=== PATIENT | male | born 1945 | race Caucasian/White ===

== ENCOUNTER 2016-04-12 16:03 | Emergency (ER) | payer MEDICARE ==
[2016-04-12] MEDS ORDERED: Acetaminophen 325 MG TAB ONE ×2 (16:59→19:57)
[2016-04-12] MEDS ORDERED: Acetaminophen 325 MG Suppository ONE (16:59)
[2016-04-12 17:10] LABS: #Basophils 0.1 thou/uL (0.0-0.2); #Eosinphils 0.9 thou/uL (0.0-0.7); #Lymphocytes 2.4 thou/uL (1.20-3.40); #Monocytes 0.9 thou/uL (0.11-0.59); %Eosinophils 7.7 % (0.0-10.0); %Monocytes 8.3 % (0.0-10.0); Mean Platelet Volume 8.9 fL (7.4-10.4); Red Blood Cell (RBC) Count 4.64 mill/uL (4.70-6.10); White Blood Cell (WBC) Count 11.3 thou/uL (4.8-10.8)
[2016-04-12 17:20] LABS: Lactic Acid - Sepsis 1.6 mmol/L (0.5-2.2)
--- NOTE | 2016-04-12 17:25 | CT ---
CT BRAIN WITHOUT CONTRAST: History: Altered mental status. FINDINGS: Comparison is made with exam 01-18-13. There are changes of cortical atrophy. Ventricular size is appropriate and the basilar cisterns are patent. No evidence of acute infarct, hemorrhage, midline shift, or abnormal extraaxial fluid brittany ections are seen. The bony calvarium is intact. 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 IMPRESSION: No CT evidence of acute intracranial process. POS: [facility]
[2016-04-12 17:26] LABS: Anion Gap 20 mmol/L (10-20); Globulin 4.1 g/dL (2.4-3.5)
[2016-04-12 17:28] LABS: Troponin I 0.014 ng/mL (< 0.028)
[2016-04-12 17:38] LABS: ALT (SGPT) 21 U/L (0-55); AST (SGOT) 19 U/L (5-34); Alkaline Phosphatase 90 U/L (40-150); BUN (Urea Nitrogen) 35 mg/dL (8.4-25.7); Bilirubin, Total 0.4 mg/dL (0.2-1.2); Calc. Creatinine Clearance 0 mL/min (70-130); Calcium 9.7 mg/dL (7.8-10.44); Carbon Dioxide 19 mmol/L (23-31); Chloride 100 mmol/L (98-107); Estimated GFR-MDRD 34; Protein, Total 8.1 g/dL (5.8-8.1)
--- NOTE | 2016-04-12 17:39 | RAD ---
PORTABLE CHEST: Date: 04-12-16 Time: 4:55 p.m. History: Constipation, altered mental status. FINDINGS: Comparison is made with exam of 02-26-16. The heart is enlarged. The right sided port-a-cath remains in place. No focal areas of consolidati on, pneumothorax, lowell edema or pleural effusions are seen. IMPRESSION: No acute process. POS: [facility]
[2016-04-12 17:48] LABS: Bilirubin Negative (Negative); Blood, Urine Small (Negative); Glucose, Urine (Dipstick) 100 mg/dL (Negative); Ketone, Urine Trace mg/dL (Negative); Nitrite Positive (Negative); Protein, Urine (Dipstick) 30 mg/dL (Neg-Trace); Urobilinogen 0.2 mg/dL (0.2-1.0)
[2016-04-12] MEDS ORDERED: Aspirin 325 MG TAB ONE (17:51)
[2016-04-12 17:56] LABS: RBC/HPF 0-3 HPF (0-3)
[2016-04-12 17:57] LABS: Bacteria/HPF 4+ HPF (None Seen)
[2016-04-12 18:01] LABS: PTT 23.6 SEC (22.9-36.1); Prothrombin Time 12.8 SEC (12.0-14.7)
[2016-04-12] MEDS ORDERED: Enoxaparin Sodium 120 MG/0.8 ML SYRINGE SC ONE (18:35)
--- NOTE | 2016-04-12 19:35 | ERRECORD ---
[facility] EMERGENCY RECORD HPI MENTAL STATUS CHANGES (18:31 JOHE) CHIEF COMPLAINT: Patient presents for evaluation of confusion. HISTORIAN: History provided by patient, History provided by patient's spouse, Spouse reports patient had episode of confusion and difficulty recalling things that began suddenly about 20 minutes prior to arrival in ED, and lasted until just after arrival to ED. Patient reports he has not been sleeping well for past several nights, and reports he had a n occipital headache until this morning, now gone. Seen here for abdominal pain/constipation last night and reports had a loose BM earlier that improved the pain, but it is still there. Patient denies F&C, vomiting, hematochezia, melena, urinary symptoms, CP, SOB, palpitations. There was no facial droop, numbness/tingling or weakness or slurring of the speech. Patient has a-fib, but no currently taking Coumadin. Did not take his aspirin today. reports patient did take his insulin just before she realized he was confused, and they are not sure if he took the correct amount or not. LOCATION: Symptoms are generalized. QUALITY: Patient is alert and oriented to person, place and time, Camila coma score is 15, Pain is dull in nature, described as a sensation of fullness, abdominal fullness. SEVERITY: Maximum severity of symptoms severe, Currently there are no symptoms. TIME COURSE: Sudden onset of symptoms, just prior to arrival, 20, minutes prior to arrival, Symptoms are constant, Symptoms have resolved. ASSOCIATED WITH: Associated symptoms reviewed, No associated alcohol use, No associated altered sensation, No associated chest pain, No associated decrease in oral intake, No associated dizziness, No associated drug use, No associated fever, No associated focal weakness, No associated headache, No associated hyperglycemia, No associated hypoglycemia, No associated lightheadedness, Associated with nausea, No associated neck pain, No associated overdose, No associated palpitations, No associated seizures, No associated severe hypertension, No associated syncope, No associated trauma, No associated upper respiratory infection, No associated vomiting, No associated weakness, Denies any other complaints. EXACERBATED BY: Patient's condition exacerbated by nothing. RELIEVED BY: Patient's condition relieved spontaneously. RISK FACTORS: CVA/TIA risk factors, Atrial fibrillation, Heart disease, Diabetes mellitus, Hypertension, Subarachnoid hemorrhage risk factors, no first degree relative, no history of subarachnoid hemorrhage, No evidence of Marfan's Syndrome, no Analia Danlos Syndrome, No Sympathomimetic Drug Use, no polycystic kidney. ROS (18:37 JOHE) CONSTITUTIONAL: Historian denies chills, denies fever, denies lethargy, denies malaise, denies weakness. &a-1R&a+25V*p+0X*[id number]*c202B*c15G*c2P*p-0X&a-25V&a+1R Name: Dano Wright : 1945 M70 MedRec: [id number] AcctNum: [id number] Prepared: WedApr 13, 2016 00:03 by Interface Page 1 of 6 pMD [facility] EMERGENCY RECORD EYES: Historian denies eye pain, denies eye redness, denies nystagmus, denies photophobia, denies vision changes. ENT: Historian denies drooling, denies dysphagia, denies dysphasia, denies dysphonia, denies hearing changes, denies otalgia, denies rhinorrhea, denies sore throat, denies stridor, denies tinnitus, denies voice changes. CARDIOVASCULAR: Historian denies chest pain, denies diaphoresis, denies dyspnea on exertion, denies orthopnea, denies syncope, denies palpitations. RESPIRATORY: Historian denies cough, denies shortness of breath, denies wheezing. GI: Historian reports abdominal pain, denies appetite changes, reports constipation, denies diarrhea, denies hematemesis, denies hematochezia, denies melena, reports nausea, denies vomiting. GENITOURINARY MALE: Historian denies dysuria, denies hematuria, denies urinary frequency, denies urinary urgency. self-caths due to complications from cancer treatment. MUSCULOSKELETAL: Historian denies back pain, denies joint redness, denies joint swelling, denies myalgias, denies neck pain. SKIN: Historian denies cellulitis, denies rash, denies skin lesions. NEUROLOGIC: Historian reports confusion, denies dizziness, denies focal weakness, denies gait changes, denies headache, denies lethargy, reports mental status changes, denies paralysis, denies paresthesias, denies seizures, denies sensory changes, denies speech changes, denies tremors. HEMO/LYMPHATIC: Historian denies abnormal blood clotting, denies easy bruising, denies petechiae. PSYCHIATRIC: Historian denies alcohol abuse, denies drug abuse, denies hallucinations, denies mood changes. NOTES: All systems reviewed, negative except as described above. PAST MEDICAL HISTORY (16:15 MCBE) MEDICAL HISTORY: Flu vaccine up to date, Tetanus immunization up to date, Pneumococcal vaccine up to date, Past medical history includes cardiac history, arrhythmia, atrial fibrillation, ablation 2.5 years ago, Notes: stage 4 colon cancer (remissionx7 years), Past medical history includes history of diabetes, Type II, on insulin, Past medical history includes history of hypertension, which has been treated, Past medical history includes neurological disease, neuropathy, restless leg syndrome, Past medical history includes history of obesity, Past medical history includes pulmonary disease, Sleep apnea. MALE SURGICAL HISTORY: Surgical history of cholecystectomy, Surgical history of tonsillectomy, COLON SX 7 YEARS AGO LIVER RESECTION. RIGHT 4TH DIGIT AMPUTATION (MARCH 2016) HERNIA REPAIR. PSYCHIATRIC HISTORY: Psychiatric history includes, anxiety, &a-1R&a+25V*p+0X*[id number]*c202B*c15G*c2P*p-0X&a-25V&a+1R Name: Dano Wright : 1945 M70 MedRec: [id number] AcctNum: [id number] Prepared: WedApr 13, 2016 00:03 by Interface Page 2 of 6 pMD [facility] EMERGENCY RECORD depression. SOCIAL HISTORY: Patient denies alcohol use, Patient denies drug use, Patient has no smoking history. KNOWN ALLERGIES No Known Allergies (Unconfirmed) No Known Drug Allergies CURRENT MEDICATIONS (16:12 [facility]BE) glipiZIDE: TABLET : Strength - 10 mg : ORAL Patient Dose: 1 tab(s) Oral 2 times a day. HumaLOG: VIAL (ML) : Strength - 100 unit/mL : SUBCUTANEOUS Patient Dose: Unknown.SLIDING SCALE IF ABOVE 170. Levemir Flexpen: INSULIN PEN (ML) : Strength - 100 unit/mL (3 mL) : SUBCUTANEOUS Patient Dose: 40 units Subcutaneous 2 times a day. Janumet: TABLET : Strength - 50 mg-1,000 mg : ORAL Patient Dose: 2 times a day. lisinopril: TABLET : Strength - 20 mg : ORAL Patient Dose: 20 mg once a day. Ultram: TABLET : Strength - 50 mg : ORAL Patient Dose: 1 tab(s) Oral every 6 hours PRN. gabapentin: CAPSULE : Strength - 300 mg : ORAL Patient Dose: 300 mg Oral once a day (in the evening). meTOPROLOL succinate: TABLET, EXTENDED RELEASE 24 HR : Strength - 100 mg : ORAL Patient Dose: 100 mg Oral 2 times a day. rOPINIRole: TABLET : Strength - 3 mg : ORAL Patient Dose: 3 mg Oral once a day (in the evening). ciprofloxacin HCl: TABLET : Strength - 250 mg : ORAL Patient Dose: 250 mg Oral 2 times a day. VITAL SIGNS VITAL SIGNS: BP: 158/63, Pulse: 58, Resp: 18, O2 sat: 98 on Room Air, Time: 04/12/2016 16:12. (16:12 [facility]BE) Temp: 98.6 (Oral), Pain: 5, Time: 04/12/2016 16:40. (16:40 [facility]) BP: 119/66, Pulse: 60, Resp: 17, Pain: 2, O2 sat: 100 on Room Air, Time: 04/12/2016 17:00. (17:00 [facility]) BP: 170/70, Pulse: 62, O2 sat: 100 on Room Air, Time: 04/12/2016 18:16. (18:16 KASA) BP: 139/50, Pulse: 62, O2 sat: 100 on Room Air, Time: 04/12/2016 19:10. (19:10 [facility]) &a-1R&a+25V*p+0X*l7509I*c202B*c15G*c2P*p-0X&a-25V&a+1R Name: Dano Wright Betty : 1945 M70 MedRec: [id number] AcctNum: [id number] Prepared: WedApr 13, 2016 00:03 by Interface Page 3 of 6 pMD [facility] EMERGENCY RECORD BP: 132/66, Pulse: 71, O2 sat: 99 on Room Air, Time: 04/12/2016 19:30. (19:30 [facility]) BP: 138/57, Pulse: 67, Resp: 17, Temp: 98.8 (Oral), Pain: 6 (Constant), O2 sat: 99 on Room Air, Time: 04/12/2016 19:55. (19:55 [facility]) PHYSICAL EXAM (18:39 [facility]) CONSTITUTIONAL: Vital Signs Reviewed, Patient appears non toxic, Patient alert and oriented to person, place and time. HEAD: Head exam normal, Head exam included findings of head atraumatic, normocephalic. EYES: Eye exam normal, Eye exam included findings of eyelids normal to inspection, Pupils equally round and reactive to light, Extraocular muscles intact, Conjunctiva normal, Sclera normal, Eye exam included findings of anterior chamber clear. ENT: Pharynx exam normal, not injected, no swelling, symmetrical, Uvula exam normal, midline, no edema, Tonsil exam normal, not enlarged, no exudates, Mouth exam normal, mucous membranes moist, no drooling, no lesions, no lacerations, no tongue elevation. NECK: Neck exam normal, Neck exam included findings of normal range of motion, Trachea midline, no carotid bruits, no meningeal signs, no jugular venous distention, no cervical adenopathy, no tenderness. RESPIRATORY CHEST: Respiratory and chest exam normal, Respiratory exam included findings of no respiratory distress, Breath sounds clear, No wheezing, No rales, No rhonchi, Breath sounds not absent, Breath sounds not diminished, Chest exam included findings of chest movement symmetrical, CTAB. CARDIOVASCULAR: Cardiovascular assessment normal, Cardiovascular exam included findings of heart rate regular rate and rhythm, Heart sounds normal, Carotids normal, Pedal pulses normal, RRR, no R/M/G. + pulses all ext., no bruits, no edema. ABDOMEN MALE: Abdominal exam included findings of abdomen tender, Bowel sounds normal, no distension, no mass, no pulsatile masses, no peritoneal signs, no rigidity, no guarding, no rebound, Soft, ND, mildly TTP diffusely without guarding or rebound. + BS, no CVAT. BACK: Back exam normal, Back exam included findings of normal inspection, range of motion normal, no costovertebral angle tenderness. UPPER EXTREMITY: Upper extremity exam normal, Upper extremity exam included findings of inspection normal, Range of motion normal, Motor strength normal, Sensation intact, Radial pulse normal. LOWER EXTREMITY: Lower extremity exam normal, Lower extremity exam included findings of inspection normal, Range of motion normal, Motor strength normal, Sensation intact, Posterior tibial pulse normal, Pedal pulse normal, no calf tenderness, no palpable cords. NEURO: Neuro exam findings include patient oriented to person, place and time, Speech normal, Camila coma scale 15, Cranial nerves intact, Deep tendon reflexes normal, no focal motor deficits, no focal sensory deficits, no cerebellar deficits, Babinski's negative, &a-1R&a+25V*p+0X*k3111P*c202B*c15G*c2P*p-0X&a-25V&a+1R Name: Dano Wright : 1945 M70 MedRec: [id number] AcctNum: [id number] Prepared: WedApr 13, 2016 00:03 by Interface Page 4 of 6 pMD [facility] EMERGENCY RECORD no nystagmus, no clonus, no asterixis, NIHSS 0. AAO X3, CN II-XII intact bilaterally, str. 5/5 all ext., reflexes 1-2+/4 equal all ext., normal finger-nose, EARNESTINE, heel-lam, sensation intact light touch all ext. SKIN: Skin exam normal, I have completed a skin comprehensive exam and found exam normal, Skin warm, dry, and normal in color. PSYCHIATRIC: Psychiatric exam included findings of patient oriented to person place and time, Normal affect, Judgment normal, Insight normal, Remote memory normal, No suicidal ideations, No homicidal ideations. EKG INTERPRETATION (17:05 JOHE) 12 LEAD EKG INTERPRETATION: 12 lead EKG interpreted by Emergency Department Physician at time of study, 12 lead EKG shows, atrial fibrillation with controlled ventricular response, Rate (beats per minute): 68, with no ectopics, Similar to old EKG, Conduction normal, ST segments normal, T waves normal, Mckinney normal, No other findings, stable compared to EKG from 0352 today (prior visit). RADIOLOGYINTERPRETATION HEAD: Head CT negative, without contrast, no bleed, no mass, no acute ischemic stroke, no acute changes. (19:20 JOHE) CHEST: Chest films negative, FINDINGS: Comparison is made with exam of 02-26-16. The heart is enlarged. The right sided port-a-cath remains in place. No focal areas of consolidation, pneumothorax, lowell edema or pleural effusions are seen. IMPRESSION: No acute process. (19:17 JOHE) ABDOMEN: Abdomen/pelvis CT scan, without contrast negative, no abdominal aortic aneurysm, no appendicitis, no diverticulitis, no kidney stones, no injuries, no mass, no obstruction, no free air, no hydronephrosis. 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 (19:17 JOHE) MEDICATION ADMINISTRATION SUMMARY Drug Name: acetaminophen oral, Dose Ordered: 650 mg, Route: Oral, Status: Given, Time: 19:56 04/12/2016, Drug Name: Lovenox, Dose Ordered: 1 mg/kg, Route: Subcutaneous, Status: Given, Time: 18:40 04/12/2016, Drug Name: Levaquin intravenous, Dose Ordered: 750 mg, Route: IV Piggy Back, Status: Given, Time: 18:15 04/12/2016, Drug Name: aspirin oral, Dose Ordered: 325 mg, Route: Oral, Status: Given, Time: 17:55 04/12/2016, Drug Name: acetaminophen oral, Dose Ordered: 650 mg, Route: Oral, Status: Given, Time: 17:02 04/12/2016, Detailed record available in &a-1R&a+25V*p+0X*s7248T*c202B*c15G*c2P*p-0X&a-25V&a+1R Name: Dano Wright : 1945 M70 MedRec: [id number] AcctNum: [id number] Prepared: WedApr 13, 2016 00:03 by Interface Page 5 of 6 pMD [facility] EMERGENCY RECORD Medication Service section. DOCTOR NOTES RE-EVALUATION: The patient's condition has improved. (18:50 JOHE) TEXT: Discussed with Dr. Oneal, who accepts patient in transfer. (19:07 JOHE) PT. AAO, able to tolerate PO snack in ED. No complaints currently. Discussed results with patient, and need for hospital observation for monitoring and further evaluation of TIA vs. hypoglycemia vs. UTI. Patient and agree to transfer for further care. (18:50 JOHE) DATA REVIEWED: Lab data reviewed, Xray data reviewed, Reviewed EKG. (18:50 LUDA) PROBLEM LIST No recorded problems DIAGNOSIS DIFFERENTIAL: Based on history, exam and ancillary studies if indicated: Impression: acute mental status changes, Impression: possible TIA. (19:07 LUDA) FINAL: PRIMARY: Hypoglycemia (unspecified), ADDITIONAL: Acute cystitis with hematuria. (18:52 LUDA) PRESCRIPTION No recorded prescriptions DISPOSITION PATIENT: Disposition Type: Transfer, Disposition: Transfer to [facility], Condition: Fair. (18:52 LUDA) Patient left the department. (20:26 NORBERTO) Long: LUDA=MD Maria M, Tino THORNTON=Nav, RN, Tiffanie JACOBS=Davida Cole &a-1R&a+25V*p+0X*w6551H*c202B*c15G*c2P*p-0X&a-25V&a+1R Name: Dano Wright : 1945 M70 MedRec: [id number] AcctNum: [id number] Prepared: WedApr 13, 2016 00:03 by Interface Page 6 of 6 pMD [facility]TDD
--- NOTE | 2016-04-12 19:40 | PICIS ---
[facility] EMERGENCY RECORD TRIAGE (WedApr 12, 2016 16:12 MCBE) TRIAGE NOTES: Was seen here last night for constipation. reports can't get any relief. unable to sleep. headed to family gathering and patient became confused. reports pt was unable to finish sentences. (WedApr 12, 2016 16:12 MCBE) PATIENT: NAME: Dano Wright, AGE: 70, GENDER: male, : Wed1945, TIME OF GREET: WedApr 12, 2016 16:04, PREFERRED LANGUAGE: Lithuanian, ETHNICITY: Not or , ECODE BILLING MAP: [facility], SSN: [id number], Zip Code: [address], KG WEIGHT: 117.93, PHONE: , , , PERSON ID: [id number]. (WedApr 12, 2016 16:12 MCBE) COMPLAINT: NAUSEA,HEADACHE,CONFUSION. ([place] Apr 12, 2016 16:12 MCBE) ADMISSION: URGENCY: 2 Emergent, ADMISSION SOURCE: Home, TRANSPORT: CAR, BED: ER -02. (WedApr 12, 2016 16:12 MCBE) ASSESSMENT: Assessment: PATIENT IS NOTED TO HAVE DIFFICULTY IN FINISING SENTENCES. A&Ox4. (16:15 MCBE) SIRS SCORING: Heart Rate 55-109 (0), Temp range 96.8-101.1 (0), respiratory rate 12-24 (0), Mental Status altered: no (0), Infection or Suspected Infection: No. (16:15 MCBE) TRIAGE SCREENING: Patient denies suicidal ideation, Patient denies presence of domestic violence. (16:15 MCBE) PROVIDERS: TRIAGE NURSE: Davida Cole. (WedApr 12, 2016 16:12 MCBE) PREVIOUS VISIT ALLERGIES: No Known Drug Allergies. (WedApr 12, 2016 16:12 MCBE) No Known Drug Allergies. (16:15 MCBE) KNOWN ALLERGIES No Known Allergies (Unconfirmed) No Known Drug Allergies CURRENT MEDICATIONS (16:12 MCBE) glipiZIDE: TABLET : Strength - 10 mg : ORAL Patient Dose: 1 tab(s) Oral 2 times a day. HumaLOG: VIAL (ML) : Strength - 100 unit/mL : SUBCUTANEOUS Patient Dose: Unknown.SLIDING SCALE IF ABOVE 170. Levemir Flexpen: INSULIN PEN (ML) : Strength - 100 unit/mL (3 mL) : SUBCUTANEOUS Patient Dose: 40 units Subcutaneous 2 times a day. Janumet: TABLET : Strength - 50 mg-1,000 mg : ORAL Patient Dose: 2 times a day. lisinopril: TABLET : Strength - 20 mg : ORAL Patient Dose: 20 mg once a day. Ultram: &a-1R&a+25V*p+0X*b7555V*c202B*c15G*c2P*p-0X&a-25V&a+1R Name: Dano Wright : 1945 M70 MedRec: [id number] AcctNum: [id number] Prepared: WedApr 13, 2016 00:09 by Interface Page 1 of 19 pMD [facility] EMERGENCY RECORD TABLET : Strength - 50 mg : ORAL Patient Dose: 1 tab(s) Oral every 6 hours PRN. gabapentin: CAPSULE : Strength - 300 mg : ORAL Patient Dose: 300 mg Oral once a day (in the evening). meTOPROLOL succinate: TABLET, EXTENDED RELEASE 24 HR : Strength - 100 mg : ORAL Patient Dose: 100 mg Oral 2 times a day. rOPINIRole: TABLET : Strength - 3 mg : ORAL Patient Dose: 3 mg Oral once a day (in the evening). ciprofloxacin HCl: TABLET : Strength - 250 mg : ORAL Patient Dose: 250 mg Oral 2 times a day. VITAL SIGNS VITAL SIGNS: BP: 158/63, Pulse: 58, Resp: 18, O2 sat: 98 on Room Air, Time: 04/12/2016 16:12. (16:12 MCBE) Temp: 98.6 (Oral), Pain: 5, Time: 04/12/2016 16:40. (16:40 MCBE) BP: 119/66, Pulse: 60, Resp: 17, Pain: 2, O2 sat: 100 on Room Air, Time: 04/12/2016 17:00. (17:00 MCBE) BP: 170/70, Pulse: 62, O2 sat: 100 on Room Air, Time: 04/12/2016 18:16. (18:16 KASA) BP: 139/50, Pulse: 62, O2 sat: 100 on Room Air, Time: 04/12/2016 19:10. (19:10 KASA) BP: 132/66, Pulse: 71, O2 sat: 99 on Room Air, Time: 04/12/2016 19:30. (19:30 KASA) BP: 138/57, Pulse: 67, Resp: 17, Temp: 98.8 (Oral), Pain: 6 (Constant), O2 sat: 99 on Room Air, Time: 04/12/2016 19:55. (19:55 KASA) NURSING ASSESSMENT: CVA ASSESSMENT TOOL CONSTITUTIONAL: Complex assessment performed, Patient arrives ambulatory, Gait steady, History obtained from patient, Patient appears comfortable, Patient cooperative, Patient alert, Patient is, oriented to person, oriented to time, disoriented, confused, Skin warm, Skin dry, Skin normal in color, Mucous membranes pink, Mucous membranes moist, Patient is well-groomed. (16:20 LCAS) PAIN: Patient rates pain as 0 out of 10. (16:20 LCAS) CVA ASSESSMENT: CVA assessment findings include sudden onset of symptoms, at 1600, Pupils equally round and reactive to light, Speech, expressively aphasic, Hand grasps equal, Foot press equal, Upper extremity motor strength strong, Lower extremity motor strength strong, no facial numbness, no facial droop, no numbness to upper extremities, no numbness to lower extremities, [place] coma scale:, Eye opening: (4) - Spontaneous, Verbal: (4) - Confused/disoriented, Motor: (6) - Obeys commands/Spontaneous, GCS Total: 14. (16:20 LCAS) NIHSS: CVA assessment findings: Level of consciousness: alert, keenly responsive (0), Questions: answers both questions correctly &a-1R&a+25V*p+0X*p4138V*c202B*c15G*c2P*p-0X&a-25V&a+1R Name: Dano Wright : 1945 M70 MedRec: [id number] AcctNum: [id number] Prepared: WedApr 13, 2016 00:09 by Interface Page 2 of 19 pMD [facility] EMERGENCY RECORD (0), Commands: performs both tasks correctly (0), Best gaze: normal (0), Visual: no visual loss (0), Facial palsy: normal symmetrical movement (0), Motor Left Arm: no drift, arm stays 90/45 degrees for full 10 seconds (0), Motor Right Arm: no drift, arm stays 90/45 degrees for full 10 seconds (0), Motor left leg: no drift, leg stays at 30 degrees for full five seconds (0), Motor right leg: no drift, leg stays at 30 degrees for full five seconds (0), Limb ataxia absent (0), Sensory: normal, no sensory loss (0), Best language: mild to moderate aphasia; some obvious loss of fluency or facility of comprehension without significant limitation on ideas expressed or form of expression. Reduction of speech and/or comprehension, however, makes conversation about provided material difficult or impossible (1), Dysarthria: normal (0), Extinction and Inattention: normal (0), Total score 1. (16:20 LCAS) CVA assessment findings: Level of consciousness: alert, keenly responsive (0), Questions: answers both questions correctly (0), Commands: performs both tasks correctly (0), Best gaze: normal (0), Visual: no visual loss (0), Facial palsy: normal symmetrical movement (0), Motor Left Arm: no drift, arm stays 90/45 degrees for full 10 seconds (0), Motor Right Arm: no drift, arm stays 90/45 degrees for full 10 seconds (0), Motor left leg: no drift, leg stays at 30 degrees for full five seconds (0), Motor right leg: no drift, leg stays at 30 degrees for full five seconds (0), Limb ataxia absent (0), Sensory: normal, no sensory loss (0), Best language: no aphasia; normal (0), Dysarthria: normal (0), Extinction and Inattention: normal (0), Total score 0. (18:49 MCBE) NOTES: Notes: Patient had difficulty describing pictures and answering the date but was eventually able to answer all correctly. (16:20 LCAS) SAFETY: Side rails up, Cart/Stretcher in lowest position, Family at bedside, Call light within reach, Hospital ID band on. (16:20 LCAS) NURSING ASSESSMENT: DYSPHAGIA SCREENING (16:19 MCBE) SWALLOWING EVALUATION: Patient clear for swallowing evaluation; no positive responses, Swallowing evaluation approved by Dr. LÓPEZ, Following administration of 3 ounces of water by a cup, patient exhibited no signs or symptoms of aspiration, passed evaluation. NURSING ASSESSMENT: FALL RISK (18:41 MCBE) FALL RISK: Fall risk assessment findings include: no history of falls (0), No sensory deficits (0), No impaired mobility (0), No confusion (0), Total score 0, No risk for fall. NURSING ASSESSMENT: SKIN (18:41 MCBE) SKIN: Skin assessment findings include skin warm, Skin dry, Skin normal in color, Inspection findings include: No pressure ulcer to the shoulder, Inspection findings include no pressure ulcer to the elbow, Inspection findings include no pressure ulcers to the hip, Inspection findings include no pressure ulcer to the sacrum, &a-1R&a+25V*p+0X*b4400F*c202B*c15G*c2P*p-0X&a-25V&a+1R Name: Dano Wright : 1945 M70 MedRec: [id number] AcctNum: [id number] Prepared: WedApr 13, 2016 00:09 by Interface Page 3 of 19 D [facility] EMERGENCY RECORD Inspection findings include no pressure ulcer to the heel, Inspection findings include no pressure ulcer, Inspection findings include no pressure ulcer. SKYLAR SCALE: (4) Sensory perception has no impairment, (4) Skin is rarely moist, (4) Patient walks frequently, (4) No mobility limitations, (3) Adequate nutrition, (3) Patient has no apparent problem moving, Skylar Risk Total: 22. NURSING PROCEDURE: BEDSIDE RADIOLOGY (17:04 MCBE) PATIENT IDENTIFIER: Patient actively involved in identification process, Patient's identity verified by patient stating name, Patient's identity verified by patient stating date, Patient's identity verified by hospital ID bracelet. BEDSIDE RADIOLOGY: Portable chest x-ray performed. NURSING PROCEDURE: BEDSIDE SIRS TESTING (18:41 MCBE) SCORES: Heart Rate 55-109 (0), Temp range 96.8-101.1 (0), respiratory rate 12-24 (0), Mental Status altered: no (0), Infection or Suspected Infection: No. NURSING PROCEDURE: BEDSIDE TESTING GLUCOSE: Glucose testing indicated for diabetic patient, Glucose testing indicated for mental status changes, Capillary blood sample, Result (mg/dl) 97. (16:18 LCAS) Glucose testing indicated for diabetic patient, Capillary blood sample, Result (mg/dl) 109. (18:51 KASA) SAFETY: Side rails up, Cart/Stretcher in lowest position, Family at bedside, Call light within reach, Hospital ID band on. (18:51 KASA) NURSING PROCEDURE: TECHNOLOGY DIRECTOR (16:15 MCBE) PATIENT IDENTIFIER: Patient actively involved in identification process, Patient's identity verified by patient stating name, Patient's identity verified by patient stating date, Patient's identity verified by hospital ID bracelet. TECHNOLOGY DIRECTOR: Cardiac monitoring indicated for mental status changes, Patient placed on monitoring analyst, Heart rate: 60, showing normal sinus rhythm, Patient placed on non-invasive blood pressure monitor, with disposable blood pressure cuff applied, Patient placed on continuous pulse oximetry, Adult/pediatric oxisensor applied. NURSING PROCEDURE: EKG CHART (16:56 MCBE) PATIENT IDENTIFIER: Patient actively involved in identification process, Patient's identity verified by patient stating name, Patient's identity verified by patient stating date, Patient's identity verified by hospital ID bracelet. EKG: EKG indicated for AMS. FOLLOW-UP: After procedure, EKG for interpretation given to Dr. LÓPEZ. &a-1R&a+25V*p+0X*z7917L*c202B*c15G*c2P*p-0X&a-25V&a+1R Name: Dano Wright : 1945 M70 MedRec: [id number] AcctNum: [id number] Prepared: WedApr 13, 2016 00:09 by Interface Page 4 of 19 D [facility] EMERGENCY RECORD NURSING PROCEDURE: IV PATIENT IDENITIFIER: Patient actively involved in identification process, Patient's identity verified by patient stating name, Patient's identity verified by patient stating date, Patient's identity verified by hospital ID bracelet. (16:35 MCBE) Patient actively involved in identification process, Patient's identity verified by patient stating name, Patient's identity verified by patient stating date, Patient's identity verified by hospital ID bracelet. (17:03 BE) IV SITE 1: IV therapy indicated for hydration, IV therapy indicated for medication administration, Labs drawn at time of placement, labeled in the presence of the patient and sent to lab, Notes: 2 ATTEMPTS BY DAVIDA PATTERSON 1 ATTEMPT BY MARY PATTERSON. (16:35 MCBE) IV therapy indicated for hydration, IV therapy indicated for medication administration, IV established, to the right antecubital, using an 18 gauge catheter, IV site prepped with CHLORAPREP, Saline lock established, Flushed with normal saline (mls): 10. (17:03 MCBE) NOTES: Procedure done by HERBIE PATTERSON. (17:03 MCBE) NURSING PROCEDURE: LAB DRAW PATIENT IDENTIFIER: Patient actively involved in identification process, Patient's identity verified by patient stating name, Patient's identity verified by patient stating date. (19:20 KASA) Patient actively involved in identification process, Patient's identity verified by patient stating name, Patient's identity verified by patient stating date. (19:30 KASA) LAB DRAW: Lab draw indicated for obtaining specimens for evaluation, Subsequent lab draw performed, from vascular access device, existing IV site, R AC, After labs drawn, device flushed with saline, amount (mL) 10, Blood cultures labeled in the presence of the patient and sent to lab. (19:20 KASA) Lab draw indicated for obtaining specimens for evaluation, Subsequent lab draw performed, from vascular access device, port-a-cath, Right upper chest, After labs drawn, device flushed with saline, amount (mL) 10 ml, Blood cultures labeled in the presence of the patient and sent to lab. (19:30 KASA) FOLLOW-UP: After procedure, dressing applied to site, After procedure, no swelling at site, After procedure, no active bleeding from site. (19:30 KASA) SAFETY: Side rails up, Cart/Stretcher in lowest position, Family at bedside, Call light within reach, Hospital ID band on. (19:20 KASA) Side rails up, Cart/Stretcher in lowest position, Family at bedside, Call light within reach, Hospital ID band on. (19:30 KASA) NURSING PROCEDURE: NURSE NOTES NURSES NOTES: Notes: Mary PATTERSON informed doctor of glu of &a-1R&a+25V*p+0X*o4173C*c202B*c15G*c2P*p-0X&a-25V&a+1R Name: Dano Wright : 1945 M70 MedRec: [id number] AcctNum: [id number] Prepared: WedApr 13, 2016 00:09 by Interface Page 5 of 19 pMD [facility] EMERGENCY RECORD 46. advised to give more juice and crackers. patient was given juice and crackers. (17:00 MCBE) Notes: PATIENT AMBULATES TO THE BATHROOM WITHOUT DIFFICULTY. (18:33 MCBE) NURSING PROCEDURE: PORT-A-CATH (19:30 KASA) PORT-A-CATH SITE 1: Port-a-cath access indicated for lab draw, Port-a-cath access indicated for medication administration, Port-a-cath accessed, by YESENIA Moreno, to Right upper chest, Site cleansed with Chlorahexidine, 19 gauge 25mm (1 inch) straight needle inserted, with a 19 gauge 20mm (3/4 inch) extension set, in one attempt, Flushed with normal saline, Amount (mL) 10, Blood cultures drawn from port-a-cath, labeled in the presence of the patient and sent to lab, Notes: Accessed using sterile procedure. Patient tolerated well. FOLLOW-UP SITE 2: After procedure, sterile dressing applied. SAFETY: Side rails up, Cart/Stretcher in lowest position, Family at bedside, Call light within reach, Hospital ID band on. NURSING PROCEDURE: TRANSFER (20:14 KASA) TRANSFER: Reason for transfer need for specialized care, Diagnosis: Hypoglycemia, Accepting institution: [facility], Accepting physician: Jm, Referring physician: Maria M, Transported by non-urgent ambulance, accompanied by emergency medical services personnel, Report called to receiving facility, YESENIA Moya, Provided opportunity to answer questions, Bed assigned ER to ER, Summary of Care printed, Copy of patient record prepared for receiving facility, Copy of diagnostic studies, Status of patient's valuables documented on chart, Medication reconciliation form prepared and sent to receiving facility, Patient consent for transfer signed, Patient given appropriate sedation for safe transport, Family member contacted, at bedside. BELONGINGS: Belongings and valuables with patient upon arrival to the Emergency Department include:, Belongings and valuables with patient at time of discharge include:, Belongings sent home with family member, name: , Notes: Clothing sent home with . Patient to take Cell phone and CPAP with him to [place]. SAFETY: Side rails up, Cart/Stretcher in lowest position, Family at bedside, Call light within reach, Hospital ID band on. NURSING PROCEDURE: TRANSPORT TO TESTS TRANSPORT TO TESTS: Patient transported to CT scan, via cart, Accompanied by x-ray lab animal technician, Patient arrived in location at 16:40, Patient departed location at 16:50. (16:37 CCRI) Patient transported to CT scan, via cart, Accompanied by x-ray lab animal technician, Patient arrived in location at 17:42, Patient departed location at 17:57. (17:43 CCRI) NURSING PROCEDURE: URINE COLLECTION (17:30 MCBE) PATIENT IDENTIFIER: Patient actively involved in identification &a-1R&a+25V*p+0X*y6016M*c202B*c15G*c2P*p-0X&a-25V&a+1R Name: Dano Wright : 1945 M70 MedRec: [id number] AcctNum: [id number] Prepared: WedApr 13, 2016 00:09 by Interface Page 6 of 19 [facility] EMERGENCY RECORD process, Patient's identity verified by patient stating name, Patient's identity verified by patient stating date, Patient's identity verified by hospital ID bracelet. URINE COLLECTION MALE: Urine collected by straight cath, output amount (mL) 100, urine yellow in color, and clear, Specimen collected, labeled in the presence of the patient and sent to lab, Specimen obtained for culture labeled in the presence of the patient and sent to lab, PATIENT SELF CATH. NOTES: Notes: PATIENT SELF CATH WITH OWN EQUIPMENT. ORDER DETAILS Order Name: Accucheck, Status: Done, Time: 16:27 04/12/2016, User: SERGE, - Ordered for: MD López John, - Entered by: YESENIA Mcmullen Lindsey - Sun Apr 12, 2016 16:26, - Quantity: 1, Order Name: Ammonia, Status: Active, Time: 16:39 04/12/2016, User: LUDA, - Ordered for: MD López John, - Entered by: MD López John - Sun Apr 12, 2016 16:39, - Quantity: 1, Order Name: TECHNOLOGY DIRECTOR ED, Status: Done, Time: 16:41 04/12/2016, User: SERGE, - Ordered for: MD López John, - Entered by: MD López John - Sun Apr 12, 2016 16:37, - Quantity: 1, Order Name: Cardiac Profile w/CKMB & Troponin - I, Status: Active, Time: 16:37 04/12/2016, User: LUDA, - Ordered for: MD López John, - Entered by: MD López John - Sun Apr 12, 2016 16:37, - Quantity: 1, Order Name: CBC with Differential, Status: Active, Time: 16:37 04/12/2016, User: LUDA, - Ordered for: MD López John, - Entered by: MD López John - Sun Apr 12, 2016 16:37, - Quantity: 1, Order Name: Comprehensive Metabolic Panel, Status: Active, Time: 16:37 04/12/2016, User: LUDA, - Ordered for: MD López John, - Entered by: MD López John - Sun Apr 12, 2016 16:37, - Quantity: 1, Order Name: CT Abdomen Pelvis WO Con, Status: Active, Time: 17:16 04/12/2016, User: LUDA, - Ordered for: MD López John, - Entered by: MD López John - Sun Apr 12, 2016 17:16, - Quantity: 1, Order Name: CT Brain WO Con, Status: Active, Time: 16:26 04/12/2016, User: SERGE, - Ordered for: MD López John, &a-1R&a+25V*p+0X*h2793I*c202B*c15G*c2P*p-0X&a-25V&a+1R Name: Dano Wright : 1945 M70 MedRec: [id number] AcctNum: [id number] Prepared: WedApr 13, 2016 00:09 by Interface Page 7 of 19 D [facility] EMERGENCY RECORD - Entered by: YESENIA Mcmullen, Mary Sims Apr 12, 2016 16:26, - Quantity: 1, Order Name: CTA Angio Head W WO Con W Perf (STROKE), Status: Canceled, Time: 17:15 04/12/2016, User: System, - Ordered for: MD López John, - Entered by: MD López John - Sun Apr 12, 2016 16:53, - Quantity: 1, Order Name: CTA Angio Neck W WO Con, Status: Canceled, Time: 17:16 04/12/2016, User: System, - Ordered for: MD López John, - Entered by: MD López John - Sun Apr 12, 2016 16:53, - Quantity: 1, Order Name: Culture, Blood, Status: Active, Time: 17:57 04/12/2016, User: LUDA, - Ordered for: MD López John, - Entered by: MD López John - Sun Apr 12, 2016 17:57, - Quantity: 1, Order Name: Culture, Urine, Status: Active, Time: 17:57 04/12/2016, User: LUDA, - Ordered for: MD López John, - Entered by: MD López John - Sun Apr 12, 2016 17:57, - Quantity: 1, Order Name: DYSPHAGIA SCREEN, Status: Done, Time: 16:41 04/12/2016, User: PokitDok, - Ordered for: MD López John, - Entered by: MD López John - Sun Apr 12, 2016 16:37, - Quantity: 1, Order Name: EKG 12 Lead in Emergency Room, Status: Active, Time: 16:37 04/12/2016, User: LUDA, - Ordered for: MD López John, - Entered by: MD López John - Sun Apr 12, 2016 16:37, - Quantity: 1, Order Name: ERRT Pulse Oximeter ER, Status: Active, Time: 16:37 04/12/2016, User: LUDA, - Ordered for: MD López John, - Entered by: MD López John - Sun Apr 12, 2016 16:37, - Quantity: 1, Order Name: Lactic Acid with repeat, Status: Active, Time: 16:38 04/12/2016, User: LUDA, - Ordered for: MD López John, - Entered by: MD López John - Sun Apr 12, 2016 16:38, - Quantity: 1, Order Name: NIHSS, Status: Done, Time: 16:27 04/12/2016, User: SERGE, - Ordered for: MD López John, - Entered by: YESENIA Mcmullen, Mary Sims Apr 12, 2016 16:26, - Quantity: 1, Order Name: Protime with INR, Status: Active, Time: 16:37 04/12/2016, User: LUDA, - Ordered for: MD López John, - Entered by: MD López John - Sun Apr 12, 2016 16:37, &a-1R&a+25V*p+0X*h0249Y*c202B*c15G*c2P*p-0X&a-25V&a+1R Name: Dano Wright : 1945 M70 MedRec: [id number] AcctNum: [id number] Prepared: WedApr 13, 2016 00:09 by Interface Page 8 of 19 D [facility] EMERGENCY RECORD - Quantity: 1, Order Name: PTT, Status: Active, Time: 16:37 04/12/2016, User: LUDA, - Ordered for: MD Lópze John, - Entered by: MD López John - Sun Apr 12, 2016 16:37, - Quantity: 1, Order Name: SALINE LOCK, Status: Done, Time: 16:27 04/12/2016, User: SERGE, - Ordered for: MD López John, - Entered by: YESENIA Mcmullen, Mary Sims Apr 12, 2016 16:26, - Quantity: 1, Order Name: Urinalysis w/ Rflx Microscopic, Status: Active, Time: 17:30 04/12/2016, User: ARLENE, - Ordered for: MD López John, - Entered by: Davida Cole Apr 12, 2016 17:30, - Quantity: 1, Order Name: XR Chest 1 View Portable, Status: Active, Time: 16:39 04/12/2016, User: LUDA, - Ordered for: MD Maria M, Tino, - Entered by: MD López John - Bethany Apr 12, 2016 16:39, - Quantity: 1. MEDICATION ADMINISTRATION SUMMARY Drug Name: acetaminophen oral, Dose Ordered: 650 mg, Route: Oral, Status: Given, Time: 19:56 04/12/2016, Drug Name: Lovenox, Dose Ordered: 1 mg/kg, Route: Subcutaneous, Status: Given, Time: 18:40 04/12/2016, Drug Name: Levaquin intravenous, Dose Ordered: 750 mg, Route: IV Piggy Back, Status: Given, Time: 18:15 04/12/2016, Drug Name: aspirin oral, Dose Ordered: 325 mg, Route: Oral, Status: Given, Time: 17:55 04/12/2016, Drug Name: acetaminophen oral, Dose Ordered: 650 mg, Route: Oral, Status: Given, Time: 17:02 04/12/2016, Detailed record available in Medication Service section. MEDICATION SERVICE acetaminophen oral: Order: acetaminophen oral (acetaminophen) - Dose: 650 mg : Oral Schedule: Now Ordered by: Tino López MD Entered by: MD Bethany Reno Apr 12, 2016 16:38 , Acknowledged by: Davida Sims Apr 12, 2016 16:41 Documented as given by: Davida Sims Apr 12, 2016 17:02 Patient, Medication, Dose, Route and Time verified prior to administration. Amount given: 650MG, Site: Medication administered P.O., Patient appears Awake and alert- acceptable, Correct patient, time, route, dose and medication confirmed prior to administration, Patient advised of actions and side-effects prior to administration, Allergies confirmed and medications reviewed prior to administration, &a-1R&a+25V*p+0X*x2369V*c202B*c15G*c2P*p-0X&a-25V&a+1R Name: Dano Wright : 1945 M70 MedRec: [id number] AcctNum: [id number] Prepared: WedApr 13, 2016 00:09 by Interface Page 9 of 19 pMD [facility] EMERGENCY RECORD Patient in position of comfort, Side rails up, Cart in lowest position, Family at bedside, Call light in reach. acetaminophen oral: Order: acetaminophen oral (acetaminophen) - Dose: 650 mg : Oral Schedule: Now Ordered by: Tino López MD Entered by: MD Bethany Reno Apr 12, 2016 19:54 , Acknowledged by: Tiffanie Chopra RN WedApr 12, 2016 19:56 Documented as given by: Tiffanie Chopra RN WedApr 12, 2016 19:56 Patient, Medication, Dose, Route and Time verified prior to administration. Amount given: 650 mg, Site: Medication administered P.O., Correct patient, time, route, dose and medication confirmed prior to administration, Patient advised of actions and side-effects prior to administration, Allergies confirmed and medications reviewed prior to administration, Patient in position of comfort, Side rails up, Cart in lowest position, Family at bedside. aspirin oral: Order: aspirin oral (aspirin) - Dose: 325 mg : Oral Schedule: Now Ordered by: Tino López MD Entered by: MD Bethany Reno Apr 12, 2016 17:35 , Acknowledged by: Davida Sims Apr 12, 2016 17:36 Documented as given by: Davida Sims Apr 12, 2016 17:55 Patient, Medication, Dose, Route and Time verified prior to administration. Amount given: 325mg, Site: Medication administered P.O., Patient appears Awake and alert- acceptable, Correct patient, time, route, dose and medication confirmed prior to administration, Patient advised of actions and side-effects prior to administration, Allergies confirmed and medications reviewed prior to administration, Patient in position of comfort, Side rails up, Cart in lowest position, Family at bedside, Call light in reach. Levaquin intravenous: Order: Levaquin intravenous (levofloxacin) - Dose: 750 mg : IV Piggy Back Schedule: Now Ordered by: Tino López MD Entered by: MD Bethany [place] Apr 12, 2016 17:56 , Acknowledged by: Davida Sims Apr 12, 2016 18:00 Documented as given by: Davida Sims Apr 12, 2016 18:15 Patient, Medication, Dose, Route and Time verified prior to administration. Amount given: 750MG, IV SITE #1 IVPB or drip, initial infusion, Premixed, via primary tubing, via pump tubing, Awake and alert- acceptable, Verified Blood Culture collection prior to Antibiotic administration, Connections checked prior to administration, Line traced prior to administration, Catheter placement confirmed via flush prior to administration, IV site without signs or symptoms of infiltration during medication administration, No swelling during administration, No drainage during administration, IV flushed after &a-1R&a+25V*p+0X*g4461K*c202B*c15G*c2P*p-0X&a-25V&a+1R Name: Dano Wright : 1945 M70 MedRec: [id number] AcctNum: [id number] Prepared: WedApr 13, 2016 00:09 by Interface Page 10 of 19 pMD [facility] EMERGENCY RECORD administration, Correct patient, time, route, dose and medication confirmed prior to administration, Patient advised of actions and side-effects prior to administration, Allergies confirmed and medications reviewed prior to administration, Patient in position of comfort, Side rails up, Cart in lowest position, Family at bedside, Call light in reach. Lovenox: Order: Lovenox (enoxaparin sodium) - Dose: 1 mg/kg : Subcutaneous Schedule: Now Ordered by: Tino López MD Entered by: Tino López MD [place] Apr 12, 2016 18:16 , Acknowledged by: Davida Sims Apr 12, 2016 18:26, Co-signed by: Mary Mcmullen RN [place] Apr 12, 2016 18:36 Documented as given by: Davida Sims Apr 12, 2016 18:40 Patient, Medication, Dose, Route and Time verified prior to administration. Amount given: 118KG, Medication administered to right abdomen, Correct patient, time, route, dose and medication confirmed prior to administration, Patient advised of actions and side-effects prior to administration, Allergies confirmed and medications reviewed prior to administration, Advised not to ambulate without assistance, Patient in position of comfort, Side rails up, Cart in lowest position, Family at bedside, Call light in reach. HPI MENTAL STATUS CHANGES (18:31 JOHE) CHIEF COMPLAINT: Patient presents for evaluation of confusion. HISTORIAN: History provided by patient, History provided by patient's spouse, Spouse reports patient had episode of confusion and difficulty recalling things that began suddenly about 20 minutes prior to arrival in ED, and lasted until just after arrival to ED. Patient reports he has not been sleeping well for past several nights, and reports he had a n occipital headache until this morning, now gone. Seen here for abdominal pain/constipation last night and reports had a loose BM earlier that improved the pain, but it is still there. Patient denies F&C, vomiting, hematochezia, melena, urinary symptoms, CP, SOB, palpitations. There was no facial droop, numbness/tingling or weakness or slurring of the speech. Patient has a-fib, but no currently taking Coumadin. Did not take his aspirin today. reports patient did take his insulin just before she realized he was confused, and they are not sure if he took the correct amount or not. LOCATION: Symptoms are generalized. QUALITY: Patient is alert and oriented to person, place and time, Camila coma score is 15, Pain is dull in nature, described as a sensation of fullness, abdominal fullness. SEVERITY: Maximum severity of symptoms severe, Currently there are no symptoms. TIME COURSE: Sudden onset of symptoms, just prior to arrival, 20, minutes prior to arrival, Symptoms are constant, Symptoms have resolved. &a-1R&a+25V*p+0X*z2290P*c202B*c15G*c2P*p-0X&a-25V&a+1R Name: Dano Wright : 1945 M70 MedRec: [id number] AcctNum: [id number] Prepared: WedApr 13, 2016 00:09 by Interface Page 11 of 19 pMD [facility] RECORD ASSOCIATED WITH: Associated symptoms reviewed, No associated alcohol use, No associated altered sensation, No associated chest pain, No associated decrease in oral intake, No associated dizziness, No associated drug use, No associated fever, No associated focal weakness, No associated headache, No associated hyperglycemia, No associated hypoglycemia, No associated lightheadedness, Associated with nausea, No associated neck pain, No associated overdose, No associated palpitations, No associated seizures, No associated severe hypertension, No associated syncope, No associated trauma, No associated upper respiratory infection, No associated vomiting, No associated weakness, Denies any other complaints. EXACERBATED BY: Patient's condition exacerbated by nothing. RELIEVED BY: Patient's condition relieved spontaneously. RISK FACTORS: CVA/TIA risk factors, Atrial fibrillation, Heart disease, Diabetes mellitus, Hypertension, Subarachnoid hemorrhage risk factors, no first degree relative, no history of subarachnoid hemorrhage, No evidence of Marfan's Syndrome, no Analia Danlos Syndrome, No Sympathomimetic Drug Use, no polycystic kidney. ROS (18:37 JOHE) CONSTITUTIONAL: Historian denies chills, denies fever, denies lethargy, denies malaise, denies weakness. EYES: Historian denies eye pain, denies eye redness, denies nystagmus, denies photophobia, denies vision changes. ENT: Historian denies drooling, denies dysphagia, denies dysphasia, denies dysphonia, denies hearing changes, denies otalgia, denies rhinorrhea, denies sore throat, denies stridor, denies tinnitus, denies voice changes. CARDIOVASCULAR: Historian denies chest pain, denies diaphoresis, denies dyspnea on exertion, denies orthopnea, denies syncope, denies palpitations. RESPIRATORY: Historian denies cough, denies shortness of breath, denies wheezing. GI: Historian reports abdominal pain, denies appetite changes, reports constipation, denies diarrhea, denies hematemesis, denies hematochezia, denies melena, reports nausea, denies vomiting. GENITOURINARY MALE: Historian denies dysuria, denies hematuria, denies urinary frequency, denies urinary urgency. self-caths due to complications from cancer treatment. MUSCULOSKELETAL: Historian denies back pain, denies joint redness, denies joint swelling, denies myalgias, denies neck pain. SKIN: Historian denies cellulitis, denies rash, denies skin lesions. NEUROLOGIC: Historian reports confusion, denies dizziness, denies focal weakness, denies gait changes, denies headache, denies lethargy, reports mental status changes, denies paralysis, denies paresthesias, denies seizures, denies &a-1R&a+25V*p+0X*c4237V*c202B*c15G*c2P*p-0X&a-25V&a+1R Name: Dano Wright : 1945 M70 MedRec: [id number] AcctNum: [id number] Prepared: WedApr 13, 2016 00:09 by Interface Page 12 of 19 pMD [facility]GENC[facility] RECORD sensory changes, denies speech changes, denies tremors. HEMO/LYMPHATIC: Historian denies abnormal blood clotting, denies easy bruising, denies petechiae. PSYCHIATRIC: Historian denies alcohol abuse, denies drug abuse, denies hallucinations, denies mood changes. NOTES: All systems reviewed, negative except as described above. PAST MEDICAL HISTORY (16:15 BE) MEDICAL HISTORY: Flu vaccine up to date, Tetanus immunization up to date, Pneumococcal vaccine up to date, Past medical history includes cardiac history, arrhythmia, atrial fibrillation, ablation 2.5 years ago, Notes: stage 4 colon cancer (remissionx7 years), Past medical history includes history of diabetes, Type II, on insulin, Past medical history includes history of hypertension, which has been treated, Past medical history includes neurological disease, neuropathy, restless leg syndrome, Past medical history includes history of obesity, Past medical history includes pulmonary disease, Sleep apnea. MALE SURGICAL HISTORY: Surgical history of cholecystectomy, Surgical history of tonsillectomy, COLON SX 7 YEARS AGO LIVER RESECTION. RIGHT 4TH DIGIT AMPUTATION (MARCH 2016) HERNIA REPAIR. PSYCHIATRIC HISTORY: Psychiatric history includes, anxiety, depression. SOCIAL HISTORY: Patient denies alcohol use, Patient denies drug use, Patient has no smoking history. PHYSICAL EXAM (18:39 JOHE) CONSTITUTIONAL: Vital Signs Reviewed, Patient appears non toxic, Patient alert and oriented to person, place and time. HEAD: Head exam normal, Head exam included findings of head atraumatic, normocephalic. EYES: Eye exam normal, Eye exam included findings of eyelids normal to inspection, Pupils equally round and reactive to light, Extraocular muscles intact, Conjunctiva normal, Sclera normal, Eye exam included findings of anterior chamber clear. ENT: Pharynx exam normal, not injected, no swelling, symmetrical, Uvula exam normal, midline, no edema, Tonsil exam normal, not enlarged, no exudates, Mouth exam normal, mucous membranes moist, no drooling, no lesions, no lacerations, no tongue elevation. NECK: Neck exam normal, Neck exam included findings of normal range of motion, Trachea midline, no carotid bruits, no meningeal signs, no jugular venous distention, no cervical adenopathy, no tenderness. RESPIRATORY CHEST: Respiratory and chest exam normal, Respiratory exam included findings of no respiratory distress, Breath sounds clear, No wheezing, No rales, No rhonchi, Breath sounds not absent, Breath sounds not diminished, Chest exam included findings of chest movement symmetrical, CTAB. &a-1R&a+25V*p+0X*j2314M*c202B*c15G*c2P*p-0X&a-25V&a+1R Name: Dano Wright : 1945 M70 MedRec: [id number] AcctNum: [id number] Prepared: WedApr 13, 2016 00:09 by Interface Page 13 of pMD [facility] EMERGENCY RECORD CARDIOVASCULAR: Cardiovascular assessment normal, Cardiovascular exam included findings of heart rate regular rate and rhythm, Heart sounds normal, Carotids normal, Pedal pulses normal, RRR, no R/M/G. + pulses all ext., no bruits, no edema. ABDOMEN MALE: Abdominal exam included findings of abdomen tender, Bowel sounds normal, no distension, no mass, no pulsatile masses, no peritoneal signs, no rigidity, no guarding, no rebound, Soft, ND, mildly TTP diffusely without guarding or rebound. + BS, no CVAT. BACK: Back exam normal, Back exam included findings of normal inspection, range of motion normal, no costovertebral angle tenderness. UPPER EXTREMITY: Upper extremity exam normal, Upper extremity exam included findings of inspection normal, Range of motion normal, Motor strength normal, Sensation intact, Radial pulse normal. LOWER EXTREMITY: Lower extremity exam normal, Lower extremity exam included findings of inspection normal, Range of motion normal, Motor strength normal, Sensation intact, Posterior tibial pulse normal, Pedal pulse normal, no calf tenderness, no palpable cords. NEURO: Neuro exam findings include patient oriented to person, place and time, Speech normal, Camila coma scale 15, Cranial nerves intact, Deep tendon reflexes normal, no focal motor deficits, no focal sensory deficits, no cerebellar deficits, Babinski's negative, no nystagmus, no clonus, no asterixis, NIHSS 0. AAO X3, CN II-XII intact bilaterally, str. 5/5 all ext., reflexes 1-2+/4 equal all ext., normal finger-nose, EARNESTINE, heel-lam, sensation intact light touch all ext. SKIN: Skin exam normal, I have completed a skin comprehensive exam and found exam normal, Skin warm, dry, and normal in color. PSYCHIATRIC: Psychiatric exam included findings of patient oriented to person place and time, Normal affect, Judgment normal, Insight normal, Remote memory normal, No suicidal ideations, No homicidal ideations. LAB INTERPRETATION (19:18 JOHE) INTERPRETATION: I reviewed the lab results, CBC abnormal, White blood cell count elevated, Hemoglobin decreased, Hematocrit decreased, Chemistry abnormal, Glucose decreased, BUN elevated, Creatinine elevated, Bicarbonate decreased, Cardiac enzymes normal, PT normal, PTT normal, Urinalysis abnormal, positive for leukocytes, positive for erythrocytes, positive for nitrites, positive for bacteria, positive for ketones, positive for glucose, positive for protein. EVENTS TRANSFER: Triage to Emergency Emergency Room -02. (16:12 [facility]) Removed from Emergency Emergency Room -02. (20:26 KASA) &a-1R&a+25V*p+0X*c2247I*c202B*c15G*c2P*p-0X&a-25V&a+1R Name: Dano Wright Betty : 1945 M70 MedRec: [id number] AcctNum: [id number] Prepared: WedApr 13, 2016 00:09 by Interface Page 14 of 19 pMD [facility] EMERGENCY RECORD RADIOLOGYINTERPRETATION HEAD: Head CT negative, without contrast, no bleed, no mass, no acute ischemic stroke, no acute changes. (19:20 JOHE) CHEST: Chest films negative, FINDINGS: Comparison is made with exam of 02-26-16. The heart is enlarged. The right sided port-a-cath remains in place. No focal areas of consolidation, pneumothorax, lowell edema or pleural effusions are seen. IMPRESSION: No acute process. (19:17 JOHE) ABDOMEN: Abdomen/pelvis CT scan, without contrast negative, no abdominal aortic aneurysm, no appendicitis, no diverticulitis, no kidney stones, no injuries, no mass, no obstruction, no free air, no hydronephrosis. (19:17 JOHE) PUBLICITY WRITER: Preliminary review of x-rays by, ED Physician, Radiologist, Preliminary review of CT scans by, Radiologist. (19:17 JOHE) EKG INTERPRETATION (17:05 JOHE) 12 LEAD EKG INTERPRETATION: 12 lead EKG interpreted by Emergency Department Physician at time of study, 12 lead EKG shows, atrial fibrillation with controlled ventricular response, Rate (beats per minute): 68, with no ectopics, Similar to old EKG, Conduction normal, ST segments normal, T waves normal, [place] normal, No other findings, stable compared to EKG from 0352 today (prior visit). DOCTOR NOTES RE-EVALUATION: The patient's condition has improved. (18:50 JOHE) TEXT: Discussed with Dr. Oneal, who accepts patient in transfer. (19:07 JOHE) PT. AAO, able to tolerate PO snack in ED. No complaints currently. Discussed results with patient, and need for hospital observation for monitoring and further evaluation of TIA vs. hypoglycemia vs. UTI. Patient and agree to transfer for further care. (18:50 JOHE) DATA REVIEWED: Lab data reviewed, Xray data reviewed, Reviewed EKG. (18:50 JOHE) PROBLEM LIST No recorded problems DIAGNOSIS DIFFERENTIAL: Based on history, exam and ancillary studies if indicated: Impression: acute mental status changes, Impression: possible TIA. (19:07 JOHE) FINAL: PRIMARY: Hypoglycemia (unspecified), ADDITIONAL: Acute cystitis with hematuria. (18:52 JOHE) DISPOSITION &a-1R&a+25V*p+0X*t0087P*c202B*c15G*c2P*p-0X&a-25V&a+1R Name: Dano Wright : 1945 M70 MedRec: [id number] AcctNum: [id number] Prepared: WedApr 13, 2016 00:09 by Interface Page 15 of 19 pMD [facility] EMERGENCY RECORD PATIENT: Disposition Type: Transfer, Disposition: Transfer to [facility], Condition: Fair. (18:52 JOHE) Patient left the department. (20:26 KASA) PRESCRIPTION No recorded prescriptions IMAGING CONSENTS: Image captured from scanner. (19:51 KASA) *MEMORANDUM OF TRANSFER: Image captured from scanner. (19:52 KASA) *EKG: Image captured from scanner. (21:31 KASA) *SUPPLY CHARGE SHEET: Image captured from scanner. (21:31 [facility]) ADMIN DIGITAL SIGNATURE: MD López John. (19:22 JOHE) MD López John. (23:56 [facility] RESULTS RADIOLOGY: CT Brain WO Con Observe DT: [place] Apr 12, 2016 16:28, BR CT BRAIN WITHOUT CONTRAST: History: Altered mental status. FINDINGS: Comparison is made with exam 01-18-13. There are changes of cortical atrophy. Ventricular size is appropriate and the basilar cisterns are patent. No evidence of acute infarct, hemorrhage, midline shift, or abnormal extraaxial fluid brittany ections are seen. The bony calvarium is intact. 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 IMPRESSION: No CT evidence of acute intracranial process. POS: [facility] . (17:28 [facility]) XR Chest 1 View Portable Observe DT: [place] Apr 12, 2016 16:41, CXRP PORTABLE CHEST: Date: 04-12-16 Time: 4:55 p.m. History: Constipation, altered mental status. FINDINGS: &a-1R&a+25V*p+0X*r1949Y*c202B*c15G*c2P*p-0X&a-25V&a+1R Name: Dano Wright : 1945 M70 MedRec: [id number] AcctNum: [id number] Prepared: WedApr 13, 2016 00:09 by Interface Page 16 of 19 pMD [facility] EMERGENCY RECORD Comparison is made with exam of 02-26-16. The heart is enlarged. The right sided port-a-cath remains in place. No focal areas of consolidati on, pneumothorax, lowell edema or pleural effusions are seen. IMPRESSION: No acute process. POS: [facility] . (18:02 JOHE) LABORATORY: CBC with Differential Collection DT: [place] Apr 12, 2016 17:03, *White Blood Cell (WBC) Count 11.3 - H thou/uL, Range (4.8-10.8), *Red Blood Cell (RBC) Count 4.64 - L mill/uL, Range (4.70-6.10), *Hemoglobin 13.3 - L g/dL, Range (14.0-18.0), *Hematocrit 41.0 - L %, Range (42.0-52.0), Mean Corpuscular Volume 88.3 fl, Range (80.0-94.0), Mean Corpuscular Hemoglobin 28.7 pg, Range (27.0-31.0), Mean Corpuscular HGB CONC 32.6 g/dL, Range (32.0-36.0), RBC Distribution Width 13.3 %, Range (11.5-14.5), Platelet Count 258 thou/uL, Range (130-400), Mean Platelet Volume 8.9 fL, Range (7.4-10.4), %Neutrophils 62.0 %, Range (42.0-75.0), %Lymphocytes 21.0 %, Range (21.0-51.0), %Monocytes 8.3 %, Range (0.0-10.0), %Eosinophils 7.7 %, Range (0.0-10.0), %Basophils 1.0 %, Range (0.0-1.0), *#Neutrophils 7.0 - H thou/uL, Range (1.40-6.50), #Lymphocytes 2.4 thou/uL, Range (1.20-3.40), *#Monocytes 0.9 - H thou/uL, Range (0.11-0.59), *#Eosinphils 0.9 - H thou/uL, Range (0.0-0.7), #Basophils 0.1 thou/uL, Range (0.0-0.2). (17:14 BE) Ammonia Collection DT: [place] Apr 12, 2016 17:03, *Ammonia 14 - L umol/L, Range (18-72). (17:28 BE) Lactic Acid for Sepsis Collection DT: [place] Apr 12, 2016 17:03, Lactic Acid - Sepsis 1.6 mmol/L, Range (0.5-2.2). (17:28 BE) Comprehensive Metabolic Panel Collection DT: [place] Apr 12, 2016 17:03, Anion Gap 20 mmol/L, Range (10-20), *Globulin 4.1 - H g/dL, Range (2.4-3.5), *Alb/Glob Ratio 1.0 - L g/dL, Range (1.2-2.2). (17:31 [facility]) Comprehensive Metabolic Panel Collection DT: [place] Apr 12, 2016 17:03, *Sodium 135 - L mmol/L, Range (136-145), Potassium 4.3 mmol/L, Range (3.5-5.1), Chloride 100 mmol/L, Range (98-107), *Carbon Dioxide 19 - L mmol/L, Range (23-31), Anion Gap 20 mmol/L, Range (10-20), &a-1R&a+25V*p+0X*n9309Z*c202B*c15G*c2P*p-0X&a-25V&a+1R Name: AdrianaDano Betty : 1945 M70 MedRec: [id number] AcctNum: [id number] Prepared: [place] Apr 13, 2016 00:09 by Interface Page 17 of 19 pMD [facility] EMERGENCY RECORD *BUN (Urea Nitrogen) 35 - H mg/dL, Range (8.4-25.7), *Creatinine 1.99 - H mg/dL, Range (0.7-1.3), Estimated GFR-MDRD 34 , Reference Range for Estimated GFR: Greater than 90, mL/min/1.73 m2 NOTE: The MDRD equation has not been validated for use, with the elderly (over 70 years of age), women, patients with, serious comorbid condition or persons with extremes of body size, muscle, mass, or nutritional status. , *Glucose 46 - *L mg/dL, Range (80-115), Critical value!, Calcium 9.7 mg/dL, Range (7.8-10.44), Bilirubin, Total 0.4 mg/dL, Range (0.2-1.2), Protein, Total 8.1 g/dL, Range (5.8-8.1), NOTE: Plasma values are generally 0.3 to 0.5 g/dL higher than serum values, due to the presence of fibrinogen. , Albumin 4.0 g/dL, Range (3.4-4.8), *Globulin 4.1 - H g/dL, Range (2.4-3.5), *Alb/Glob Ratio 1.0 - L g/dL, Range (1.2-2.2), Alkaline Phosphatase 90 U/L, Range (40-150), AST (SGOT) 19 U/L, Range (5-34), ALT (SGPT) 21 U/L, Range (0-55). (17:42 BE) Cardiac Profile w/CKMB & TropI Collection DT: [place] Apr 12, 2016 17:03, CKMB 2.4 ng/mL, Range (0-6.6), Troponin I 0.014 ng/mL, Range (< 0.028), Reference Range , 0.00 - 0.028 ng/mL Negative 0.029 - 0.29 ng/mL , Indeterminate Greater or Equal to 0.3 ng/mL Strongly suggests [place] , . (17:42 [facility]) Urinalysis w/ Rflx Microscopic Collection DT: [place] Apr 12, 2016 17:40, Color Yellow , Range (Yellow), Clarity Cloudy , Range (Clear), Specific [place], Urine 1.020 , Range (1.005-1.030), pH, Urine 5.5 , Range (5.0-9.0), *Leukocyte Moderate - H , Range (Negative), *Nitrite Positive - H , Range (Negative), *Protein, Urine (Dipstick) 30 - H mg/dL, Range (Neg-Trace), *Glucose, Urine (Dipstick) 100 - H mg/dL, Range (Negative), *Ketone, Urine Trace - H mg/dL, Range (Negative), Urobilinogen 0.2 mg/dL, Range (0.2-1.0), Bilirubin Negative , Range (Negative), *Blood, Urine Small - H , Range (Negative). (17:55 [facility]) Urine Microscopic ONLY Collection DT: [place] Apr 12, 2016 17:40, RBC/HPF 0-3 HPF, Range (0-3), *WBC/HPF Greater Than 50-TNTC HPF, * - H , Range (0-3), &a-1R&a+25V*p+0X*i3936H*c202B*c15G*c2P*p-0X&a-25V&a+1R Name: Dano Wright : 1945 M70 MedRec: [id number] AcctNum: [id number] Prepared: WedApr 13, 2016 00:09 by Interface Page 18 of 19 pMD [facility] EMERGENCY RECORD *Squamous Epithelial 4-6 - H HPF, Range (0-3), *Bacteria/HPF 4+ - H HPF, Range (None Seen). (18:02 [facility]) Urinalysis w/ Rflx Microscopic Collection DT: [place] Apr 12, 2016 17:40, Color Yellow , Range (Yellow), Clarity Cloudy , Range (Clear), Specific [place], Urine 1.020 , Range (1.005-1.030), pH, Urine 5.5 , Range (5.0-9.0), *Leukocyte Moderate - H , Range (Negative), *Nitrite Positive - H , Range (Negative), *Protein, Urine (Dipstick) 30 - H mg/dL, Range (Neg-Trace), *Glucose, Urine (Dipstick) 100 - H mg/dL, Range (Negative), *Ketone, Urine Trace - H mg/dL, Range (Negative), Urobilinogen 0.2 mg/dL, Range (0.2-1.0), Bilirubin Negative , Range (Negative), *Blood, Urine Small - H , Range (Negative). (18:02 [facility]) PTT Collection DT: [place] Apr 12, 2016 17:38, See comment below , RECOLLECTED SPECIMEN CLOTTED Anticoagulant? NONE Medical Necessity, SUSPECT COAGULOPATHY , PTT 23.6 SEC, Range (22.9-36.1). (18:16 [facility]) Protime with INR Collection DT: [place] Apr 12, 2016 17:38, See comment below , RECOLLECTED SPECIMEN CLOTTED Anticoagulant? NONE Medical Necessity, SUSPECT COAGULOPATHY , Prothrombin Time 12.8 SEC, Range (12.0-14.7), INR-International Normal Ratio 0.9 , ATTENTION: READ CAREFULLY , The, recommended therapeutic ranges for oral anticoagulant treatments are: , , Low Intensity: 1.5 - 2.0 Moderate Intensity: 2.0, - 3.0 High Intensity (1): 2.5 - 3.5 High, Intensity (2): 3.0 - 4.0 CRITICAL: >, 4.0 . (18:16 [facility]) Long: DALE=BINTA Duarte, Matthew LARES=MD Maria M, Tino THORNTON=YESENIA Chopra, Tiffanie VALENTINE=YESENIA Mcmullen, Mary JACOBS=Davida Cole &a-1R&a+25V*p+0X*x6616V*c202B*c15G*c2P*p-0X&a-25V&a+1R Name: Dano Wright : 1945 M70 MedRec: [id number] AcctNum: [id number] Prepared: WedApr 13, 2016 00:09 by Interface Page 19 of 19 pMD MTDD
--- NOTE | 2016-04-12 20:47 | CT ---
CT ABDOMEN AND PELVIS WITHOUT CONTRAST: History: Abdominal pain, constipation, altered mental status. FINDINGS: Absence of IV and oral contrast limits the sensitivity of the exam for evaluation of solid organs an d bowel. The lungs bases are unremarkable. There are calcified granulomas in the liver. The patient is post cholecystectomy. Small hiatal hernia is seen. No free air or free fluid is seen in the abdomen or pelvis. No calculi are seen in the kidneys, ureters, or urinary bladder. No hydroureteronephrosis is noted on either side. The prostate is enlarged. There is a 2.6 x 2.8 cm cyst arising from the superior p ole of the left kidney. There are vascular calcifications without evidence aneurysmal dilatation of the abdominal aorta. Th e small bowel are not abnormally dilated. There is mild colonic diverticulosis. There are vascular calcifications without evidence of aneurysm. There are degenerative changes in t he spine. There is prominence of the wall of the rectosigmoid. IMPRESSION: 1. Small hiatal hernia. 2. No CT evidence of urinary tract obstruction. 3. No evidence of small bowel obstruction. 4. Mild colonic diverticulosis. 5. Prostatic enlargement. 6. Thickening of the wall of the rectosigmoid. Endoscopy would be helpful. POS: LUCA
== END 2016-04-12 21:28 | disposition short-term general hospital (02) ==
LOC: NAV ERS 16:03
DX: E11.649 Type 2 diabetes mellitus with hypoglycemia without coma (principal); N30.01 Acute cystitis with hematuria; I48.91 Unspecified atrial fibrillation; I10 Essential (primary) hypertension; F41.9 Anxiety disorder, unspecified; D32.9 Benign neoplasm of meninges, unspecified; Z79.4 Long term (current) use of insulin; Z79.84 Long term (current) use of oral hypoglycemic drugs
CPT/HCPCS: 36415; 36416; 70450; 71010; 74176; 80053; 81003; 81015; 82140; 82550; 82553; 83605; 83690; 84484; 85025; 85610; 85730; 87040; 87086; 93005; 94760; 96365; 96366; 96372; J1200; J1650; J1885; J1956; J2405; J2765; J7050

== ENCOUNTER 2016-09-07 16:02 | Outpatient (CLI) | payer MEDICARE ==
[2016-09-07 21:41] LABS: Bilirubin Negative (Negative); Blood, Urine Small (Negative); Clarity Clear (Clear); Glucose, Urine (Dipstick) 250 mg/dL (Negative); Leukocyte Moderate (Negative); Nitrite Positive (Negative); Protein, Urine (Dipstick) 30 mg/dL (Neg-Trace); Specific Gravity, Urine 1.015 (1.005-1.030); Urobilinogen 0.2 mg/dL (0.2-1.0); pH, Urine 6.5 (5.0-9.0)
[2016-09-07 21:54] LABS: Bacteria/HPF Rare-Few HPF (None Seen); RBC/HPF 0-3 HPF (0-3); Squamous Epithelial 0-3 HPF (0-3)
== END 2016-09-07 16:03 | disposition home or self-care (01) ==
LOC: NAV LAB 16:02
PROVIDERS: ATTEND Urology
DX: R30.0 Dysuria (principal)
CPT/HCPCS: 81001; 87086

== ENCOUNTER 2016-09-20 15:44 | Emergency (ER) | payer MEDICARE ==
[~2016-09-20 15:44] MED LIST: Iopamidol 370 76% 100 ML VIAL ONE
[2016-09-20 16:30] LABS: #Basophils 0.1 thou/uL (0.0-0.2); #Eosinphils 0.2 thou/uL (0.0-0.7); #Lymphocytes 1.7 thou/uL (1.20-3.40); #Monocytes 1.1 thou/uL (0.11-0.59); #Neutrophils 8.1 thou/uL (1.40-6.50); %Basophils 0.8 % (0.0-1.0); %Eosinophils 1.6 % (0.0-10.0); %Lymphocytes 15.2 % (21.0-51.0); %Monocytes 10.1 % (0.0-10.0); %Neutrophils 72.3 % (42.0-75.0); Hemoglobin 11.3 g/dL (14.0-18.0); Mean Corpuscular HGB CONC 33.6 g/dL (32.0-36.0); Mean Corpuscular Hemoglobin 29.4 pg (27.0-31.0); Mean Corpuscular Volume 87.5 fl (80.0-94.0); Mean Platelet Volume 8.2 fL (7.4-10.4); Platelet Count 222 thou/uL (130-400); RBC Distribution Width 12.6 % (11.5-14.5); Red Blood Cell (RBC) Count 3.85 mill/uL (4.70-6.10); White Blood Cell (WBC) Count 11.2 thou/uL (4.8-10.8)
[2016-09-20 16:51] LABS: ALT (SGPT) 34 U/L (8-55); AST (SGOT) 22 U/L (5-34); Albumin 3.7 g/dL (3.4-4.8); Alkaline Phosphatase 58 U/L (40-150); Anion Gap 17 mmol/L (10-20); BUN (Urea Nitrogen) 28 mg/dL (8.4-25.7); Bilirubin, Total 0.5 mg/dL (0.2-1.2); CK (CPK) 115 U/L (30-200); Calc. Creatinine Clearance 0 mL/min (70-130); Calcium 9.2 mg/dL (7.8-10.44); Carbon Dioxide 17 mmol/L (23-31); Chloride 106 mmol/L (98-107); Estimated GFR-MDRD 45; Globulin 3.1 g/dL (2.4-3.5); Glucose 91 mg/dL (80-115); Protein, Total 6.8 g/dL (5.8-8.1); Sodium 136 mmol/L (136-145)
[2016-09-20 16:58] LABS: CKMB 2.8 ng/mL (0-6.6); Troponin I 0.029 ng/mL (< 0.028)
[2016-09-20 18:22] LABS: Bilirubin Negative (Negative); Blood, Urine Trace (Negative); Clarity Clear (Clear); Glucose, Urine (Dipstick) Negative (Negative); Leukocyte Negative (Negative); Nitrite Negative (Negative); Protein, Urine (Dipstick) 30 mg/dL (Neg-Trace); Urobilinogen 0.2 mg/dL (0.2-1.0); pH, Urine 5.5 (5.0-9.0)
[2016-09-20 18:32] LABS: Bacteria/HPF None Seen HPF (None Seen); RBC/HPF 0-3 HPF (0-3); Squamous Epithelial None Seen HPF (0-3); WBC/HPF None Seen HPF (0-3)
[2016-09-20] MEDS ORDERED: Sodium Chloride 0.9% 1,000 ML ONE (20:22)
--- NOTE | 2016-09-20 20:37 | CT ---
CT ABDOMEN AND PELVIS WITH IV AND ORAL CONTRAST: History: Abdominal distention. Past history includes atrial fibrillation, colon cancer, diabetes, re cently hospitalized for UTI. Patient has been in remission from the colon cancer for 7 years. FINDINGS: Comparison is made with noncontrast study of 04-12-16. The lung bases are unremarkable. Calcified granulomata in the liver are again seen. Small hiatal her sheba is redemonstrated. The patient is status post cholecystectomy. No free air, free fluid, or lymph adenopathy is noted in the abdomen or pelvis. The spleen, pancreas, adrenal glands, and right kidney are normal. The exophytic 3 cm cyst arising f rom the left kidney is stable. Vascular calcifications without evidence of aneurysmal dilatation of the abdominal aorta. Small dionne l loops are not abnormally dilated. There is fecal material in the colon. Degenerative changes are p resent in the spine. There is mild prostatic enlargement. IMPRESSION: 1. No acute process. 2. Small hiatal hernia. 3. Left renal cyst. 4. No evidence of small bowel obstruction. POS: LUCA
== END 2016-09-20 21:25 | disposition home or self-care (01) ==
LOC: NAV ERS 15:44
DX: S91.204A Unspecified open wound of right lesser toe(s) with damage to nail, initial encounter (principal); I48.91 Unspecified atrial fibrillation; R14.0 Abdominal distension (gaseous); N28.9 Disorder of kidney and ureter, unspecified; F41.9 Anxiety disorder, unspecified; F32.9 Major depressive disorder, single episode, unspecified; G47.30 Sleep apnea, unspecified; G25.81 Restless legs syndrome; E11.40 Type 2 diabetes mellitus with diabetic neuropathy, unspecified; E66.9 Obesity, unspecified; Z79.4 Long term (current) use of insulin
CPT/HCPCS: 36415; 74177; 80053; 81003; 81015; 82553; 84484; 85025; 87086; 93005; 96360; J7050

== ENCOUNTER 2018-01-29 19:27 | Emergency (ER) | payer MEDICARE ==
[2018-01-29] MEDS ORDERED: Clindamycin 150 MG CAP ONE (20:02)
== END 2018-01-29 20:06 | disposition home or self-care (01) ==
LOC: NAV ERS 19:27
DX: S90.821A Blister (nonthermal), right foot, initial encounter (principal); C18.9 Malignant neoplasm of colon, unspecified; E11.40 Type 2 diabetes mellitus with diabetic neuropathy, unspecified; I48.91 Unspecified atrial fibrillation; I10 Essential (primary) hypertension; E66.9 Obesity, unspecified; G47.30 Sleep apnea, unspecified; F41.9 Anxiety disorder, unspecified; F32.9 Major depressive disorder, single episode, unspecified; X58.XXXA Exposure to other specified factors, initial encounter
CPT/HCPCS: 99283

== ENCOUNTER 2018-06-02 21:55 | Emergency (ER) | payer MEDICARE ==
[2018-06-02 23:25] LABS: Bilirubin Negative (Negative); Blood, Urine Large (Negative); Clarity Cloudy (Clear); Glucose, Urine (Dipstick) >=1000 mg/dL (Negative); Leukocyte Moderate (Negative); Nitrite Negative (Negative); Protein, Urine (Dipstick) > or equal to 300 mg/dL (Neg-Trace); Urobilinogen 0.2 mg/dL (0.2-1.0); pH, Urine 5.5 (5.0-9.0)
[2018-06-02 23:28] LABS: RBC/HPF GREATER THAN 50-TNTC HPF (0-3); Specific Gravity, Urine 1.011 (1.002-1.036); Squamous Epithelial 0-3 HPF (0-3)
[2018-06-02 23:29] LABS: Bacteria/HPF 3+ HPF (None Seen)
[2018-06-03] MEDS ORDERED: Cephalexin 250 MG CAP ONE (00:51)
[2018-06-03] MEDS ORDERED: Boudreaux's Butt Paste 60 GM TUBE TOP SCH (01:00)
== END 2018-06-03 01:30 | disposition home or self-care (01) ==
LOC: NAV ERS 21:55
DX: N39.0 Urinary tract infection, site not specified (principal); I48.91 Unspecified atrial fibrillation; E11.40 Type 2 diabetes mellitus with diabetic neuropathy, unspecified; G47.30 Sleep apnea, unspecified; F41.9 Anxiety disorder, unspecified; F32.9 Major depressive disorder, single episode, unspecified; I10 Essential (primary) hypertension; Z79.899 Other long term (current) drug therapy; Z79.4 Long term (current) use of insulin; Z79.01 Long term (current) use of anticoagulants
CPT/HCPCS: 51703; 81003; 81015; 87086

== ENCOUNTER 2018-09-09 16:36 | Inpatient (IN) | payer MEDICARE ==
[2018-09-09] MEDS ORDERED: Vancomycin HCl 1 GM in Premix Bag 1 BAG IVPB SCH (17:00)
[2018-09-09] MEDS ORDERED: Diphenoxylate HCl/Atropine Tablet PO PRN (17:48)
[2018-09-09] MEDS ORDERED: Non-Formulary Item 1 EACH (Vancomycin Hcl [Vancomycin Hcl] 1 GM) IVPB SCH (18:00)
[2018-09-09] MEDS ORDERED: diphenhydrAMINE 25 MG CAP PO PRN (18:13)
[2018-09-09] MEDS ORDERED: Vancomycin HCl 1.5 GM in Sodium Chloride 0.9% 250 ML 300 ML IVPB SCH (19:00)
[2018-09-09] MEDS ORDERED: Sodium Chloride 0.9% 10 ML ONE (19:14)
[2018-09-09] MEDS: Atorvastatin Calcium 20 MG TAB PO SCH (20:22)
[2018-09-09] MEDS: Gabapentin 300 MG CAP PO SCH (20:23)
[2018-09-09] MEDS: Lantus 1000 UNITS/10 ML VIAL SC SCH (20:24)
[2018-09-09] MEDS: Metoprolol Tartrate 25 MG TAB PO SCH (20:25)
[2018-09-09] MEDS ORDERED: Warfarin Sodium 2.5 MG TAB PO SCH (20:45)
[2018-09-09] MEDS ORDERED: Warfarin Sodium 5 MG TAB PO SCH (20:45)
[2018-09-09] MEDS ORDERED: Non-Formulary Item 1 EACH (Insulin Detemir [Levemir] 30 UNIT) SQ SCH (21:00)
[2018-09-09] MEDS ORDERED: glipiZIDE 5 MG TAB PO SCH (21:00)
[2018-09-09] MEDS ORDERED: Gabapentin 300 MG CAP PO SCH (21:00)
[2018-09-09] MEDS: FLECAINIDE ACETATE 50 MG PO SCH (22:27)
--- NOTE | 2018-09-10 | HP ---
HISTORY OF PRESENT ILLNESS: The patient is a very pleasant 72-year-old white male with a long history of poorly-controlled diabetes with subsequent complications of diabetic peripheral neuropathy, peripheral vascular disease, and chronic kidney disease stage 3, as well as metastatic cancer of the colon, status post partial colectomy and hepatectomy in 2007 with a recurrence, now on chemotherapy. He also has a history of chronic atrial fibrillation on anticoagulation with warfarin, status post several ablation with recurrence of the atrial fibrillation, now with rate controlled on flecainide. This admission is prompted by the persistence of an infected ulcer on his right lateral foot over the 5th metatarsophalangeal joint, which has not responded to oral antibiotics and which has spread causing cellulitis in his right lateral foot and had an MRI showing increased bone marrow edema consistent with early osteomyelitis. He has refused surgical treatment and therefore has been elected to continue on IV vancomycin and cefepime until October 17. He has a port in place for his ongoing chemotherapy, which will be held until after his infection has healed. He is ambulating well, walking in the reagan with his orthotic boot and is having no pain in his foot, but he does have obviously the neuropathy. He has no chest pain, shortness of breath or palpitations. He has no history of congestive heart failure or coronary artery disease, myocardial infarction, cerebral vascular accident. He does have a history also of hypertension, which has been well controlled and obstructive sleep apnea, which is not being treated with CPAP at this time. His past medical history is also remarkable for obesity and chronic urinary retention, doing self caths at home obviously from diabetic uropathy. PAST SURGICAL HISTORY: Positive for the partial colectomy and a MediPort placement, cholecystectomy, tonsillectomy, amputation of his right 4th toe, ablation of atrial fibrillation x2, hernia repair and partial hepatectomy with partial colectomy. PAST PSYCHIATRIC HISTORY: Positive for depression. SOCIAL HISTORY: He lives with his who is his grievance manager. No history of tobacco, drug abuse or alcohol abuse. ALLERGIES: HE HAS NO KNOWN ALLERGIES. HE IS A FULL CODE WITH HIS MEDICAL POWER OF [employer]. MEDICATIONS: At present include; 1. Atorvastatin 20 mg nightly. 2. Cefepime 2 mg IVP daily until October 17. 3. Flecainide 100 mg twice daily. 4. Gabapentin 300 mg 3 times daily and 600 mg at night. 5. Glipizide 10 mg twice daily. 6. Levemir 30 units at night and 40 units in the morning. 7. Metoprolol 12.5 mg twice daily. 8. Zofran 4 mg every 8 hours as needed. 9. Saccharomyces probiotic 250 mg daily. 10. Warfarin 5 mg daily every day except Wednesday and Wednesday when he takes 7.5 mg. REVIEW OF SYSTEMS: HEENT: Denies any headaches, dizziness, change in vision, hearing, hoarseness or dysphagia. PULMONARY: Denies cough, sputum production, pneumonia, asthma, tuberculosis. CARDIOVASCULAR: He denies any chest pain, has occasional palpitations. He has no significant dyspnea on exertion, orthopnea, paroxysmal nocturnal dyspnea or edema. GASTROINTESTINAL: He denies nausea, vomiting, diarrhea, constipation, abdominal pain. GENITOURINARY: Denies dysuria, hematuria or nocturia. Does have the above-mentioned history of urinary retention requiring intermittent caths. MUSCULOSKELETAL: Has a poorly healing ulcer in the right lateral foot, has no significant arthralgias. NEUROLOGIC: Has significant decreased sensation in bilateral lower extremities. PHYSICAL EXAMINATION: GENERAL: The patient is an elderly white male, appears to be in no acute distress. Oriented x3 and cooperative. VITAL SIGNS: Show him to have blood pressure of 179/77, O2 sats 97% on room air, pulse 73, afebrile. HEENT: Pupils are equal, round and reactive to light and accommodation. Sclerae anicteric. Conjunctivae pale. Oral mucous membranes well hydrated. NECK: Supple. There are no nodes or masses. JVP is not elevated. LUNGS: Clear. CARDIAC: Shows an irregularly irregular rhythm. PMI in the 5th intercostal space, midclavicular line. No gallops or murmurs. ABDOMEN: Soft, obese, nontender with no masses or organomegaly. SKIN: Extremities show MediPort in place in the right upper chest. There is a small diabetic ulcer of the right 5th metatarsal with surrounding erythema. NEUROLOGIC: Shows decreased sensation to pinprick below the knees. Cranial nerves intact. Deep tendon reflex 2+ and equal. There are absent Babinski. LABORATORY DATA: [place] [address], hematocrit 26, hemoglobin 9. Sodium is 136, potassium 4.6, chloride 105, bicarb 23, BUN is 24, creatinine is 2.2, which is stable for the last week with a GFR of 29, making it class 4, glucose is ranging from 73-180 on his previous insulin doses. Most recent vancomycin level was 19.5 last week and we will check level tomorrow. PT/INR most recent is 1.5 on his previous dose and we will check daily and may need to increase. ASSESSMENT: 1. Osteomyelitis of right fifth metatarsal on vancomycin and cefepime until October 17 with vancomycin trough level tomorrow. 2. Chronic kidney disease stage 4, appears to be stable over the last week. We will monitor closely with vancomycin levels. 3. Hypertension appears to be uncontrolled at this time with most recent blood pressures ranging from 144-165 on medications of metoprolol 12.5 twice daily and will increase to 25 twice daily as pulse has been stable at 64-82. 4. Insulin-dependent diabetes mellitus with complications of diabetic neuropathy and nephropathy, uncontrolled at this time on his prehospitalization insulin dose, but does have low levels in the morning 81 and 73, so we will continue on sliding scale at this time plus his prehospitalization Levemir 40 units in the morning and 30 units at night, but may discontinue glipizide. 5. Diabetic nephropathy. We will monitor closely and stress blood pressure control, hydration and monitoring of vancomycin level. 6. Diabetic foot ulcer. We will consult Wound Care. 7. Obstructive sleep apnea. We will discuss with patient need for CPAP. 8. Urinary retention. We will discuss with the patient need for intermittent caths. Job ID: [id number]
[2018-09-10] MEDS ORDERED: Vancomycin HCl 500 MG in Sodium Chloride 0.9% 100 ML IVPB SCH ×2 (01:30→20:00)
[2018-09-10 06:15] LABS: #Basophils 0.1 thou/uL (0.0-0.2); #Eosinphils 0.4 thou/uL (0.0-0.7); #Lymphocytes 1.5 thou/uL (1.20-3.40); #Monocytes 1.4 thou/uL (0.11-0.59); #Neutrophils 8.8 thou/uL (1.40-6.50); %Basophils 1.1 % (0.0-1.0); %Eosinophils 3.2 % (0.0-10.0); %Lymphocytes 11.9 % (21.0-51.0); %Monocytes 11.6 % (0.0-10.0); %Neutrophils 72.3 % (42.0-75.0); Hemoglobin 9.3 g/dL (14.0-18.0); Mean Corpuscular HGB CONC 32.9 g/dL (32.0-36.0); Mean Corpuscular Volume 94.4 fL (78.0-98.0); Mean Platelet Volume 6.8 fL (7.4-10.4); Platelet Count 230 thou/uL (130-400); RBC Distribution Width 13.3 % (11.5-14.5); White Blood Cell (WBC) Count 12.2 thou/uL (4.8-10.8)
[2018-09-10 06:26] LABS: INR-International Normal Ratio 1.5; Prothrombin Time 17.9 SEC (12.0-14.7)
[2018-09-10 06:36] LABS: ALT (SGPT) 10 U/L (8-55); AST (SGOT) 14 U/L (5-34); Albumin 3.3 g/dL (3.4-4.8); Alkaline Phosphatase 59 U/L (40-150); Anion Gap 14 mmol/L (10-20); BUN (Urea Nitrogen) 25 mg/dL (8.4-25.7); Bilirubin, Total 0.4 mg/dL (0.2-1.2); Calc. Creatinine Clearance 49 mL/min (70-130); Calcium 8.9 mg/dL (7.8-10.44); Carbon Dioxide 24 mmol/L (23-31); Chloride 103 mmol/L (98-107); Estimated GFR-MDRD 31; Globulin 3.5 g/dL (2.4-3.5); Glucose 74 mg/dL (80-115); Potassium 4.2 mmol/L (3.5-5.1); Protein, Total 6.8 g/dL (5.8-8.1); Sodium 137 mmol/L (136-145)
[2018-09-10] MEDS: glipiZIDE 5 MG TAB PO SCH ×2 (08:38→16:57)
[2018-09-10] MEDS: FLECAINIDE ACETATE 50 MG PO SCH ×2 (08:39→20:30)
[2018-09-10] MEDS: Lantus 1000 UNITS/10 ML VIAL SC SCH ×2 (08:41→20:39)
[2018-09-10] MEDS: Gabapentin 300 MG CAP PO SCH ×3 (08:41→20:29)
[2018-09-10] MEDS: Saccharomyces boulardii 250 MG CAP PO SCH (08:42)
[2018-09-10] MEDS: Metoprolol Tartrate 25 MG TAB PO SCH ×2 (08:42→20:28)
[2018-09-10] MEDS ORDERED: Warfarin Sodium 5 MG TAB PO SCH ×3 (09:00→17:00)
[2018-09-10] MEDS ORDERED: Non-Formulary Item 1 EACH (Levemir Flexpen [Levemir Flexpen] 40 UNIT) SC SCH (09:00)
[2018-09-10] MEDS ORDERED: Cefepime 2 GM VIAL IVPB SCH (13:00)
[2018-09-10] MEDS: Cefepime 2 GM in Sodium Chloride 0.9% 100 ML IVPB SCH (13:19)
--- NOTE | 2018-09-10 14:10 | PRG ---
DATE OF SERVICE: 09/10/2018 SUBJECTIVE: Mr. Wright is resting in bed and denies any complaints. He is tolerating his antibiotics and his wound care. No family at bedside. Discussed with nursing. OBJECTIVE: VITAL SIGNS: He is afebrile. Heart rate 65, respirations 16, oxygen saturation 95% on room air, blood pressure 156/70. CARDIOVASCULAR: S1 and S2 plus. RESPIRATORY: Normal vesicular breath sounds. ABDOMEN: Soft and nontender. Bowel sounds heard in all quadrants. EXTREMITIES: Without cyanosis or clubbing. Right foot with dressing. CENTRAL NERVOUS SYSTEM: Awake and responsive. Cranial nerves 2 through 12 are intact. Generalized weakness. LABORATORY VALUES: Sodium 137, potassium 4.2, BUN and creatinine are 25 and 2.14. Blood sugars are 138, 73, 202, and 102. White count is 12.2, hemoglobin and hematocrit are 9.3 and 28.3. IMPRESSION: 1. Osteomyelitis of right fifth metatarsal, on vancomycin and cefepime until October 17. 2. Chronic kidney disease, stage 4. 3. Hypertension. 4. Diabetes mellitus, requiring insulin. 5. Obstructive sleep apnea. 6. Urinary retention. PLAN: 1. Continue current medications. 2. Nutritional support with 1800-calorie heart healthy renal diet. 3. Accu-Cheks with sliding scale coverage. 4. DVT and stress ulcer prophylaxis. 5. Decubitus precautions. 6. Routine laboratory values, wound care, physical therapy, and in and out catheterizations. Job ID: [id number]
[2018-09-10] MEDS: Warfarin Sodium 5 MG TAB PO SCH (16:56)
[2018-09-10] MEDS ORDERED: Vancomycin HCl 1 GM in Sodium Chloride 0.9% 250 ML 250 ML IVPB SCH (19:00)
[2018-09-10] MEDS: Atorvastatin Calcium 20 MG TAB PO SCH (20:29)
[2018-09-11 05:24] LABS: INR-International Normal Ratio 1.4; Prothrombin Time 17.5 SEC (12.0-14.7)
[2018-09-11] MEDS: Amlodipine 5 MG TAB PO SCH (08:04)
[2018-09-11] MEDS: glipiZIDE 5 MG TAB PO SCH ×2 (08:04→16:41)
[2018-09-11] MEDS: FLECAINIDE ACETATE 50 MG PO SCH ×2 (08:05→20:52)
[2018-09-11] MEDS: Metoprolol Tartrate 25 MG TAB PO SCH ×2 (08:06→20:53)
[2018-09-11] MEDS: Lantus 1000 UNITS/10 ML VIAL SC SCH ×2 (08:06→20:56)
[2018-09-11] MEDS: Gabapentin 300 MG CAP PO SCH ×3 (08:06→20:51)
[2018-09-11] MEDS: Saccharomyces boulardii 250 MG CAP PO SCH (08:07)
[2018-09-11] MEDS: Cefepime 2 GM in Sodium Chloride 0.9% 100 ML IVPB SCH (13:06)
--- NOTE | 2018-09-11 14:46 | PRG ---
DATE OF SERVICE: 09/11/2018 SUBJECTIVE: Mr. Wright is doing well. Denies any complaints. Resting comfortably. Tolerating his antibiotics. His friends are visiting. OBJECTIVE: VITAL SIGNS: He is afebrile, heart rate 70, respirations 20, oxygen saturation 93% on room air, and blood pressure 140/69. CARDIOVASCULAR: S1 and S2 plus. RESPIRATORY: Normal vesicular breath sounds. ABDOMEN: Soft, nontender. Bowel sounds heard in all quadrants. EXTREMITIES: Without cyanosis, clubbing. PICC line site is healthy. CENTRAL NERVOUS SYSTEM: Awake and responsive. Cranial nerves 2 through 12 intact. Generalized weakness. Right foot with dressing. IMPRESSION: 1. Right foot osteomyelitis. 2. Acinetobacter and his blood cultures and sensitivities not done per lab protocol. He is on vancomycin and cefepime. 3. Chronic kidney disease, stage 4. 4. Hypertension. 5. Diabetes mellitus, on insulin. 6. Obstructive sleep apnea. 7. Deconditioning. PLAN: 1. Continue current medications. 2. Vancomycin and cefepime until October 17. 3. Weekly CBC, CRP, CMP, and sedimentation rate. 4. Wound care. 5. Accu-Cheks with sliding scale coverage. 6. DVT and stress ulcer prophylaxis. 7. Decubitus precautions. 8. PICC line care. 9. Physical therapy. Job ID: [id number]
[2018-09-11] MEDS: Warfarin Sodium 5 MG TAB PO SCH (16:41)
[2018-09-11 18:30] LABS: Vancomycin, Trough 29.7 ug/mL
[2018-09-11] MEDS: Atorvastatin Calcium 20 MG TAB PO SCH (20:51)
[2018-09-12 05:23] LABS: INR-International Normal Ratio 1.6; Prothrombin Time 19.2 SEC (12.0-14.7)
--- NOTE | 2018-09-12 08:14 | PRG ---
DATE OF SERVICE: 09/12/2018 SUBJECTIVE: The patient feels well. No complaints. He has been walking in the reagan, having minimal pain. No shortness of breath. No nausea or vomiting. Nurses state, however, this Accu-Cheks have been down to 78 in the morning and he has had his nighttime insulin being held. He is also, however, on glipizide 10 mg twice daily. OBJECTIVE: VITAL SIGNS: Show temperature of 97.7; pulse 65; respirations 20; O2 saturations 96% on room air; and blood pressure 167/79, which is consistently elevated since admission. LUNGS: Clear. CARDIAC: Showed regular rhythm. ABDOMEN: Soft and nontender. EXTREMITIES: Right foot is bandaged. LABORATORY DATA: Shows Accu-Cheks do range from 78 to 142. PT is slowly improving at 19, INR 1.6 with pharmacy titrating dose up to 7.5 mg of warfarin daily. ASSESSMENT AND PLAN: 1. Osteomyelitis of right fifth metatarsal, on vancomycin and cefepime with Acinetobacter growing on recent blood culture and Pseudomonas on wound culture and we will consult Dr. Lawson about need to change cefepime and/or vancomycin. 2. Chronic kidney disease, stage 4, but with toxic vancomycin level this weekend and we will repeat BMP today and decrease vancomycin. Vancomycin has been decreased by pharmacy to 1 g daily with trough to be drawn tomorrow. 3. Hypertension, uncontrolled, on metoprolol 25 twice daily and we will increase to 50 twice daily. 4. Insulin-dependent diabetes mellitus, well controlled with a.m. Accu-Cheks less than 100 with nighttime insulin being held, so we will discontinue nocturnal glipizide 10 mg and continue Levemir 40 units in the morning and 30 units at night. 5. Diabetic nephropathy. We will check labs today. 6. Diabetic foot ulcer, being followed by wound care. 7. Obstructive sleep apnea, stable on CPAP. 8. Chronic urinary retention with the patient doing intermittent catheterization. Job ID: [id number]
[2018-09-12] MEDS: Saccharomyces boulardii 250 MG CAP PO SCH (09:50)
[2018-09-12] MEDS: Gabapentin 300 MG CAP PO SCH ×3 (09:50→20:48)
[2018-09-12] MEDS: Metoprolol Tartrate 25 MG TAB PO SCH ×2 (09:51→20:49)
[2018-09-12] MEDS: FLECAINIDE ACETATE 50 MG PO SCH ×2 (09:51→20:48)
[2018-09-12] MEDS: Amlodipine 5 MG TAB PO SCH (09:52)
[2018-09-12] MEDS: Lantus 1000 UNITS/10 ML VIAL SC SCH ×2 (10:00→20:49)
[2018-09-12] MEDS ORDERED: Metoprolol Tartrate 25 MG TAB PO SCH ×3 (10:09→10:30)
[2018-09-12 10:43] LABS: Anion Gap 15 mmol/L (10-20); BUN (Urea Nitrogen) 32 mg/dL (8.4-25.7); Calc. Creatinine Clearance 47 mL/min (70-130); Calcium 8.9 mg/dL (7.8-10.44); Carbon Dioxide 21 mmol/L (23-31); Chloride 102 mmol/L (98-107); Estimated GFR-MDRD 30; Glucose 206 mg/dL (80-115); Potassium 4.4 mmol/L (3.5-5.1); Sodium 134 mmol/L (136-145)
--- NOTE | 2018-09-12 11:37 | PRG ---
DATE OF SERVICE: 09/10/2018 ADDENDUM: His blood cultures done just prior to him being transferred from [facility] in [place]. He is growing Acinetobacter, 1/2. Cultures and sensitivities are pending. At present, we will continue on his current regimen. Job ID: [id number]
[2018-09-12] MEDS: Cefepime 2 GM in Sodium Chloride 0.9% 100 ML IVPB SCH (13:55)
[2018-09-12] MEDS ORDERED: Warfarin Sodium 2.5 MG TAB PO SCH (17:00)
[2018-09-12] MEDS: Warfarin Sodium 5 MG TAB PO SCH (17:34)
[2018-09-12] MEDS: Vancomycin HCl 1 GM in Sodium Chloride 0.9% 250 ML 250 ML IVPB SCH (18:32)
[2018-09-12] MEDS: Atorvastatin Calcium 20 MG TAB PO SCH (20:48)
[2018-09-13] MEDS: Flecainide 50 MG TAB PO SCH ×3 (00:50→20:02)
[2018-09-13 05:24] LABS: INR-International Normal Ratio 1.5
[2018-09-13] MEDS: Gabapentin 300 MG CAP PO SCH ×3 (08:42→20:02)
[2018-09-13] MEDS: Metoprolol Tartrate 25 MG TAB PO SCH ×2 (08:43→20:02)
[2018-09-13] MEDS: Saccharomyces boulardii 250 MG CAP PO SCH (08:44)
[2018-09-13] MEDS: Amlodipine 5 MG TAB PO SCH (08:53)
[2018-09-13] MEDS: Lantus 1000 UNITS/10 ML VIAL SC SCH ×2 (08:54→20:03)
[2018-09-13] MEDS: Cefepime 2 GM in Sodium Chloride 0.9% 100 ML IVPB SCH (12:46)
[2018-09-13] MEDS: Warfarin Sodium 5 MG TAB PO SCH (16:58)
[2018-09-13] MEDS: Vancomycin HCl 1 GM in Sodium Chloride 0.9% 250 ML 250 ML IVPB SCH (18:42)
[2018-09-13] MEDS: Atorvastatin Calcium 20 MG TAB PO SCH (20:02)
[2018-09-13] MEDS: Meropenem 1 GM in Sodium Chloride 0.9% 100 ML IVPB SCH (21:05)
[2018-09-14] MEDS: Meropenem 1 GM in Sodium Chloride 0.9% 100 ML IVPB SCH ×3 (05:23→21:20)
[2018-09-14 05:31] LABS: INR-International Normal Ratio 1.6; Prothrombin Time 19.2 SEC (12.0-14.7)
[2018-09-14 05:43] LABS: Glucose Accucheck Confirmation 47 mg/dl (80-115)
[2018-09-14] MEDS: Gabapentin 300 MG CAP PO SCH ×3 (07:37→20:44)
[2018-09-14] MEDS: Saccharomyces boulardii 250 MG CAP PO SCH (07:37)
[2018-09-14] MEDS: Amlodipine 5 MG TAB PO SCH (07:37)
[2018-09-14] MEDS: Metoprolol Tartrate 25 MG TAB PO SCH ×2 (07:41→20:46)
[2018-09-14] MEDS ORDERED: Lantus 1000 UNITS/10 ML VIAL SC SCH ×2 (09:00→21:00)
[2018-09-14] MEDS: Flecainide 50 MG TAB PO SCH ×2 (10:03→20:44)
[2018-09-14] MEDS ORDERED: diphenhydrAMINE 25 MG CAP PO PRN (11:20)
[2018-09-14] MEDS ORDERED: Diphenoxylate HCl/Atropine Tablet PO PRN (11:21)
[2018-09-14] MEDS: Warfarin Sodium 2 MG TAB PO SCH (16:06)
[2018-09-14] MEDS: Warfarin Sodium 5 MG TAB PO SCH (16:06)
[2018-09-14] MEDS ORDERED: Warfarin Sodium 5 MG TAB PO SCH (17:00)
[2018-09-14] MEDS ORDERED: Warfarin Sodium 2 MG TAB PO SCH (17:00)
--- NOTE | 2018-09-14 18:18 | PRG ---
DATE OF SERVICE: 09/13/2018 SUBJECTIVE: The patient feels well, sitting up in bed. No complaints other than he feels like his right foot wound needs to be debrided. OBJECTIVE: VITAL SIGNS: Show temperature is 97.4 pulse 74, respirations 18, O2 sats 98% on room air, blood pressure 152/75. LUNGS: Clear. CARDIAC: Showed regular rhythm. ABDOMEN: Soft and nontender. EXTREMITIES: Right foot is bandaged. LABORATORY DATA: Shows PT 18, INR 1.5. Accu-Cheks ranged from 89 to 208. Sodium was 134 yesterday, potassium 4.4, chloride 102, bicarb 21, BUN 32, creatinine 2.2. ASSESSMENT: 1. Osteomyelitis, right 5th metatarsal, on vancomycin and meropenem at this time as recent culture shown Pseudomonas resistant to the cefepime and Acinetobacter. We will therefore change to vancomycin and meropenem 1 g q.8 hours. Vancomycin has been held and dose decreased and will be monitored closely with repeat trough level 2 days after dose being increased to a gram q.24 hours. Accu-Cheks have been fairly stable. 2. Type 2 diabetes with well-controlled diabetes. Accu-Cheks on 45 units insulin more than 30 at night. We will monitor closely. The patient is eating well. 3. Hypertension, controlled goal on metoprolol 50 mg twice daily. 4. Diabetic nephropathy persistent and we will check labs in several days. 5. Chronic urinary retention, intermittent catheterization. 6. Obstructive sleep apnea, stable on CPAP. Job ID: [id number]
[2018-09-14 18:29] LABS: Vancomycin, Trough 25.3 ug/mL
--- NOTE | 2018-09-14 18:48 | PRG ---
DATE OF SERVICE: 09/14/2018 SUBJECTIVE: The patient feels better, although did have hypoglycemia twice this morning and has required insulin to be discontinued. He is eating all of his meals and states he is gaining weight, and does not understand why his sugars have been low on his prehospitalization medications. His wound is improving and this may be the cause of his insulin requirement decreasing. He has had Santyl placed by wound care with chemical debridement of his wound. OBJECTIVE: VITAL SIGNS: Show blood pressure 143/70, temperature 97.8, pulse 67, respirations 18, and O2 sats 98% on room air. LUNGS: Clear. CARDIAC: Examination showed regular rhythm. ABDOMEN: Soft and nontender. SKIN/EXTREMITIES: Right lateral foot with an ulcer over the 5th metatarsophalangeal joint with chemical debridement ongoing with Santyl, appears to be improving. ASSESSMENT: 1. Type 2 diabetes with greatly increased control, in fact with hypoglycemia on 45 units of Lantus in the morning and 30 at night, and will decrease to 40 units in the morning and 20 units at night, and monitor. 2. Hypertension, controlled with a goal on 50 mg metoprolol twice daily. 3. Diabetic nephropathy. We will check labs in the a.m. 4. Obstructive sleep apnea, stable on CPAP. Job ID: [id number]
[2018-09-14] MEDS ORDERED: Vancomycin HCl 1 GM in Sodium Chloride 0.9% 250 ML 250 ML IVPB SCH (19:00)
[2018-09-14] MEDS: Vancomycin HCl 750 MG in Sodium Chloride 0.9% 250 ML 250 ML IVPB SCH (19:43)
[2018-09-14] MEDS: Atorvastatin Calcium 20 MG TAB PO SCH (20:43)
[2018-09-14] MEDS: Lantus 1000 UNITS/10 ML VIAL SC SCH (20:46)
[2018-09-15] MEDS: Meropenem 1 GM in Sodium Chloride 0.9% 100 ML IVPB SCH ×3 (05:34→22:05)
[2018-09-15 06:14] LABS: Anion Gap 16 mmol/L (10-20); BUN (Urea Nitrogen) 42 mg/dL (8.4-25.7); Calc. Creatinine Clearance 43 mL/min (70-130); Calcium 8.9 mg/dL (7.8-10.44); Carbon Dioxide 21 mmol/L (23-31); Chloride 105 mmol/L (98-107); Estimated GFR-MDRD 27; Glucose 135 mg/dL (80-115); Potassium 4.7 mmol/L (3.5-5.1); Sodium 137 mmol/L (136-145)
[2018-09-15 06:32] LABS: INR-International Normal Ratio 1.7; Prothrombin Time 19.8 SEC (12.0-14.7)
[2018-09-15] MEDS: Flecainide 50 MG TAB PO SCH ×2 (08:38→20:54)
[2018-09-15] MEDS: Amlodipine 5 MG TAB PO SCH (08:39)
[2018-09-15] MEDS: Metoprolol Tartrate 25 MG TAB PO SCH ×2 (08:39→20:55)
[2018-09-15] MEDS: Gabapentin 300 MG CAP PO SCH ×3 (08:39→20:54)
[2018-09-15] MEDS: Lantus 1000 UNITS/10 ML VIAL SC SCH ×2 (08:39→20:56)
[2018-09-15] MEDS: Saccharomyces boulardii 250 MG CAP PO SCH (08:39)
[2018-09-15] MEDS: Warfarin Sodium 5 MG TAB PO SCH (17:05)
[2018-09-15] MEDS: Warfarin Sodium 2 MG TAB PO SCH (17:05)
[2018-09-15] MEDS: Vancomycin HCl 750 MG in Sodium Chloride 0.9% 250 ML 250 ML IVPB SCH (20:52)
[2018-09-15] MEDS: Atorvastatin Calcium 20 MG TAB PO SCH (20:54)
[2018-09-16] MEDS: Meropenem 1 GM in Sodium Chloride 0.9% 100 ML IVPB SCH ×3 (05:02→21:52)
[2018-09-16] MEDS: Lantus 1000 UNITS/10 ML VIAL SC SCH ×2 (08:11→20:42)
[2018-09-16] MEDS: Flecainide 50 MG TAB PO SCH ×2 (08:12→20:43)
[2018-09-16] MEDS: Gabapentin 300 MG CAP PO SCH ×3 (08:12→20:43)
[2018-09-16] MEDS: Amlodipine 5 MG TAB PO SCH (08:12)
[2018-09-16] MEDS: Saccharomyces boulardii 250 MG CAP PO SCH (08:12)
[2018-09-16] MEDS: Metoprolol Tartrate 25 MG TAB PO SCH ×2 (08:12→20:44)
--- NOTE | 2018-09-16 12:10 | PRG ---
DATE OF SERVICE: 09/16/2018 SUBJECTIVE: The patient feels well. No complaints other than occasional headache, having stable blood sugars. He is walking to the bathroom without assistance. He is having increasing strength in his legs. He has no shortness of breath or chest pain. OBJECTIVE: VITAL SIGNS: Show him to have blood pressure 140/77, temperature is 98, pulse 66, respirations 18, O2 sats 98% on room air. LUNGS: Clear. CARDIAC: Regular rhythm. ABDOMEN: Soft and nontender. SKIN AND EXTREMITIES: Display no edema, clubbing, or cyanosis with right foot is bandaged. ASSESSMENT: 1. Osteomyelitis of right fifth metatarsal on vancomycin, meropenem until October 17 with trough levels now in therapeutic range. 2. Type 2 diabetes controlled to goal on 40 units of Levemir in the morning, 20 units at night with no hypo or hyperglycemia. 3. Hypertension, controlled to goal metoprolol 50 twice daily. 4. Diabetic nephropathy slightly worsen with chronic kidney disease stage 4. His GFR down to 27 and we will repeat levels in the next several days. 5. Chronic urinary retention, on intermittent catheterization. 6. Obstructive sleep apnea, stable on CPAP and we will continue to monitor. Job ID: [id number]
--- NOTE | 2018-09-16 12:24 | PRG ---
DATE OF SERVICE: 09/15/2018 SUBJECTIVE: The patient feels well, lying in the bed. He did have an episode of hypoglycemia earlier and insulin doses have been decreased with no further recurrence. He is cooperating well with therapy, walking in the reagan with his boot, feels that his wound is improving with Santyl ointment. He is having no fever or chills. OBJECTIVE: VITAL SIGNS: Show his blood pressure is 152/75, temperature is 97.6, pulse 73, respirations 20, and O2 sats 99% on room air. LUNGS: Clear. CARDIAC: Showed regular rhythm. ABDOMEN: Soft and nontender. CARDIAC: Showed regular rhythm. ABDOMEN: Soft and nontender. SKIN/EXTREMITIES: Show right foot is bandaged, but wound care images showed healing wound, decreasing slough. LABORATORY DATA: Shows trough level therapeutic almost at 25.3 on dose of vancomycin 750 mg daily. Creatinine is increased somewhat however to 2.42 from previous level of 2.21 with a GFR decreasing from 30 to 27. Sodium 137, potassium 4.7, chloride 105, and bicarb 21. Accu-Cheks ranged from 93 to 154. ASSESSMENT: 1. Resolving osteomyelitis of right foot on meropenem and vancomycin with therapeutic vancomycin level. 2. Chronic kidney disease, stage 4 secondary to diabetes, being monitored closely with vancomycin nephrotoxicity worrisome with dose being titrated by pharmacy. 3. Hypertension controlled to goal on metoprolol 50 mg twice daily. 4. Obstructive sleep apnea, stable. PLAN: 1. Continue Lantus 40 units in the morning and 20 units at night. It appears to have stabilized sugars with no hypo or hyperglycemia. 2. Continue IV meropenem 1 g q.8 and vancomycin 750 mg daily until in date of October 17. 3. Continue PT/OT. 4. Continue wound care. Job ID: [id number]
[2018-09-16 15:02] LABS: INR-International Normal Ratio 1.7; Prothrombin Time 20.1 SEC (12.0-14.7)
[2018-09-16] MEDS: Warfarin Sodium 5 MG TAB PO SCH (16:20)
[2018-09-16] MEDS ORDERED: Warfarin Sodium 2.5 MG TAB PO SCH (17:00)
[2018-09-16 19:31] LABS: Vancomycin, Trough 21.1 ug/mL
[2018-09-16] MEDS: Vancomycin HCl 750 MG in Sodium Chloride 0.9% 250 ML 250 ML IVPB SCH (20:41)
[2018-09-16] MEDS: Atorvastatin Calcium 20 MG TAB PO SCH (20:44)
[2018-09-17] MEDS: Meropenem 1 GM in Sodium Chloride 0.9% 100 ML IVPB SCH ×3 (05:28→21:30)
[2018-09-17 05:45] LABS: INR-International Normal Ratio 1.6; Prothrombin Time 19.3 SEC (12.0-14.7)
[2018-09-17] MEDS ORDERED: Loratadine 10 MG TAB PO SCH ×2 (08:30→11:15)
[2018-09-17 08:35] LABS: #Basophils 0.1 thou/uL (0.0-0.2); #Eosinphils 0.5 thou/uL (0.0-0.7); #Lymphocytes 1.4 thou/uL (1.20-3.40); #Monocytes 1.2 thou/uL (0.11-0.59); #Neutrophils 8.8 thou/uL (1.40-6.50); %Basophils 1.1 % (0.0-1.0); %Eosinophils 4.3 % (0.0-10.0); %Lymphocytes 11.6 % (21.0-51.0); %Neutrophils 73.1 % (42.0-75.0); Hemoglobin 10.4 g/dL (14.0-18.0); Mean Corpuscular HGB CONC 32.4 g/dL (32.0-36.0); Mean Corpuscular Hemoglobin 30.8 pg (27.0-31.0); Mean Platelet Volume 6.4 fL (7.4-10.4); Platelet Count 282 thou/uL (130-400); RBC Distribution Width 13.6 % (11.5-14.5); Red Blood Cell (RBC) Count 3.39 mill/uL (4.70-6.10); White Blood Cell (WBC) Count 12.1 thou/uL (4.8-10.8)
[2018-09-17 08:47] LABS: ALT (SGPT) 16 U/L (8-55); AST (SGOT) 22 U/L (5-34); Albumin 3.7 g/dL (3.4-4.8); Alkaline Phosphatase 80 U/L (40-150); Anion Gap 17 mmol/L (10-20); BUN (Urea Nitrogen) 43 mg/dL (8.4-25.7); Bilirubin, Total 0.3 mg/dL (0.2-1.2); Calc. Creatinine Clearance 44 mL/min (70-130); Calcium 9.9 mg/dL (7.8-10.44); Carbon Dioxide 20 mmol/L (23-31); Chloride 105 mmol/L (98-107); Estimated GFR-MDRD 27; Globulin 4.1 g/dL (2.4-3.5); Glucose 115 mg/dL (80-115); Potassium 4.9 mmol/L (3.5-5.1); Protein, Total 7.8 g/dL (5.8-8.1); Sodium 137 mmol/L (136-145)
[2018-09-17] MEDS ORDERED: Metoprolol Tartrate 25 MG TAB ONE ×2 (09:09→19:56)
[2018-09-17] MEDS: Metoprolol Tartrate 25 MG TAB PO SCH ×2 (09:13→20:22)
[2018-09-17] MEDS: Saccharomyces boulardii 250 MG CAP PO SCH (09:13)
[2018-09-17] MEDS: Gabapentin 300 MG CAP PO SCH ×3 (09:13→20:22)
[2018-09-17] MEDS: Amlodipine 5 MG TAB PO SCH (09:14)
[2018-09-17] MEDS: Flecainide 50 MG TAB PO SCH ×2 (09:14→20:22)
[2018-09-17] MEDS: Lantus 1000 UNITS/10 ML VIAL SC SCH ×2 (09:16→20:22)
--- NOTE | 2018-09-17 09:51 | PRG ---
DATE OF SERVICE: 09/17/2018 SUBJECTIVE: The patient feels well with only complaints of postnasal drainage. He has been up moving around despite being told that he is not certified to be safe yet. He is having no pain in his foot and is wearing his orthotic boot. He is having no shortness of breath, chest pain, or palpitations. His laboratory showed PT/INR still subtherapeutic in 1.6, but vancomycin trough level is therapeutic at 21 for osteomyelitis. His Accu-Cheks have been stable from 108 to 159. OBJECTIVE: LUNGS: Clear. CARDIAC: Shows regular rhythm. ABDOMEN: Soft and nontender. SKIN AND EXTREMITIES: Showed right foot is bandaged in a boot. ASSESSMENT: 1. Type 2 diabetes, controlled to goal, on Levemir 40 units in the morning, 20 units in the evening. 2. Osteomyelitis of the right 5th metatarsal on vancomycin and meropenem until October 17 with therapeutic trough levels. 3. Hypertension, controlled to goal, on metoprolol 50 twice daily. 4. Chronic kidney disease stage 4, slightly deteriorated despite good control of diabetes and hypertension. We will repeat labs in the morning. 5. Obstructive sleep apnea, stable on CPAP. 6. Chronic urinary retention, on intermittent catheterization. 7. Chronic atrial fibrillation with rate control and anticoagulation. PLAN: 1. Loratadine 10 mg daily. 2. Continue IV meropenem and vancomycin. 3. Increase warfarin to 10 mg daily and monitor PT/INR daily. Job ID: [id number]
[2018-09-17] MEDS: Collagenase 250 UNITS/GM Ointment 30 GM TUBE TOP PRN (15:54)
[2018-09-17] MEDS: Warfarin Sodium 5 MG TAB PO SCH (16:07)
[2018-09-17] MEDS: Vancomycin HCl 750 MG in Sodium Chloride 0.9% 250 ML 250 ML IVPB SCH (20:16)
[2018-09-17] MEDS: Atorvastatin Calcium 20 MG TAB PO SCH (20:22)
[2018-09-18] MEDS: Meropenem 1 GM in Sodium Chloride 0.9% 100 ML IVPB SCH ×3 (05:27→22:23)
[2018-09-18 05:47] LABS: INR-International Normal Ratio 1.8; Prothrombin Time 20.7 SEC (12.0-14.7)
[2018-09-18] MEDS ORDERED: Warfarin Sodium 5 MG TAB PO SCH (07:15)
[2018-09-18] MEDS ORDERED: Metoprolol Tartrate 25 MG TAB ONE ×3 (08:38→20:49)
[2018-09-18] MEDS: Lantus 1000 UNITS/10 ML VIAL SC SCH ×2 (09:25→21:14)
[2018-09-18] MEDS: Flecainide 50 MG TAB PO SCH ×2 (09:25→21:12)
[2018-09-18] MEDS: Metoprolol Tartrate 25 MG TAB PO SCH ×2 (09:26→21:12)
[2018-09-18] MEDS: Amlodipine 5 MG TAB PO SCH (09:26)
[2018-09-18] MEDS: Saccharomyces boulardii 250 MG CAP PO SCH (09:26)
[2018-09-18] MEDS: Gabapentin 300 MG CAP PO SCH ×3 (09:27→21:13)
[2018-09-18] MEDS: Collagenase 250 UNITS/GM Ointment 30 GM TUBE TOP PRN (13:19)
[2018-09-18] MEDS: Warfarin Sodium 5 MG TAB PO SCH (16:43)
--- NOTE | 2018-09-18 20:20 | PRG ---
DATE OF SERVICE: 09/18/2018 SUBJECTIVE: The patient feels well with only complaints of occasional diarrhea, some persistent nasal congestion, although improved on loratadine. He is having no pain in his foot, is tolerating wound VAC well. No cough or shortness of breath. OBJECTIVE: VITAL SIGNS: Show blood pressure is 162/74, temperature is 96, pulse 66, respirations 20, and O2 saturation is 99% on room air. LABORATORY DATA: Showed PT/INR up to 1.8 this morning, was given an extra dose of warfarin today. Vancomycin trough level therapeutic at 21.1. Accu-Cheks stable at 127 to 175. C-reactive protein down to 1.27. Creatinine yesterday was 2.4, which is stable. ASSESSMENT: 1. Resolving osteomyelitis of right lateral foot, on vancomycin and meropenem until October 17. 2. Chronic kidney disease stage 4, stable. 3. Diabetes type 2, controlled to goal. 4. New recurrent diarrhea with recent negative Clostridium difficile. We will repeat again. Job ID: [id number]
[2018-09-18] MEDS: Vancomycin HCl 750 MG in Sodium Chloride 0.9% 250 ML 250 ML IVPB SCH (20:50)
[2018-09-18] MEDS: Atorvastatin Calcium 20 MG TAB PO SCH (21:12)
[2018-09-19 05:47] LABS: INR-International Normal Ratio 2.3; Prothrombin Time 25.4 SEC (12.0-14.7)
[2018-09-19] MEDS: Meropenem 1 GM in Sodium Chloride 0.9% 100 ML IVPB SCH ×3 (06:08→21:41)
[2018-09-19] MEDS: Amlodipine 5 MG TAB PO SCH (09:09)
[2018-09-19] MEDS: Saccharomyces boulardii 250 MG CAP PO SCH (09:10)
[2018-09-19] MEDS: Metoprolol Tartrate 25 MG TAB PO SCH (09:10)
[2018-09-19] MEDS: Gabapentin 300 MG CAP PO SCH ×3 (09:10→20:42)
[2018-09-19] MEDS: Flecainide 50 MG TAB PO SCH ×2 (09:10→20:42)
[2018-09-19] MEDS: Lantus 1000 UNITS/10 ML VIAL SC SCH ×2 (09:13→20:39)
[2018-09-19] MEDS ORDERED: Meropenem 1 GM VIAL ONE (13:04)
[2018-09-19] MEDS: Warfarin Sodium 5 MG TAB PO SCH (17:05)
[2018-09-19 19:36] LABS: Vancomycin, Trough 18.3 ug/mL
--- NOTE | 2018-09-19 19:53 | PRG ---
DATE OF SERVICE: 09/19/2018 SUBJECTIVE: The patient feels well, cooperating well with therapy. No complaints except for mild nasal congestion, which is improving. Tolerating antibiotics well. Has had some diarrhea, but has had a partial colectomy and feels this is due to checked for C diff, which has returned negative in the past. Blood pressure 150/74, pulse 60, respirations 22, O2 saturations 98% on room air. PT/INR is up to therapeutic range at 25 and 2.3, on warfarin 10 mg daily. We will continue to monitor, may need to decrease his dose. ASSESSMENT: 1. Osteomyelitis of right lateral foot, metatarsal, on vancomycin, meropenem until October 17 with therapeutic levels. 2. Chronic kidney disease stage 4 with creatinine stable to 2.4 and GFR of 27. 3. Diabetes type 2, controlled to goal. 4. Recurrent diarrhea. Negative test for C diff in the past. Awaiting repeat test. 5. Chronic atrial fibrillation, on anticoagulation, warfarin, and rate controlled with flecainide with recent PT/INR therapeutic. PLAN: 1. Continue daily PT/INR. 2. We will await results of C diff. 3. Await results of vancomycin trough . 4. Continue vancomycin and meropenem until October 17. 5. Continue Lantus dose of 40 units in the morning, 20 units at night. Job ID: [id number]
[2018-09-19] MEDS: Vancomycin HCl 750 MG in Sodium Chloride 0.9% 250 ML 250 ML IVPB SCH (20:35)
[2018-09-19] MEDS: Metoprolol Tartrate 50 MG TAB PO SCH (20:41)
[2018-09-19] MEDS: Atorvastatin Calcium 20 MG TAB PO SCH (20:41)
[2018-09-20] MEDS: Meropenem 1 GM in Sodium Chloride 0.9% 100 ML IVPB SCH ×3 (05:24→21:42)
[2018-09-20 05:52] LABS: INR-International Normal Ratio 2.4; Prothrombin Time 26.3 SEC (12.0-14.7)
[2018-09-20] MEDS: Amlodipine 5 MG TAB PO SCH (08:35)
[2018-09-20] MEDS: Flecainide 50 MG TAB PO SCH ×2 (08:36→20:28)
[2018-09-20] MEDS: Gabapentin 300 MG CAP PO SCH ×3 (08:36→20:29)
[2018-09-20] MEDS: Lantus 1000 UNITS/10 ML VIAL SC SCH ×2 (08:36→20:27)
[2018-09-20] MEDS: Metoprolol Tartrate 50 MG TAB PO SCH ×2 (08:37→20:28)
[2018-09-20] MEDS: Saccharomyces boulardii 250 MG CAP PO SCH (08:37)
[2018-09-20] MEDS: Warfarin Sodium 5 MG TAB PO SCH (16:56)
[2018-09-20] MEDS: Vancomycin HCl 750 MG in Sodium Chloride 0.9% 250 ML 250 ML IVPB SCH (20:26)
[2018-09-20] MEDS: Atorvastatin Calcium 20 MG TAB PO SCH (20:30)
--- NOTE | 2018-09-20 21:48 | PRG ---
DATE OF SERVICE: 09/20/2018 SUBJECTIVE: The patient is a 72-year-old white male with history of poorly controlled diabetes, subsequent complications of osteomyelitis of the right fifth metatarsal, who is on IV vancomycin and meropenem until October 18. He has had his wound VAC removed and has had Santyl ointment cleaning the wound. His diabetes has been well controlled. He has been ambulating with orthotic boot. OBJECTIVE: VITAL SIGNS: Show temperature is 97.8, pulse 67, respirations 18, O2 saturations 98% on room air, blood pressure 169/77. LUNGS: Clear. CARDIAC: Showed irregular rhythm. ABDOMEN: Soft and nontender. EXTREMITIES: Right foot is bandaged. The wound VAC has been removed. LABORATORY DATA: Shows Accu-Cheks ranged from 134 to 184. PT/INR 26.3 and 2.4. ASSESSMENT: 1. Resolving osteomyelitis, right fifth metatarsal, on meropenem and vancomycin with therapeutic vancomycin level. 2. Insulin-dependent diabetes mellitus, controlled to goal with Accu-Chek less than 200. 3. Cancer of the colon, status post partial colectomy with recurrence. Off chemotherapy until infection healed. 4. Deconditioning, improved greatly. PLAN: 1. Continue PT/OT. 2. Continue IV meropenem and vancomycin until October 18. 3. Continue Accu-Cheks to monitor and titrate and control diabetes, superimposed, on Lantus 40 units in the morning, 20 units at night. Job ID: [id number]
[2018-09-21] MEDS: Meropenem 1 GM in Sodium Chloride 0.9% 100 ML IVPB SCH ×3 (05:04→21:20)
[2018-09-21 06:11] LABS: INR-International Normal Ratio 2.5; Prothrombin Time 27.2 SEC (12.0-14.7)
[2018-09-21] MEDS: Flecainide 50 MG TAB PO SCH ×2 (08:56→19:38)
[2018-09-21] MEDS: Metoprolol Tartrate 50 MG TAB PO SCH ×2 (08:56→19:39)
[2018-09-21] MEDS: Saccharomyces boulardii 250 MG CAP PO SCH (08:57)
[2018-09-21] MEDS: Gabapentin 300 MG CAP PO SCH ×3 (08:57→19:38)
[2018-09-21] MEDS: Amlodipine 5 MG TAB PO SCH (08:57)
[2018-09-21] MEDS: Lantus 1000 UNITS/10 ML VIAL SC SCH ×2 (08:58→19:39)
[2018-09-21] MEDS: Warfarin Sodium 5 MG TAB PO SCH (17:51)
[2018-09-21] MEDS: Vancomycin HCl 750 MG in Sodium Chloride 0.9% 250 ML 250 ML IVPB SCH (19:37)
[2018-09-21] MEDS: Atorvastatin Calcium 20 MG TAB PO SCH (19:39)
[2018-09-22] MEDS: Meropenem 1 GM in Sodium Chloride 0.9% 100 ML IVPB SCH ×3 (05:12→20:29)
[2018-09-22 05:46] LABS: INR-International Normal Ratio 2.5; Prothrombin Time 27.1 SEC (12.0-14.7)
[2018-09-22] MEDS: Saccharomyces boulardii 250 MG CAP PO SCH (09:01)
[2018-09-22] MEDS: Amlodipine 5 MG TAB PO SCH (09:01)
[2018-09-22] MEDS: Metoprolol Tartrate 50 MG TAB PO SCH ×2 (09:01→20:29)
[2018-09-22] MEDS: Flecainide 50 MG TAB PO SCH ×2 (09:01→20:28)
[2018-09-22] MEDS: Lantus 1000 UNITS/10 ML VIAL SC SCH ×2 (09:02→20:29)
[2018-09-22] MEDS: Gabapentin 300 MG CAP PO SCH ×3 (09:02→20:28)
[2018-09-22] MEDS: Warfarin Sodium 3 MG TAB PO SCH (17:32)
--- NOTE | 2018-09-22 18:23 | PRG ---
DATE OF SERVICE: 09/22/2018 SUBJECTIVE: The patient feels well, lying in the bed, visiting with , is working with therapy, walking in the [place]agan. Wound leg is healing better and has been chemically debrided by Physical Therapy. OBJECTIVE: VITAL SIGNS: Show his temperature is 97.5, pulse 78, respirations 20, O2 sats 98%, and blood pressure 141/71. Accu-Cheks ranged from 136 to 199. PT/INR stable at 27 and 2.5. LUNGS: Clear. CARDIAC: Examination showed regular rhythm. ABDOMEN: Soft and nontender. SKIN/EXTREMITIES: Display no edema, clubbing, or cyanosis. There is a bandage over the right foot. NEUROLOGICAL: Shows decrease in sensation to pinprick in the feet. ASSESSMENT: 1. A 72-year-old white male with a history of type 2 insulin-dependent diabetes mellitus, controlled to goal. 2. Osteomyelitis, right 5th metatarsal, on meropenem and vancomycin, therapeutic levels until October 18. 3. Cancer of the colon status post partial colectomy with recurrence off chemotherapy until infection. 4. Deconditioning, improved greatly. PLAN: 1. Continue meropenem and vancomycin till October 18. Continue to monitor and titrate and control diabetes with Accu-Cheks. 2. Continue PT, OT, and wound care. 3. Continue stress ulcer and prophylaxis. 4. Continue rate control on anticoagulation of atrial fibrillation. Job ID: [id number]
[2018-09-22] MEDS: Vancomycin HCl 750 MG in Sodium Chloride 0.9% 250 ML 250 ML IVPB SCH (20:20)
[2018-09-22] MEDS: Atorvastatin Calcium 20 MG TAB PO SCH (20:28)
[2018-09-23] MEDS: Meropenem 1 GM in Sodium Chloride 0.9% 100 ML IVPB SCH ×3 (05:20→21:17)
[2018-09-23 05:34] LABS: INR-International Normal Ratio 2.3; Prothrombin Time 25.2 SEC (12.0-14.7)
--- NOTE | 2018-09-23 07:02 | PRG ---
DATE OF SERVICE: 09/23/2018 SUBJECTIVE: The patient feels well. He states he feels his wound is getting better, having no complaints of shortness of breath, chest pain, nausea, vomiting, fever or chills. OBJECTIVE: VITAL SIGNS: His temperature is 98.1, pulse 59, respirations 20, O2 sats 98% on room air, blood pressure 131/66. LUNGS: Clear. CARDIAC: Regular rhythm. ABDOMEN: Soft and nontender. EXTREMITIES: Right foot is bandaged. LABORATORY DATA: PT 27, INR 2.5, which appears to be stable. Accu-Cheks range from 87 to 154. ASSESSMENT: 1. Stable atrial fibrillation with rate control and anticoagulation. We will change PT/INRs to weekly. 2. Type 2 insulin-dependent diabetes, controlled to goal. 3. Osteomyelitis of right foot, on IV meropenem and vancomycin until October 18 with persistent ulcer, improving superficially. 4. History of cancer of the colon with recurrence, off chemotherapy until infection heals. 5. Deconditioning, improved greatly. PLAN: 1. Continue IV antibiotics until October 18. 2. Continue to monitor and titrate and control diabetes, Accu-Cheks on long-acting prehospitalization dose of insulin. 3. Continue PT, OT and wound care. 4. Continue stress ulcer prophylaxis. 5. Continue rate control and anticoagulation of atrial fibrillation. Job ID: [id number]
[2018-09-23] MEDS: Metoprolol Tartrate 50 MG TAB PO SCH ×2 (08:00→20:11)
[2018-09-23] MEDS: Lantus 1000 UNITS/10 ML VIAL SC SCH ×2 (08:00→20:11)
[2018-09-23] MEDS: Gabapentin 300 MG CAP PO SCH ×3 (08:01→20:10)
[2018-09-23] MEDS: Saccharomyces boulardii 250 MG CAP PO SCH (08:01)
[2018-09-23] MEDS: Amlodipine 5 MG TAB PO SCH (08:01)
[2018-09-23] MEDS: Flecainide 50 MG TAB PO SCH ×2 (08:01→20:10)
--- NOTE | 2018-09-23 09:19 | PRG ---
DATE OF SERVICE: 09/23/2018 SUBJECTIVE: The patient feels well, lying in bed with no complaints. Feels that his wound is getting better. He is having no abdominal pain. No nausea or vomiting. No shortness of breath or chest pain. OBJECTIVE: VITAL SIGNS: Show blood pressure is 155/72, temperature is 98, pulse 66, respirations 18, O2 sats 98% on room air. LUNGS: Clear. CARDIAC: Showed regular rhythm. ABDOMEN: Soft and nontender. SKIN/EXTREMITIES: Display right lateral foot is bandaged, but picture showed that there is a deep ulcer, but appears to be clean. ASSESSMENT: 1. Right lateral foot ulcer stage IV with osteomyelitis, on meropenem and vancomycin until October 18. 2. Cancer of the colon with recurrence, off chemotherapy until infection heals. 3. Insulin-dependent diabetes, controlled to goal. 4. Atrial fibrillation with rate control on anticoagulation. 5. Deconditioning, improved greatly. PLAN: 1. Continue IV antibiotics until October 18. Continue to monitor and titrate and control diabetes, on long-acting insulin. 2. Continue PT, OT and wound care. 3. Continue stress ulcer prophylaxis. 4. Continue rate control and anticoagulation of atrial fibrillation. Job ID: [id number]
[2018-09-23] MEDS: Warfarin Sodium 3 MG TAB PO SCH (17:10)
[2018-09-23] MEDS: Vancomycin HCl 750 MG in Sodium Chloride 0.9% 250 ML 250 ML IVPB SCH (20:09)
[2018-09-23] MEDS: Atorvastatin Calcium 20 MG TAB PO SCH (20:10)
[2018-09-24] MEDS: Meropenem 1 GM in Sodium Chloride 0.9% 100 ML IVPB SCH ×3 (05:05→21:43)
[2018-09-24 05:40] LABS: INR-International Normal Ratio 2.9; Prothrombin Time 30.4 SEC (12.0-14.7)
[2018-09-24] MEDS: Amlodipine 5 MG TAB PO SCH (08:21)
[2018-09-24] MEDS: Metoprolol Tartrate 50 MG TAB PO SCH ×2 (08:22→20:22)
[2018-09-24] MEDS: Flecainide 50 MG TAB PO SCH ×2 (08:22→20:23)
[2018-09-24] MEDS: Lantus 1000 UNITS/10 ML VIAL SC SCH ×2 (08:22→20:23)
[2018-09-24] MEDS: Gabapentin 300 MG CAP PO SCH ×3 (08:22→20:22)
[2018-09-24] MEDS: Saccharomyces boulardii 250 MG CAP PO SCH (08:23)
[2018-09-24] MEDS: Warfarin Sodium 3 MG TAB PO SCH (16:46)
[2018-09-24 19:20] LABS: Vancomycin, Trough 17.2 ug/mL
[2018-09-24] MEDS: Vancomycin HCl 750 MG in Sodium Chloride 0.9% 250 ML 250 ML IVPB SCH (20:14)
[2018-09-24] MEDS: Atorvastatin Calcium 20 MG TAB PO SCH (20:22)
[2018-09-25] MEDS: Meropenem 1 GM in Sodium Chloride 0.9% 100 ML IVPB SCH ×3 (05:24→21:18)
[2018-09-25 05:26] VITALS: BMI 32.2
[2018-09-25 05:38] LABS: INR-International Normal Ratio 3.2; Prothrombin Time 32.6 SEC (12.0-14.7)
[2018-09-25] MEDS: Lantus 1000 UNITS/10 ML VIAL SC SCH ×2 (08:55→21:17)
[2018-09-25] MEDS: Amlodipine 5 MG TAB PO SCH (08:55)
[2018-09-25] MEDS: Flecainide 50 MG TAB PO SCH ×2 (08:55→21:13)
[2018-09-25] MEDS: Gabapentin 300 MG CAP PO SCH ×3 (08:55→21:12)
[2018-09-25] MEDS: Metoprolol Tartrate 50 MG TAB PO SCH ×2 (08:56→21:12)
[2018-09-25] MEDS: Saccharomyces boulardii 250 MG CAP PO SCH (08:56)
[2018-09-25] MEDS: Vancomycin HCl 750 MG in Sodium Chloride 0.9% 250 ML 250 ML IVPB SCH (20:23)
--- NOTE | 2018-09-25 20:35 | PRG ---
DATE OF SERVICE: 09/24/2018 SUBJECTIVE: The patient is resting well with no complaints, nausea, vomiting, pain, fever, or chills. He has not had therapy today on the week and not had wound care. OBJECTIVE: VITAL SIGNS: Show his temperature is 97.9, pulse 62, respirations 16, O2 sats 98% on room air, and blood pressure 151/71. LUNGS: Clear. CARDIAC: Showed regular rhythm. ABDOMEN: Soft and nontender. EXTREMITIES: Right leg is bandaged. Right foot is bandaged, but picture shows that the wound is clean and healing slowly. LABORATORY DATA: Shows Accu-Cheks 110 to 155. PT/INR 30 and 2.9. ASSESSMENT: 1. Resolving osteomyelitis of right foot on IV meropenem and vancomycin until October 18. 2. Insulin-dependent diabetes mellitus, controlled to goal. 3. Atrial fibrillation with rate control and anticoagulation. 4. Cancer of the colon, status post recurrence, off chemotherapy until resolution of infection. 5. Greatly improved deconditioning. Job ID: [id number]
--- NOTE | 2018-09-25 20:47 | PRG ---
DATE OF SERVICE: 09/25/2018 SUBJECTIVE: The patient feels well, lying in bed with no complaints, asking when he can go out on a pass to get some affairs in order. He does state that he was taking prior to his illness warfarin 7.5 mg on Wednesday and Wednesday and 5 mg other days. At present, he is taking 9 mg daily. OBJECTIVE: VITAL SIGNS: Show his blood pressure is 128/66, pulse 56, temperature 95.3, O2 saturation 99% on room air, respirations 18. EXTREMITIES: Right foot is bandaged. LUNGS: Clear. CARDIAC: Shows an irregular rhythm. ABDOMEN: Soft and nontender. ASSESSMENT: 1. Resolving osteomyelitis of right foot, on IV vancomycin, meropenem. 2. Atrial fibrillation with rate control anticoagulation, but now supratherapeutic and it appears that the patient may be returning back to his previous dose of 7.5 mg twice a week and 5 mg other days, but we will decrease to 7.5 daily now as he is on 9 mg daily. 3. Deconditioning, improved greatly. 4. Type 2 diabetes, insulin dependent, controlled to goal. PLAN: 1. Decrease warfarin 7.5 mg daily. 2. Continue vancomycin and meropenem. 3. Continue wound care. 4. Continue PT. 5. Continue Accu-Cheks to monitor and titrate and control diabetes. Job ID: [id number]
[2018-09-25] MEDS: Atorvastatin Calcium 20 MG TAB PO SCH (21:12)
[2018-09-26] MEDS: Meropenem 1 GM in Sodium Chloride 0.9% 100 ML IVPB SCH ×3 (05:05→21:28)
[2018-09-26 05:19] LABS: INR-International Normal Ratio 3.2; Prothrombin Time 32.7 SEC (12.0-14.7)
[2018-09-26] MEDS: Flecainide 50 MG TAB PO SCH ×2 (08:38→21:26)
[2018-09-26] MEDS: Gabapentin 300 MG CAP PO SCH ×3 (08:38→21:27)
[2018-09-26] MEDS: Saccharomyces boulardii 250 MG CAP PO SCH (08:38)
[2018-09-26] MEDS: Metoprolol Tartrate 50 MG TAB PO SCH ×2 (08:38→21:27)
[2018-09-26] MEDS: Amlodipine 5 MG TAB PO SCH (08:39)
[2018-09-26] MEDS: Lantus 1000 UNITS/10 ML VIAL SC SCH ×2 (08:39→21:27)
[2018-09-26] MEDS ORDERED: Warfarin Sodium 3 MG TAB PO SCH (17:00)
[2018-09-26] MEDS: Warfarin Sodium 2.5 MG TAB PO SCH (18:12)
[2018-09-26 19:29] LABS: Vancomycin, Trough 17.3 ug/mL
[2018-09-26] MEDS: Vancomycin HCl 750 MG in Sodium Chloride 0.9% 250 ML 250 ML IVPB SCH (20:19)
[2018-09-26] MEDS: Atorvastatin Calcium 20 MG TAB PO SCH (21:26)
[2018-09-27] MEDS: Meropenem 1 GM in Sodium Chloride 0.9% 100 ML IVPB SCH ×3 (05:15→21:30)
[2018-09-27 05:28] LABS: INR-International Normal Ratio 2.7; Prothrombin Time 28.1 SEC (12.0-14.7)
--- NOTE | 2018-09-27 07:16 | PRG ---
DATE OF SERVICE: 09/26/2018 SUBJECTIVE: The patient feels well with no complaints, lying in bed, has been cooperating with therapy. He has been eating well, has noticed some mild epistaxis, but no significant bleeding otherwise, has been tolerating wound care well with no pain and is pleased with his improvement. OBJECTIVE: Shows; VITAL SIGNS: His temperature is 97.9, pulse 62, respirations 18, O2 sats 100% on room air, blood pressure 145/70. LUNGS: Clear. CARDIAC: Examination shows irregular rhythm. ABDOMEN: Soft and nontender. SKIN/EXTREMITIES: Right foot bandaged, in orthotic boot. LABORATORY DATA: Show PT/INR supratherapeutic at 3.2, but have decreased dose to 7.5 mg. We will monitor this for one more day to see if this decreases the INR is not increased on this dose. Vancomycin trough level is stable and therapeutic at 17.3. ASSESSMENT: 1. Improving osteomyelitis of the right foot with still some concerns of healing, but we will continue on antibiotics until October 18. I have requested Infectious Disease despite concerns with surgery, that may not heal. 2. Atrial fibrillation with good rate control and variable anticoagulation, appears to be improved now on 7.5 mg of warfarin daily, which is still more than he was taking at home, but has remained therapeutic and we will continue to monitor. 3. Type 2 diabetes, controlled to goal with Accu-Cheks ranging from 127-190. 4. Atrial fibrillation with rate control, on anticoagulation. 5. Deconditioning, resolved. PLAN: 1. Continue warfarin 7.5 daily. 2. Continue vancomycin and meropenem until October 18. 3. Continue wound care. 4. Continue PT. 5. Continue Accu-Cheks to monitor and titrate and control diabetes. Job ID: [id number]
[2018-09-27] MEDS: Lantus 1000 UNITS/10 ML VIAL SC SCH ×2 (09:05→21:30)
[2018-09-27] MEDS: Metoprolol Tartrate 50 MG TAB PO SCH ×2 (09:06→21:30)
[2018-09-27] MEDS: Amlodipine 5 MG TAB PO SCH (09:06)
[2018-09-27] MEDS: Gabapentin 300 MG CAP PO SCH ×3 (09:06→21:30)
[2018-09-27] MEDS: Saccharomyces boulardii 250 MG CAP PO SCH (09:06)
[2018-09-27] MEDS: Flecainide 50 MG TAB PO SCH ×2 (09:06→21:29)
[2018-09-27] MEDS: Warfarin Sodium 2.5 MG TAB PO SCH (17:22)
[2018-09-27] MEDS: Vancomycin HCl 750 MG in Sodium Chloride 0.9% 250 ML 250 ML IVPB SCH (20:21)
[2018-09-27] MEDS: Atorvastatin Calcium 20 MG TAB PO SCH (21:29)
--- NOTE | 2018-09-27 21:32 | PRG ---
DATE OF SERVICE: 09/27/2018 SUBJECTIVE: The patient feels well, lying in the bed, but has been working with therapy today. States that this wound is feeling much better and looking much better. He had no further nose bleeds. He has been eating well. OBJECTIVE: VITAL SIGNS: Shows his blood pressure is 141/67, temperature is 97.8, pulse 60, respirations 18, O2 sats 99% on room air. LUNGS: Clear. CARDIAC: Regular rhythm. ABDOMEN: Soft and nontender. Accu-Cheks controlled to goal. PT is 28, INT 2.7. ASSESSMENT: 1. Stable type 2 diabetes. 2. Resolving osteomyelitis on IV vancomycin and Zosyn until October 18. 3. Stable cancer of the colon metastasis, awaiting chemotherapy until infection is cleared. 4. Atrial fibrillation with rate controlled on anticoagulation. 5. Continue wound care. 6. Continue PT/OT. 7. Continue IV vancomycin and Zosyn until October 18. 8. Continue Accu-Cheks to monitor and titrate, and control diabetes. Job ID: [id number]
[2018-09-28 05:23] LABS: INR-International Normal Ratio 2.3; Prothrombin Time 25.2 SEC (12.0-14.7)
[2018-09-28] MEDS: Meropenem 1 GM in Sodium Chloride 0.9% 100 ML IVPB SCH ×3 (05:36→21:14)
[2018-09-28] MEDS: Amlodipine 5 MG TAB PO SCH (08:14)
[2018-09-28] MEDS: Gabapentin 300 MG CAP PO SCH ×3 (08:15→21:12)
[2018-09-28] MEDS: Lantus 1000 UNITS/10 ML VIAL SC SCH ×2 (08:15→21:14)
[2018-09-28] MEDS: Flecainide 50 MG TAB PO SCH ×3 (08:15→21:12)
[2018-09-28] MEDS: Metoprolol Tartrate 50 MG TAB PO SCH ×2 (08:16→21:13)
[2018-09-28] MEDS: Saccharomyces boulardii 250 MG CAP PO SCH (08:16)
[2018-09-28] MEDS: Warfarin Sodium 2.5 MG TAB PO SCH (17:06)
[2018-09-28] MEDS: Vancomycin HCl 750 MG in Sodium Chloride 0.9% 250 ML 250 ML IVPB SCH (19:40)
[2018-09-28] MEDS: Atorvastatin Calcium 20 MG TAB PO SCH (21:12)
[2018-09-29] MEDS: Meropenem 1 GM in Sodium Chloride 0.9% 100 ML IVPB SCH ×3 (05:46→22:16)
[2018-09-29 06:09] LABS: INR-International Normal Ratio 2.2; Prothrombin Time 24.6 SEC (12.0-14.7)
[2018-09-29 06:15] LABS: Anion Gap 13 mmol/L (10-20); BUN (Urea Nitrogen) 48 mg/dL (8.4-25.7); Calc. Creatinine Clearance 53 mL/min (70-130); Calcium 9.1 mg/dL (7.8-10.44); Carbon Dioxide 20 mmol/L (23-31); Chloride 110 mmol/L (98-107); Estimated GFR-MDRD 35; Glucose 81 mg/dL (83-110); Potassium 4.6 mmol/L (3.5-5.1); Sodium 138 mmol/L (136-145)
[2018-09-29] MEDS: Amlodipine 5 MG TAB PO SCH (08:16)
[2018-09-29] MEDS: Gabapentin 300 MG CAP PO SCH ×3 (08:16→20:56)
[2018-09-29] MEDS: Flecainide 50 MG TAB PO SCH ×2 (08:16→20:56)
[2018-09-29] MEDS: Metoprolol Tartrate 50 MG TAB PO SCH ×2 (08:17→20:57)
[2018-09-29] MEDS: Lantus 1000 UNITS/10 ML VIAL SC SCH ×2 (08:17→20:55)
[2018-09-29] MEDS: Saccharomyces boulardii 250 MG CAP PO SCH (08:18)
[2018-09-29] MEDS: Warfarin Sodium 2.5 MG TAB PO SCH (17:46)
[2018-09-29] MEDS: Warfarin Sodium 5 MG TAB PO SCH (17:47)
[2018-09-29 19:26] LABS: Vancomycin, Trough 17.3 ug/mL
[2018-09-29] MEDS: Vancomycin HCl 750 MG in Sodium Chloride 0.9% 250 ML 250 ML IVPB SCH (20:54)
[2018-09-29] MEDS: Atorvastatin Calcium 20 MG TAB PO SCH (20:56)
[2018-09-30] MEDS: Meropenem 1 GM in Sodium Chloride 0.9% 100 ML IVPB SCH ×3 (05:26→21:23)
[2018-09-30 05:36] LABS: INR-International Normal Ratio 2.5; Prothrombin Time 26.5 SEC (12.0-14.7)
[2018-09-30] MEDS: Lantus 1000 UNITS/10 ML VIAL SC SCH ×2 (09:50→20:22)
[2018-09-30] MEDS: Saccharomyces boulardii 250 MG CAP PO SCH (09:50)
[2018-09-30] MEDS: Amlodipine 5 MG TAB PO SCH (09:51)
[2018-09-30] MEDS: Metoprolol Tartrate 50 MG TAB PO SCH ×2 (09:51→20:20)
[2018-09-30] MEDS: Gabapentin 300 MG CAP PO SCH ×3 (09:51→20:20)
[2018-09-30] MEDS: Flecainide 50 MG TAB PO SCH ×2 (09:51→20:22)
[2018-09-30] MEDS ORDERED: Sodium Chloride 0.9% 40 ML ONE (14:51)
[2018-09-30] MEDS: Warfarin Sodium 2.5 MG TAB PO SCH (17:33)
[2018-09-30] MEDS: Warfarin Sodium 5 MG TAB PO SCH (17:33)
[2018-09-30] MEDS: Vancomycin HCl 750 MG in Sodium Chloride 0.9% 250 ML 250 ML IVPB SCH (20:19)
[2018-09-30] MEDS: Atorvastatin Calcium 20 MG TAB PO SCH (20:20)
[2018-10-01] MEDS: Meropenem 1 GM in Sodium Chloride 0.9% 100 ML IVPB SCH ×3 (05:37→21:26)
[2018-10-01] MEDS: Saccharomyces boulardii 250 MG CAP PO SCH (09:39)
[2018-10-01] MEDS: Flecainide 50 MG TAB PO SCH ×2 (09:40→20:20)
[2018-10-01] MEDS: Amlodipine 5 MG TAB PO SCH (09:40)
[2018-10-01] MEDS: Gabapentin 300 MG CAP PO SCH ×3 (09:40→20:19)
[2018-10-01] MEDS: Metoprolol Tartrate 50 MG TAB PO SCH ×2 (09:41→20:19)
[2018-10-01] MEDS: Lantus 1000 UNITS/10 ML VIAL SC SCH ×2 (09:45→20:21)
[2018-10-01] MEDS: Warfarin Sodium 5 MG TAB PO SCH (17:48)
[2018-10-01] MEDS: Warfarin Sodium 2.5 MG TAB PO SCH (17:48)
[2018-10-01] MEDS: Vancomycin HCl 750 MG in Sodium Chloride 0.9% 250 ML 250 ML IVPB SCH (20:18)
[2018-10-01] MEDS: Atorvastatin Calcium 20 MG TAB PO SCH (20:20)
[2018-10-02] MEDS: Meropenem 1 GM in Sodium Chloride 0.9% 100 ML IVPB SCH ×3 (05:09→21:00)
[2018-10-02] MEDS: Gabapentin 300 MG CAP PO SCH ×3 (09:13→19:57)
[2018-10-02] MEDS: Amlodipine 5 MG TAB PO SCH (09:13)
[2018-10-02] MEDS: Metoprolol Tartrate 50 MG TAB PO SCH ×2 (09:13→19:56)
[2018-10-02] MEDS: Saccharomyces boulardii 250 MG CAP PO SCH (09:13)
[2018-10-02] MEDS: Flecainide 50 MG TAB PO SCH ×2 (09:14→19:58)
[2018-10-02] MEDS: Lantus 1000 UNITS/10 ML VIAL SC SCH ×2 (09:15→19:58)
[2018-10-02] MEDS: Warfarin Sodium 2.5 MG TAB PO SCH (17:10)
[2018-10-02] MEDS: Warfarin Sodium 5 MG TAB PO SCH (17:10)
[2018-10-02 19:40] LABS: Vancomycin, Trough 16.2 ug/mL
[2018-10-02] MEDS: Vancomycin HCl 750 MG in Sodium Chloride 0.9% 250 ML 250 ML IVPB SCH (19:51)
[2018-10-02] MEDS: Atorvastatin Calcium 20 MG TAB PO SCH (19:58)
[2018-10-03] MEDS: Meropenem 1 GM in Sodium Chloride 0.9% 100 ML IVPB SCH ×3 (04:39→22:35)
[2018-10-03 05:42] LABS: INR-International Normal Ratio 2.5; Prothrombin Time 26.9 SEC (12.0-14.7)
--- NOTE | 2018-10-03 07:45 | PRG ---
DATE OF SERVICE: 10/03/2018 Job ID: [id number]
--- NOTE | 2018-10-03 08:00 | PRG ---
DATE OF SERVICE: 10/02/2018 SUBJECTIVE: The patient is a 73-year-old white male with history of osteomyelitis of the right fifth metatarsal on IV antibiotics until October 18, who was doing very well with well-controlled type 2 diabetes, stable atrial fibrillation, and stable hypertension. He has metastatic colon cancer, but is on no chemotherapy until his infection has healed with no symptoms at this time. OBJECTIVE: VITAL SIGNS: Shows temperature is 97.8, pulse 63, respirations 18, O2 saturations 100% on room air, and blood pressure 125/60. LUNGS: Clear. CARDIAC: Irregular rhythm. ABDOMEN: Soft and nontender. EXTREMITIES: Right foot shows healing diabetic ulcer. ASSESSMENT: 1. Resolving osteomyelitis of right fifth metatarsal. 2. Hypertension, controlled to goal. 3. Atrial fibrillation with rate controlled on anticoagulation. 4. Cancer of the colon with metastasis. No symptoms at this time. 5. Diabetes, controlled to goal. PLAN: Continue IV vancomycin and Zosyn until October 18. Continue to monitor Accu-Cheks. Accu-Cheks to control diabetes. Continue rate control and anticoagulation for atrial fibrillation. Continue wound care. Job ID: [id number]
[2018-10-03] MEDS: Flecainide 50 MG TAB PO SCH ×2 (09:19→20:39)
[2018-10-03] MEDS: Gabapentin 300 MG CAP PO SCH ×3 (09:19→20:40)
[2018-10-03] MEDS: Amlodipine 5 MG TAB PO SCH (09:19)
[2018-10-03] MEDS: Metoprolol Tartrate 50 MG TAB PO SCH ×2 (09:20→20:39)
[2018-10-03] MEDS: Lantus 1000 UNITS/10 ML VIAL SC SCH ×2 (09:20→20:38)
[2018-10-03] MEDS: Saccharomyces boulardii 250 MG CAP PO SCH (09:21)
--- NOTE | 2018-10-03 13:55 | PRG ---
DATE OF SERVICE: 09/28/2018 SUBJECTIVE The patient lying in the bed, resting, no complaints, asking to get a pass tomorrow to get some berries he has at home. No shortness of breath, chest pain, is walking with physical therapy, is eating well. Wound dressings and care have been turned over to nursing. OBJECTIVE: VITAL SIGNS: Blood pressure 141/66, temperature is 98, pulse 60, respirations 18, O2 sats 99% on room air. LUNGS: Clear. CARDIAC: Examination shows irregular rhythm. ABDOMEN: Soft, nontender with no masses or organomegaly. EXTREMITIES: Right foot is in a bandage, dressing shows a clean, dry wound. LABORATORY DATA: Laboratory show PT stable at 25. INR 2.3. Accu-Chek stable at 42. ASSESSMENT: 1. Resolving osteomyelitis, right foot lateral metatarsal, on IV vancomycin and meropenem until October 18. 2. Insulin dependent diabetes mellitus, controlled to goal. 3. Cancer of the colon with metastasis, off chemotherapy until patient's infection is cleared. 4. Atrial fibrillation with rate control, anticoagulation . 5. Continue wound care. 6. Continue PT/OT. 7. The patient is able to go out on pass tomorrow. Job ID: [id number]
--- NOTE | 2018-10-03 14:21 | PRG ---
DATE OF SERVICE: 09/30/2018 SUBJECTIVE: 1.The patient is a 73-year-old white male with history of osteomyelitis of right fifth metatarsal, on IV Zosyn and vancomycin until October 18 with a stage IV ulcer on the right lateral foot is healing well and dry with no debridements necessary, only wound dressings done by nurses. 1. Atrial fibrillation with rate control, on anticoagulation with stable PT/INR. 2. Cancer of the colon, metastatic, but on no chemotherapy until infection revealed. 4.Type 2 diabetes, insulin dependent, controlled. PLAN: 1. Discontinue PT/INR, change to weekly. 2. Continue IV vancomycin and meropenem. 3. Continue insulin therapy and Accu-Cheks. Monitor, titrate, and control diabetes. Job ID: [id number]
--- NOTE | 2018-10-03 14:21 | PRG ---
DATE OF SERVICE: 09/29/2018 SUBJECTIVE: The patient feels well walking without any assistance, maintaining ADL. Wound care is being done by nurses. OBJECTIVE: VITAL SIGNS: Shows his temperature is 97.9, pulse 65, respirations 20, O2 sats is 99% on room air, blood pressure 138/65 LUNGS: Clear. CARDIAC: Irregular rhythm. ABDOMEN: Soft and nontender. SKIN/EXTREMITIES: Right foot is bandaged, but picture showed the ulcer is healing well. LABORATORY DATA: Shows vancomycin trough is 17.3. Sodium 138, potassium 4.6, chloride 110, bicarb 20, BUN 48, creatinine 1.89. GFR 45, this is greatly improved from previous GFR of 47. Accu-Chek ASSESSMENT: 1. Resolving osteomyelitis, right fifth metatarsal, on zosyn and vancomycin until October 18. 2. Atrial fibrillation with rate controlled on anticoagulation. 3. Cancer of the colon, metastatic, off chemotherapy until infection is resolved. 4. Insulin-dependent diabetes mellitus, controlled to goal. PLANS: 1. Continue PT/OT. 2. Continue wound care. 3. Continue vancomycin and zosyn until October 18. 4. Continue Accu-Cheks to monitor and titrate and control the diabetes. Job ID: [id number]
[2018-10-03] MEDS: Warfarin Sodium 2.5 MG TAB PO SCH (17:45)
[2018-10-03] MEDS: Warfarin Sodium 5 MG TAB PO SCH (17:45)
[2018-10-03] MEDS: Vancomycin HCl 750 MG in Sodium Chloride 0.9% 250 ML 250 ML IVPB SCH (20:34)
[2018-10-03] MEDS: Atorvastatin Calcium 20 MG TAB PO SCH (20:40)
--- NOTE | 2018-10-03 21:17 | PRG ---
DATE OF SERVICE: 10/03/2018 SUBJECTIVE: The patient lying in bed, visiting with a friend. He states he feels well up and walking, eating well. In fact, asking if he can be discharged few days early on October 14 as he wants to plan his band. OBJECTIVE: ABDOMEN: Soft and nontender. LUNGS: Clear. CARDIAC: Shows an irregular rhythm. SKIN/EXTREMITIES: Show a persistent ulcer on the right lateral foot, but is getting smaller and shallower. LABORATORY DATA: Accu-Cheks range of 97 to 157. PT/INR 26.9 and 2.5. Vancomycin trough level 16.2. ASSESSMENT: 1. Resolving osteomyelitis of right fifth metatarsal, on vancomycin and Zosyn until October 18. 2. Insulin-dependent diabetes mellitus, controlled to goal. 3. Atrial fibrillation with rate controlled, on anticoagulation. 4. Deconditioning, resolved. 5. Cancer of the colon, metastatic with no chemotherapy secondary to ongoing infection. PLAN: Discuss early discharge with Dr. Lawson. Obtain CBC and comp met profile. Continue IV Zosyn and vancomycin until October 18. Continue Accu-Cheks to monitor and titrate and control diabetes. Continue rate control and anticoagulation of atrial fib. Job ID: [id number]
[2018-10-04] MEDS: Meropenem 1 GM in Sodium Chloride 0.9% 100 ML IVPB SCH ×4 (05:04→21:51)
[2018-10-04 05:36] LABS: #Basophils 0.1 thou/uL (0.0-0.2); #Eosinphils 0.6 thou/uL (0.0-0.7); #Lymphocytes 1.1 thou/uL (1.20-3.40); #Monocytes 1.1 thou/uL (0.11-0.59); #Neutrophils 4.7 thou/uL (1.40-6.50); %Basophils 1.3 % (0.0-1.0); %Eosinophils 7.6 % (0.0-10.0); %Lymphocytes 14.5 % (21.0-51.0); %Monocytes 14.6 % (0.0-10.0); Hemoglobin 8.9 g/dL (14.0-18.0); Mean Corpuscular HGB CONC 32.8 g/dL (32.0-36.0); Mean Corpuscular Hemoglobin 29.8 pg (27.0-31.0); Mean Platelet Volume 7.3 fL (7.4-10.4); Platelet Count 172 thou/uL (130-400); RBC Distribution Width 13.2 % (11.5-14.5); Red Blood Cell (RBC) Count 2.99 mill/uL (4.70-6.10); White Blood Cell (WBC) Count 7.7 thou/uL (4.8-10.8)
[2018-10-04 05:38] LABS: INR-International Normal Ratio 2.5
[2018-10-04 05:50] LABS: ALT (SGPT) 16 U/L (8-55); AST (SGOT) 18 U/L (5-34); Albumin 3.2 g/dL (3.4-4.8); Alkaline Phosphatase 87 U/L (40-150); Anion Gap 14 mmol/L (10-20); BUN (Urea Nitrogen) 43 mg/dL (8.4-25.7); Bilirubin, Total 0.3 mg/dL (0.2-1.2); Calc. Creatinine Clearance 55 mL/min (70-130); Calcium 8.9 mg/dL (7.8-10.44); Carbon Dioxide 20 mmol/L (23-31); Chloride 112 mmol/L (98-107); Estimated GFR-MDRD 37; Globulin 3.1 g/dL (2.4-3.5); Glucose 102 mg/dL (83-110); Potassium 4.6 mmol/L (3.5-5.1); Protein, Total 6.3 g/dL (5.8-8.1); Sodium 141 mmol/L (136-145)
[2018-10-04] MEDS: Amlodipine 5 MG TAB PO SCH (09:07)
[2018-10-04] MEDS: Flecainide 50 MG TAB PO SCH ×2 (09:08→20:38)
[2018-10-04] MEDS: Lantus 1000 UNITS/10 ML VIAL SC SCH ×2 (09:08→20:36)
[2018-10-04] MEDS: Gabapentin 300 MG CAP PO SCH ×3 (09:08→20:38)
[2018-10-04] MEDS: Saccharomyces boulardii 250 MG CAP PO SCH (09:09)
[2018-10-04] MEDS: Metoprolol Tartrate 50 MG TAB PO SCH ×2 (09:09→20:37)
[2018-10-04] MEDS: Warfarin Sodium 2.5 MG TAB PO SCH (16:43)
[2018-10-04] MEDS: Warfarin Sodium 5 MG TAB PO SCH (16:43)
[2018-10-04] MEDS: Vancomycin HCl 750 MG in Sodium Chloride 0.9% 250 ML 250 ML IVPB SCH (20:35)
[2018-10-04] MEDS: Atorvastatin Calcium 20 MG TAB PO SCH (20:38)
[2018-10-05] MEDS: Meropenem 1 GM in Sodium Chloride 0.9% 100 ML IVPB SCH ×3 (05:01→21:46)
[2018-10-05 05:26] LABS: INR-International Normal Ratio 2.4; Prothrombin Time 25.6 SEC (12.0-14.7)
--- NOTE | 2018-10-05 06:57 | PRG ---
DATE OF SERVICE: 10/04/2018 SUBJECTIVE: The patient feels well. No pain in his foot, healing ulcer with only some callus around his right lateral foot. No abdominal pain. No shortness of breath. No chest pain. Ambulating in the reagan independently. OBJECTIVE: VITAL SIGNS: Temperature is 96.7, pulse 63, respirations 20, O2 sats 100% on room air, blood pressure 159/71. LUNGS: Clear. CARDIAC: Shows regular rhythm. ABDOMEN: Soft, nontender with no masses or organomegaly. SKIN: Extremities display clean healing ulcer of the right lateral foot. ASSESSMENT: 1. Resolving osteomyelitis right 5th metatarsal, on vancomycin and Zosyn until October 18. 2. Insulin-dependent diabetes mellitus, controlled to goal. 3. Atrial fibrillation, rate controlled with anticoagulation. 4. Deconditioning, resolved. 5. Cancer to the colon, metastatic. No chemotherapy secondary to ongoing infection. PLAN: 1. Continue rate control and anticoagulation for atrial fibrillation. 2. Continue IV Zosyn and vancomycin until October 18. 3. Discussed discharge with Dr. Lorenzo and possible need for MRI. 4. Continue Accu-Cheks. Job ID: [id number]
[2018-10-05] MEDS: Amlodipine 5 MG TAB PO SCH (08:41)
[2018-10-05] MEDS: Lantus 1000 UNITS/10 ML VIAL SC SCH ×2 (08:41→20:27)
[2018-10-05] MEDS: Gabapentin 300 MG CAP PO SCH ×3 (08:41→20:26)
[2018-10-05] MEDS: Flecainide 50 MG TAB PO SCH ×2 (08:41→20:26)
[2018-10-05] MEDS: Saccharomyces boulardii 250 MG CAP PO SCH (08:41)
[2018-10-05] MEDS: Metoprolol Tartrate 50 MG TAB PO SCH ×2 (08:41→20:27)
[2018-10-05] MEDS ORDERED: Sodium Chloride 0.9% 40 ML ONE (14:23)
[2018-10-05] MEDS: Warfarin Sodium 5 MG TAB PO SCH (17:18)
[2018-10-05] MEDS: Warfarin Sodium 2.5 MG TAB PO SCH (17:18)
[2018-10-05] MEDS: Atorvastatin Calcium 20 MG TAB PO SCH (20:25)
[2018-10-05] MEDS: Vancomycin HCl 750 MG in Sodium Chloride 0.9% 250 ML 250 ML IVPB SCH (20:25)
[2018-10-06] MEDS: Meropenem 1 GM in Sodium Chloride 0.9% 100 ML IVPB SCH ×3 (05:03→21:31)
[2018-10-06] MEDS: Metoprolol Tartrate 50 MG TAB PO SCH ×2 (09:03→20:01)
[2018-10-06] MEDS: Amlodipine 5 MG TAB PO SCH (09:03)
[2018-10-06] MEDS: Saccharomyces boulardii 250 MG CAP PO SCH (09:04)
[2018-10-06] MEDS: Lantus 1000 UNITS/10 ML VIAL SC SCH ×2 (09:04→21:15)
[2018-10-06] MEDS: Flecainide 50 MG TAB PO SCH ×2 (09:04→20:01)
[2018-10-06] MEDS: Gabapentin 300 MG CAP PO SCH ×3 (09:04→20:02)
[2018-10-06] MEDS: Warfarin Sodium 2.5 MG TAB PO SCH (16:49)
[2018-10-06] MEDS: Warfarin Sodium 5 MG TAB PO SCH (16:49)
[2018-10-06] MEDS: Vancomycin HCl 750 MG in Sodium Chloride 0.9% 250 ML 250 ML IVPB SCH (19:58)
[2018-10-06] MEDS: Atorvastatin Calcium 20 MG TAB PO SCH (20:02)
[2018-10-07] MEDS: Meropenem 1 GM in Sodium Chloride 0.9% 100 ML IVPB SCH ×3 (05:43→21:07)
[2018-10-07] MEDS: Metoprolol Tartrate 50 MG TAB PO SCH ×2 (08:47→21:08)
[2018-10-07] MEDS: Saccharomyces boulardii 250 MG CAP PO SCH (08:47)
[2018-10-07] MEDS: Flecainide 50 MG TAB PO SCH ×2 (08:48→21:08)
[2018-10-07] MEDS: Amlodipine 5 MG TAB PO SCH (08:48)
[2018-10-07] MEDS: Gabapentin 300 MG CAP PO SCH ×3 (08:49→21:09)
[2018-10-07] MEDS: Lantus 1000 UNITS/10 ML VIAL SC SCH ×2 (08:50→21:15)
[2018-10-07] MEDS: Warfarin Sodium 5 MG TAB PO SCH (16:39)
[2018-10-07] MEDS: Warfarin Sodium 2.5 MG TAB PO SCH (16:41)
--- NOTE | 2018-10-07 18:19 | PRG ---
DATE OF SERVICE: 10/05/2018 SUBJECTIVE: The patient feels well. No complaints. Resting in the bed, asking if he can be discharged early and have attempted to consult Dr. Lawson about possible need for MRI prior to discharge. OBJECTIVE: VITAL SIGNS: Show temperature 97.7, pulse 66, respirations 20, O2 sats 98% on room air, and blood pressure 152/68. LABORATORY DATA: White count 7700, hematocrit 27, hemoglobin 8.9. Sodium 141, potassium 4.6, chloride 112, bicarb 20, BUN 43, creatinine 1.83, calcium 8.9. AST 18 and ALT 16. Right foot shows only a bandage over the right fifth metatarsal with a healing ulcer. ASSESSMENT: 1. Resolving stage IV decubitus of the right fifth metatarsal with osteomyelitis on IV antibiotics until October 18. 2. Chronic kidney disease, stage 3, stable. 3. Atrial fibrillation with rate control and anticoagulation. 4. Hypertension, controlled to goal. 5. Type 2 diabetes, controlled to goal. 6. Deconditioning, resolved. PLAN: 1. Continue PT/OT. 2. Continue wound care. 3. Continue IV vancomycin and Zosyn until October 18, but discussed with Dr. Lawson about early discharge. Job ID: [id number]
--- NOTE | 2018-10-07 18:35 | PRG ---
DATE OF SERVICE: 10/07/2018 SUBJECTIVE: The patient feels well. He is asking about whether MRI has been scheduled as he has no complaints and is ready to be discharged home if possible. OBJECTIVE: VITAL SIGNS: Show blood pressure is 153/65, pulse 63, O2 sats 100% on room air, and afebrile. LUNGS: Clear. CARDIAC: Shows regular rhythm. EXTREMITIES: Right lateral foot shows diabetic ulcer over fifth metatarsal healing but with persistent callus. ASSESSMENT: 1. Right fifth metatarsal osteomyelitis and stage IV decubitus ulcer healing well on vancomycin and Zosyn until October 18, but we will discuss with Infectious Disease about early MRI and possible early discharge. 2. Type 2 diabetes, controlled to goal. 3. Atrial fibrillation with rate controlled on anticoagulation. 4. Hypertension, controlled to goal. 5. Cancer of the colon, metastatic off chemotherapy until infection cleared. PLAN: 1. Continue IV antibiotics. 2. Continue wound care. 3. Continue Accu-Cheks. 4. Continue rate control and anticoagulation for atrial fibrillation. 5. Possible MRI after discussion with Infectious Disease. Job ID: [id number]
[2018-10-07] MEDS: Vancomycin HCl 750 MG in Sodium Chloride 0.9% 250 ML 250 ML IVPB SCH (19:41)
[2018-10-07] MEDS: Atorvastatin Calcium 20 MG TAB PO SCH (21:09)
[2018-10-08] MEDS: Meropenem 1 GM in Sodium Chloride 0.9% 100 ML IVPB SCH ×3 (05:34→21:15)
[2018-10-08] MEDS: Flecainide 50 MG TAB PO SCH ×2 (09:47→21:26)
[2018-10-08] MEDS: Amlodipine 5 MG TAB PO SCH (09:47)
[2018-10-08] MEDS: Lantus 1000 UNITS/10 ML VIAL SC SCH ×2 (09:48→21:26)
[2018-10-08] MEDS: Gabapentin 300 MG CAP PO SCH ×3 (09:48→21:25)
[2018-10-08] MEDS: Metoprolol Tartrate 50 MG TAB PO SCH ×2 (09:48→21:25)
[2018-10-08] MEDS: Saccharomyces boulardii 250 MG CAP PO SCH (09:49)
[2018-10-08] MEDS: Warfarin Sodium 2.5 MG TAB PO SCH (16:20)
[2018-10-08] MEDS: Warfarin Sodium 5 MG TAB PO SCH (16:20)
[2018-10-08] MEDS: Vancomycin HCl 750 MG in Sodium Chloride 0.9% 250 ML 250 ML IVPB SCH (19:41)
[2018-10-08] MEDS: Atorvastatin Calcium 20 MG TAB PO SCH (21:26)
[2018-10-09] MEDS: Meropenem 1 GM in Sodium Chloride 0.9% 100 ML IVPB SCH (05:49)
[2018-10-09] MEDS: Cipro 250 MG TAB PO SCH ×2 (06:26→21:11)
--- NOTE | 2018-10-09 06:33 | PRG ---
DATE OF SERVICE: 10/08/2018 SUBJECTIVE: The patient feels well, lying in the bed. No complaints. Discussed conversation with Infectious Disease about his wound and possible underlying osteo and request for the patient to end his antibiotics slightly early and a decision to go ahead and switch to oral antibiotics tomorrow and monitor for 1 to 2 days prior to discharge. The patient is very agreeable with this and very happy with this. OBJECTIVE: VITAL SIGNS: Temperature is 98.3, pulse 67, respirations 20, O2 sats 98% on room air, blood pressure is 140/65. LUNGS: Clear. CARDIAC: Shows irregular rhythm. ABDOMEN: Soft and nontender with no masses or organomegaly. SKIN/EXTREMITIES: Right lateral foot shows diabetic ulcer over the 5th metatarsal that is healing with decreased size and no drainage. LABORATORY DATA: Most recent vancomycin level 3 days ago was therapeutic at 16.2. Accu-Cheks have been stable from 117 to 156. ASSESSMENT: 1. Diabetic ulcer with possible underlying osteomyelitis, finishing 6 weeks of antibiotic treatment with request to switch to oral treatment, and after discussion with Infectious Disease have done this, it is still felt that he will require long-term treatment and monitoring to ensure that the osteomyelitis has healed as there was no debridement. 2. Type 2 diabetes, controlled to goal. 3. Atrial fibrillation with rate controlled, on anticoagulation. 4. Cancer of the colon with metastasis, on no treatment at this time until infection is eradicated. 5. Hypertension, controlled to goal. PLAN: 1. Discontinue vancomycin and Zosyn in the a.m. 2. Start Cipro 500 twice daily and doxycycline 100 twice daily. 3. Continue Accu-Cheks to monitor diabetic control. 4. Continue rate control and anticoagulation of atrial fibrillation. 5. Have come in to learn wound care and schedule for discharge hopefully in the next 2 to 4 days. Job ID: [id number]
[2018-10-09 08:32] LABS: INR-International Normal Ratio 2.6; Prothrombin Time 27.6 SEC (12.0-14.7)
[2018-10-09] MEDS: Amlodipine 5 MG TAB PO SCH (09:47)
[2018-10-09] MEDS: Doxycycline 100 MG CAP PO SCH ×2 (09:47→21:11)
[2018-10-09] MEDS: Flecainide 50 MG TAB PO SCH ×2 (09:47→21:10)
[2018-10-09] MEDS: Gabapentin 300 MG CAP PO SCH ×3 (09:47→21:11)
[2018-10-09] MEDS: Metoprolol Tartrate 50 MG TAB PO SCH ×2 (09:48→21:11)
[2018-10-09] MEDS: Lantus 1000 UNITS/10 ML VIAL SC SCH ×2 (09:48→21:12)
[2018-10-09] MEDS: Saccharomyces boulardii 250 MG CAP PO SCH (09:48)
[2018-10-09] MEDS: Warfarin Sodium 2.5 MG TAB PO SCH (17:12)
[2018-10-09] MEDS: Warfarin Sodium 5 MG TAB PO SCH (17:12)
[2018-10-09 19:47] LABS: Vancomycin, Trough 16.8 ug/mL
[2018-10-09] MEDS: Atorvastatin Calcium 20 MG TAB PO SCH (21:11)
--- NOTE | 2018-10-09 21:40 | PRG ---
DATE OF SERVICE: SUBJECTIVE: The patient feels well, lying in bed, has been taken off IV antibiotics and now is on oral Cipro and doxycycline. No change in condition of his foot ulcer. Feeling strong, he is waiting for to learn therapy and wound care. We will plan on discharge home in the next several days. OBJECTIVE: VITAL SIGNS: Blood pressure 139/63, pulse 65, temperature 96, O2 sats 99% on room air. LABORATORY DATA: INR is 2.6, PT of 27. ASSESSMENT: 1. Resolving diabetic ulcer, on oral Cipro and doxycycline. Questionable underlying osteomyelitis, being monitored. 2. History of cancer of the colon with metastasis, will follow with Dr. Duncan to consider further therapy when discharged. 3. Atrial fibrillation with rate control, on anticoagulation. 4. Type 2 diabetes, controlled to goal with Accu-Cheks ranged from 126 to 169. 5. Deconditioning, resolved. PLAN: 1. Continue to monitor PT, on Cipro and warfarin, ensure stable PT/INR. 2. Continue PT/OT. 3. Continue wound care and have learn how to do this. 4. Continue Accu-Cheks. Job ID: [id number]
[2018-10-10 05:18] LABS: INR-International Normal Ratio 2.6; Prothrombin Time 27.6 SEC (12.0-14.7)
[2018-10-10] MEDS: Cipro 250 MG TAB PO SCH ×2 (05:35→19:47)
--- NOTE | 2018-10-10 07:43 | PRG ---
DATE OF SERVICE: 10/06/2018 SUBJECTIVE: The patient feels well. No complaints. Resting in the bed, asking if heard from Dr. Lawson. OBJECTIVE: VITAL SIGNS: Show blood pressure of 121/59, temperature 97, pulse 53, respirations 16, O2 saturations 98% on room air. LUNGS: Clear. CARDIAC: Irregular rhythm. ABDOMEN: Soft and nontender. MUSCULOSKELETAL: Right foot shows diabetic ulcer healing well. SKIN/EXTREMITIES: Display no edema, clubbing, or cyanosis with right foot is showing an ulcer. ASSESSMENT: 1. Resolving right fifth metatarsal osteomyelitis and stage IV ulcer on IV antibiotics until October 18 and we will discuss with Infectious Disease about possible need for MRI prior to this. 2. Type 2 diabetes, controlled to goal. 3. Atrial fibrillation with rate control anticoagulation. 4. Hypertension, controlled to goal. 5. Deconditioning, resolved. PLAN: 1. Continue IV antibiotics until October 18. 2. Continue wound care. 3. Continue rate control anticoagulation. 4. Continue Accu-Cheks to monitor and titrate and control diabetes. Job ID: [id number]
[2018-10-10] MEDS: Metoprolol Tartrate 50 MG TAB PO SCH ×2 (08:29→19:49)
[2018-10-10] MEDS: Saccharomyces boulardii 250 MG CAP PO SCH (08:29)
[2018-10-10] MEDS: Gabapentin 300 MG CAP PO SCH ×3 (08:30→19:48)
[2018-10-10] MEDS: Doxycycline 100 MG CAP PO SCH ×2 (08:30→19:48)
[2018-10-10] MEDS: Amlodipine 5 MG TAB PO SCH (08:30)
[2018-10-10] MEDS: Lantus 1000 UNITS/10 ML VIAL SC SCH ×2 (08:31→19:49)
[2018-10-10] MEDS: Flecainide 50 MG TAB PO SCH ×2 (08:31→19:48)
[2018-10-10] MEDS: Warfarin Sodium 2.5 MG TAB PO SCH (18:00)
[2018-10-10] MEDS: Warfarin Sodium 5 MG TAB PO SCH (18:00)
[2018-10-10] MEDS: Atorvastatin Calcium 20 MG TAB PO SCH (19:48)
[2018-10-11] MEDS: Cipro 250 MG TAB PO SCH ×2 (05:24→20:46)
[2018-10-11 06:06] LABS: #Basophils 0.1 thou/uL (0.0-0.2); #Eosinphils 0.5 thou/uL (0.0-0.7); #Lymphocytes 1.3 thou/uL (1.20-3.40); #Monocytes 1.1 thou/uL (0.11-0.59); #Neutrophils 5.2 thou/uL (1.40-6.50); %Basophils 1.3 % (0.0-1.0); %Eosinophils 6.3 % (0.0-10.0); %Lymphocytes 15.8 % (21.0-51.0); %Neutrophils 63.7 % (42.0-75.0); Hemoglobin 7.8 g/dL (14.0-18.0); Mean Corpuscular HGB CONC 32.6 g/dL (32.0-36.0); Mean Corpuscular Hemoglobin 29.4 pg (27.0-31.0); Mean Platelet Volume 7.9 fL (7.4-10.4); Platelet Count 163 thou/uL (130-400); RBC Distribution Width 12.7 % (11.5-14.5); Red Blood Cell (RBC) Count 2.66 mill/uL (4.70-6.10); White Blood Cell (WBC) Count 8.1 thou/uL (4.8-10.8)
[2018-10-11 06:20] LABS: ALT (SGPT) 15 U/L (8-55); AST (SGOT) 16 U/L (5-34); Albumin 3.2 g/dL (3.4-4.8); Alkaline Phosphatase 81 U/L (40-150); Anion Gap 13 mmol/L (10-20); BUN (Urea Nitrogen) 64 mg/dL (8.4-25.7); Bilirubin, Total 0.3 mg/dL (0.2-1.2); Calc. Creatinine Clearance 46 mL/min (70-130); Calcium 8.9 mg/dL (7.8-10.44); Carbon Dioxide 20 mmol/L (23-31); Chloride 109 mmol/L (98-107); Estimated GFR-MDRD 30; Globulin 3.1 g/dL (2.4-3.5); Glucose 119 mg/dL (83-110); Potassium 4.5 mmol/L (3.5-5.1); Protein, Total 6.3 g/dL (5.8-8.1); Sodium 137 mmol/L (136-145)
[2018-10-11] MEDS: Doxycycline 100 MG CAP PO SCH ×2 (07:57→20:46)
[2018-10-11] MEDS: Saccharomyces boulardii 250 MG CAP PO SCH (07:57)
[2018-10-11] MEDS: Amlodipine 5 MG TAB PO SCH (07:57)
[2018-10-11] MEDS: Flecainide 50 MG TAB PO SCH ×2 (07:58→20:47)
[2018-10-11] MEDS: Gabapentin 300 MG CAP PO SCH ×3 (07:58→20:47)
[2018-10-11] MEDS: Metoprolol Tartrate 50 MG TAB PO SCH ×2 (07:58→20:46)
[2018-10-11] MEDS: Lantus 1000 UNITS/10 ML VIAL SC SCH ×2 (09:30→20:48)
[2018-10-11] MEDS: Warfarin Sodium 2.5 MG TAB PO SCH (17:28)
[2018-10-11] MEDS: Warfarin Sodium 5 MG TAB PO SCH (17:28)
[2018-10-11] MEDS: Atorvastatin Calcium 20 MG TAB PO SCH (20:47)
--- NOTE | 2018-10-11 22:30 | PRG ---
DATE OF SERVICE: 10/11/2018 SUBJECTIVE: The patient feels well, anticipating discharge tomorrow and wishes to have prescriptions sent in. He was scheduled a followup with his primary care doctor and his oncologist and home health will follow with his for wound care. OBJECTIVE: VITAL SIGNS: Shows blood pressure is 127/61, temperature 97, pulse 65, respirations 18, O2 sats 98% on room air. LUNGS: Clear. CARDIAC: Regular rhythm. ABDOMEN: Soft and nontender. EXTREMITIES: Right foot shows clean stage III decubitus diabetic ulcer of the right fifth metatarsal phalangeal joint. ASSESSMENT: 1. Resolving diabetic ulcer infection, now on oral antibiotics with Cipro and doxycycline. 2. Stable type 2 diabetes. 3. Cancer of the colon metastasis with no therapy at this time secondary to an ongoing infection. 4. Atrial fibrillation, rate controlled on anticoagulation. PLAN: 1. Continue wound care with instructions to wipe tomorrow. 2. Continue Cipro and doxycycline at discharge. 3. Give prescriptions all home medications tomorrow. 4. Plan on discharge tomorrow. Job ID: [id number]
[2018-10-12] MEDS: Cipro 250 MG TAB PO SCH (05:40)
[2018-10-12 07:51] VITALS: BP 122/59; TEMP 96.6
[2018-10-12] MEDS: Amlodipine 5 MG TAB PO SCH (08:07)
[2018-10-12] MEDS: Doxycycline 100 MG CAP PO SCH (08:07)
[2018-10-12] MEDS: Lantus 1000 UNITS/10 ML VIAL SC SCH (08:08)
[2018-10-12] MEDS: Metoprolol Tartrate 50 MG TAB PO SCH (08:08)
[2018-10-12] MEDS: Flecainide 50 MG TAB PO SCH (08:08)
[2018-10-12] MEDS: Gabapentin 300 MG CAP PO SCH (08:08)
[2018-10-12] MEDS: Saccharomyces boulardii 250 MG CAP PO SCH (08:09)
== END 2018-10-12 12:45 | disposition home or self-care (01) | DRG 638 ==
LOC: NAV ACUTE 16:36
PROVIDERS: ADMIT Internal Medicine; ATTEND Internal Medicine
DX: E11.69 Type 2 diabetes mellitus with other specified complication (principal); M86.8X7 Other osteomyelitis, ankle and foot; C18.9 Malignant neoplasm of colon, unspecified; C79.9 Secondary malignant neoplasm of unspecified site; N18.4 Chronic kidney disease, stage 4 (severe); I12.9 Hypertensive chronic kidney disease with stage 1 through stage 4 chronic kidney disease, or unspecified chronic kidney disease; E11.22 Type 2 diabetes mellitus with diabetic chronic kidney disease; E11.40 Type 2 diabetes mellitus with diabetic neuropathy, unspecified; G47.33 Obstructive sleep apnea (adult) (pediatric); R33.9 Retention of urine, unspecified; E11.621 Type 2 diabetes mellitus with foot ulcer; L97.509 Non-pressure chronic ulcer of other part of unspecified foot with unspecified severity; I73.9 Peripheral vascular disease, unspecified; F32.9 Major depressive disorder, single episode, unspecified; R53.81 Other malaise; B96.89 Other specified bacterial agents as the cause of diseases classified elsewhere; I48.2 Chronic atrial fibrillation; L97.519 Non-pressure chronic ulcer of other part of right foot with unspecified severity; E11.649 Type 2 diabetes mellitus with hypoglycemia without coma; R19.7 Diarrhea, unspecified; R04.0 Epistaxis; Z79.899 Other long term (current) drug therapy; Z90.49 Acquired absence of other specified parts of digestive tract; Z92.21 Personal history of antineoplastic chemotherapy; Z90.89 Acquired absence of other organs; Z89.421 Acquired absence of other right toe(s)
CPT/HCPCS: 36415; 36416; 80048; 80053; 80202; 85025; 85610; 86140; 87070; 87077; 87186; 87205; 87324; 87449; 97602; J0692; J1815; J2185; J3370; J3490; J7050

== ENCOUNTER 2018-11-30 17:15 | Inpatient (IN) | payer MEDICARE ==
[2018-11-30] MEDS ORDERED: Collagenase 250 UNITS/GM Ointment 30 GM TUBE TOP PRN (18:25)
[2018-11-30] MEDS: Cefepime 2 GM in Sodium Chloride 0.9% 100 ML IVPB SCH (20:42)
[2018-11-30] MEDS: Atorvastatin Calcium 20 MG TAB PO SCH (20:42)
[2018-11-30] MEDS: Flecainide 50 MG TAB PO SCH (20:43)
[2018-11-30] MEDS: Gabapentin 100 MG CAP PO SCH (20:44)
[2018-11-30] MEDS: Lantus 1000 UNITS/10 ML VIAL SC SCH (20:44)
[2018-11-30] MEDS: Metoprolol Tartrate 25 MG TAB PO SCH (20:44)
[2018-11-30] MEDS ORDERED: Cefepime 2 GM VIAL IVPB SCH (21:00)
--- NOTE | 2018-11-30 22:22 | HP ---
Admission to the [facility] unit. HISTORY OF PRESENT ILLNESS: The patient is a 73-year-old white male, well known to myself from a previous long stay at the [facility] for poorly-controlled diabetes with subsequent complications of an infected ulcer of his right lateral foot with osteomyelitis. The patient at that time refused surgical treatment and elected long-term antibiotics and wound care. This was done in the [facility]. He had healing of the cellulitis and wound, but still had a deep wound extending to his bone. He had good control of his diabetes and his hypertension and his sleep apnea and chronic kidney disease, as well as his chronic atrial fibrillation and urinary retention, which has required chronic self catheterizations. He, however, after finishing a full six-week course of antibiotics, had recurrent infection in his toe with presentation on November 16 with fever, chills, and myalgia, who had an MRI, which showed recurrent osteomyelitis of the right fifth toe and therefore, he underwent a right partial amputation of fifth metatarsal. He did grow one out of two cultures positive for methicillin sensitive Staph and therefore he has been placed on cefepime 2 g IV q.12 hours until December 16. His blood pressure has been well controlled in the hospital as has his Accu-Cheks and his atrial fibrillation. He is admitted to [facility] to finish his antibiotics and to continue wound care and PT/OT. On admission, he is on his above-mentioned antibiotics plus routine home meds of amlodipine 5 mg daily, atorvastatin 20 mg nightly, flecainide 100 mg twice daily, gabapentin 600 mg nightly and 100 mg at 9 and at 3:00 p.m., Lantus 20 units subcu at bedtime and 40 units subcu q.a.m., and warfarin 4 mg daily. ALLERGIES: HE HAS NO KNOWN ALLERGIES. CODE STATUS: He is a full code. PAST MEDICAL HISTORY: Positive for the above-mentioned diabetes. Cancer of the colon. Atrial fibrillation. Peripheral neuropathy. Peripheral vascular disease. Chronic kidney disease, stage 3. PAST SURGICAL HISTORY: Positive for the partial colectomy. Cholecystectomy. Tonsillectomy. Amputation of the right fourth toe. Ablation of atrial fibrillation x2. Hernia repair. Partial hepatectomy and partial colectomy for cancer of the colon. 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 He is a nonsmoker and nondrinker. MEDICATIONS: As above. REVIEW OF SYSTEMS: HEENT: He denies headaches, dizziness, change in vision or hearing, hoarseness, or dysphagia. PULMONARY: He denies cough, sputum production, pneumonia, asthma, or tuberculosis. CARDIOVASCULAR: He denies any chest pain. He does have occasional palpitations. He had no dyspnea on exertion, orthopnea, paroxysmal nocturnal dyspnea, or edema. GASTROINTESTINAL: He denies nausea, vomiting, diarrhea, constipation, or abdominal pain. GENITOURINARY: He denies dysuria, hematuria, or nocturia. He does have a history of urinary retention, requiring intermittent cath. MUSCULOSKELETAL: He has above-mentioned history of osteomyelitis of right fifth toe, is now status post partial amputation of that toe. NEUROLOGIC: He has decreased sensation in both legs. PHYSICAL EXAMINATION: GENERAL: The patient is an elderly white male, awake and alert, in no distress. Oriented x3 and cooperative. VITAL SIGNS: Show him to have blood pressure 128/60, pulse 60, he is afebrile at 97.7, and respirations 16. HEENT: Pupils are equal, round, and reactive to light and accommodation. Sclerae anicteric. Conjunctivae pale. Mucous membranes are well hydrated. NECK: Supple. There are no nodes or masses. JVP is not elevated. LUNGS: Clear. CARDIAC: Showed an irregularly irregular rhythm. ABDOMEN: Soft and nontender. SKIN AND EXTREMITIES: Displayed no clubbing, cyanosis, or edema. There is a healing right fifth toe amputation. NEUROLOGIC: Shows decreased sensation of pinprick in the feet. LABORATORY DATA: Shows white count 7500, hematocrit 21, hemoglobin 7.4, and platelet count 219,000. PT is 22 and INR 2.0. Sodium 135, potassium 4.6, chloride 106, bicarb 23, BUN 40, and creatinine 1.86. Accu-Cheks ranged from 149 to 217. ASSESSMENT: 1. A 73-year-old white male with history of poorly-controlled diabetes, now appears to be pretty controlled with Accu-Cheks less than 200. 2. Osteomyelitis of right fifth toe, status post partial amputation of right fifth toe, now on IV cefepime until December 16 because of methicillin sensitive Staph bacteremia. 3. Cancer of the colon, status post partial colectomy and partial hepatectomy. Awaiting reinstitution of chemotherapy once infection is eradicated. 4. Atrial fibrillation with rate control and anticoagulation on flecainide and warfarin. 5. Peripheral vascular disease, stable. 6. Peripheral neuropathy with decreased sensation in his feet. 7. Chronic kidney disease, stage 3, stable. PLAN: 1. Continue PT/OT and wound care. 2. Continue Accu-Cheks to monitor and titrate and control diabetes. 3. Continue IV cefepime 2 g q.12 until December 16. 4. Continue home medications. 5. Continue rate control and anticoagulation of atrial fib with PT/INR. We will monitor control of warfarin therapy. Job ID: [id number]
[2018-12-01 01:32] LABS: Bilirubin Negative (Negative); Blood, Urine Small (Negative); Clarity Clear (Clear); Glucose, Urine (Dipstick) 500 mg/dL (Negative); Leukocyte Small (Negative); Nitrite Negative (Negative); Protein, Urine (Dipstick) 100 mg/dL (Neg-Trace); Urobilinogen 0.2 mg/dL (Less than 2)
[2018-12-01 01:36] LABS: RBC/HPF 0-3 HPF (0-3)
[2018-12-01 01:38] LABS: Bacteria/HPF Rare-Few HPF (None Seen); Squamous Epithelial 0-3 HPF (0-3)
[2018-12-01 05:34] LABS: #Basophils 0.1 thou/uL (0.0-0.2); #Eosinphils 0.4 thou/uL (0.0-0.7); #Lymphocytes 1.6 thou/uL (1.20-3.40); #Monocytes 1.1 thou/uL (0.11-0.59); #Neutrophils 5.5 thou/uL (1.40-6.50); %Basophils 1.5 % (0.0-1.0); %Eosinophils 4.7 % (0.0-10.0); %Lymphocytes 18.7 % (21.0-51.0); %Monocytes 12.1 % (0.0-10.0); Hemoglobin 7.7 g/dL (14.0-18.0); Mean Corpuscular HGB CONC 33.1 g/dL (32.0-36.0); Mean Corpuscular Hemoglobin 29.3 pg (27.0-31.0); Mean Corpuscular Volume 88.5 fL (78.0-98.0); Mean Platelet Volume 6.1 fL (7.4-10.4); Platelet Count 217 thou/uL (130-400); Red Blood Cell (RBC) Count 2.62 mill/uL (4.70-6.10); White Blood Cell (WBC) Count 8.7 thou/uL (4.8-10.8)
[2018-12-01 05:38] LABS: INR-International Normal Ratio 2.2
[2018-12-01 05:49] LABS: AST (SGOT) 27 U/L (5-34); Bilirubin, Total 0.3 mg/dL (0.2-1.2); Calcium 9.2 mg/dL (7.8-10.44); Chloride 107 mmol/L (98-107); Potassium 4.9 mmol/L (3.5-5.1); Sodium 140 mmol/L (136-145)
[2018-12-01 05:59] LABS: ALT (SGPT) 32 U/L (8-55); Albumin 3.5 g/dL (3.4-4.8); Alkaline Phosphatase 85 U/L (40-110); Anion Gap 16 mmol/L (10-20); BUN (Urea Nitrogen) 41 mg/dL (8.4-25.7); Calc. Creatinine Clearance 54 mL/min (70-130); Carbon Dioxide 23 mmol/L (23-31); Estimated GFR-MDRD 38; Globulin 2.7 g/dL (2.4-3.5); Glucose 120 mg/dL (83-110); Protein, Total 6.2 g/dL (5.8-8.1)
[2018-12-01] MEDS: Metoprolol Tartrate 25 MG TAB PO SCH ×2 (08:58→20:44)
[2018-12-01] MEDS: Gabapentin 100 MG CAP PO SCH ×2 (08:59→20:44)
[2018-12-01] MEDS: Amlodipine 5 MG TAB PO SCH (08:59)
[2018-12-01] MEDS: Flecainide 50 MG TAB PO SCH ×2 (08:59→20:45)
[2018-12-01] MEDS: Cefepime 2 GM in Sodium Chloride 0.9% 100 ML IVPB SCH ×2 (09:00→20:45)
[2018-12-01] MEDS: Lantus 1000 UNITS/10 ML VIAL SC SCH ×2 (09:03→20:48)
[2018-12-01] MEDS: Warfarin Sodium 5 MG TAB PO SCH (17:33)
[2018-12-01] MEDS: Warfarin Sodium 2.5 MG TAB PO SCH (17:34)
[2018-12-01] MEDS: Atorvastatin Calcium 20 MG TAB PO SCH (20:44)
[2018-12-01] MEDS: HYDROcodone/Acetaminophen 5/325 mg Tablet PO PRN (20:46)
[2018-12-02 05:56] LABS: Prothrombin Time 22.7 SEC (12.0-14.7)
[2018-12-02 06:03] LABS: Anion Gap 16 mmol/L (10-20); BUN (Urea Nitrogen) 37 mg/dL (8.4-25.7); Calc. Creatinine Clearance 53 mL/min (70-130); Calcium 9.3 mg/dL (7.8-10.44); Carbon Dioxide 21 mmol/L (23-31); Chloride 104 mmol/L (98-107); Estimated GFR-MDRD 37; Glucose 105 mg/dL (83-110); Potassium 4.5 mmol/L (3.5-5.1); Sodium 136 mmol/L (136-145)
--- NOTE | 2018-12-02 07:39 | PRG ---
DATE OF SERVICE: 12/01/2018 SUBJECTIVE: The patient feels well, lying in bed. States he has been working well with therapy. He is having persistent pain, however, specifically with wound dressing and not with exercise, but is only taking Tylenol and is not getting any hydrocodone. He also has had difficulty with recurrent hypoglycemia and is requesting replacement back on his Ensure Clear and Royer supplements. Resolving right fifth toe amputation and osteomyelitis of the right fifth toe, on cefepime IV until December 16. OBJECTIVE: VITAL SIGNS: His temperature is 96.8, pulse 68, respirations 20, O2 sats 97% on room air, blood pressure 132/64. ABDOMEN: Soft and nontender. LUNGS: Clear. CARDIAC: Showed irregularly irregular rhythm. EXTREMITIES: Right foot is bandaged at site of the partial right fifth toe amputation. Wound appears clean, deep, with no evidence of infection. LABORATORY DATA: Did show Accu-Cheks ranging from 114 to 214. Sodium was 140, potassium 4.9, chloride 107, bicarb 23, BUN is 41, creatinine 1.77. Liver functions normal. White count 8700, hematocrit is 23, hemoglobin 7.7. ASSESSMENT: 1. Resolving osteomyelitis of right fifth toe status post amputation of fifth toe and on cefepime until December 16. 2. Insulin-dependent diabetes with fair control, still some swings. We will start back on his protein supplements. Continue to monitor. May need to adjust medications. 3. Atrial fibrillation with adequate rate and anticoagulation. 4. 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 Awaiting chemotherapy until after his infection has resolved with no evidence of symptoms this time and normal liver function. 5. Hypertension, controlled to goal. PLAN: 1. Continue PT, OT and wound care. 2. Continue Accu-Cheks. 3. Continue previous home doses of Lantus and adjust as needed. 4. Continue IV cefepime until December 16. 5. Start hydrocodone 5/325 every 6 hours as needed for pain. 6. Restart Royer twice daily and Ensure Clear one can with meals. Job ID: [id number]
[2018-12-02] MEDS: Amlodipine 5 MG TAB PO SCH (09:13)
[2018-12-02] MEDS: Flecainide 50 MG TAB PO SCH ×2 (09:14→21:04)
[2018-12-02] MEDS: Metoprolol Tartrate 25 MG TAB PO SCH ×2 (09:14→21:04)
[2018-12-02] MEDS: Gabapentin 100 MG CAP PO SCH ×2 (09:14→21:04)
[2018-12-02] MEDS: Lantus 1000 UNITS/10 ML VIAL SC SCH ×2 (09:15→21:08)
[2018-12-02] MEDS: Cefepime 2 GM in Sodium Chloride 0.9% 100 ML IVPB SCH ×2 (09:22→21:04)
[2018-12-02] MEDS: Ondansetron ODT 4 MG TAB PO PRN (15:44)
[2018-12-02] MEDS: Warfarin Sodium 2.5 MG TAB PO SCH (17:14)
[2018-12-02] MEDS: Warfarin Sodium 5 MG TAB PO SCH (17:14)
[2018-12-02] MEDS ORDERED: Sodium Chloride 0.9% 20 ML ONE (20:36)
[2018-12-02] MEDS: Atorvastatin Calcium 20 MG TAB PO SCH (21:04)
[2018-12-02] MEDS: HYDROcodone/Acetaminophen 5/325 mg Tablet PO PRN (21:05)
[2018-12-03 05:49] LABS: INR-International Normal Ratio 2.7; Prothrombin Time 28.2 SEC (12.0-14.7)
--- NOTE | 2018-12-03 07:12 | PRG ---
DATE OF SERVICE: 12/02/2018 SUBJECTIVE: The patient feels well, up, moving with therapy having controlled pain in his foot and is eating better. OBJECTIVE: VITAL SIGNS: Temperature is 98.4, pulse 67, respirations 16, O2 sats 100% on room air, blood pressure 124/58. LUNGS: Clear. CARDIAC: Shows irregularly irregular rhythm. ABDOMEN: Soft and nontender. SKIN: Extremities shows a bandaged right lateral foot with wound photos showing healing right fifth toe amputation. No evidence of infection, but persistent wound. LABORATORY DATA: Show PT/INR of 22 and 2.0, sodium is 136, potassium 4.5, chloride 104, bicarb 21, BUN 37, creatinine 1.83, glucose 105 with a range from 114 to 182, calcium 9.3. ASSESSMENT: 1. Resolving right fifth toe amputation secondary to recurrent osteomyelitis, on IV cefepime until December 16. 2. Atrial fibrillation, rate controlled on anticoagulation with slightly increased PT/INR. We will continue to check daily. 3. Type 2 diabetes, controlled to goal with Accu-Chek less than 200. 4. Recurrent colon cancer, off chemotherapy until infection clear, but with no symptoms at this time. 5. Obstructive sleep apnea, stable on CPAP. 6. Deconditioning, improving greatly. PLAN: 1. Continue PT. 2. Continue wound care. 3. Continue IV cefepime until December 16. 4. Continue Accu-Cheks to monitor and titrate and control diabetes. 5. Continue CPAP as needed at night for obstructive sleep apnea. Job ID: [id number]
[2018-12-03] MEDS: Cefepime 2 GM in Sodium Chloride 0.9% 100 ML IVPB SCH ×2 (08:55→20:52)
[2018-12-03] MEDS: Gabapentin 100 MG CAP PO SCH ×2 (08:55→20:55)
[2018-12-03] MEDS: Flecainide 50 MG TAB PO SCH ×2 (08:55→20:55)
[2018-12-03] MEDS: Metoprolol Tartrate 25 MG TAB PO SCH ×2 (08:56→20:55)
[2018-12-03] MEDS: Amlodipine 5 MG TAB PO SCH (08:56)
[2018-12-03] MEDS: Lantus 1000 UNITS/10 ML VIAL SC SCH ×2 (08:59→20:56)
[2018-12-03] MEDS: Ondansetron ODT 4 MG TAB PO PRN (15:09)
[2018-12-03] MEDS: Warfarin Sodium 2.5 MG TAB PO SCH (17:39)
[2018-12-03] MEDS: Warfarin Sodium 5 MG TAB PO SCH (17:39)
[2018-12-03] MEDS: Sodium Chloride 0.9% 20 ML ONE (20:53)
[2018-12-03] MEDS: Atorvastatin Calcium 20 MG TAB PO SCH (20:55)
[2018-12-04 05:40] LABS: INR-International Normal Ratio 2.8; Prothrombin Time 29.4 SEC (12.0-14.7)
[2018-12-04] MEDS: Ondansetron ODT 4 MG TAB PO PRN (06:03)
--- NOTE | 2018-12-04 06:06 | PRG ---
DATE OF SERVICE: 12/03/2018 SUBJECTIVE: The patient feels well, lying in bed. No complaints of pain, shortness of breath, or nausea. He is somewhat concerned about his Accu-Cheks, which have been uncontrolled despite being on his chronic medication and Lantus dose. However, nurses state that he has been drinking a great deal of Ensure and needs to be on Glucerna. OBJECTIVE: VITAL SIGNS: Show temperature 98.5, pulse 69, respirations 18, O2 saturations 98% on room air, blood pressure is 121/58. LUNGS: Clear. CARDIAC: Irregular rhythm. ABDOMEN: Soft and nontender. SKIN/EXTREMITIES: Display no edema, clubbing, or cyanosis. The right foot is bandaged and the wound does appear to be clean on previous dressing. Accu-Cheks as mentioned above showed him to have a fasting blood sugar of 109, but then go to 311 this afternoon. ASSESSMENT: 1. Resolving right fifth toe amputation secondary to recurrent osteomyelitis, on IV cefepime until December 16. 2. Atrial fibrillation, rate controlled and anticoagulated with increased PT/INR to 28 and 2.7. We will continue to monitor closely. 3. Type 2 diabetes with poor control since started on supplements and we will change to Glucerna and continue the same dose of Lantus and monitor closely. 4. Recurrent colon cancer, off chemotherapy with only symptoms of some mild nausea with no vomiting, or abdominal pain. 5. Obstructive sleep apnea, stable on CPAP. 6. Deconditioning, improved greatly. PLAN: 1. Change Ensure to Glucerna. Continue Accu-Cheks to monitor and titrate and control diabetes. Continue same dose of Lantus. 2. Continue CPAP. 3. Continue IV cefepime until December 16. 4. Continue wound care. 5. Continue rate control and anticoagulation of atrial fibrillation. Job ID: [id number]
[2018-12-04] MEDS: Flecainide 50 MG TAB PO SCH ×2 (08:09→20:48)
[2018-12-04] MEDS: Metoprolol Tartrate 25 MG TAB PO SCH ×2 (08:10→20:48)
[2018-12-04] MEDS: Gabapentin 100 MG CAP PO SCH ×2 (08:10→20:48)
[2018-12-04] MEDS: Amlodipine 5 MG TAB PO SCH (08:10)
[2018-12-04] MEDS: Sodium Chloride 0.9% 20 ML ONE (08:11)
[2018-12-04] MEDS: Cefepime 2 GM in Sodium Chloride 0.9% 100 ML IVPB SCH ×2 (08:11→20:47)
[2018-12-04] MEDS: Lantus 1000 UNITS/10 ML VIAL SC SCH ×2 (08:12→20:51)
--- NOTE | 2018-12-04 16:16 | PRG ---
DATE OF SERVICE: 12/04/2018 SUBJECTIVE: The patient is resting in bed with no complaints. He has been eating hospital food with no noncompliance. He has had no abdominal pain. He has had some mild nausea, which has improved today. He has had no shortness of breath, chest pain, or palpitations. OBJECTIVE: VITAL SIGNS: Temperature 97.2, pulse 62, respirations 18, O2 saturations 98% on room air, and blood pressure is 114/57. LUNGS: Clear. CARDIAC: Showed irregular rhythm. ABDOMEN: Soft and nontender. SKIN/EXTREMITIES: Display no edema, clubbing, or cyanosis. Right foot is bandaged. LABORATORY DATA: Laboratory from 128 this morning to 180 at lunch and we will await for results this afternoon. ASSESSMENT: 1. Resolving right fifth metatarsal ray amputation, on IV cefepime until December 16. 2. Atrial fibrillation with adequate rate control, PT/INR, anticoagulation, therapeutic. 3. Type 2 diabetes with initially good control, but then worsened with Ensure and now appears to be improving back with Glucerna. 4. Current colon cancer, off chemotherapy. Awaiting resolution of infection to restart chemotherapy. 5. Obstructive sleep apnea, stable on CPAP. 6. Deconditioning, improved greatly. PLAN: Continue PT/OT. Continue Accu-Cheks to monitor and titrate and control diabetes. Continue diet. Continue rate control and anticoagulation of atrial fib. Continue CPAP at night. Continue wound care. Job ID: [id number]
[2018-12-04] MEDS: Warfarin Sodium 2.5 MG TAB PO SCH (16:49)
[2018-12-04] MEDS: Warfarin Sodium 5 MG TAB PO SCH (16:49)
[2018-12-04] MEDS: Atorvastatin Calcium 20 MG TAB PO SCH (20:48)
[2018-12-04] MEDS ORDERED: Sodium Chloride 0.9% 20 ML ONE (20:51)
[2018-12-05 05:37] LABS: INR-International Normal Ratio 3.4
[2018-12-05] MEDS ORDERED: Sodium Chloride 0.9% 10 ML ONE ×2 (09:07→20:20)
[2018-12-05] MEDS: Metoprolol Tartrate 25 MG TAB PO SCH ×2 (09:18→20:34)
[2018-12-05] MEDS: Flecainide 50 MG TAB PO SCH ×2 (09:18→20:33)
[2018-12-05] MEDS: Gabapentin 100 MG CAP PO SCH ×2 (09:18→20:33)
[2018-12-05] MEDS: Cefepime 2 GM in Sodium Chloride 0.9% 100 ML IVPB SCH ×2 (09:19→20:32)
[2018-12-05] MEDS: Amlodipine 5 MG TAB PO SCH (09:19)
[2018-12-05] MEDS: Lantus 1000 UNITS/10 ML VIAL SC SCH ×2 (09:20→20:33)
[2018-12-05] MEDS: HYDROcodone/Acetaminophen 5/325 mg Tablet PO PRN (15:45)
[2018-12-05] MEDS: Atorvastatin Calcium 20 MG TAB PO SCH (20:32)
[2018-12-06] MEDS: HYDROcodone/Acetaminophen 5/325 mg Tablet PO PRN ×2 (04:36→20:25)
[2018-12-06 05:27] LABS: INR-International Normal Ratio 3.3; Prothrombin Time 33.1 SEC (12.0-14.7)
[2018-12-06] MEDS: Ondansetron ODT 4 MG TAB PO PRN ×2 (05:44→21:10)
--- NOTE | 2018-12-06 07:10 | PRG ---
DATE OF SERVICE: 12/05/2018 SUBJECTIVE: The patient feels well except for some fatigue after his therapy, but states his nausea has improved. He is having no shortness of breath or palpitations. OBJECTIVE: VITAL SIGNS: Blood pressure of 111/57, temperature is 98, pulse 61, respirations 16, O2 saturations 98% on room air. LABORATORY DATA: Show his PT/INR did increase to 3.4 supratherapeutic range on his dose of warfarin 7.5 mg daily. His dose has been held today and we will repeat again in the morning. He is having no complaints of chest pain or shortness of breath. ASSESSMENT: 1. Resolving right 5th toe amputation, on IV cefepime until December 16. 2. Atrial fibrillation with supratherapeutic PT/INR on warfarin 7.5 mg daily, and we will hold today and repeat PT/INR tomorrow and discuss those with the patient. 3. Type 2 diabetes with improving control on change of Ensure to Glucerna. Still having Accu-Cheks above 200, so increase his Lantus to 42 units in the morning and 21 at night. 4. Colon cancer with recurrence, off chemotherapy until infection resolved. 5. Deconditioning, improved greatly. 6. Obstructive sleep apnea, stable on CPAP. PLAN: 1. Hold warfarin. Check PT/INR daily. 2. Increase insulin to 42 units of Lantus in the morning, 21 at night starting tomorrow. 3. Continue CPAP at night. 4. Continue wound care. 5. Continue Accu-Cheks to monitor and titrate and control diabetes. Job ID: [id number]
[2018-12-06] MEDS: Cefepime 2 GM in Sodium Chloride 0.9% 100 ML IVPB SCH ×2 (08:46→20:23)
[2018-12-06] MEDS: Amlodipine 5 MG TAB PO SCH (08:46)
[2018-12-06] MEDS: Flecainide 50 MG TAB PO SCH ×2 (08:46→20:23)
[2018-12-06] MEDS: Gabapentin 100 MG CAP PO SCH ×2 (08:46→20:23)
[2018-12-06] MEDS: Metoprolol Tartrate 25 MG TAB PO SCH ×2 (08:46→20:24)
[2018-12-06] MEDS: Lantus 1000 UNITS/10 ML VIAL SC SCH ×2 (09:24→20:24)
[2018-12-06] MEDS ORDERED: Warfarin Sodium 5 MG TAB PO SCH (17:00)
[2018-12-06] MEDS ORDERED: Warfarin Sodium 2.5 MG TAB PO SCH (17:00)
[2018-12-06] MEDS: Atorvastatin Calcium 20 MG TAB PO SCH (20:23)
[2018-12-07] MEDS: Flecainide 50 MG TAB PO SCH ×2 (08:36→20:06)
[2018-12-07] MEDS: Metoprolol Tartrate 25 MG TAB PO SCH ×2 (08:37→20:08)
[2018-12-07] MEDS: Gabapentin 100 MG CAP PO SCH ×2 (08:37→20:07)
[2018-12-07] MEDS: Cefepime 2 GM in Sodium Chloride 0.9% 100 ML IVPB SCH ×2 (08:40→20:05)
[2018-12-07] MEDS: Amlodipine 5 MG TAB PO SCH (08:43)
[2018-12-07] MEDS: Lantus 1000 UNITS/10 ML VIAL SC SCH ×2 (08:55→20:07)
[2018-12-07] MEDS: Atorvastatin Calcium 20 MG TAB PO SCH (20:05)
[2018-12-07] MEDS: HYDROcodone/Acetaminophen 5/325 mg Tablet PO PRN (21:59)
[2018-12-07] MEDS: Ondansetron ODT 4 MG TAB PO PRN (21:59)
[2018-12-08] MEDS: Polyethylene Glycol 3350 17 GM Packet PO SCH (09:00)
[2018-12-08] MEDS: Flecainide 50 MG TAB PO SCH ×2 (09:01→21:20)
[2018-12-08] MEDS: Amlodipine 5 MG TAB PO SCH (09:01)
[2018-12-08] MEDS: Metoprolol Tartrate 25 MG TAB PO SCH ×2 (09:02→21:19)
[2018-12-08] MEDS: Gabapentin 100 MG CAP PO SCH ×2 (09:02→21:20)
[2018-12-08] MEDS ORDERED: Cefepime 2 GM VIAL ONE (09:14)
[2018-12-08] MEDS: Cefepime 2 GM in Sodium Chloride 0.9% 100 ML IVPB SCH ×2 (09:19→21:17)
[2018-12-08] MEDS: Lantus 1000 UNITS/10 ML VIAL SC SCH (09:27)
[2018-12-08] MEDS ORDERED: Lantus 1000 UNITS/10 ML VIAL SC SCH (21:00)
[2018-12-08] MEDS: Atorvastatin Calcium 20 MG TAB PO SCH (21:20)
[2018-12-08] MEDS: HYDROcodone/Acetaminophen 5/325 mg Tablet PO PRN (23:43)
[2018-12-09] MEDS: Gabapentin 100 MG CAP PO SCH ×2 (09:39→20:08)
[2018-12-09] MEDS: Flecainide 50 MG TAB PO SCH ×2 (09:39→20:09)
[2018-12-09] MEDS: Polyethylene Glycol 3350 17 GM Packet PO SCH (09:39)
[2018-12-09] MEDS: Amlodipine 5 MG TAB PO SCH (09:40)
[2018-12-09] MEDS: Metoprolol Tartrate 25 MG TAB PO SCH ×2 (09:40→20:08)
[2018-12-09] MEDS: Cefepime 2 GM in Sodium Chloride 0.9% 100 ML IVPB SCH ×2 (09:41→20:06)
[2018-12-09] MEDS: Lantus 1000 UNITS/10 ML VIAL SC SCH ×2 (09:42→20:08)
[2018-12-09 10:10] LABS: INR-International Normal Ratio 2.2
[2018-12-09 10:15] LABS: Prothrombin Time 24.1 SEC (12.0-14.7)
[2018-12-09] MEDS ORDERED: Warfarin Sodium 3 MG TAB PO SCH (17:00)
--- NOTE | 2018-12-09 18:01 | PRG ---
DATE OF SERVICE: 12/06/2018 SUBJECTIVE: The patient feels well except for some nausea, which is improved. He is resting in bed, but states he did get up and move around. He has been eating somewhat better. OBJECTIVE: VITAL SIGNS: Show his temperature is 98.3, pulse 62, respirations 16, O2 sats 96% on room air, and blood pressure is 110/59. LUNGS: Clear. CARDIAC: Showed irregular rhythm. ABDOMEN: Soft and nontender. SKIN/EXTREMITIES: Show healing right 5th toe amputation. LABORATORY DATA: PT/INR is supratherapeutic at 3.3, despite warfarin had been held for 2 days. ASSESSMENT: 1. Resolving right 5th toe amputation, clean healing wound. 2. Uncontrolled diabetes with Accu-Cheks still ranging from 166 to 242. 3. Cancer of the colon, metastasis, off chemotherapy until infection heals. 4. Osteomyelitis, on cefepime and cefepime until December 16. 5. Deconditioning, resolving greatly. PLAN: Hold warfarin. Increase Lantus to 42 units in the morning, 20 units at night, and 21 units at night. Continue PT/OT. Continue to monitor nausea. Continue Glucerna for supplemental nutrition. Job ID: [id number]
--- NOTE | 2018-12-09 18:11 | PRG ---
DATE OF SERVICE: 12/07/2018 SUBJECTIVE: The patient resting in bed. He has been up and moving around today with less nausea. He had no pain in his foot. No shortness of breath or chest pain. OBJECTIVE: VITAL SIGNS: Temperature is 98.9, pulse 62, respirations 16, O2 sats 99% on room air, blood pressure 118/56. LUNGS: Clear. CARDIAC: Shows irregularly irregular rhythm. SKIN/EXTREMITIES: Right foot appears to be clean and healing. ASSESSMENT: 1. Resolving right fifth toe amputation for osteomyelitis, on IV cefepime until December 16. Clean wound. 2. Atrial fibrillation with rate controlled with supratherapeutic anticoagulation, off warfarin. Continue to monitor PT/INR. 3. Type 2 diabetes with increased insulin to 42 units and 21 units with improving Accu-Cheks of 131 to 190. 4. Deconditioning, resolved. 5. Cancer of the colon with metastasis to liver with resolved nausea. Awaiting chemotherapy when antibiotics finished on December 16. PLAN: 1. Continue PT/OT. 2. Continue wound care. 3. Continue IV cefepime. 4. Continue to hold warfarin. Check PT/INR in the a.m. 5. Continue Accu-Cheks on increased insulin and monitor closely. Job ID: [id number]
--- NOTE | 2018-12-09 18:28 | PRG ---
DATE OF SERVICE: 12/08/2018 SUBJECTIVE: The patient feels well, no complaints other than constipation. He is asking for a laxative. Denying any bruising or bleeding. Denies any shortness of breath or chest pain, fever, or chills. OBJECTIVE: VITAL SIGNS: Temperature 97.2, pulse 63, respirations 18, O2 sats 99% on room air, blood pressure 120/58. Accu-Chek shows a.m. sugar did decrease to 67 and only fidelina to 142. PT/INR was not done, will be done in the a.m. LUNGS: Clear. CARDIAC: Regular rhythm. ABDOMEN: Soft and nontender. SKIN/EXTREMITIES: Right fifth toe wound healing well. ASSESSMENT: 1. Resolving right fifth toe amputation for osteomyelitis, on IV cefepime until December 16. 2. Atrial fibrillation with rate control and with supratherapeutic anticoagulation off warfarin and we will check PT/INR in the a.m. 3. Insulin-dependent diabetes mellitus with a.m. hypoglycemia and we will decrease Lantus at night from 21 units to 18 units. 4. Deconditioning, resolved. 5. Nausea, resolved. 6. Cancer of the colon with metastasis to the liver, awaiting resolution of infection to start chemotherapy. PLAN: 1. PT/INR in the a.m. and daily. 2. Continue Accu-Cheks on 42 units of Lantus in the morning and 18 at night and may need to decrease further. 3. MiraLAX 17 g daily for constipation. 4. Continue PT/OT. Job ID: [id number]
--- NOTE | 2018-12-09 18:48 | PRG ---
DATE OF SERVICE: 12/09/2018 SUBJECTIVE: The patient feels well. No further nausea. Having some concerns about what type of dietary supplement he is getting as he is getting Ensure and not Glucerna. Therefore, his Accu-Cheks have increased and requiring increased insulin, but now is having a.m. hypoglycemia. Also, he states that he is taking the same amount of warfarin that he was taking at home with 5 mg daily with 7.5 mg on Wednesday and Wednesday, and we will restart this. ASSESSMENT: 1. Labile diabetes secondary to Ensure, but with increasing insulin causing hypoglycemia, so we will decrease p.m. Lantus to 15 units. Continue to monitor and change only to Glucerna. 2. Atrial fibrillation with variable control secondary to confusion about warfarin and we will start on 5 mg daily this and check daily and may need an extra 7.5 mg on Wednesday, that he was taken at home. 3. Cancer of the colon with metastasis causing some nausea, but appears to be improving with good bowel movement and no further nausea and is awaiting chemotherapy when finished his antibiotics on December 16. 4. Osteomyelitis, requiring right fifth toe amputated at the metatarsal. Clean wound. No evidence of infection. PLAN: Daily PT/INR. Change warfarin to 5 mg daily, possible 7.5 mg on Wednesday. Decrease insulin to 15 units at night and continue 42 units in the morning. Ensure the patient is taking Glucerna and not Ensure for supplement. Continue PT. Job ID: [id number]
[2018-12-09] MEDS: Atorvastatin Calcium 20 MG TAB PO SCH (20:09)
[2018-12-09] MEDS: HYDROcodone/Acetaminophen 5/325 mg Tablet PO PRN (23:08)
[2018-12-10 06:05] LABS: INR-International Normal Ratio 1.8; Prothrombin Time 20.4 SEC (12.0-14.7)
[2018-12-10] MEDS: Polyethylene Glycol 3350 17 GM Packet PO SCH (08:54)
[2018-12-10] MEDS: Flecainide 50 MG TAB PO SCH ×2 (08:54→20:21)
[2018-12-10] MEDS: Cefepime 2 GM in Sodium Chloride 0.9% 100 ML IVPB SCH ×2 (08:54→20:22)
[2018-12-10] MEDS: Metoprolol Tartrate 25 MG TAB PO SCH ×2 (08:54→20:21)
[2018-12-10] MEDS: Gabapentin 100 MG CAP PO SCH ×2 (08:55→20:21)
[2018-12-10] MEDS: Amlodipine 5 MG TAB PO SCH (08:55)
[2018-12-10] MEDS: Lantus 1000 UNITS/10 ML VIAL SC SCH ×2 (08:55→20:20)
[2018-12-10] MEDS ORDERED: Sodium Chloride 0.9% 10 ML ONE (08:59)
--- NOTE | 2018-12-10 11:42 | PRG ---
DATE OF SERVICE: 12/10/2018 SUBJECTIVE: Mr. Wright is up on the side of his bed and denies any complaints. His spouse is with him. No concerns or questions. Tolerating his antibiotics. Blood sugars are better with a decrease in long-acting insulin dosing. OBJECTIVE: VITAL SIGNS: He is afebrile, heart rate 62, respirations 18, blood pressure 128/62. CARDIOVASCULAR SYSTEM: S1 and S2 plus. RESPIRATORY SYSTEM: Normal vesicular breath sounds. ABDOMEN: Soft and nontender. Bowel sounds heard in all quadrants. EXTREMITIES: Without cyanosis or clubbing. Right foot with dressing. CENTRAL NERVOUS SYSTEM: Awake and responsive. Generalized weakness, otherwise nonfocal. LABORATORY DATA: Blood sugars are 139, 191, 223, 138, and 200. IMPRESSION: 1. Diabetes mellitus, type 2. 2. Atrial fibrillation. 3. Colon cancer with metastasis. 4. Right foot osteomyelitis. 5. Dyslipidemia. 6. Hypertension. PLAN: 1. Continue current medications. 2. Nutritional support. 3. IV antibiotics. 4. Monitor PT/INR. 5. Accu-Cheks with sliding scale coverage. 6. Wound care. 7. 1800-calorie heart healthy ADA diet. 8. Physical therapy. Job ID: [id number]
[2018-12-10] MEDS: Warfarin Sodium 5 MG TAB PO SCH (16:39)
[2018-12-10] MEDS: Atorvastatin Calcium 20 MG TAB PO SCH (20:21)
[2018-12-11] MEDS: HYDROcodone/Acetaminophen 5/325 mg Tablet PO PRN ×2 (00:14→20:39)
[2018-12-11 05:40] LABS: INR-International Normal Ratio 1.7; Prothrombin Time 20.1 SEC (12.0-14.7)
[2018-12-11] MEDS: Metoprolol Tartrate 25 MG TAB PO SCH ×2 (08:26→20:36)
[2018-12-11] MEDS: Gabapentin 100 MG CAP PO SCH ×2 (08:27→20:35)
[2018-12-11] MEDS: Flecainide 50 MG TAB PO SCH ×2 (08:27→20:35)
[2018-12-11] MEDS: Amlodipine 5 MG TAB PO SCH (08:28)
[2018-12-11] MEDS: Lantus 1000 UNITS/10 ML VIAL SC SCH ×2 (08:29→20:32)
[2018-12-11] MEDS: Polyethylene Glycol 3350 17 GM Packet PO SCH (08:29)
[2018-12-11] MEDS ORDERED: Cefepime 2 GM in Sodium Chloride 0.9% 100 ML IVPB SCH (10:00)
[2018-12-11 13:25] VITALS: BMI 32.9
[2018-12-11] MEDS ORDERED: Warfarin Sodium 5 MG TAB PO SCH (14:15)
--- NOTE | 2018-12-11 15:16 | PRG ---
DATE OF SERVICE: 12/11/2018 SUBJECTIVE: Mr. Wright is resting in bed and denies any complaints. His spouse is in the room. OBJECTIVE: VITAL SIGNS: He is afebrile. Heart rate 58, respirations 16, oxygen saturation 100% on room air, blood pressure 139/63. CARDIOVASCULAR: S1, S2 plus. RESPIRATORY: Normal vesicular breath sounds. ABDOMEN: Soft, nontender, bowel sounds in all quadrants. EXTREMITIES: Without cyanosis or clubbing. Right foot with dressing. CENTRAL NERVOUS SYSTEM: Awake and responsive. Generalized weakness. LABORATORY VALUES: His INR is low at 1.7. His blood sugars are running a little high at 200, 188, 196, 193 and 242. IMPRESSION: 1. Right foot osteomyelitis. 2. Diabetes mellitus type 2. 3. Atrial fibrillation. 4. Dyslipidemia. 5. Hypertension. PLAN: 1. Continue current medications except adjust his Lantus dosing. 2. 1800 calorie heart healthy ADA diet. 3. Continue IV antibiotics until the . 4. Wound care. 5. DVT prophylaxis. He is on warfarin and we will give him an extra dose of 5 mg today. 6. Decubitus precaution. 7. Stress ulcer prophylaxis. 8. Dr. Esme oliva [facility]. Job ID: [id number]
[2018-12-11] MEDS: Warfarin Sodium 5 MG TAB PO SCH (17:40)
[2018-12-11] MEDS: Cefepime 2 GM in Sodium Chloride 0.9% 100 ML IVPB SCH (20:32)
[2018-12-11] MEDS: Atorvastatin Calcium 20 MG TAB PO SCH (20:36)
[2018-12-12] MEDS: Ondansetron ODT 4 MG TAB PO PRN (00:50)
[2018-12-12 05:52] LABS: INR-International Normal Ratio 1.7; Prothrombin Time 20.2 SEC (12.0-14.7)
[2018-12-12] MEDS: Amlodipine 5 MG TAB PO SCH (09:10)
[2018-12-12] MEDS: Cefepime 2 GM in Sodium Chloride 0.9% 100 ML IVPB SCH ×2 (09:11→20:31)
[2018-12-12] MEDS: Polyethylene Glycol 3350 17 GM Packet PO SCH ×2 (09:12→13:26)
[2018-12-12] MEDS: Gabapentin 100 MG CAP PO SCH ×2 (09:12→20:32)
[2018-12-12] MEDS: Metoprolol Tartrate 25 MG TAB PO SCH ×2 (09:12→20:33)
[2018-12-12] MEDS: Flecainide 50 MG TAB PO SCH ×2 (09:12→20:32)
[2018-12-12] MEDS: Lantus 1000 UNITS/10 ML VIAL SC SCH ×2 (09:15→20:31)
[2018-12-12] MEDS: Warfarin Sodium 5 MG TAB PO SCH (17:24)
[2018-12-12] MEDS ORDERED: Magnesium Citrate 300 ML BOT PO SCH (17:45)
--- NOTE | 2018-12-12 18:30 | PRG ---
DATE OF SERVICE: 12/12/2018 SUBJECTIVE: The patient feels well except for severe constipation and has had to have fecal impaction removed today and is still feeling constipated. He has been treated with magnesium citrate and will get another dose today. He has been eating well, and is having no shortness of breath or pain. OBJECTIVE: VITAL SIGNS: Shows temperature of 98, pulse 59, respirations 18, O2 sats 99% on room air, blood pressure 136/64. Laboratory shows Accu-Cheks improving, but still with Accu-Chek above 202 this morning with fasting blood sugar still 158. LUNGS: Clear. CARDIAC: Shows irregular rhythm. ABDOMEN: Soft and nontender. SKIN/EXTREMITIES: No edema, clubbing, or cyanosis. There is a healing right fifth great toe ray amputation with deep clean wound. ASSESSMENT: 1. Resolving osteomyelitis of right fifth toe status post amputation, on cefepime until December 16. 2. Persistent constipation despite removal of fecal impaction and we will try magnesium citrate 300 mL again now. 3. Type 2 diabetes with improved control, but still not to goal and we will increase a.m. insulin to 43 units every morning from 42 units every morning, and continue 20 units at night. 4. Anticoagulation still not to goal, on 5 mg daily and we will increase 6 mg daily. 5. Deconditioning, resolved. PLAN: 1. Increase warfarin 6 mg daily and continue daily PT/INR. 2. Increase Lantus to 43 units in the morning, continue 20 units at night and continue Accu-Cheks. 3. Magnesium citrate 300 mL now. 4. Continue PT and OT. 5. Allow to go out on pass in the afternoon on December 14, as the patient is preparing for discharge on December 17 after his IV antibiotics are finished. Job ID: [id number]
[2018-12-12] MEDS: Atorvastatin Calcium 20 MG TAB PO SCH (20:33)
[2018-12-12] MEDS: HYDROcodone/Acetaminophen 5/325 mg Tablet PO PRN (20:34)
[2018-12-13 05:52] LABS: INR-International Normal Ratio 2.1
[2018-12-13] MEDS: Amlodipine 5 MG TAB PO SCH (08:36)
[2018-12-13] MEDS: Metoprolol Tartrate 25 MG TAB PO SCH ×2 (08:37→20:29)
[2018-12-13] MEDS: Cefepime 2 GM in Sodium Chloride 0.9% 100 ML IVPB SCH ×2 (08:37→20:29)
[2018-12-13] MEDS: Gabapentin 100 MG CAP PO SCH ×2 (08:37→20:29)
[2018-12-13] MEDS: Flecainide 50 MG TAB PO SCH ×2 (08:37→20:29)
[2018-12-13] MEDS: Lantus 1000 UNITS/10 ML VIAL SC SCH ×2 (08:39→20:28)
[2018-12-13] MEDS: Polyethylene Glycol 3350 17 GM Packet PO SCH (08:59)
[2018-12-13] MEDS: Warfarin Sodium 1 MG TAB PO SCH (17:30)
[2018-12-13] MEDS: Warfarin Sodium 5 MG TAB PO SCH (17:30)
[2018-12-13] MEDS: Atorvastatin Calcium 20 MG TAB PO SCH (20:29)
[2018-12-13] MEDS: HYDROcodone/Acetaminophen 5/325 mg Tablet PO PRN (20:41)
[2018-12-13] MEDS: Ondansetron ODT 4 MG TAB PO PRN (23:07)
[2018-12-14 05:39] LABS: INR-International Normal Ratio 2.2; Prothrombin Time 24.1 SEC (12.0-14.7)
[2018-12-14] MEDS: Gabapentin 100 MG CAP PO SCH ×2 (08:51→21:00)
[2018-12-14] MEDS: Flecainide 50 MG TAB PO SCH ×2 (08:51→21:00)
[2018-12-14] MEDS: Metoprolol Tartrate 25 MG TAB PO SCH ×2 (08:51→21:01)
[2018-12-14] MEDS: Cefepime 2 GM in Sodium Chloride 0.9% 100 ML IVPB SCH ×2 (08:52→21:00)
[2018-12-14] MEDS: Amlodipine 5 MG TAB PO SCH (08:53)
[2018-12-14] MEDS: Lantus 1000 UNITS/10 ML VIAL SC SCH ×2 (08:53→21:00)
[2018-12-14] MEDS: Polyethylene Glycol 3350 17 GM Packet PO SCH (09:02)
--- NOTE | 2018-12-14 18:32 | PRG ---
DATE OF SERVICE: 12/13/2018 SUBJECTIVE: The patient feels well, lying in the bed, but is having concerns about going out on his pass and apparently he does not have a freedom back and does not have a wheelchair and will be walking on his wound with wet-to-dry dressing and felt that this is unsafe and would not approve this medically. OBJECTIVE: VITAL SIGNS: Temperature 98.2, pulse 60, respirations 18, O2 sats 99% on room air, and blood pressure 131/61. LABORATORY DATA: PT/INR 24 and 2.2. Accu-Cheks stable for 77 to 174. ASSESSMENT: 1. Resolving osteomyelitis, right foot, status post amputation of right 5th toe. 2. Stable anticoagulation of atrial fibrillation, on warfarin 6 mg daily. 3. Cancer of the colon with metastasis to liver, off chemotherapy until infection cleared. 4. Type 2 diabetes, insulin dependent, controlled on 43 units and 20 units at night. We will continue to follow. Job ID: [id number]
[2018-12-14] MEDS: Warfarin Sodium 5 MG TAB PO SCH ×2 (18:37→21:41)
[2018-12-14] MEDS: Warfarin Sodium 1 MG TAB PO SCH ×2 (18:37→21:41)
--- NOTE | 2018-12-14 18:53 | PRG ---
DATE OF SERVICE: 12/14/2018 SUBJECTIVE: The patient feels well, has obtained wheelchair OBJECTIVE: Shows temperature is 98, pulse 62, respirations 18, O2 sats 99% on room air, blood pressure 129/62. Accu-Cheks ranged 77 to 164. PT 24, INR 2.2. ASSESSMENT: 1. Resolving osteomyelitis of right 5th toe, status post removal of 5th toe, on cefepime until December 16. 2. Stable atrial fibrillation with rate control and anticoagulation. 3. Stable type 2 diabetes with Accu-Cheks controlled to goal. 4. Cancer of the colon, metastasis to the liver, on no therapy until infection cleared. PLAN: 1. Continue antibiotics . Repeat labs tonight or in the morning. 2. Continue Accu-Cheks to monitor and titrate and control diabetes. 3. Continue to monitor rate control and anticoagulation of atrial fibrillation. Job ID: [id number]
[2018-12-14] MEDS: Atorvastatin Calcium 20 MG TAB PO SCH (21:00)
[2018-12-14] MEDS: HYDROcodone/Acetaminophen 5/325 mg Tablet PO PRN (21:02)
[2018-12-14] MEDS: Ondansetron ODT 4 MG TAB PO PRN (21:02)
[2018-12-15 05:35] LABS: INR-International Normal Ratio 2.3; Prothrombin Time 25.2 SEC (12.0-14.7)
[2018-12-15 05:37] LABS: #Basophils 0.1 thou/uL (0.0-0.2); #Eosinphils 0.4 thou/uL (0.0-0.7); #Lymphocytes 1.1 thou/uL (1.20-3.40); #Monocytes 1.5 thou/uL (0.11-0.59); %Basophils 1.2 % (0.0-1.0); %Eosinophils 3.5 % (0.0-10.0); %Monocytes 14.8 % (0.0-10.0); %Neutrophils 69.4 % (42.0-75.0); Hemoglobin 8.1 g/dL (14.0-18.0); Mean Corpuscular HGB CONC 32.8 g/dL (32.0-36.0); Mean Corpuscular Hemoglobin 29.8 pg (27.0-31.0); Mean Corpuscular Volume 90.9 fL (78.0-98.0); Mean Platelet Volume 7.2 fL (7.4-10.4); Platelet Count 175 thou/uL (130-400); RBC Distribution Width 16.6 % (11.5-14.5); Red Blood Cell (RBC) Count 2.71 mill/uL (4.70-6.10); White Blood Cell (WBC) Count 10.1 thou/uL (4.8-10.8)
[2018-12-15 05:45] LABS: ALT (SGPT) 23 U/L (8-55); AST (SGOT) 18 U/L (5-34); Albumin 3.4 g/dL (3.4-4.8); Alkaline Phosphatase 82 U/L (40-110); Anion Gap 14 mmol/L (10-20); BUN (Urea Nitrogen) 51 mg/dL (8.4-25.7); Bilirubin, Total 0.4 mg/dL (0.2-1.2); Calc. Creatinine Clearance 48 mL/min (70-130); Calcium 9.3 mg/dL (7.8-10.44); Carbon Dioxide 20 mmol/L (23-31); Chloride 106 mmol/L (98-107); Estimated GFR-MDRD 32; Globulin 3.3 g/dL (2.4-3.5); Glucose 151 mg/dL (83-110); Protein, Total 6.7 g/dL (5.8-8.1); Sodium 135 mmol/L (136-145)
[2018-12-15] MEDS: Cefepime 2 GM in Sodium Chloride 0.9% 100 ML IVPB SCH ×2 (08:52→20:20)
[2018-12-15] MEDS: Polyethylene Glycol 3350 17 GM Packet PO SCH (08:57)
[2018-12-15] MEDS: Metoprolol Tartrate 25 MG TAB PO SCH ×2 (08:58→20:22)
[2018-12-15] MEDS: Gabapentin 100 MG CAP PO SCH ×2 (08:58→20:21)
[2018-12-15] MEDS: Amlodipine 5 MG TAB PO SCH (08:58)
[2018-12-15] MEDS: Flecainide 50 MG TAB PO SCH ×2 (08:58→20:20)
[2018-12-15] MEDS: Lantus 1000 UNITS/10 ML VIAL SC SCH ×2 (09:01→20:21)
[2018-12-15] MEDS: Warfarin Sodium 5 MG TAB PO SCH (16:55)
[2018-12-15] MEDS: Warfarin Sodium 1 MG TAB PO SCH (16:56)
[2018-12-15] MEDS: Atorvastatin Calcium 20 MG TAB PO SCH (20:19)
[2018-12-15] MEDS: Ondansetron ODT 4 MG TAB PO PRN (20:23)
[2018-12-15] MEDS: HYDROcodone/Acetaminophen 5/325 mg Tablet PO PRN (20:23)
[2018-12-16 05:33] LABS: INR-International Normal Ratio 2.2; Prothrombin Time 24.7 SEC (12.0-14.7)
[2018-12-16] MEDS: Cefepime 2 GM in Sodium Chloride 0.9% 100 ML IVPB SCH ×2 (08:57→20:57)
[2018-12-16] MEDS: Amlodipine 5 MG TAB PO SCH (08:58)
[2018-12-16] MEDS: Polyethylene Glycol 3350 17 GM Packet PO SCH (08:58)
[2018-12-16] MEDS: Gabapentin 100 MG CAP PO SCH ×2 (08:58→20:57)
[2018-12-16] MEDS: Flecainide 50 MG TAB PO SCH ×2 (08:59→20:57)
[2018-12-16] MEDS: Lantus 1000 UNITS/10 ML VIAL SC SCH ×2 (08:59→20:58)
[2018-12-16] MEDS: Metoprolol Tartrate 25 MG TAB PO SCH ×2 (08:59→20:58)
--- NOTE | 2018-12-16 09:42 | PRG ---
DATE OF SERVICE: 12/16/2018 SUBJECTIVE: Mr. Wright is doing well. Denies any complaints. Tolerating his antibiotics, they are supposed to end today. Apparently, plan is for him to go home tomorrow with home health and wound VAC. I advised nursing to print out a copy of his current med list and give it to him, so him and his can go through it and let me know if he needs any refills. OBJECTIVE: VITAL SIGNS: He is afebrile, heart rate 62, respirations 18, oxygen saturation 99% on room air, blood pressure 125/67. CARDIOVASCULAR: S1 and S2 plus. RESPIRATORY: Normal vesicular breath sounds. ABDOMEN: Soft, nontender. Bowel sounds heard in all quadrants. EXTREMITIES: Without cyanosis or clubbing. Foot with wound VAC. IMPRESSION: 1. Right foot osteomyelitis, on wound VAC and IV antibiotics, last day today. 2. Diabetes mellitus, type 2. 3. Atrial fibrillation. 4. Dyslipidemia. 5. Hypertension. PLAN: 1. Continue current medications. 2. Finish antibiotics after today. 3. Monitor blood sugars. His Lantus has been adjusted and his blood sugars are much better, they are 139, 163, 168, and 139. 4. 1800-calorie heart healthy ADA diet. 5. Accu-Cheks with sliding scale coverage. 6. Wound VAC care. 7. Discharge planning. Job ID: [id number]
[2018-12-16] MEDS: Warfarin Sodium 5 MG TAB PO SCH (16:26)
[2018-12-16] MEDS: Warfarin Sodium 1 MG TAB PO SCH (17:16)
[2018-12-16] MEDS: Atorvastatin Calcium 20 MG TAB PO SCH (20:57)
[2018-12-17 05:36] LABS: INR-International Normal Ratio 2.2; Prothrombin Time 24.7 SEC (12.0-14.7)
[2018-12-17 07:56] VITALS: BP 125/64; TEMP 97.8
[2018-12-17] MEDS: Polyethylene Glycol 3350 17 GM Packet PO SCH (08:15)
[2018-12-17] MEDS: Amlodipine 5 MG TAB PO SCH (08:16)
[2018-12-17] MEDS: Metoprolol Tartrate 25 MG TAB PO SCH (08:17)
[2018-12-17] MEDS: Flecainide 50 MG TAB PO SCH (08:17)
[2018-12-17] MEDS: Gabapentin 100 MG CAP PO SCH (08:17)
[2018-12-17] MEDS: Lantus 1000 UNITS/10 ML VIAL SC SCH (08:19)
--- NOTE | 2018-12-17 12:29 | DIS ---
DATE OF ADMISSION: 11/30/2018 DATE OF DISCHARGE: 12/17/2018 PRINCIPAL DIAGNOSIS: Right foot osteomyelitis for IV antibiotics and wound VAC as well as deconditioning. SECONDARY DIAGNOSES: 1. Diabetes mellitus, type 2. 2. Atrial fibrillation. 3. Peripheral vascular disease. 4. Peripheral neuropathy. 5. Chronic kidney disease, stage 3. 6. History of colon cancer. COMPLICATIONS: None. ADVERSE REACTIONS: None. PROCEDURES: Wound VAC care. CONSULTATIONS: None. HOSPITAL COURSE: The patient was admitted by Dr. Edmundo Victoria on 11/30 for infected ulcer of his right lateral foot with osteomyelitis. He was treated with IV antibiotics and wound care. He has slowly improved and finished his antibiotics yesterday. His laboratory values remained stable. No issues with his atrial fibrillation. He was deemed to be stable for discharge to home with wound VAC and home health with therapy. He is to follow up with his PCP, which is [facility]. The patient states that he does not need any prescriptions for any of his medications as he has all of them at home. No family at bedside. DISCHARGE PHYSICAL EXAMINATION: VITAL SIGNS: On the day of discharge, he is afebrile. Heart rate is 60, respirations 18, oxygen saturation 99% on room air, and blood pressure 125/64. CARDIOVASCULAR SYSTEM: S1 and S2 plus. RESPIRATORY SYSTEM: Normal vesicular breath sounds heard in all lung garza. ABDOMEN: Soft, nontender. Bowel sounds heard in all quadrants. EXTREMITIES: Without cyanosis or clubbing. Right foot with wound VAC. CENTRAL NERVOUS SYSTEM: Awake and responsive, nonfocal except for peripheral neuropathy. LABORATORY VALUES: Last blood work was done on December 15 where white count was 10.1, H and H are 8.1 and 24.6. Sedimentation rate was 45. Sodium 135, potassium 5.0, BUN and creatinine are 51 and 2.08. Blood sugars are 139, 163, 168, 139, and 214. DISCHARGE MEDICATIONS: 1. [place] 5/325 one tab q.4 hours p.r.n. pain. 2. Norvasc 5 mg daily. 3. Lipitor 20 mg daily. 4. Santyl ointment to wound p.r.n. that will be done by home health. 5. Flecainide 100 mg b.i.d. 6. Gabapentin 100 mg b.i.d. 7. Lantus 20 units at bedtime and 43 units in the morning. 8. Lopressor 12.5 mg b.i.d. 9. MiraLAX 17 g in 8 ounces of water daily. 10. Warfarin 6 mg daily that is basically back to his usual dose. For full details, please see chart. Total time spent on this discharge, 35 minutes. Job ID: [id number]
== END 2018-12-17 13:09 | disposition home health service (06) | DRG 638 ==
LOC: NAV ACUTE 17:15
PROVIDERS: ADMIT Internal Medicine; ATTEND Internal Medicine
DX: E11.69 Type 2 diabetes mellitus with other specified complication (principal); I48.20 Chronic atrial fibrillation, unspecified; M86.8X7 Other osteomyelitis, ankle and foot; C78.7 Secondary malignant neoplasm of liver and intrahepatic bile duct; C18.9 Malignant neoplasm of colon, unspecified; E11.621 Type 2 diabetes mellitus with foot ulcer; N18.3 Chronic kidney disease, stage 3 (moderate); E11.42 Type 2 diabetes mellitus with diabetic polyneuropathy; E11.649 Type 2 diabetes mellitus with hypoglycemia without coma; I12.9 Hypertensive chronic kidney disease with stage 1 through stage 4 chronic kidney disease, or unspecified chronic kidney disease; I73.9 Peripheral vascular disease, unspecified; G47.33 Obstructive sleep apnea (adult) (pediatric); R53.81 Other malaise; K59.00 Constipation, unspecified; E78.5 Hyperlipidemia, unspecified; L97.519 Non-pressure chronic ulcer of other part of right foot with unspecified severity; Z85.038 Personal history of other malignant neoplasm of large intestine; Z90.49 Acquired absence of other specified parts of digestive tract; Z79.4 Long term (current) use of insulin; Z79.01 Long term (current) use of anticoagulants
CPT/HCPCS: 36415; 36416; 80048; 80053; 81001; 85025; 85610; 85652; 86140; 97602; J0692; J1642; J1815; J3490; Q0162

== ENCOUNTER 2019-02-01 18:22 | Inpatient (IN) | payer MEDICARE ==
[2019-02-01] MEDS ORDERED: Promethazine 25 MG TAB PO PRN (19:28)
[2019-02-01] MEDS ORDERED: Acetaminophen 650 MG Suppository PR PRN (19:28)
[2019-02-01 19:54] LABS: #Basophils 0.1 thou/uL (0.0-0.2); #Eosinphils 0.2 thou/uL (0.0-0.7); #Lymphocytes 0.9 thou/uL (1.20-3.40); #Monocytes 0.8 thou/uL (0.11-0.59); #Neutrophils 4.9 thou/uL (1.40-6.50); %Basophils 1.5 % (0.0-1.0); %Eosinophils 2.6 % (0.0-10.0); %Lymphocytes 12.5 % (21.0-51.0); %Monocytes 11.4 % (0.0-10.0); Hemoglobin 10.5 g/dL (14.0-18.0); Mean Corpuscular HGB CONC 32.7 g/dL (32.0-36.0); Mean Corpuscular Hemoglobin 29.8 pg (27.0-31.0); Mean Platelet Volume 5.7 fL (7.4-10.4); Platelet Count 250 thou/uL (130-400); RBC Distribution Width 14.4 % (11.5-14.5); Red Blood Cell (RBC) Count 3.53 mill/uL (4.70-6.10); White Blood Cell (WBC) Count 6.8 thou/uL (4.8-10.8)
[2019-02-01 20:10] LABS: ALT (SGPT) 19 U/L (8-55); AST (SGOT) 18 U/L (5-34); Alkaline Phosphatase 72 U/L (40-110); Anion Gap 15 mmol/L (10-20); BUN (Urea Nitrogen) 23 mg/dL (8.4-25.7); Bilirubin, Total 0.2 mg/dL (0.2-1.2); Calc. Creatinine Clearance 74 mL/min (70-130); Calcium 8.5 mg/dL (7.8-10.44); Carbon Dioxide 21 mmol/L (23-31); Chloride 101 mmol/L (98-107); Estimated GFR-MDRD 53; Globulin 3.6 g/dL (2.4-3.5); Glucose 236 mg/dL (83-110); Potassium 4.1 mmol/L (3.5-5.1); Protein, Total 6.6 g/dL (5.8-8.1); Sodium 133 mmol/L (136-145)
[2019-02-01] MEDS ORDERED: Sodium Chloride 0.9% 10 ML ONE (20:57)
[2019-02-01] MEDS ORDERED: Gabapentin 300 MG CAP PO SCH (21:00)
[2019-02-01] MEDS: cefTRIAXone\\ROCEPHIN 2 GM in Sodium Chloride 0.9% 100 ML IVPB SCH (21:09)
[2019-02-01] MEDS: Atorvastatin Calcium 20 MG TAB PO SCH (21:10)
[2019-02-01] MEDS: Flecainide 50 MG TAB PO SCH (21:13)
[2019-02-01] MEDS: Famotidine 20 MG TAB PO SCH (21:13)
[2019-02-01] MEDS: Gabapentin 300 MG CAP PO SCH (21:14)
[2019-02-01] MEDS: Metoprolol Tartrate 25 MG TAB PO SCH (21:14)
[2019-02-01] MEDS: Lantus 1000 UNITS/10 ML VIAL SC SCH (21:14)
[2019-02-01] MEDS: HYDROcodone/Acetaminophen 5/325 mg Tablet PO PRN (21:15)
[2019-02-02] MEDS: Famotidine 20 MG TAB PO SCH ×2 (08:12→20:09)
[2019-02-02] MEDS: Gabapentin 300 MG CAP PO SCH ×3 (08:13→20:08)
[2019-02-02] MEDS: Flecainide 50 MG TAB PO SCH ×2 (08:13→20:08)
[2019-02-02] MEDS: Metoprolol Tartrate 25 MG TAB PO SCH ×2 (08:14→20:08)
[2019-02-02] MEDS: Saccharomyces boulardii 250 MG CAP PO SCH (08:14)
[2019-02-02] MEDS: Lantus 1000 UNITS/10 ML VIAL SC SCH ×2 (08:14→20:10)
[2019-02-02] MEDS: Polyethylene Glycol 3350 17 GM Packet PO PRN (08:25)
[2019-02-02] MEDS ORDERED: cefTRIAXone\\ROCEPHIN 2 GM VIAL IVPB SCH (16:00)
[2019-02-02] MEDS: cefTRIAXone\\ROCEPHIN 2 GM in Sodium Chloride 0.9% 100 ML IVPB SCH (20:05)
[2019-02-02] MEDS: HYDROcodone/Acetaminophen 5/325 mg Tablet PO PRN (20:07)
[2019-02-02] MEDS: Atorvastatin Calcium 20 MG TAB PO SCH (20:09)
[2019-02-03] MEDS: Famotidine 20 MG TAB PO SCH ×2 (08:40→20:37)
[2019-02-03] MEDS: Flecainide 50 MG TAB PO SCH ×2 (08:40→20:38)
[2019-02-03] MEDS: Saccharomyces boulardii 250 MG CAP PO SCH (08:41)
[2019-02-03] MEDS: Gabapentin 300 MG CAP PO SCH ×3 (08:43→20:37)
[2019-02-03] MEDS: Metoprolol Tartrate 25 MG TAB PO SCH ×2 (08:43→20:37)
[2019-02-03] MEDS: Lantus 1000 UNITS/10 ML VIAL SC SCH ×2 (08:44→20:42)
--- NOTE | 2019-02-03 11:14 | PRG ---
DATE OF SERVICE: 02/02/2019 SUBJECTIVE: The patient feels well. In fact, he has been up in the room, having no pain in his foot. No drainage or bleeding. Has been cleared by PT for ambulation, but he is only doing wound care. OBJECTIVE: VITAL SIGNS: Show temperature is 97, pulse 65, respirations 18, O2 saturations 97% on room air, blood pressure 132/62. Accu-Cheks ranged from 123 to 259. LUNGS: Clear. CARDIAC: Shows regular rhythm. ABDOMEN: Soft and nontender. EXTREMITIES: Right foot is bandaged. ASSESSMENT: 1. Resolving osteomyelitis of the right foot secondary to a methicillin-sensitive Staphylococcus aureus and Enterococcus, on IV Rocephin until March 09. 2. Hypertension, controlled to goal. 3. Diabetes type 2, insulin dependent, not controlled secondary to infection and we will adjust sliding scale. 4. Atrial fibrillation with rate controlled with no anticoagulation secondary to recent labile anemia and we will check PT, check EKG, check CBC, and possibly start back on warfarin tomorrow. 5. Cancer of the colon with no symptoms at this time, off chemotherapy until infection is cleared. Job ID: [id number]
--- NOTE | 2019-02-03 12:57 | HP ---
Admission to the Skilled Unit on [facility]. HISTORY OF PRESENT ILLNESS: The patient is a 73-year-old white male, well known to myself with a recent long admission to the [facility] for treatment with IV antibiotics for infection of his right foot and fifth toe. He is status post amputation of right fifth toe and partial amputation of metatarsal and was admitted to the hospital for long-term antibiotics lasting until December 17. Apparently, he had amputation of the fourth and fifth toes. He has an underlying history of cancer of the colon with metastasis to the liver, for which he requires chemotherapy. His last antibiotic was on December 17, and then he was seen by Dr. Duncan, where he had initiation of chemotherapy for his metastatic colon cancer to the liver with the last treatment being on January 16. This was 5-FU IV as well as oxaliplatin, and the oxaliplatin, however, had been discontinued because of peripheral neuropathy and diarrhea. He was doing well until he presented to the emergency room with tachycardia, hyponatremia to 127, mild increase in his creatinine to 1.92, and an x-ray of the right foot showing soft tissue swelling and pockets of gas at the postoperative site to the base of the fourth toe. He was started on empiric antibiotics with Zosyn and vancomycin. He had been on full-dose anticoagulation with warfarin because of his long-standing atrial fibrillation. This was discontinued. His licensed nuclear control room operator, Dr. Serrano saw him again. He had an MRI done, which showed osteomyelitis of the distal fourth metatarsal with the surrounding periosseous abscess. He was taken to the OR on January 26, had incision and drainage, the abscess resection of the distal fourth metatarsal and the remaining base of the proximal phalanx as well as resection of the remaining fifth metatarsal. Infectious Disease, Dr. Lawson saw him and was unsure whether this was a new or recurrent infection. Blood cultures were negative, but bacterial cultures grew Staphylococcus aureus which was very sensitive and also Enterococcus faecalis which was also very sensitive. Oncology obviously postponed treatment for his cancer any further because of the acute infection. He was felt to not require neovascularization by the cardiovascular surgeon, Dr. Farley. He was started on Rocephin 2 g IV for 6 weeks, did require transfusion of 1 unit of packed cells, but did not have any obvious GI bleeding, was felt to be stable to be transferred to [facility] for continuation of his IV Rocephin. PAST MEDICAL HISTORY: Also, remarkable for longstanding history of type 2 diabetes, insulin-dependent, well controlled; hypertension, well controlled; peripheral neuropathy, most likely related to diabetes as well as chemotherapy; obstructive sleep apnea with restless legs syndrome, controlled with CPAP; and long-standing anxiety and depression, which have been very stable. Also, he has history of chronic kidney disease, stage 4, stable, being followed by Dr. Kamara. PAST SURGICAL HISTORY: Positive for partial colectomy for the cancer of the colon, cholecystectomy, tonsillectomy, partial hepatectomy for metastatic colon lesion, amputation of the fourth and fifth toes as mentioned above, and cardiac ablation for atrial fibrillation with recurrence. SOCIAL HISTORY: He is a nonsmoker and nondrinker. Lives with his . REVIEW OF SYSTEMS: HEENT: Denies any headaches, dizziness, change in vision or hearing, hoarseness, or dysphagia. PULMONARY: Denies cough, sputum production, pneumonia, asthma, or tuberculosis. CARDIOVASCULAR: Denies chest pain, orthopnea, paroxysmal nocturnal dyspnea, or edema. GASTROINTESTINAL: Denies nausea or vomiting at present, but has had occasional nausea and diarrhea, now resolved. GENITOURINARY: Denies dysuria, hematuria, or nocturia. MUSCULOSKELETAL: He has no pain in his foot, and he is walking on it. NEUROLOGIC: He has decreased sensation in both feet. PHYSICAL EXAMINATION: GENERAL: The patient is an elderly white male, lying in bed, in no distress. Oriented x3 and cooperative. VITAL SIGNS: Show him to have blood pressure of 166/74, temperature of 97.9, pulse 67, respirations 18, O2 saturations 98% on room air. HEENT: Pupils are equal, round, and reactive to light and accommodation. Sclerae are anicteric. Conjunctivae are pale. Oral mucous membranes are well hydrated. NECK: Supple. There are no nodes or masses. JVP is not elevated. LUNGS: Clear. CARDIAC: Showed an irregularly irregular rhythm. ABDOMEN: Soft and nontender with no masses or organomegaly. SKIN/EXTREMITIES: Display right foot is bandaged, minimally tender. NEUROLOGIC: Showed decreased sensation to pinprick below the mid lam. LABORATORY DATA: Showed white count 6800, hematocrit 32, hemoglobin 10. Sodium is 133, potassium 4.1, chloride 101, bicarb 21, BUN 23, creatinine 1.32, glucose 236, calcium 8.5, total bilirubin 0.2, AST 18, ALT 19, alkaline phosphatase 72, albumin 3.0, globulin 3.6. ASSESSMENT: 1. A 73-year-old white male with multiple medical problems including cancer of the colon, metastasis to the liver with inability to obtain needed chemotherapy because of recurrent infection in his right foot. 2. Osteomyelitis of the right foot, status post amputation of distal fourth metatarsal, fourth and fifth toes, and distal fifth metatarsal, on IV Rocephin for 6 weeks for sensitive Staphylococcus aureus and enterococcal infection. 3. Type 2 diabetes with fair control with Accu-Cheks ranged from 196 to 248, but has improved in the past with controlled infection. 4. Chronic kidney disease, stage 3 at present, but has been stage 4 in the past, appears to be stable. 5. Hyponatremia, improving. 6. Anemia, most likely due to blood loss, but with no gastrointestinal bleeding, appears to be stabilized. 7. Atrial fibrillation, off warfarin because of recent labile CBC and only on rate control with no evidence of bleeding at this time. 8. 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 PLAN: 1. Continue Rocephin 2 g IV daily until March 09. 2. Continue Lantus 40 units in the morning and 25 units at night with Accu-Cheks to monitor, control, and titrate. 3. Atrial fibrillation with rate control with metoprolol and Tambocor, but with no anticoagulation secondary to recent labile anemia, but we will get EKG and restart warfarin. 4. Chronic kidney disease, stage 3, stable. 5. Hyponatremia, improving. normal. 6. Hypertension, controlled to goal. Job ID: [id number]
[2019-02-03] MEDS: cefTRIAXone\\ROCEPHIN 2 GM in Sodium Chloride 0.9% 100 ML IVPB SCH (20:36)
[2019-02-03] MEDS: Atorvastatin Calcium 20 MG TAB PO SCH (20:38)
[2019-02-04 05:28] LABS: #Basophils 0.2 thou/uL (0.0-0.2); #Eosinphils 0.3 thou/uL (0.0-0.7); #Lymphocytes 1.7 thou/uL (1.20-3.40); #Monocytes 1.3 thou/uL (0.11-0.59); #Neutrophils 7.1 thou/uL (1.40-6.50); %Basophils 1.7 % (0.0-1.0); %Eosinophils 3.1 % (0.0-10.0); %Monocytes 12.4 % (0.0-10.0); %Neutrophils 66.8 % (42.0-75.0); Hemoglobin 8.9 g/dL (14.0-18.0); Mean Corpuscular HGB CONC 33.2 g/dL (32.0-36.0); Mean Corpuscular Hemoglobin 30.3 pg (27.0-31.0); Mean Corpuscular Volume 91.6 fL (78.0-98.0); Mean Platelet Volume 5.9 fL (7.4-10.4); Platelet Count 318 thou/uL (130-400); RBC Distribution Width 14.3 % (11.5-14.5); Red Blood Cell (RBC) Count 2.92 mill/uL (4.70-6.10); White Blood Cell (WBC) Count 10.7 thou/uL (4.8-10.8)
[2019-02-04 05:34] LABS: INR-International Normal Ratio 1.2; Prothrombin Time 15.1 SEC (12.0-14.7)
[2019-02-04 05:49] LABS: ALT (SGPT) 17 U/L (8-55); AST (SGOT) 18 U/L (5-34); Albumin 3.2 g/dL (3.4-4.8); Alkaline Phosphatase 69 U/L (40-110); Anion Gap 15 mmol/L (10-20); BUN (Urea Nitrogen) 31 mg/dL (8.4-25.7); Bilirubin, Total 0.2 mg/dL (0.2-1.2); Calc. Creatinine Clearance 54 mL/min (70-130); Calcium 8.8 mg/dL (7.8-10.44); Carbon Dioxide 21 mmol/L (23-31); Chloride 105 mmol/L (98-107); Estimated GFR-MDRD 37; Globulin 3.2 g/dL (2.4-3.5); Glucose 169 mg/dL (83-110); Potassium 4.6 mmol/L (3.5-5.1); Protein, Total 6.4 g/dL (5.8-8.1); Sodium 136 mmol/L (136-145)
[2019-02-04] MEDS: Metoprolol Tartrate 25 MG TAB PO SCH ×2 (08:03→20:46)
[2019-02-04] MEDS: Saccharomyces boulardii 250 MG CAP PO SCH (08:03)
[2019-02-04] MEDS: Famotidine 20 MG TAB PO SCH ×2 (08:04→20:47)
[2019-02-04] MEDS: Flecainide 50 MG TAB PO SCH ×2 (08:04→20:47)
[2019-02-04] MEDS: Gabapentin 300 MG CAP PO SCH ×3 (08:05→20:47)
[2019-02-04] MEDS: Lantus 1000 UNITS/10 ML VIAL SC SCH ×2 (08:06→20:48)
[2019-02-04] MEDS: cefTRIAXone\\ROCEPHIN 2 GM in Sodium Chloride 0.9% 100 ML IVPB SCH (20:43)
[2019-02-04] MEDS: Atorvastatin Calcium 20 MG TAB PO SCH (20:47)
[2019-02-04] MEDS: HYDROcodone/Acetaminophen 5/325 mg Tablet PO PRN (20:50)
[2019-02-05 05:17] LABS: INR-International Normal Ratio 1.1; Prothrombin Time 13.7 SEC (12.0-14.7)
[2019-02-05] MEDS: Saccharomyces boulardii 250 MG CAP PO SCH (08:18)
[2019-02-05] MEDS: Metoprolol Tartrate 25 MG TAB PO SCH ×2 (08:19→20:39)
[2019-02-05] MEDS: Famotidine 20 MG TAB PO SCH ×2 (08:19→20:40)
[2019-02-05] MEDS: Gabapentin 300 MG CAP PO SCH ×3 (08:19→20:40)
[2019-02-05] MEDS: Flecainide 50 MG TAB PO SCH ×2 (08:20→20:39)
[2019-02-05] MEDS: Lantus 1000 UNITS/10 ML VIAL SC SCH ×2 (08:21→20:38)
--- NOTE | 2019-02-05 16:20 | PRG ---
DATE OF SERVICE: 02/04/2019 SUBJECTIVE: The patient is lying in bed, resting. No complaints. He has been up moving around today. Tolerating his antibiotics well with wound care being provided by wound team. OBJECTIVE: VITAL SIGNS: Temperature is 98.1, pulse 65, respirations 18, O2 sats 100% on room air, and blood pressure 162/72. LUNGS: Clear. CARDIAC: Shows rhythm. ABDOMEN: Soft and nontender. EXTREMITIES: Right foot is bandaged with wound VAC in place. ASSESSMENT: 1. Resolving osteomyelitis of right 4th and 5th metatarsal, on Rocephin until March 09, 2019. 2. Stage IV cancer of the colon, metastasis to the liver with inability to continue chemotherapy secondary to ongoing infection. 3. Atrial fibrillation with rate control, on anticoagulation. 4. Hypertension, controlled to goal. 5. Chronic kidney disease, stage 3, stable. PLAN: 1. Continue IV Rocephin. 2. Continue wound care. 3. Continue Accu-Cheks to monitor and titrate and control diabetes. 4. Continue rate control and anticoagulation of atrial fibrillation. Job ID: [id number]
--- NOTE | 2019-02-05 17:13 | PRG ---
DATE OF SERVICE: 02/05/2019 SUBJECTIVE: The patient feels well, except still concerned about elevated sugars in the afternoon. He is up, moving around. He is eating well. He is having no chest pain, shortness of breath, nausea, or vomiting. OBJECTIVE: VITAL SIGNS: Temperature 97.9, pulse 62, respirations 18, O2 saturations 97% on room air, blood pressure 143/70. Accu-Cheks ranged from 131 to 238 in the afternoon. ABDOMEN: Soft and nontender. LUNGS: Clear. CARDIAC: Shows irregular rhythm. EXTREMITIES: Right foot is bandaged with wound VAC in place. LABORATORY DATA: White count 10,700, hematocrit 26, hemoglobin 8.9. Sodium 136, potassium 4.6, chloride 105, bicarb 21, BUN 31, creatinine 1.81, glucose 169, albumin 3.2. ASSESSMENT: 1. Resolving osteomyelitis of right foot with amputation of 4th and 5th toes, partial distal metatarsal, on IV Rocephin until March 09. 2. Uncontrolled diabetes, most likely due to ongoing infection, and we will increase a.m. Lantus again to 50 units in the morning and 25 units at night and monitor closely. 3. Atrial fibrillation, was rate controlled, on anticoagulation, stable. 4. Chronic kidney disease, stage 3, stable. 5. Cancer of the colon with metastasis to the liver, unable to tolerate chemotherapy secondary to ongoing infection. We will continue to monitor. PLAN: 1. Increase Lantus to 50 units every morning, continue 25 units at night. 2. Continue Accu-Cheks to monitor and titrate and control diabetes. 3. Continue rate control and anticoagulation of atrial fibrillation. 4. Continue PT and OT. 5. Continue wound care per PT. 6. Continue stress ulcer prophylaxis. Job ID: [id number]
[2019-02-05] MEDS: cefTRIAXone\\ROCEPHIN 2 GM in Sodium Chloride 0.9% 100 ML IVPB SCH (20:38)
[2019-02-05] MEDS: Atorvastatin Calcium 20 MG TAB PO SCH (20:39)
[2019-02-05] MEDS: HYDROcodone/Acetaminophen 5/325 mg Tablet PO PRN (20:40)
[2019-02-06 05:21] LABS: INR-International Normal Ratio 1.1; Prothrombin Time 14.6 SEC (12.0-14.7)
[2019-02-06] MEDS: Famotidine 20 MG TAB PO SCH ×2 (08:18→20:27)
[2019-02-06] MEDS: Gabapentin 300 MG CAP PO SCH ×3 (08:18→20:27)
[2019-02-06] MEDS: Flecainide 50 MG TAB PO SCH ×2 (08:18→20:28)
[2019-02-06] MEDS: Lantus 1000 UNITS/10 ML VIAL SC SCH ×2 (08:19→20:22)
[2019-02-06] MEDS: Saccharomyces boulardii 250 MG CAP PO SCH (08:19)
[2019-02-06] MEDS: Metoprolol Tartrate 25 MG TAB PO SCH ×2 (08:19→20:27)
--- NOTE | 2019-02-06 14:05 | PRG ---
DATE OF SERVICE: 02/06/2019 SUBJECTIVE: Mr. Wright is doing well. He is undergoing wound care. He denies any complaints. He is tolerating his antibiotics. No family at bedside. Discussed with nursing. OBJECTIVE: VITAL SIGNS: He is afebrile, heart rate 69, respirations 18, oxygen saturation 98% on room air, and blood pressure 132/62. CARDIOVASCULAR SYSTEM: S1 and S2 plus. RESPIRATORY SYSTEM: Normal vesicular breath sounds. ABDOMEN: Soft and nontender. Bowel sounds heard in all quadrants. EXTREMITIES: Without cyanosis or clubbing. Right foot wound is healthy. CENTRAL NERVOUS SYSTEM: Awake and responsive. Generalized weakness. IMPRESSION: 1. Diabetes mellitus, type 2. 2. Hypertension. 3. Peripheral neuropathy, likely due to diabetes. 4. Obstructive sleep apnea. 5. Anxiety and depression. 6. Chronic kidney disease, stage 4. 7. Osteomyelitis. 8. Dyslipidemia. 9. Cardiac arrhythmia. PLAN: 1. Continue current medications. 2. 1800-calorie heart healthy ADA diet. 3. Accu-Cheks with sliding scale coverage. 4. DVT prophylaxis with PlexiPulses. 5. Decubitus precautions. 6. Stress ulcer prophylaxis. 7. Weekly CBC, CRP, CMP, and sedimentation rate. 8. Antibiotics until March 10. 9. Wound care. 10. Discussed with the patient in detail. All questions answered. Job ID: [id number]
[2019-02-06] MEDS: cefTRIAXone\\ROCEPHIN 2 GM in Sodium Chloride 0.9% 100 ML IVPB SCH (20:23)
[2019-02-06] MEDS: HYDROcodone/Acetaminophen 5/325 mg Tablet PO PRN (20:26)
[2019-02-06] MEDS: Atorvastatin Calcium 20 MG TAB PO SCH (20:28)
[2019-02-07 05:36] LABS: Prothrombin Time 13.5 SEC (12.0-14.7)
[2019-02-07] MEDS: Lantus 1000 UNITS/10 ML VIAL SC SCH ×2 (08:19→20:33)
[2019-02-07] MEDS: Famotidine 20 MG TAB PO SCH ×2 (08:21→20:38)
[2019-02-07] MEDS: Flecainide 50 MG TAB PO SCH ×2 (08:21→20:37)
[2019-02-07] MEDS: Gabapentin 300 MG CAP PO SCH ×3 (08:21→20:38)
[2019-02-07] MEDS: Saccharomyces boulardii 250 MG CAP PO SCH (08:21)
[2019-02-07] MEDS: Metoprolol Tartrate 25 MG TAB PO SCH ×2 (08:22→20:37)
[2019-02-07] MEDS: HYDROcodone/Acetaminophen 5/325 mg Tablet PO PRN ×2 (14:04→20:38)
--- NOTE | 2019-02-07 14:04 | PRG ---
DATE OF SERVICE: 02/07/2019 SUBJECTIVE: Mr. Wright is resting in bed after his lunch. He has his CPAP on. No family at bedside. Denies any questions or concerns. He apparently had an appointment Podiatry that he missed and he did not inform nurses. Nursing has called and schedule an appointment for . OBJECTIVE: VITAL SIGNS: The patient afebrile. Heart rate 59, respirations 18, oxygen saturation 98% on room air, blood pressure is 162/72. CARDIOVASCULAR SYSTEM: S1, S2 plus. RESPIRATORY SYSTEM: Normal vesicular breath sounds. ABDOMEN: Soft, nontender. Bowel sounds heard in all quadrants. EXTREMITIES: Without cyanosis or clubbing. Right foot with dressing. LABORATORY DATA: Blood sugars are 137, 228, 224, and 203. IMPRESSION: 1. Right foot osteomyelitis. 2. Diabetes mellitus type 2. 3. Cardiac arrhythmia. 4. Peripheral neuropathy. 5. Hypertension. 6. Dyslipidemia. PLAN: 1. Continue current medications including antibiotics. 2. An 1800-calorie heart-healthy ADA diet. 3. Wound care. 4. Accu-Cheks with sliding scale coverage. 5. DVT prophylaxis. The patient is fairly active enough that he does not need any medication prophylaxis and with him having the right foot osteomyelitis, need to be careful with PlexiPulses. 6. Continue PT/OT eval and treat. 7. Check CBC, CMP, CRP, and sedimentation rate tomorrow. 8. Follow up with Podiatry day after tomorrow. 9. Discussed with the patient in detail. All questions answered. Job ID: [id number]
[2019-02-07] MEDS: cefTRIAXone\\ROCEPHIN 2 GM in Sodium Chloride 0.9% 100 ML IVPB SCH (20:34)
[2019-02-07] MEDS: Atorvastatin Calcium 20 MG TAB PO SCH (20:37)
[2019-02-08 12:45] LABS: %Lymphocytes 16.5 % (21.0-51.0); %Neutrophils 63.5 % (42.0-75.0); Hemoglobin 9.1 g/dL (14.0-18.0); Mean Corpuscular HGB CONC 32.7 g/dL (32.0-36.0); Mean Corpuscular Hemoglobin 30.4 pg (27.0-31.0); Mean Corpuscular Volume 92.9 fL (78.0-98.0); Mean Platelet Volume 6.2 fL (7.4-10.4); Platelet Count 306 thou/uL (130-400); RBC Distribution Width 14.5 % (11.5-14.5); White Blood Cell (WBC) Count 10.7 thou/uL (4.8-10.8)
[2019-02-08 12:46] LABS: #Basophils 0.2 thou/uL (0.0-0.2); #Eosinphils 0.7 thou/uL (0.0-0.7); #Lymphocytes 1.8 thou/uL (1.20-3.40); #Monocytes 1.2 thou/uL (0.11-0.59); #Neutrophils 6.8 thou/uL (1.40-6.50); %Basophils 1.9 % (0.0-1.0); %Eosinophils 6.5 % (0.0-10.0); %Monocytes 11.5 % (0.0-10.0); Carbon Dioxide 24 mmol/L (23-31); Chloride 101 mmol/L (98-107); Potassium 4.9 mmol/L (3.5-5.1); Sodium 136 mmol/L (136-145)
[2019-02-08 12:47] LABS: Albumin 3.2 g/dL (3.4-4.8); Anion Gap 16 mmol/L (10-20); BUN (Urea Nitrogen) 47 mg/dL (8.4-25.7); Bilirubin, Total 0.2 mg/dL (0.2-1.2); Calc. Creatinine Clearance 55 mL/min (70-130); Calcium 9.2 mg/dL (7.8-10.44); Estimated GFR-MDRD 38; Glucose 199 mg/dL (83-110); Protein, Total 6.7 g/dL (5.8-8.1)
[2019-02-08 12:48] LABS: ALT (SGPT) 13 U/L (8-55); AST (SGOT) 14 U/L (5-34); Alkaline Phosphatase 74 U/L (40-110); CRP (Inflammatory) 1.45 mg/dL (= or < 0.5); Globulin 3.5 g/dL (2.4-3.5)
[2019-02-08 12:55] LABS: Prothrombin Time 13.6 SEC (12.0-14.7)
[2019-02-08] MEDS: Famotidine 20 MG TAB PO SCH ×2 (14:24→20:37)
[2019-02-08] MEDS: Gabapentin 300 MG CAP PO SCH ×3 (14:55→20:37)
[2019-02-08] MEDS: Lantus 1000 UNITS/10 ML VIAL SC SCH ×2 (14:55→20:38)
[2019-02-08] MEDS: Flecainide 50 MG TAB PO SCH ×2 (14:55→20:37)
[2019-02-08] MEDS: Metoprolol Tartrate 25 MG TAB PO SCH ×2 (14:56→20:38)
[2019-02-08] MEDS: Saccharomyces boulardii 250 MG CAP PO SCH (14:56)
[2019-02-08] MEDS: Acetaminophen 325 MG TAB PO PRN (19:41)
[2019-02-08] MEDS: cefTRIAXone\\ROCEPHIN 2 GM in Sodium Chloride 0.9% 100 ML IVPB SCH (20:36)
[2019-02-08] MEDS: Atorvastatin Calcium 20 MG TAB PO SCH (20:37)
[2019-02-09 05:39] LABS: Prothrombin Time 13.4 SEC (12.0-14.7)
[2019-02-09] MEDS: Flecainide 50 MG TAB PO SCH ×2 (08:59→20:34)
[2019-02-09] MEDS: Lantus 1000 UNITS/10 ML VIAL SC SCH ×2 (08:59→20:36)
[2019-02-09] MEDS: Gabapentin 300 MG CAP PO SCH ×3 (09:00→20:34)
[2019-02-09] MEDS: Metoprolol Tartrate 25 MG TAB PO SCH ×2 (09:00→20:34)
[2019-02-09] MEDS: Famotidine 20 MG TAB PO SCH ×2 (09:00→20:34)
[2019-02-09] MEDS: Acetaminophen 325 MG TAB PO PRN ×2 (09:00→13:20)
[2019-02-09] MEDS: Saccharomyces boulardii 250 MG CAP PO SCH (09:00)
--- NOTE | 2019-02-09 13:39 | PRG ---
DATE OF SERVICE: 02/09/2019 SUBJECTIVE: Mr. Wright saw Podiatry and no changes to his treatment. He is tolerating his antibiotics. He states that he is having significant knee pain from severe DJD and wants to know if he qualifies for a brace and I advised him to discuss with therapy. OBJECTIVE: VITAL SIGNS: He is afebrile, heart rate is 64, respirations 16, oxygen saturation 98% on room air, and blood pressure 143/65. CARDIOVASCULAR SYSTEM: S1 and S2 plus. RESPIRATORY SYSTEM: Normal vesicular breath sounds. ABDOMEN: Soft and nontender. Bowel sounds heard in all quadrants. EXTREMITIES: Without cyanosis or clubbing. Right foot with dressing. CENTRAL NERVOUS SYSTEM: Grossly nonfocal except for peripheral neuropathy. IMPRESSION: 1. Right foot osteomyelitis. 2. Diabetes mellitus, type 2. 3. Hypertension. 4. Dyslipidemia. 5. Peripheral neuropathy. 6. Chronic kidney disease, stage 2 to 3. 7. Deconditioning. PLAN: 1. Continue current medications. 2. 1800 calorie heart healthy ADA diet. 3. Accu-Cheks with sliding scale coverage. 4. Wound care. 5. Physical therapy. 6. Encourage p.o. fluid intake. 7. Routine laboratory values. Weekly CBC, CMP, CRP, and sedimentation rate. 8. Continue IV antibiotics until March 10. Job ID: [id number]
--- NOTE | 2019-02-09 16:54 | PRG ---
DATE OF SERVICE: 02/08/2019 SUBJECTIVE: Mr. Wright is doing well. Denies any complaints. Resting comfortably. Blood sugars have been running high, and I advised him that I am going to change his Ensure to Glucerna, and if it is persistently high, then we will increase his Levemir. OBJECTIVE: VITAL SIGNS: He is afebrile. Heart rate is 69, respirations 16, oxygen saturation 97% on room air, and blood pressure 133/91. CARDIOVASCULAR SYSTEM: S1 and S2 plus. RESPIRATORY SYSTEM: Normal vesicular breath sounds. ABDOMEN: Soft and nontender. Bowel sounds heard in all quadrants. EXTREMITIES: Without cyanosis or clubbing. Right foot with Mateusz wrap and wound VAC placement. CENTRAL NERVOUS SYSTEM: Peripheral neuropathy, otherwise nonfocal. LABORATORY DATA: White count is 10.7, H and H are 9.1 and 27.8 with a sedimentation rate of 77. Sodium 136, potassium 4.9, BUN and creatinine are 47 and 1.76 with CRP of 1.45. IMPRESSION: 1. Right foot osteomyelitis. 2. Diabetes mellitus, type 2. 3. Hypertension. 4. Dyslipidemia. 5. Peripheral neuropathy. 6. Chronic kidney disease, stage 3. 7. History of cardiac arrhythmia. PLAN: 1. Continue current medications including IV antibiotics until March 10. 2. 1800 calorie heart healthy ADA diet. 3. Accu-Cheks with sliding scale coverage. 4. Wound VAC care. 5. Decubitus precautions. 6. Stress ulcer prophylaxis. 7. Continue physical therapy. 8. Encourage p.o. fluid intake. 9. Discussed with the patient in detail and all questions answered. Job ID: [id number]
[2019-02-09] MEDS: cefTRIAXone\\ROCEPHIN 2 GM in Sodium Chloride 0.9% 100 ML IVPB SCH (20:24)
[2019-02-09] MEDS: Atorvastatin Calcium 20 MG TAB PO SCH (20:34)
[2019-02-09] MEDS: HYDROcodone/Acetaminophen 5/325 mg Tablet PO PRN (20:35)
[2019-02-10] MEDS: HYDROcodone/Acetaminophen 5/325 mg Tablet PO PRN ×3 (03:21→14:24)
[2019-02-10] MEDS: Flecainide 50 MG TAB PO SCH ×2 (08:49→20:30)
[2019-02-10] MEDS: Famotidine 20 MG TAB PO SCH ×2 (08:49→20:30)
[2019-02-10] MEDS: Metoprolol Tartrate 25 MG TAB PO SCH ×2 (08:50→20:30)
[2019-02-10] MEDS: Saccharomyces boulardii 250 MG CAP PO SCH (08:50)
[2019-02-10] MEDS: Gabapentin 300 MG CAP PO SCH ×3 (08:50→20:30)
[2019-02-10] MEDS: Lantus 1000 UNITS/10 ML VIAL SC SCH ×3 (08:55→20:31)
--- NOTE | 2019-02-10 09:08 | PRG ---
DATE OF SERVICE: 02/10/2019 SUBJECTIVE: Mr. Wright is doing the same. He is complaining of significant left knee pain. He has known end-stage DJD and apparently was recommended surgery 6 years ago. Plan is to try Mateusz wrapping until his can bring his brace from home. Discussed with therapy as well. OBJECTIVE: VITAL SIGNS: He is afebrile, heart rate 58, respirations 16, oxygen saturation 100% on room air, and blood pressure 176/78. CARDIOVASCULAR SYSTEM: S1 and S2 plus. RESPIRATORY SYSTEM: Normal vesicular breath sounds. ABDOMEN: Soft and nontender. Bowel sounds heard in all quadrants. EXTREMITIES: Without cyanosis or clubbing. Right foot with wound VAC. IMPRESSION: 1. Right foot osteomyelitis. 2. Diabetes mellitus, type 2. Blood sugars are still high. We will increase his Levemir. 3. Peripheral neuropathy. 4. Osteoarthritis. 5. Hypertension. 6. Dyslipidemia. 7. Chronic kidney disease, stage 2 to 3, but superimposed with prerenal. PLAN: 1. Continue current medications. 2. 1800 calorie heart healthy ADA diet and reinforced p.o. water intake. 3. Accu-Cheks with sliding scale coverage. 4. Bracing to his left knee. 5. Wound care. 6. Continue IV antibiotics. 7. Physical therapy. 8. Weekly CBC, CMP, CRP, and sedimentation rate. Increase Levemir. Job ID: [id number]
[2019-02-10] MEDS: Acetaminophen 325 MG TAB PO PRN (16:58)
[2019-02-10] MEDS: Warfarin Sodium 5 MG TAB PO SCH (16:58)
[2019-02-10] MEDS: cefTRIAXone\\ROCEPHIN 2 GM in Sodium Chloride 0.9% 100 ML IVPB SCH (20:28)
[2019-02-10] MEDS: Atorvastatin Calcium 20 MG TAB PO SCH (20:30)
[2019-02-11] MEDS: Acetaminophen 325 MG TAB PO PRN ×2 (00:09→08:15)
[2019-02-11 05:21] LABS: INR-International Normal Ratio 1.1
[2019-02-11] MEDS: Flecainide 50 MG TAB PO SCH ×2 (08:13→19:49)
[2019-02-11] MEDS: Famotidine 20 MG TAB PO SCH ×2 (08:13→19:49)
[2019-02-11] MEDS: Gabapentin 300 MG CAP PO SCH ×3 (08:14→19:49)
[2019-02-11] MEDS: Saccharomyces boulardii 250 MG CAP PO SCH (08:14)
[2019-02-11] MEDS: Metoprolol Tartrate 25 MG TAB PO SCH ×2 (08:14→19:49)
[2019-02-11] MEDS: Lantus 1000 UNITS/10 ML VIAL SC SCH ×2 (08:14→19:52)
[2019-02-11] MEDS: Warfarin Sodium 5 MG TAB PO SCH (17:11)
[2019-02-11] MEDS: Atorvastatin Calcium 20 MG TAB PO SCH (19:48)
[2019-02-11] MEDS: cefTRIAXone\\ROCEPHIN 2 GM in Sodium Chloride 0.9% 100 ML IVPB SCH (19:48)
[2019-02-11] MEDS: HYDROcodone/Acetaminophen 5/325 mg Tablet PO PRN (21:22)
[2019-02-12] MEDS: Acetaminophen 325 MG TAB PO PRN ×3 (03:22→16:27)
[2019-02-12 05:25] LABS: INR-International Normal Ratio 1.1; Prothrombin Time 14.3 SEC (12.0-14.7)
[2019-02-12] MEDS ORDERED: Warfarin Sodium 5 MG TAB PO SCH (07:30)
--- NOTE | 2019-02-12 08:02 | PRG ---
DATE OF SERVICE: 02/11/2019 SUBJECTIVE: The patient feels well, except for new onset of increasingly severe left knee pain associated with therapy. States he has had significant arthritis in his knees for years, but apparently injured it with therapy this week. He is now wearing a brace and wishes to continue with therapy. OBJECTIVE: VITAL SIGNS: His blood pressure is 140/65, temperature is 96, pulse is 58, respirations are 16, O2 saturation is 99% on room air. LUNGS: Clear. CARDIAC: Irregular rhythm. ABDOMEN: Soft and nontender. EXTREMITIES: Left knee is in a knee brace. Right foot has a wound VAC in place. ASSESSMENT: 1. Resolving osteomyelitis of the right foot, status post removal of fourth and fifth toes on wound VAC and on IV Rocephin until March 09. 2. Type 2 diabetes, not controlled to goal with Accu-Chek's ranging from . 3. Atrial fibrillation with rate control with an adequate anticoagulation on 5 mg of warfarin. 4. Cancer of the colon metastasis to liver with inability to tolerate chemotherapy secondary to recurrent infection. PLAN: 1. Increase warfarin to 6 mg daily and give an extra 5 mg today. 2. Increase a.m. Lantus to 60 units morning. Continue 30 units at night. 3. Continue flecainide and metoprolol for rate control of atrial fibrillation. 4. Continue Rocephin 2 g daily until March 09. Job ID: [id number]
[2019-02-12] MEDS: Gabapentin 300 MG CAP PO SCH ×3 (08:36→20:09)
[2019-02-12] MEDS: Famotidine 20 MG TAB PO SCH ×2 (08:36→20:09)
[2019-02-12] MEDS: Flecainide 50 MG TAB PO SCH ×2 (08:36→20:09)
[2019-02-12] MEDS: Lantus 1000 UNITS/10 ML VIAL SC SCH ×2 (08:37→20:09)
[2019-02-12] MEDS: Metoprolol Tartrate 25 MG TAB PO SCH ×2 (08:38→20:10)
[2019-02-12] MEDS: Saccharomyces boulardii 250 MG CAP PO SCH (08:38)
[2019-02-12] MEDS: Warfarin Sodium 3 MG TAB PO SCH (16:27)
[2019-02-12] MEDS: cefTRIAXone\\ROCEPHIN 2 GM in Sodium Chloride 0.9% 100 ML IVPB SCH (20:08)
[2019-02-12] MEDS: Atorvastatin Calcium 20 MG TAB PO SCH (20:08)
[2019-02-12] MEDS: Polyethylene Glycol 3350 17 GM Packet PO PRN (20:10)
[2019-02-13] MEDS: HYDROcodone/Acetaminophen 5/325 mg Tablet PO PRN (00:10)
[2019-02-13 04:36] LABS: INR-International Normal Ratio 1.1; Prothrombin Time 14.1 SEC (12.0-14.7)
[2019-02-13] MEDS: Saccharomyces boulardii 250 MG CAP PO SCH (09:16)
[2019-02-13] MEDS: Famotidine 20 MG TAB PO SCH ×2 (09:16→21:48)
[2019-02-13] MEDS: Flecainide 50 MG TAB PO SCH ×2 (09:16→21:47)
[2019-02-13] MEDS: Lantus 1000 UNITS/10 ML VIAL SC SCH ×2 (09:17→21:44)
[2019-02-13] MEDS: Gabapentin 300 MG CAP PO SCH ×3 (09:17→21:46)
[2019-02-13] MEDS: Metoprolol Tartrate 25 MG TAB PO SCH ×2 (09:17→21:49)
--- NOTE | 2019-02-13 14:02 | PRG ---
DATE OF SERVICE: 02/13/2019 SUBJECTIVE: Mr. Wright is doing well. Denies any complaints. He feels like that knee brace is at least helping him get to the bathroom. Tolerating his antibiotics. No other questions or concerns. OBJECTIVE: VITAL SIGNS: He is afebrile. Heart rate 58, respirations 16, oxygen saturation 98% on room air, blood pressure 138/67. CARDIOVASCULAR: S1 and S2 plus. RESPIRATORY: Normal vesicular breath sounds. ABDOMEN: Soft, nontender. EXTREMITIES: Bowel sounds heard in all quadrants extremities without cyanosis or clubbing. CENTRAL NERVOUS SYSTEM: Awake and responsive. Generalized weakness, otherwise nonfocal. LABORATORY DATA: Blood sugars are 177, 221, 270, 280, and 228. IMPRESSION: 1. Diabetes mellitus, type 2. 2. Right foot osteomyelitis. 3. Hypertension. 4. Dyslipidemia. 5. Chronic kidney disease. 6. Possible cardiac arrhythmia. 7. Osteoarthritis. PLAN: 1. Continue current medications. 2. 1800 calorie heart healthy ADA diet. 3. Accu-Cheks with sliding scale coverage. 4. Wound care. 5. Routine antibiotics until March 10 six weekly CBC, CRP, CMP, and sedimentation rate. 6. Encourage p.o. fluid intake. 7. Physical therapy. 8. Bracing for the knee as tolerated. 9. Discussed with the patient in detail. All questions answered. Job ID: [id number]
[2019-02-13] MEDS ORDERED: Warfarin Sodium 5 MG TAB PO SCH (17:00)
[2019-02-13] MEDS: Warfarin Sodium 3 MG TAB PO SCH (17:53)
[2019-02-13] MEDS: cefTRIAXone\\ROCEPHIN 2 GM in Sodium Chloride 0.9% 100 ML IVPB SCH (20:33)
[2019-02-13] MEDS: Acetaminophen 325 MG TAB PO PRN (21:46)
[2019-02-13] MEDS: Atorvastatin Calcium 20 MG TAB PO SCH (21:48)
[2019-02-14 05:25] LABS: #Basophils 0.1 thou/uL (0.0-0.2); #Eosinphils 0.6 thou/uL (0.0-0.7); #Monocytes 1.1 thou/uL (0.11-0.59); #Neutrophils 7.6 thou/uL (1.40-6.50); %Basophils 1.3 % (0.0-1.0); %Eosinophils 5.5 % (0.0-10.0); %Lymphocytes 17.7 % (21.0-51.0); %Monocytes 9.1 % (0.0-10.0); %Neutrophils 66.3 % (42.0-75.0); Hemoglobin 10.4 g/dL (14.0-18.0); Mean Corpuscular HGB CONC 33.7 g/dL (32.0-36.0); Mean Corpuscular Hemoglobin 30.8 pg (27.0-31.0); Mean Corpuscular Volume 91.4 fL (78.0-98.0); Mean Platelet Volume 6.9 fL (7.4-10.4); Platelet Count 275 thou/uL (130-400); RBC Distribution Width 14.1 % (11.5-14.5); Red Blood Cell (RBC) Count 3.39 mill/uL (4.70-6.10); White Blood Cell (WBC) Count 11.5 thou/uL (4.8-10.8)
[2019-02-14 05:34] LABS: INR-International Normal Ratio 1.1; Prothrombin Time 14.5 SEC (12.0-14.7)
[2019-02-14 05:46] LABS: ALT (SGPT) 12 U/L (8-55); AST (SGOT) 17 U/L (5-34); Albumin 3.7 g/dL (3.4-4.8); Alkaline Phosphatase 80 U/L (40-110); Anion Gap 18 mmol/L (10-20); BUN (Urea Nitrogen) 53 mg/dL (8.4-25.7); Bilirubin, Total 0.2 mg/dL (0.2-1.2); CRP (Inflammatory) 0.75 mg/dL (= or < 0.5); Calc. Creatinine Clearance 54 mL/min (70-130); Calcium 9.7 mg/dL (7.8-10.44); Carbon Dioxide 20 mmol/L (23-31); Chloride 105 mmol/L (98-107); Estimated GFR-MDRD 38; Globulin 3.7 g/dL (2.4-3.5); Glucose 114 mg/dL (83-110); Potassium 4.7 mmol/L (3.5-5.1); Protein, Total 7.4 g/dL (5.8-8.1); Sodium 138 mmol/L (136-145)
[2019-02-14] MEDS: Flecainide 50 MG TAB PO SCH ×2 (09:33→21:14)
[2019-02-14] MEDS: Metoprolol Tartrate 25 MG TAB PO SCH ×2 (09:33→21:14)
[2019-02-14] MEDS: Gabapentin 300 MG CAP PO SCH ×3 (09:33→21:14)
[2019-02-14] MEDS: Acetaminophen 325 MG TAB PO PRN ×2 (09:33→21:42)
[2019-02-14] MEDS: Famotidine 20 MG TAB PO SCH ×2 (09:33→21:16)
[2019-02-14] MEDS: Saccharomyces boulardii 250 MG CAP PO SCH (09:33)
[2019-02-14] MEDS: Lantus 1000 UNITS/10 ML VIAL SC SCH ×2 (09:34→21:16)
--- NOTE | 2019-02-14 14:24 | PRG ---
DATE OF SERVICE: 02/14/2019 SUBJECTIVE: Mr. Wright is doing the same. Denies any complaints. Resting comfortably. He feels like the left leg is getting a little bit stronger with the help of the brace and him tolerating more therapy. OBJECTIVE: VITAL SIGNS: He is afebrile. Heart rate 60, respirations , oxygen saturations 99% on room air, blood pressure 140/68. CARDIOVASCULAR: S1 and S2 plus. RESPIRATORY: Normal vesicular breath sounds. ABDOMEN: Soft, nontender. Bowel sounds heard in all quadrants. EXTREMITIES: Without cyanosis or clubbing. Right foot with wound VAC. Left knee with brace. CENTRAL NERVOUS SYSTEM: Awake and responsive. Generalized weakness. LABORATORY DATA: Shows a white count 11.5, hemoglobin and hematocrit are 10.4 and 31. Sedimentation rate is down to 42. Sodium 138, potassium 4.7, BUN and creatinine is 53 and 1.78, which is pretty much the same. CRP is 0.75, which is much improved. IMPRESSION: 1. Right foot osteomyelitis. 2. Diabetes mellitus type 2. 3. Cardiac arrhythmia. 4. Osteoarthritis with severe degenerative joint disease of his knees. 5. Improving deconditioning. 6. Hypertension. 7. Dyslipidemia. 8. Chronic kidney disease stage 3 to 4. PLAN: 1. Continue current medications. 2. 1800 calorie heart healthy ADA diet. 3. Accu-Cheks with sliding scale coverage. 4. DVT prophylaxis. The patient is active enough that he does not need any. 5. Decubitus precautions. 6. Stress ulcer prophylaxis. 7. Wound VAC care. 8. Routine laboratory values. 9. Physical therapy. Job ID: [id number]
--- NOTE | 2019-02-14 17:17 | PRG ---
DATE OF SERVICE: 02/12/2019 SUBJECTIVE: The patient feels well, lying in bed, states his knee is feeling better since he has not had any therapy and he is wearing his brace. He is eating well, having no abdominal pain and no foot pain. OBJECTIVE: VITAL SIGNS: His temperature is 98.2, pulse 62, respirations 16, O2 sats 97% on room air, and blood pressure 140/67. LUNGS: Clear. CARDIAC: Regular rhythm. ABDOMEN: Soft and nontender. SKIN AND EXTREMITIES: Right foot in bandage with wound VAC in place. ASSESSMENT: 1. Resolving osteomyelitis of the right foot, on Rocephin 2 g daily until 03/09. 2. Atrial fibrillation with inadequate anticoagulation on warfarin 6 mg daily. Continue to monitor closely and continue rate control. 3. Type 2 diabetes with persistent poor control, but improved on increased insulin, most likely due to ongoing infection. 4. History of cancer of the colon with metastasis to the liver, with no chemotherapy allowed until infection resolved. Job ID: [id number]
[2019-02-14] MEDS: Warfarin Sodium 3 MG TAB PO SCH (17:38)
[2019-02-14] MEDS: cefTRIAXone\\ROCEPHIN 2 GM in Sodium Chloride 0.9% 100 ML IVPB SCH (20:45)
[2019-02-14] MEDS: Atorvastatin Calcium 20 MG TAB PO SCH (21:16)
[2019-02-15 05:54] LABS: INR-International Normal Ratio 1.4; Prothrombin Time 17.3 SEC (12.0-14.7)
[2019-02-15] MEDS: Famotidine 20 MG TAB PO SCH ×2 (09:09→21:36)
[2019-02-15] MEDS: Gabapentin 300 MG CAP PO SCH ×3 (09:09→21:36)
[2019-02-15] MEDS: Flecainide 50 MG TAB PO SCH ×2 (09:09→21:36)
[2019-02-15] MEDS: Lantus 1000 UNITS/10 ML VIAL SC SCH ×2 (09:09→21:38)
[2019-02-15] MEDS: Metoprolol Tartrate 25 MG TAB PO SCH ×2 (09:10→21:36)
[2019-02-15] MEDS: Saccharomyces boulardii 250 MG CAP PO SCH (09:10)
--- NOTE | 2019-02-15 12:27 | PRG ---
DATE OF SERVICE: 02/15/2019 SUBJECTIVE: Mr. Wright is doing the same. Denies any complaints. He states that he was able to ambulate all the way around the nurse's station. The knee brace is helping. OBJECTIVE: VITAL SIGNS: He is afebrile. Heart rate is 67, respirations 20, oxygen saturation 98% on room air, and blood pressure 137/64. CARDIOVASCULAR SYSTEM: S1 and S2 plus. RESPIRATORY SYSTEM: Normal vesicular breath sounds. ABDOMEN: Soft, nontender. Bowel sounds heard in all quadrants. EXTREMITIES: Without cyanosis or clubbing. Right foot with wound VAC placement. CENTRAL NERVOUS SYSTEM: Awake and responsive. Peripheral neuropathy, otherwise generalized weakness. LABORATORY DATA: Blood sugars are 150, 145, 158, and 190. IMPRESSION: 1. Diabetes mellitus, type 2. 2. Right foot osteomyelitis. 3. Hypertension. 4. Dyslipidemia. 5. History of colon cancer and improving deconditioning and osteoarthritis. PLAN: 1. Continue IV antibiotics. 2. Nutritional support with 1800-calorie heart-healthy ADA diet. 3. Accu-Cheks with sliding scale coverage. 4. Weekly CBC, CRP, CMP, and sedimentation rate. 5. Physical therapy. 6. Wound VAC care. 7. DVT and stress ulcer prophylaxis. 8. Discussed with the patient in detail. All questions answered. Job ID: [id number]
[2019-02-15] MEDS: Acetaminophen 325 MG TAB PO PRN ×2 (14:39→21:49)
[2019-02-15] MEDS: Warfarin Sodium 3 MG TAB PO SCH (16:58)
[2019-02-15] MEDS: cefTRIAXone\\ROCEPHIN 2 GM in Sodium Chloride 0.9% 100 ML IVPB SCH (21:32)
[2019-02-15] MEDS: Atorvastatin Calcium 20 MG TAB PO SCH (21:35)
[2019-02-16 05:54] LABS: INR-International Normal Ratio 1.4; Prothrombin Time 17.3 SEC (12.0-14.7)
[2019-02-16] MEDS: Famotidine 20 MG TAB PO SCH ×2 (08:32→20:38)
[2019-02-16] MEDS: Flecainide 50 MG TAB PO SCH ×2 (08:32→20:37)
[2019-02-16] MEDS: Gabapentin 300 MG CAP PO SCH ×3 (08:33→20:37)
[2019-02-16] MEDS: Saccharomyces boulardii 250 MG CAP PO SCH (08:33)
[2019-02-16] MEDS: Metoprolol Tartrate 25 MG TAB PO SCH ×2 (08:33→20:38)
[2019-02-16] MEDS: Lantus 1000 UNITS/10 ML VIAL SC SCH ×2 (08:33→20:36)
--- NOTE | 2019-02-16 13:33 | PRG ---
DATE OF SERVICE: 02/16/2019 SUBJECTIVE: Mr. Wright is doing well. Denies any complaints. He apparently is getting stronger with therapy, and the knee brace is really helping. No family at bedside. Discussed with nursing. OBJECTIVE: VITAL SIGNS: He is afebrile, heart rate 69, respirations 20, oxygen saturation 100% on room air, blood pressure 150/70. CARDIOVASCULAR: S1 and S2 plus. RESPIRATORY: Normal vesicular breath sounds. ABDOMEN: Soft and nontender. Bowel sounds heard in all quadrants. EXTREMITIES: Without cyanosis or clubbing. Right foot with wound VAC. CENTRAL NERVOUS SYSTEM: Awake and responsive. Cranial nerves 2 through 12 are intact. Improving deconditioning. IMPRESSION: 1. Right foot osteomyelitis. 2. Diabetes mellitus, type 2, much improved and controlled. 3. Hypertension. 4. Dyslipidemia. 5. Improving deconditioning. 6. Osteoarthritis. 7. History of colon cancer. PLAN: 1. Continue current medications. 2. 1800-calorie heart-healthy ADA diet. His blood sugars are below 200 consistently. 3. Wound VAC care. 4. Continue IV antibiotics. 5. Physical therapy. 6. DVT prophylaxis. 7. Decubitus precautions. 8. Stress ulcer prophylaxis. 9. Physical therapy. 10. Routine laboratory values. Job ID: [id number]
[2019-02-16] MEDS: Acetaminophen 325 MG TAB PO PRN (14:19)
[2019-02-16] MEDS: Warfarin Sodium 3 MG TAB PO SCH (16:48)
[2019-02-16] MEDS: cefTRIAXone\\ROCEPHIN 2 GM in Sodium Chloride 0.9% 100 ML IVPB SCH (20:35)
[2019-02-16] MEDS: Atorvastatin Calcium 20 MG TAB PO SCH (20:38)
[2019-02-17] MEDS: HYDROcodone/Acetaminophen 5/325 mg Tablet PO PRN ×2 (01:19→20:09)
[2019-02-17 05:36] LABS: Prothrombin Time 22.6 SEC (12.0-14.7)
--- NOTE | 2019-02-17 09:17 | PRG ---
DATE OF SERVICE: 02/17/2019 SUBJECTIVE: Mr. Wright is doing well. Denies any complaints. Resting comfortably. Tolerating his antibiotics. OBJECTIVE: VITAL SIGNS: He is afebrile. Heart rate 66, respirations 18, oxygen saturation 98% on room air, blood pressure 132/63. CARDIOVASCULAR: S1 and S2 plus. RESPIRATORY: Normal vesicular breath sounds. ABDOMEN: Soft and nontender. Bowel sounds heard in all quadrants. EXTREMITIES: Without cyanosis or clubbing. Right foot with wound VAC. CENTRAL NERVOUS SYSTEM: Awake and responsive. Cranial nerves 2 through 12 intact. Peripheral neuropathy. Otherwise, nonfocal. LABORATORY VALUES: Blood sugars are 102, 172, 99, 139, and 141. IMPRESSION: 1. Right foot osteomyelitis, improving with IV Rocephin. 2. Diabetes mellitus, type 2, much improved control. 3. Hypertension. 4. Dyslipidemia. 5. Osteoarthritis. 6. History of colon cancer. PLAN: 1. Continue current medications. 2. 1800-calorie heart-healthy ADA diet. 3. Wound VAC care and continue IV antibiotics. 4. Continue PT and OT. 5. The patient is active enough that he does not need any DVT prophylaxis. 6. Decubitus precautions. 7. Stress ulcer prophylaxis. 8. Routine laboratory values. Job ID: [id number]
[2019-02-17] MEDS: Metoprolol Tartrate 25 MG TAB PO SCH ×2 (09:23→20:10)
[2019-02-17] MEDS: Saccharomyces boulardii 250 MG CAP PO SCH (09:23)
[2019-02-17] MEDS: Flecainide 50 MG TAB PO SCH ×2 (09:23→20:11)
[2019-02-17] MEDS: Famotidine 20 MG TAB PO SCH ×2 (09:23→20:10)
[2019-02-17] MEDS: Acetaminophen 325 MG TAB PO PRN (09:23)
[2019-02-17] MEDS: Lantus 1000 UNITS/10 ML VIAL SC SCH ×2 (09:24→20:12)
[2019-02-17] MEDS: Gabapentin 300 MG CAP PO SCH ×3 (09:24→20:10)
[2019-02-17] MEDS: Warfarin Sodium 3 MG TAB PO SCH (17:41)
[2019-02-17] MEDS: cefTRIAXone\\ROCEPHIN 2 GM in Sodium Chloride 0.9% 100 ML IVPB SCH (20:08)
[2019-02-17] MEDS: Atorvastatin Calcium 20 MG TAB PO SCH (20:09)
[2019-02-18] MEDS: Metoprolol Tartrate 25 MG TAB PO SCH ×2 (08:47→20:10)
[2019-02-18] MEDS: Flecainide 50 MG TAB PO SCH ×2 (08:47→20:09)
[2019-02-18] MEDS: Saccharomyces boulardii 250 MG CAP PO SCH (08:47)
[2019-02-18] MEDS: Gabapentin 300 MG CAP PO SCH ×3 (08:48→20:09)
[2019-02-18] MEDS: Famotidine 20 MG TAB PO SCH ×2 (08:48→20:10)
[2019-02-18] MEDS: Lantus 1000 UNITS/10 ML VIAL SC SCH ×2 (08:49→20:11)
--- NOTE | 2019-02-18 16:48 | PRG ---
DATE OF SERVICE: 02/18/2019 SUBJECTIVE: Mr. Wright is doing well. Denies any complaints. Getting ready to go have a shower. OBJECTIVE: VITAL SIGNS: He is afebrile, heart rate 63, respirations 18, oxygen saturation 98% on room air, blood pressure 152/66. CARDIOVASCULAR: S1, S2 plus. RESPIRATORY: Normal vesicular breath sounds. ABDOMEN: Soft, nontender. Bowel sounds heard in all quadrants. EXTREMITIES: Without cyanosis or clubbing. Right foot with wound VAC. CENTRAL NERVOUS SYSTEM: Other than peripheral neuropathy, nonfocal. IMPRESSION: 1. Right foot osteomyelitis. 2. Diabetes mellitus type 2. 3. Hypertension. 4. Dyslipidemia. 5. Atrial fibrillations. 6. Improving deconditioning. PLAN: 1. Continue current medications. 2. 1800-calorie heart healthy ADA diet. 3. Accu-Cheks with sliding scale coverage. 4. Monitor blood pressure and adjust medications as needed. 5. Wound VAC care. 6. Weekly CBC, CRP, CMP, and sedimentation rate. 7. Pharmacy to manage for warfarin dosing to keep INR between 2 and 2.5. It is 2. Continue PT/OT. No family at bedside. All questions answered. Job ID: [id number]
[2019-02-18] MEDS: Warfarin Sodium 3 MG TAB PO SCH (17:40)
[2019-02-18] MEDS: cefTRIAXone\\ROCEPHIN 2 GM in Sodium Chloride 0.9% 100 ML IVPB SCH (20:04)
[2019-02-18] MEDS: HYDROcodone/Acetaminophen 5/325 mg Tablet PO PRN (20:08)
[2019-02-18] MEDS: Atorvastatin Calcium 20 MG TAB PO SCH (20:09)
[2019-02-19] MEDS: Gabapentin 300 MG CAP PO SCH ×3 (08:55→20:13)
[2019-02-19] MEDS: Saccharomyces boulardii 250 MG CAP PO SCH (08:55)
[2019-02-19] MEDS: Flecainide 50 MG TAB PO SCH ×2 (08:55→20:13)
[2019-02-19] MEDS: Metoprolol Tartrate 25 MG TAB PO SCH ×2 (08:56→20:13)
[2019-02-19] MEDS: Famotidine 20 MG TAB PO SCH ×2 (08:56→20:14)
[2019-02-19] MEDS: Lantus 1000 UNITS/10 ML VIAL SC SCH ×2 (08:59→20:12)
--- NOTE | 2019-02-19 14:39 | PRG ---
DATE OF SERVICE: 02/19/2019 SUBJECTIVE: Mr. Wright is doing well. Denies any complaints. Tolerating his therapy. States that he is getting stronger. No issues with his antibiotics. OBJECTIVE: VITAL SIGNS: He is afebrile. Heart rate 67, respirations 19, oxygen saturation 98% on room air, and blood pressure 132/60. CARDIOVASCULAR SYSTEM: S1 and S2 plus. RESPIRATORY SYSTEM: Normal vesicular breath sounds. ABDOMEN: Soft, nontender. Bowel sounds heard in all quadrants. EXTREMITIES: Without cyanosis or clubbing. Right foot with wound VAC. CENTRAL NERVOUS SYSTEM: Other than peripheral neuropathy, grossly nonfocal. LABORATORY VALUES: Blood sugars are 167, 135, 157, 147 and 108. IMPRESSION: 1. Right foot osteomyelitis. 2. Diabetes mellitus, type 2. 3. Hypertension. 4. Dyslipidemia. 5. Peripheral neuropathy. 6. Atrial fibrillation. PLAN: 1. Continue current medications. 2. Weekly CBC, CRP, CMP, and sedimentation rate. 3. DVT prophylaxis - the patient is back on warfarin, he is therapeutic. 4. Decubitus precautions. 5. Stress ulcer prophylaxis. 6. Wound VAC care. 7. Physical therapy. 8. Discussed with the patient in detail. All questions answered. Job ID: [id number]
[2019-02-19] MEDS: Warfarin Sodium 3 MG TAB PO SCH (17:37)
[2019-02-19] MEDS: cefTRIAXone\\ROCEPHIN 2 GM in Sodium Chloride 0.9% 100 ML IVPB SCH (20:08)
[2019-02-19] MEDS: Atorvastatin Calcium 20 MG TAB PO SCH (20:13)
[2019-02-20] MEDS: Famotidine 20 MG TAB PO SCH ×2 (08:26→20:35)
[2019-02-20] MEDS: Flecainide 50 MG TAB PO SCH ×3 (08:27→20:34)
[2019-02-20] MEDS: Lantus 1000 UNITS/10 ML VIAL SC SCH ×2 (08:27→20:33)
[2019-02-20] MEDS: Gabapentin 300 MG CAP PO SCH ×3 (08:27→20:34)
[2019-02-20] MEDS: Metoprolol Tartrate 25 MG TAB PO SCH ×2 (08:28→20:35)
[2019-02-20] MEDS: Saccharomyces boulardii 250 MG CAP PO SCH (08:28)
[2019-02-20 09:39] LABS: INR-International Normal Ratio 1.8; Prothrombin Time 20.4 SEC (12.0-14.7)
[2019-02-20] MEDS: Warfarin Sodium 3 MG TAB PO SCH (16:22)
[2019-02-20] MEDS: cefTRIAXone\\ROCEPHIN 2 GM in Sodium Chloride 0.9% 100 ML IVPB SCH (20:30)
[2019-02-20] MEDS: Atorvastatin Calcium 20 MG TAB PO SCH (20:35)
[2019-02-21] MEDS: Gabapentin 300 MG CAP PO SCH ×3 (08:39→20:54)
[2019-02-21] MEDS: Famotidine 20 MG TAB PO SCH ×2 (08:39→20:55)
[2019-02-21] MEDS: Lantus 1000 UNITS/10 ML VIAL SC SCH ×2 (08:39→20:51)
[2019-02-21] MEDS: Flecainide 50 MG TAB PO SCH ×2 (08:39→20:51)
[2019-02-21] MEDS: Metoprolol Tartrate 25 MG TAB PO SCH ×2 (08:40→20:54)
[2019-02-21] MEDS: Saccharomyces boulardii 250 MG CAP PO SCH (08:40)
--- NOTE | 2019-02-21 14:18 | PRG ---
DATE OF SERVICE: 02/21/2019 SUBJECTIVE: Mr. Wright is doing well. Denies any complaints. Tolerating his antibiotics. OBJECTIVE: VITAL SIGNS: He is afebrile. Heart rate 65, respirations 18, oxygen saturation 98% on room air, blood pressure 128/62. CARDIOVASCULAR: S1 and S2 plus. RESPIRATORY: Normal vesicular breath sounds. ABDOMEN: Soft, nontender. Bowel sounds heard in all quadrants. EXTREMITIES: Without cyanosis or clubbing. Right foot with wound VAC. CENTRAL NERVOUS SYSTEM: Grossly nonfocal other than peripheral neuropathy. LABORATORY DATA: Blood sugars are 126, 116, 75, and 126. INR is 1.8. IMPRESSION: 1. Atrial fibrillation. 2. Diabetes mellitus type 2. 3. Hypertension. 4. Dyslipidemia. 5. Right foot osteomyelitis. 6. Osteoarthritis. PLAN: 1. Increase warfarin to 7.5 mg daily. 2. Continue other medications. 3. Check CBC, CMP, CRP, and sedimentation rate tomorrow. 4. Wound VAC care. 5. Physical therapy. 6. Decubitus and stress ulcer precautions. Job ID: [id number]
--- NOTE | 2019-02-21 14:28 | PRG ---
DATE OF SERVICE: 02/20/2019 SUBJECTIVE: Mr. Wright is doing well. Denies any complaints. Resting comfortably. Tolerating his therapy. No family at bedside. Discussed with nursing. OBJECTIVE: VITAL SIGNS: He is afebrile, heart rate 74, respirations 18, oxygen saturation 98% on room air, and blood pressure 165/74. CARDIOVASCULAR: S1 and S2 plus. RESPIRATORY: Normal vesicular breath sounds. ABDOMEN: Soft and nontender. Bowel sounds heard in all quadrants. EXTREMITIES: Without cyanosis or clubbing. Right foot with wound VAC. CENTRAL NERVOUS SYSTEM: Other than peripheral neuropathy, nonfocal. IMPRESSION: 1. Right foot osteomyelitis. 2. Diabetes mellitus, type 2. 3. Hypertension. 4. Dyslipidemia. 5. Atrial fibrillation. 6. Deconditioning and osteoarthritis. PLAN: 1. Continue current medications. 2. 1800 calorie heart healthy ADA diet. 3. Accu-Cheks with sliding scale coverage. 4. DVT and stress ulcer prophylaxis. 5. Decubitus precautions. 6. Monitor PT/INR. 7. Weekly CBC, CRP, CMP, and sedimentation rate. Job ID: [id number]
[2019-02-21] MEDS: Warfarin Sodium 3 MG TAB PO SCH (17:24)
[2019-02-21] MEDS: cefTRIAXone\\ROCEPHIN 2 GM in Sodium Chloride 0.9% 100 ML IVPB SCH (20:50)
[2019-02-21] MEDS: Atorvastatin Calcium 20 MG TAB PO SCH (20:55)
[2019-02-22 05:47] LABS: ALT (SGPT) 21 U/L (8-55); AST (SGOT) 26 U/L (5-34); Albumin 3.7 g/dL (3.4-4.8); Alkaline Phosphatase 80 U/L (40-110); Anion Gap 15 mmol/L (10-20); BUN (Urea Nitrogen) 59 mg/dL (8.4-25.7); Bilirubin, Total 0.2 mg/dL (0.2-1.2); CRP (Inflammatory) 0.67 mg/dL (= or < 0.5); Calc. Creatinine Clearance 50 mL/min (70-130); Chloride 107 mmol/L (98-107); Estimated GFR-MDRD 37; Glucose 86 mg/dL (83-110); Potassium 4.5 mmol/L (3.5-5.1); Protein, Total 6.7 g/dL (5.8-8.1); Sodium 139 mmol/L (136-145)
[2019-02-22 05:50] LABS: Carbon Dioxide 22 mmol/L (23-31)
[2019-02-22 06:29] LABS: #Basophils 0.1 thou/uL (0.0-0.2); #Eosinphils 0.6 thou/uL (0.0-0.7); #Lymphocytes 1.2 thou/uL (1.20-3.40); #Monocytes 1.1 thou/uL (0.11-0.59); #Neutrophils 6.2 thou/uL (1.40-6.50); %Basophils 1.3 % (0.0-1.0); %Eosinophils 6.6 % (0.0-10.0); %Lymphocytes 13.4 % (21.0-51.0); %Monocytes 11.4 % (0.0-10.0); %Neutrophils 67.4 % (42.0-75.0); Mean Corpuscular HGB CONC 32.2 g/dL (32.0-36.0); Mean Corpuscular Hemoglobin 29.5 pg (27.0-31.0); Mean Corpuscular Volume 91.8 fL (78.0-98.0); Mean Platelet Volume 7.8 fL (7.4-10.4); Platelet Count 235 thou/uL (130-400); RBC Distribution Width 13.9 % (11.5-14.5); Red Blood Cell (RBC) Count 3.04 mill/uL (4.70-6.10); White Blood Cell (WBC) Count 9.2 thou/uL (4.8-10.8)
[2019-02-22] MEDS: Metoprolol Tartrate 25 MG TAB PO SCH ×2 (08:01→19:55)
[2019-02-22] MEDS: Famotidine 20 MG TAB PO SCH ×2 (08:01→19:54)
[2019-02-22] MEDS: Gabapentin 300 MG CAP PO SCH ×3 (08:01→19:55)
[2019-02-22] MEDS: Flecainide 50 MG TAB PO SCH ×2 (08:02→19:54)
[2019-02-22] MEDS: Lantus 1000 UNITS/10 ML VIAL SC SCH ×2 (08:03→19:55)
[2019-02-22] MEDS: Saccharomyces boulardii 250 MG CAP PO SCH (08:04)
--- NOTE | 2019-02-22 13:34 | PRG ---
DATE OF SERVICE: 02/22/2019 SUBJECTIVE: Mr. Wright is doing the same. Denies any complaints. Resting comfortably. Tolerating his medications and his therapy. OBJECTIVE: VITAL SIGNS: He is afebrile. Heart rate 62, respirations 16, oxygen saturation 98%, and blood pressure 127/59. CARDIOVASCULAR SYSTEM: S1 and S2 plus. RESPIRATORY SYSTEM: Normal vesicular breath sounds. ABDOMEN: Soft and nontender. Bowel sounds heard in all quadrants. EXTREMITIES: Without cyanosis or clubbing. Right foot with wound VAC. LABORATORY VALUES: White count is 9.2; H and H are 9 and 27.9; sedimentation rate is 39, down from 42. Sodium 139, potassium 4.5, BUN and creatinine are 59 and 1.81 with CRP down to 0.67. Blood sugars at 75, 126, 97, 95, and 121. We will recheck his INR tomorrow. His warfarin low dose was increased. IMPRESSION: 1. Right foot osteomyelitis. 2. Diabetes mellitus, type 2. 3. Hypertension. 4. Dyslipidemia. 5. Peripheral neuropathy. 6. Atrial fibrillation. 7. Chronic kidney disease, stage 3 to 4. PLAN: 1. Continue current medications. 2. 1800 calorie heart healthy ADA renal diet. 3. Accu-Cheks with sliding scale coverage. 4. DVT prophylaxis with warfarin. 5. Decubitus precautions. 6. Stress ulcer prophylaxis. 7. Wound VAC care. 8. Physical therapy. 9. Routine laboratory values. Job ID: [id number]
[2019-02-22] MEDS ORDERED: Sodium Chloride 0.9% 10 ML ONE (13:58)
[2019-02-22] MEDS: Warfarin Sodium 3 MG TAB PO SCH (16:38)
[2019-02-22] MEDS: cefTRIAXone\\ROCEPHIN 2 GM in Sodium Chloride 0.9% 100 ML IVPB SCH (19:53)
[2019-02-22] MEDS: Atorvastatin Calcium 20 MG TAB PO SCH (19:54)
[2019-02-23 05:44] LABS: Prothrombin Time 22.8 SEC (12.0-14.7)
[2019-02-23] MEDS: Saccharomyces boulardii 250 MG CAP PO SCH (10:01)
[2019-02-23] MEDS: Flecainide 50 MG TAB PO SCH ×2 (10:01→20:14)
[2019-02-23] MEDS: Acetaminophen 325 MG TAB PO PRN (10:01)
[2019-02-23] MEDS: Metoprolol Tartrate 25 MG TAB PO SCH ×2 (10:01→20:15)
[2019-02-23] MEDS: Famotidine 20 MG TAB PO SCH ×2 (10:01→20:13)
[2019-02-23] MEDS: Gabapentin 300 MG CAP PO SCH ×3 (10:02→20:14)
[2019-02-23] MEDS: Lantus 1000 UNITS/10 ML VIAL SC SCH ×2 (10:02→20:14)
--- NOTE | 2019-02-23 14:06 | PRG ---
DATE OF SERVICE: 02/23/2019 SUBJECTIVE: Mr. Wright is doing well. Denies any complaints. Resting comfortably. No concerns or questions. No family at bedside. OBJECTIVE: VITAL SIGNS: He is afebrile. Heart rate 62, respirations 16, oxygen saturation 100% on room air, blood pressure 162/74. CARDIOVASCULAR: S1 and S2 plus. RESPIRATORY: Normal vesicular breath sounds. ABDOMEN: Soft, nontender. Bowel sounds heard in all quadrants. EXTREMITIES: Without cyanosis or clubbing. Right foot with wound VAC. CENTRAL NERVOUS SYSTEM: Peripheral neuropathy, otherwise nonfocal. LABORATORY DATA: His INR is up to 2 and his blood sugars are still under control at 121, 75, 91, 106, and 149. IMPRESSION: 1. Right foot osteomyelitis. 2. Diabetes mellitus type 2. 3. Hypertension. 4. Dyslipidemia. 5. Atrial fibrillation. 6. Chronic kidney disease stage 3 to 4. 7. Improving deconditioning. PLAN: 1. Continue current medications. 2. 1800 calorie heart healthy ADA diet. 3. Accu-Cheks with sliding scale coverage. 4. DVT prophylaxis. He is on warfarin. 5. Decubitus precautions. 6. Stress ulcer prophylaxis. 7. Routine laboratory values. Job ID: [id number]
[2019-02-23] MEDS: Warfarin Sodium 3 MG TAB PO SCH (17:44)
[2019-02-23] MEDS: cefTRIAXone\\ROCEPHIN 2 GM in Sodium Chloride 0.9% 100 ML IVPB SCH (20:12)
[2019-02-23] MEDS: Atorvastatin Calcium 20 MG TAB PO SCH (20:13)
[2019-02-24] MEDS: Flecainide 50 MG TAB PO SCH ×2 (08:51→19:46)
[2019-02-24] MEDS: Saccharomyces boulardii 250 MG CAP PO SCH (08:51)
[2019-02-24] MEDS: Gabapentin 300 MG CAP PO SCH ×3 (08:51→19:46)
[2019-02-24] MEDS: Famotidine 20 MG TAB PO SCH ×2 (08:52→19:45)
[2019-02-24] MEDS: Metoprolol Tartrate 25 MG TAB PO SCH ×2 (08:52→19:47)
[2019-02-24] MEDS: Lantus 1000 UNITS/10 ML VIAL SC SCH ×2 (08:53→19:46)
--- NOTE | 2019-02-24 09:20 | PRG ---
DATE OF SERVICE: 02/24/2019 SUBJECTIVE: Mr. Wright is doing the same. Denies any complaints. Resting comfortably. No family at bedside. Discussed with nursing. OBJECTIVE: VITAL SIGNS: He is afebrile, heart rate 65, respirations 16, oxygen saturation 99% on room air, blood pressure 131/64. CARDIOVASCULAR: S1 and S2 plus. RESPIRATORY: Normal vesicular breath sounds. ABDOMEN: Soft and nontender. Bowel sounds heard in all quadrants. EXTREMITIES: Without cyanosis or clubbing. IMPRESSION: 1. Right foot osteomyelitis. 2. Diabetes mellitus, type 2. 3. Hypertension. 4. Dyslipidemia. 5. Atrial fibrillation. 6. Improving deconditioning. PLAN: 1. Continue current medications. 2. Nutritional support with 1800-calorie heart-healthy ADA renal diet. 3. Accu-Cheks with sliding scale coverage. 4. Wound VAC care. 5. Continue IV antibiotics. 6. Weekly CBC, CMP, CRP, and sedimentation rate. 7. Physical therapy. 8. Discussed with the patient in detail. All questions were answered. Job ID: [id number]
[2019-02-24] MEDS: Warfarin Sodium 3 MG TAB PO SCH (16:49)
[2019-02-24] MEDS: cefTRIAXone\\ROCEPHIN 2 GM in Sodium Chloride 0.9% 100 ML IVPB SCH (19:44)
[2019-02-24] MEDS: Atorvastatin Calcium 20 MG TAB PO SCH (19:45)
[2019-02-25] MEDS: Famotidine 20 MG TAB PO SCH ×2 (08:37→20:09)
[2019-02-25] MEDS: Flecainide 50 MG TAB PO SCH ×2 (08:38→20:08)
[2019-02-25] MEDS: Gabapentin 300 MG CAP PO SCH ×3 (08:38→20:09)
[2019-02-25] MEDS: Lantus 1000 UNITS/10 ML VIAL SC SCH ×2 (08:38→20:12)
[2019-02-25] MEDS: Metoprolol Tartrate 25 MG TAB PO SCH ×2 (08:38→20:08)
[2019-02-25] MEDS: Polyethylene Glycol 3350 17 GM Packet PO PRN (08:39)
[2019-02-25] MEDS: Saccharomyces boulardii 250 MG CAP PO SCH (08:39)
[2019-02-25] MEDS: Warfarin Sodium 3 MG TAB PO SCH (16:38)
[2019-02-25] MEDS: cefTRIAXone\\ROCEPHIN 2 GM in Sodium Chloride 0.9% 100 ML IVPB SCH (20:03)
[2019-02-25] MEDS: Atorvastatin Calcium 20 MG TAB PO SCH (20:08)
[2019-02-26 05:32] LABS: INR-International Normal Ratio 2.4; Prothrombin Time 26.1 SEC (12.0-14.7)
--- NOTE | 2019-02-26 08:09 | PRG ---
DATE OF SERVICE: 02/25/2019 SUBJECTIVE: The patient resting in bed, sleeping. We discussed with Nursing. They have no complaints. OBJECTIVE: VITAL SIGNS: Temperature is 98.4, pulse 63, respirations 16, O2 saturations 99% on room air, blood pressure 136/65. LUNGS: Clear. CARDIAC: Shows irregular rhythm. ABDOMEN: Soft and nontender. SKIN: Extremities shows right foot is bandaged with wound VAC in place. ASSESSMENT: 1. Resolving right foot osteomyelitis. 2. Stable type 2 diabetes. 3. Hypertension, controlled to goal. 4. Atrial fibrillation with adequate weight control with PT/INR 2.0. PLAN: 1. Continue PT/OT. 2. Continue wound VAC. 3. Continue IV Rocephin. 4. Continue warfarin and monitor PT/INR. 5. Continue Accu-Cheks to monitor and titrate and control diabetes. Continue home insulin with Lantus in the evening and a.m. Job ID: [id number]
[2019-02-26] MEDS: Lantus 1000 UNITS/10 ML VIAL SC SCH ×2 (08:49→20:34)
[2019-02-26] MEDS: Gabapentin 300 MG CAP PO SCH ×3 (08:49→20:34)
[2019-02-26] MEDS: Flecainide 50 MG TAB PO SCH ×2 (08:49→20:34)
[2019-02-26] MEDS: Famotidine 20 MG TAB PO SCH ×2 (08:49→20:34)
[2019-02-26] MEDS: Saccharomyces boulardii 250 MG CAP PO SCH (08:50)
[2019-02-26] MEDS: Metoprolol Tartrate 25 MG TAB PO SCH ×2 (08:50→20:34)
[2019-02-26] MEDS: Warfarin Sodium 3 MG TAB PO SCH (16:36)
[2019-02-26 17:23] VITALS: BMI 31.2
[2019-02-26] MEDS: cefTRIAXone\\ROCEPHIN 2 GM in Sodium Chloride 0.9% 100 ML IVPB SCH (20:27)
[2019-02-26] MEDS: Atorvastatin Calcium 20 MG TAB PO SCH (20:34)
[2019-02-27] MEDS: Lantus 1000 UNITS/10 ML VIAL SC SCH ×2 (09:07→19:45)
[2019-02-27] MEDS: Saccharomyces boulardii 250 MG CAP PO SCH (09:07)
[2019-02-27] MEDS: Flecainide 50 MG TAB PO SCH ×2 (09:07→19:44)
[2019-02-27] MEDS: Gabapentin 300 MG CAP PO SCH ×3 (09:08→19:44)
[2019-02-27] MEDS: Famotidine 20 MG TAB PO SCH ×2 (09:08→19:44)
[2019-02-27] MEDS: Metoprolol Tartrate 25 MG TAB PO SCH ×2 (09:08→19:45)
--- NOTE | 2019-02-27 14:18 | PRG ---
DATE OF SERVICE: 02/27/2019 SUBJECTIVE: Mr. Wright is doing well. Denies any complaints. Resting comfortably. Tolerating his therapy. Knee pain is much improved. OBJECTIVE: VITAL SIGNS: He is afebrile, heart rate 61, respirations 20, oxygen saturation 99% on room air, blood pressure 133/64. CARDIOVASCULAR: S1 and S2 plus. RESPIRATORY: Normal vesicular breath sounds. ABDOMEN: Soft and nontender. Bowel sounds heard in all quadrants. EXTREMITIES: Without cyanosis or clubbing. Right foot with wound VAC. CENTRAL NERVOUS SYSTEM: Peripheral neuropathy. Otherwise, nonfocal. LABORATORY DATA: Blood sugars are 116, 132, 92, 88, and 105. IMPRESSION: 1. Right foot osteomyelitis. 2. Diabetes mellitus, type 2. 3. Hypertension. 4. Dyslipidemia. 5. Atrial fibrillation. 6. Peripheral neuropathy. 7. Chronic kidney disease, stage 3 to 4. PLAN: 1. Continue current medications. 2. 1800 calorie heart healthy ADA diet. 3. Accu-Cheks with sliding scale coverage. 4. DVT prophylaxis. He is on warfarin and his INR is 2.45. 5. Decubitus precautions. 6. Stress ulcer prophylaxis. 7. Continue antibiotics until March 09. Job ID: [id number]
[2019-02-27] MEDS: Warfarin Sodium 3 MG TAB PO SCH (17:09)
[2019-02-27] MEDS: cefTRIAXone\\ROCEPHIN 2 GM in Sodium Chloride 0.9% 100 ML IVPB SCH (19:42)
[2019-02-27] MEDS: Atorvastatin Calcium 20 MG TAB PO SCH (19:44)
[2019-02-28] MEDS: Flecainide 50 MG TAB PO SCH ×2 (09:55→20:06)
[2019-02-28] MEDS: Metoprolol Tartrate 25 MG TAB PO SCH ×2 (09:55→20:07)
[2019-02-28] MEDS: Famotidine 20 MG TAB PO SCH ×2 (09:56→20:06)
[2019-02-28] MEDS: Lantus 1000 UNITS/10 ML VIAL SC SCH ×2 (09:56→20:07)
[2019-02-28] MEDS: Saccharomyces boulardii 250 MG CAP PO SCH (09:56)
[2019-02-28] MEDS: Gabapentin 300 MG CAP PO SCH ×3 (09:56→20:07)
--- NOTE | 2019-02-28 13:53 | PRG ---
DATE OF SERVICE: 02/28/2019 SUBJECTIVE: Mr. Wright is doing the same. Denies any complaints. 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 Tolerating his antibiotics. No family at bedside. OBJECTIVE: VITAL SIGNS: He is afebrile, heart rate 61, respirations 16, oxygen saturation 99% on room air, and blood pressure 143/66. CARDIOVASCULAR SYSTEM: S1 and S2 plus. RESPIRATORY SYSTEM: Normal vesicular breath sounds. ABDOMEN: Soft and nontender. Bowel sounds heard in all quadrants. EXTREMITIES: Without cyanosis or clubbing. Right foot with wound VAC. CENTRAL NERVOUS SYSTEM: Other than peripheral neuropathy, nonfocal. LABORATORY DATA: Blood sugars are 105, 120, 141, 166, and 151. IMPRESSION: 1. Right foot osteomyelitis. 2. Diabetes mellitus type 2. 3. Dyslipidemia. 4. Atrial fibrillation. 5. Improving deconditioning. 6. Peripheral neuropathy. PLAN: 1. Continue current medications. 2. Nutritional support. 3. Recheck CBC, CMP, CRP, and sedimentation rate tomorrow. 4. Continue IV antibiotics. 5. Physical Therapy. 6. Accu-Cheks with sliding scale coverage. Job ID: [id number]
[2019-02-28] MEDS: Warfarin Sodium 3 MG TAB PO SCH (17:23)
[2019-02-28] MEDS: cefTRIAXone\\ROCEPHIN 2 GM in Sodium Chloride 0.9% 100 ML IVPB SCH (20:05)
[2019-02-28] MEDS: Atorvastatin Calcium 20 MG TAB PO SCH (20:06)
[2019-03-01 05:21] LABS: #Basophils 0.1 thou/uL (0.0-0.2); #Eosinphils 0.7 thou/uL (0.0-0.7); #Lymphocytes 1.4 thou/uL (1.20-3.40); %Basophils 1.3 % (0.0-1.0); %Eosinophils 7.7 % (0.0-10.0); %Lymphocytes 14.6 % (21.0-51.0); %Monocytes 11.3 % (0.0-10.0); %Neutrophils 65.2 % (42.0-75.0); Hemoglobin 9.2 g/dL (14.0-18.0); Mean Corpuscular HGB CONC 33.6 g/dL (32.0-36.0); Mean Corpuscular Hemoglobin 30.2 pg (27.0-31.0); Mean Corpuscular Volume 89.7 fL (78.0-98.0); Mean Platelet Volume 7.7 fL (7.4-10.4); Platelet Count 214 thou/uL (130-400); RBC Distribution Width 13.6 % (11.5-14.5); Red Blood Cell (RBC) Count 3.03 mill/uL (4.70-6.10); White Blood Cell (WBC) Count 9.2 thou/uL (4.8-10.8)
[2019-03-01 05:37] LABS: INR-International Normal Ratio 2.8; Prothrombin Time 29.2 SEC (12.0-14.7)
[2019-03-01 05:49] LABS: ALT (SGPT) 23 U/L (8-55); AST (SGOT) 23 U/L (5-34); Albumin 3.4 g/dL (3.4-4.8); Alkaline Phosphatase 70 U/L (40-110); Anion Gap 14 mmol/L (10-20); BUN (Urea Nitrogen) 60 mg/dL (8.4-25.7); CRP (Inflammatory) Less than 0.50 mg/dL (= or < 0.5); Calc. Creatinine Clearance 63 mL/min (70-130); Calcium 8.8 mg/dL (7.8-10.44); Carbon Dioxide 19 mmol/L (23-31); Chloride 110 mmol/L (98-107); Estimated GFR-MDRD 44; Globulin 3.1 g/dL (2.4-3.5); Glucose 117 mg/dL (83-110); Potassium 4.4 mmol/L (3.5-5.1); Protein, Total 6.5 g/dL (5.8-8.1); Sodium 139 mmol/L (136-145)
[2019-03-01 06:05] LABS: Bilirubin, Total 0.2 mg/dL (0.2-1.2)
[2019-03-01] MEDS: Lantus 1000 UNITS/10 ML VIAL SC SCH ×2 (08:24→20:21)
[2019-03-01] MEDS: Famotidine 20 MG TAB PO SCH ×2 (08:24→20:21)
[2019-03-01] MEDS: Flecainide 50 MG TAB PO SCH ×2 (08:24→20:21)
[2019-03-01] MEDS: Gabapentin 300 MG CAP PO SCH ×3 (08:24→20:21)
[2019-03-01] MEDS: Metoprolol Tartrate 25 MG TAB PO SCH ×2 (08:25→20:22)
[2019-03-01] MEDS: Saccharomyces boulardii 250 MG CAP PO SCH (08:25)
[2019-03-01] MEDS ORDERED: Loperamide HCl 2 MG CAP PO PRN (16:02)
[2019-03-01] MEDS: Warfarin Sodium 3 MG TAB PO SCH (16:20)
--- NOTE | 2019-03-01 16:51 | PRG ---
DATE OF SERVICE: 03/01/2019 SUBJECTIVE: Mr. Wright is resting in bed and denies any concerns other than loose stools. Imodium will be ordered. He denies any fever or chills. Denies any abdominal cramping. Discussed with nursing. OBJECTIVE: VITAL SIGNS: He is afebrile. Heart rate 60, respirations 18, oxygen saturation 98% on room air, and blood pressure 133/60. CARDIOVASCULAR SYSTEM: S1 and S2 plus. RESPIRATORY SYSTEM: Normal vesicular breath sounds. ABDOMEN: Soft, nontender. Bowel sounds heard in all quadrants. EXTREMITIES: Without cyanosis or clubbing. Right foot with wound VAC. CENTRAL NERVOUS SYSTEM: Other than peripheral neuropathy, nonfocal. LABORATORY VALUES: White count is 9.2, H and H are 9.2 and 27.2. Sedimentation rate is 42. It was 39 last week. INR is 2.8. Sodium 139, potassium 4.4, BUN and creatinine 60 and 1.55, and his CRP is less than 0.5, which is in the normal range. Blood sugars are 151, 152, 154, and 137. IMPRESSION: 1. Right foot osteomyelitis. 2. Diabetes mellitus type 2. 3. Hypertension. 4. Dyslipidemia. 5. Atrial fibrillation. 6. Chronic kidney disease, stage 3. 7. Improving deconditioning. PLAN: 1. Continue current medications. 2. 1800 calorie heart healthy ADA diet. 3. Antibiotics until March 09. 4. DVT prophylaxis-he is on warfarin. 5. Decubitus precautions. 6. Stress ulcer prophylaxis. 7. Wound VAC care. 8. Weekly laboratory values. 9. Discussed with the patient in detail. All questions answered. Job ID: [id number]
[2019-03-01] MEDS: cefTRIAXone\\ROCEPHIN 2 GM in Sodium Chloride 0.9% 100 ML IVPB SCH (20:20)
[2019-03-01] MEDS: Atorvastatin Calcium 20 MG TAB PO SCH (20:21)
[2019-03-02] MEDS: Gabapentin 300 MG CAP PO SCH ×3 (08:25→20:08)
[2019-03-02] MEDS: Flecainide 50 MG TAB PO SCH ×2 (08:25→20:09)
[2019-03-02] MEDS: Famotidine 20 MG TAB PO SCH ×2 (08:25→20:08)
[2019-03-02] MEDS: Saccharomyces boulardii 250 MG CAP PO SCH (08:26)
[2019-03-02] MEDS: Lantus 1000 UNITS/10 ML VIAL SC SCH ×2 (08:26→20:04)
[2019-03-02] MEDS: Metoprolol Tartrate 25 MG TAB PO SCH ×2 (08:26→20:08)
--- NOTE | 2019-03-02 13:18 | PRG ---
DATE OF SERVICE: 03/02/2019 SUBJECTIVE: Mr. Wright is doing well. Denies any complaints. His diarrhea has resolved. He is happy with his progress. Tolerating his antibiotics. No family at bedside. Discussed with nursing. OBJECTIVE: VITAL SIGNS: He is afebrile. Heart rate 61, respirations 18, oxygen saturation 98% on room air, and blood pressure 118/59. CARDIOVASCULAR SYSTEM: S1 and S2 plus. RESPIRATORY SYSTEM: Normal vesicular breath sounds. ABDOMEN: Soft and nontender. Bowel sounds heard in all quadrants. EXTREMITIES: Without cyanosis or clubbing. Right foot with wound VAC. CENTRAL NERVOUS SYSTEM: Grossly nonfocal other than peripheral neuropathy. IMPRESSION: 1. Right foot osteomyelitis. 2. Diabetes mellitus type 2. 3. Hypertension. 4. Dyslipidemia. 5. Atrial fibrillation. 6. Peripheral neuropathy. 7. Chronic kidney disease, stage 3. PLAN: 1. Continue current medications. 2. 1800 calorie heart healthy ADA diet. 3. Accu-Cheks with sliding scale coverage. 4. Monitor blood pressure and adjust medications as needed. 5. Wound VAC care. 6. Continue antibiotics. 7. Weekly CBC, CRP, CMP, and sedimentation rate. 8. Warfarin to keep INR between 2 and 3. Job ID: [id number]
[2019-03-02] MEDS: Warfarin Sodium 3 MG TAB PO SCH (16:55)
[2019-03-02] MEDS: cefTRIAXone\\ROCEPHIN 2 GM in Sodium Chloride 0.9% 100 ML IVPB SCH (20:04)
[2019-03-02] MEDS: Atorvastatin Calcium 20 MG TAB PO SCH (20:08)
[2019-03-03] MEDS: Metoprolol Tartrate 25 MG TAB PO SCH ×2 (08:49→20:08)
[2019-03-03] MEDS: Gabapentin 300 MG CAP PO SCH ×3 (08:49→20:09)
[2019-03-03] MEDS: Flecainide 50 MG TAB PO SCH ×2 (08:49→20:08)
[2019-03-03] MEDS: Famotidine 20 MG TAB PO SCH ×2 (08:49→20:09)
[2019-03-03] MEDS: Saccharomyces boulardii 250 MG CAP PO SCH (08:49)
--- NOTE | 2019-03-03 08:49 | PRG ---
DATE OF SERVICE: 03/03/2019 SUBJECTIVE: Mr. Wright is doing well. Diarrhea has pretty much resolved. Denies any questions or concerns. Tolerating his medications. OBJECTIVE: VITAL SIGNS: He is afebrile. Heart rate is 62, respirations 18, oxygen saturation 98% on room air, and blood pressure 132/61. CARDIOVASCULAR SYSTEM: S1 and S2 plus. RESPIRATORY SYSTEM: Normal vesicular breath sounds. ABDOMEN: Soft and nontender. Bowel sounds heard in all quadrants. EXTREMITIES: Without cyanosis or clubbing. Right foot with wound VAC. CENTRAL NERVOUS SYSTEM: Peripheral neuropathy, otherwise nonfocal. LABORATORY DATA: Blood sugars are under good control at 200, 184, 145, 149, and 79. IMPRESSION: 1. Diabetes mellitus, type 2. 2. Right foot osteomyelitis. 3. Hypertension. 4. Dyslipidemia. 5. Atrial fibrillation. 6. Improving deconditioning. PLAN: 1. Continue current medications including antibiotics. 2. 1800-calorie heart healthy ADA renal diet. 3. Accu-Cheks with sliding scale coverage. 4. Monitor blood pressure and adjust medications as needed. 5. Wound VAC care. 6. DVT prophylaxis - he is on warfarin. 7. Decubitus precautions. 8. Stress ulcer prophylaxis. 9. Physical therapy. Job ID: [id number]
[2019-03-03] MEDS: Lantus 1000 UNITS/10 ML VIAL SC SCH ×2 (08:50→20:07)
[2019-03-03] MEDS: Warfarin Sodium 3 MG TAB PO SCH (17:15)
[2019-03-03 17:45] LABS: Prothrombin Time 30.6 SEC (12.0-14.7)
[2019-03-03] MEDS: cefTRIAXone\\ROCEPHIN 2 GM in Sodium Chloride 0.9% 100 ML IVPB SCH (20:04)
[2019-03-03] MEDS: Atorvastatin Calcium 20 MG TAB PO SCH (20:09)
[2019-03-04] MEDS: Famotidine 20 MG TAB PO SCH ×2 (08:22→20:09)
[2019-03-04] MEDS: Flecainide 50 MG TAB PO SCH ×2 (08:23→20:09)
[2019-03-04] MEDS: Gabapentin 300 MG CAP PO SCH ×3 (08:23→20:10)
[2019-03-04] MEDS: Metoprolol Tartrate 25 MG TAB PO SCH ×2 (08:23→20:11)
[2019-03-04] MEDS: Saccharomyces boulardii 250 MG CAP PO SCH (08:24)
[2019-03-04] MEDS: Lantus 1000 UNITS/10 ML VIAL SC SCH ×2 (08:26→20:09)
[2019-03-04 10:11] LABS: INR-International Normal Ratio 2.7; Prothrombin Time 28.1 SEC (12.0-14.7)
--- NOTE | 2019-03-04 14:50 | PRG ---
DATE OF SERVICE: 03/04/2019 SUBJECTIVE: Mr. Wright is doing well. He denies any concerns. No family at bedside. His INR was 3 yesterday. For some reason, he was getting warfarin 9 mg when I had ordered only 7.5. Plan is to resume it at 7.5 Today. He apparently takes 5 mg for five days and 7.5 for two days. OBJECTIVE: VITAL SIGNS: He is afebrile. Heart rate 65, respirations 19, oxygen saturation 99% on room air, blood pressure 132/61. CARDIOVASCULAR: S1 and S2 plus. RESPIRATORY: Normal vesicular breath sounds. ABDOMEN: Soft and nontender. Bowel sounds heard in all quadrants. EXTREMITIES: Without cyanosis or clubbing. Right foot with wound VAC. IMPRESSION: 1. Right foot osteomyelitis. 2. Diabetes mellitus type 2. 3. Hypertension. 4. Dyslipidemia. 5. Atrial fibrillation. 6. Chronic kidney disease stage 3. PLAN: 1. Continue current medications. 2. 1800 calorie heart healthy ADA diet. 3. Resume warfarin. 4. DVT prophylaxis. He is on warfarin and therapeutic. 5. Decubitus precautions. 6. Stress ulcer prophylaxis. 7. Wound VAC care. 8. Weekly CBC, CRP, CMP, and sedimentation rate and continue therapy. Job ID: [id number]
[2019-03-04] MEDS: Warfarin Sodium 3 MG TAB PO SCH (17:24)
[2019-03-04] MEDS: cefTRIAXone\\ROCEPHIN 2 GM in Sodium Chloride 0.9% 100 ML IVPB SCH (20:06)
[2019-03-04] MEDS: Atorvastatin Calcium 20 MG TAB PO SCH (20:10)
[2019-03-05] MEDS: Gabapentin 300 MG CAP PO SCH ×3 (08:34→20:48)
[2019-03-05] MEDS: Saccharomyces boulardii 250 MG CAP PO SCH (08:34)
[2019-03-05] MEDS: Famotidine 20 MG TAB PO SCH ×2 (08:34→20:48)
[2019-03-05] MEDS: Metoprolol Tartrate 25 MG TAB PO SCH ×2 (08:35→20:48)
[2019-03-05] MEDS: Flecainide 50 MG TAB PO SCH ×2 (08:35→20:48)
[2019-03-05] MEDS: Lantus 1000 UNITS/10 ML VIAL SC SCH ×2 (08:36→20:43)
--- NOTE | 2019-03-05 15:47 | PRG ---
DATE OF SERVICE: 03/05/2019 SUBJECTIVE: Mr. Wright is resting in bed and just finished lunch. He is waiting for the [employer] game. He denies any questions or concerns. OBJECTIVE: VITAL SIGNS: He is afebrile, heart rate 63, respirations 18, oxygen saturation 98% on room air, blood pressure 115/56. CARDIOVASCULAR: S1 and S2 plus. RESPIRATORY: Normal vesicular breath sounds. ABDOMEN: Soft and nontender. Bowel sounds heard in all quadrants. EXTREMITIES: Without cyanosis or clubbing. CENTRAL NERVOUS SYSTEM: Other than peripheral neuropathy, grossly nonfocal. Right foot with wound VAC. IMPRESSION: 1. Right foot osteomyelitis. 2. Diabetes mellitus, type 2. 3. Hypertension. 4. Dyslipidemia. 5. Chronic kidney disease, stage 3. 6. Atrial fibrillation. PLAN: 1. Continue current medications. 2. 1800-calorie heart-healthy ADA diet. 3. Accu-Cheks with sliding scale coverage. 4. DVT prophylaxis. He is on warfarin. 5. Decubitus precautions. 6. Stress ulcer prophylaxis. 7. Continue IV antibiotics. Job ID: [id number]
[2019-03-05] MEDS: Warfarin Sodium 3 MG TAB PO SCH (17:02)
[2019-03-05] MEDS: cefTRIAXone\\ROCEPHIN 2 GM in Sodium Chloride 0.9% 100 ML IVPB SCH (20:44)
[2019-03-05] MEDS: Atorvastatin Calcium 20 MG TAB PO SCH (20:48)
[2019-03-06] MEDS: Gabapentin 300 MG CAP PO SCH ×3 (08:21→20:39)
[2019-03-06] MEDS: Famotidine 20 MG TAB PO SCH ×2 (08:21→20:39)
[2019-03-06] MEDS: Flecainide 50 MG TAB PO SCH ×2 (08:21→20:39)
[2019-03-06] MEDS: Metoprolol Tartrate 25 MG TAB PO SCH ×2 (08:22→20:39)
[2019-03-06] MEDS: Saccharomyces boulardii 250 MG CAP PO SCH (08:22)
[2019-03-06] MEDS: Lantus 1000 UNITS/10 ML VIAL SC SCH ×2 (08:22→20:38)
--- NOTE | 2019-03-06 13:14 | PRG ---
DATE OF SERVICE: 03/06/2019 SUBJECTIVE: Mr. Wright just finished his lunch and is resting in bed. He is tolerating his antibiotics. Denies any questions or concerns. OBJECTIVE: VITAL SIGNS: He is afebrile, heart rate is 63, respirations 18, blood pressure 123/59. CARDIOVASCULAR SYSTEM: S1 and S2 plus. RESPIRATORY SYSTEM: Normal vesicular breath sounds. ABDOMEN: Soft, nontender. Bowel sounds heard in all quadrants. EXTREMITIES: Without cyanosis or clubbing. Right foot with wound VAC. IMPRESSION: 1. Right foot osteomyelitis. 2. Diabetes mellitus type 2. 3. Hypertension. 4. Dyslipidemia. 5. Atrial fibrillation. 6. Improving deconditioning. PLAN: 1. Continue current medications. 2. 1800 calorie heart healthy ADA diet. 3. Accu-Cheks with sliding scale coverage. 4. DVT prophylaxis. He is on warfarin. 5. Decubitus precautions. 6. Wound VAC care. 7. Continue antibiotics. End date is March 09. Job ID: [id number]
[2019-03-06] MEDS: Warfarin Sodium 3 MG TAB PO SCH (17:54)
[2019-03-06] MEDS: cefTRIAXone\\ROCEPHIN 2 GM in Sodium Chloride 0.9% 100 ML IVPB SCH (20:38)
[2019-03-06] MEDS: Atorvastatin Calcium 20 MG TAB PO SCH (20:39)
[2019-03-06] MEDS: Acetaminophen 325 MG TAB PO PRN (22:45)
[2019-03-07 05:35] LABS: INR-International Normal Ratio 2.4; Prothrombin Time 26.1 SEC (12.0-14.7)
[2019-03-07] MEDS: Famotidine 20 MG TAB PO SCH ×2 (09:02→20:41)
[2019-03-07] MEDS: Flecainide 50 MG TAB PO SCH ×2 (09:02→20:40)
[2019-03-07] MEDS: Gabapentin 300 MG CAP PO SCH ×3 (09:02→20:40)
[2019-03-07] MEDS: Lantus 1000 UNITS/10 ML VIAL SC SCH ×2 (09:02→20:42)
[2019-03-07] MEDS: Saccharomyces boulardii 250 MG CAP PO SCH (09:03)
[2019-03-07] MEDS: Metoprolol Tartrate 25 MG TAB PO SCH ×2 (09:03→20:39)
--- NOTE | 2019-03-07 11:46 | PRG ---
DATE OF SERVICE: 03/07/2019 SUBJECTIVE: Mr. Wright is doing well. Denies any complaints. Resting comfortably. Reviewed his current medications with him and he does need refills on all of them. He uses [facility] here in [place]. He follows up with [facility]. I also talked to Case Management, and they are going to inform his home health agency that he is being discharged on the . OBJECTIVE: VITAL SIGNS: He is afebrile, heart rate 59, respirations 18, oxygen saturation 98% on room air, and blood pressure 119/59. CARDIOVASCULAR: S1 and S2 plus. RESPIRATORY: Normal vesicular breath sounds. ABDOMEN: Soft and nontender. Bowel sounds heard in all quadrants. EXTREMITIES: Without cyanosis or clubbing. Right foot with wound VAC. CENTRAL NERVOUS SYSTEM: Peripheral neuropathy, otherwise nonfocal. LABORATORY DATA: Blood sugars are still doing well at 126, 125, 119, and 119. INR is 2.4. IMPRESSION: 1. Right foot osteomyelitis. 2. Atrial fibrillation, on therapeutic warfarin. 3. Diabetes mellitus type 2, well controlled. 4. Hypertension. 5. Dyslipidemia. 6. Peripheral neuropathy. 7. Possible chronic kidney disease, stage 3. PLAN: 1. Continue current medications including antibiotics. 2. Check CBC, CMP, CRP, and sed rate tomorrow. 3. 1800-calorie heart healthy ADA renal diet. 4. Accu-Cheks with sliding scale coverage. 5. Wound VAC care. 6. Physical therapy. 7. DVT prophylaxis - he is on warfarin. 8. Decubitus precautions. 9. Stress ulcer prophylaxis. 10. Send medications into pharmacy tomorrow and Case Management will be contacting his Home Health. Job ID: [id number]
[2019-03-07] MEDS: Warfarin Sodium 3 MG TAB PO SCH (16:59)
[2019-03-07] MEDS: cefTRIAXone\\ROCEPHIN 2 GM in Sodium Chloride 0.9% 100 ML IVPB SCH (20:41)
[2019-03-07] MEDS: Atorvastatin Calcium 20 MG TAB PO SCH (20:41)
[2019-03-08 05:31] LABS: Hemoglobin 9.2 g/dL (14.0-18.0); Mean Corpuscular Hemoglobin 29.3 pg (27.0-31.0); Mean Corpuscular Volume 89.6 fL (78.0-98.0); Red Blood Cell (RBC) Count 3.13 mill/uL (4.70-6.10); White Blood Cell (WBC) Count 9.4 thou/uL (4.8-10.8)
[2019-03-08 05:32] LABS: #Basophils 0.1 thou/uL (0.0-0.2); #Eosinphils 0.5 thou/uL (0.0-0.7); #Lymphocytes 1.5 thou/uL (1.20-3.40); #Monocytes 1.1 thou/uL (0.11-0.59); #Neutrophils 6.2 thou/uL (1.40-6.50); %Eosinophils 5.6 % (0.0-10.0); %Lymphocytes 15.7 % (21.0-51.0); %Monocytes 11.6 % (0.0-10.0); Mean Corpuscular HGB CONC 32.7 g/dL (32.0-36.0); Mean Platelet Volume 7.8 fL (7.4-10.4); Platelet Count 178 thou/uL (130-400); RBC Distribution Width 13.5 % (11.5-14.5)
[2019-03-08 05:41] LABS: ALT (SGPT) 25 U/L (8-55); AST (SGOT) 22 U/L (5-34); Albumin 3.5 g/dL (3.4-4.8); Alkaline Phosphatase 72 U/L (40-110); Anion Gap 14 mmol/L (10-20); BUN (Urea Nitrogen) 55 mg/dL (8.4-25.7); Bilirubin, Total 0.2 mg/dL (0.2-1.2); Calc. Creatinine Clearance 64 mL/min (70-130); Calcium 8.8 mg/dL (7.8-10.44); Carbon Dioxide 19 mmol/L (23-31); Chloride 109 mmol/L (98-107); Estimated GFR-MDRD 45; Globulin 3.2 g/dL (2.4-3.5); Glucose 76 mg/dL (83-110); Potassium 4.2 mmol/L (3.5-5.1); Protein, Total 6.7 g/dL (5.8-8.1); Sodium 138 mmol/L (136-145)
[2019-03-08] MEDS: Famotidine 20 MG TAB PO SCH ×2 (08:39→20:04)
[2019-03-08] MEDS: Gabapentin 300 MG CAP PO SCH ×3 (08:39→20:05)
[2019-03-08] MEDS: Metoprolol Tartrate 25 MG TAB PO SCH ×2 (08:40→20:06)
[2019-03-08] MEDS: Saccharomyces boulardii 250 MG CAP PO SCH (08:40)
[2019-03-08] MEDS: Flecainide 50 MG TAB PO SCH ×2 (08:40→20:04)
[2019-03-08] MEDS: Lantus 1000 UNITS/10 ML VIAL SC SCH ×2 (11:51→20:05)
--- NOTE | 2019-03-08 13:01 | PRG ---
DATE OF SERVICE: 03/08/2019 SUBJECTIVE: Mr. Wright is doing well. He is up on the side of his bed eating lunch. He denies any questions or concerns. He is happy with his progress. Reviewed notes from his previous admission to [facility] in [place] and Dr. Lawson has specified that he needs to be on oral suppressive antimicrobial therapy after his IV antibiotics are done, reviewed his cultures and we will start him on Keflex 500 mg t.i.d., and I will send in a prescription for at least 2 weeks worth, so he can follow up with Dr. Lawson before that and they can discuss duration of suppressive therapy. OBJECTIVE: VITAL SIGNS: The patient is afebrile. Heart rate 64, respirations 16, oxygen saturation 98% on room air, blood pressure 129/60. CARDIOVASCULAR: S1 and S2 plus. RESPIRATORY: Normal vesicular breath sounds. ABDOMEN: Soft and nontender. Bowel sounds heard in all quadrants. EXTREMITIES: Without cyanosis or clubbing. Right foot with wound VAC. CENTRAL NERVOUS SYSTEM: Peripheral neuropathy, otherwise nonfocal. LABORATORY VALUES: White count is 9.4, H and H are 9.2 and 28. Sedimentation rate is pending. INR is 2.4. Sodium 138, potassium 4.2, BUN and creatinine are 55 and 1.52. Blood sugars are 96, 72, 83, 76, and 126. IMPRESSION: 1. Right foot osteomyelitis, responding well to IV antibiotics. 2. Diabetes mellitus type 2. 3. Hypertension. 4. Dyslipidemia. 5. Atrial fibrillation. 6. Chronic kidney disease. 7. Stage IV colon cancer. PLAN: 1. Continue current medications, but reduce his insulin dose by 10 units in the morning and evening. 2. Start Keflex 500 mg t.i.d. for at least 2 weeks after his IV antibiotics are done. 3. 1800 calorie heart healthy ADA diet. 4. Wound VAC care. 5. Home health. 6. DVT prophylaxis. He is on warfarin. 7. Decubitus precautions. 8. Outpatient followup with PCP and Dr. Lawson. Prescription sent into [facility]. Job ID: [id number]
[2019-03-08] MEDS: Warfarin Sodium 3 MG TAB PO SCH (16:49)
[2019-03-08] MEDS: cefTRIAXone\\ROCEPHIN 2 GM in Sodium Chloride 0.9% 100 ML IVPB SCH (20:03)
[2019-03-08] MEDS: Atorvastatin Calcium 20 MG TAB PO SCH (20:04)
[2019-03-09] MEDS: Lantus 1000 UNITS/10 ML VIAL SC SCH ×2 (08:51→20:02)
[2019-03-09] MEDS: Gabapentin 300 MG CAP PO SCH ×3 (08:51→20:01)
[2019-03-09] MEDS: Saccharomyces boulardii 250 MG CAP PO SCH (08:51)
[2019-03-09] MEDS: Flecainide 50 MG TAB PO SCH ×2 (08:51→20:01)
[2019-03-09] MEDS: Metoprolol Tartrate 25 MG TAB PO SCH ×2 (08:51→20:01)
[2019-03-09] MEDS: Famotidine 20 MG TAB PO SCH ×2 (08:51→20:01)
--- NOTE | 2019-03-09 13:42 | PRG ---
DATE OF SERVICE: 03/09/2019 SUBJECTIVE: Mr. Wright is doing well. Denies any complaints. Resting comfortably. No concerns or questions. He has a followup appointment with his esthetician/skin therapist tomorrow. I advised him to follow up with Dr. Lawson within a couple of weeks. Home health has been arranged. OBJECTIVE: VITAL SIGNS: He is afebrile. Heart rate 67, respirations 16, oxygen saturation 98% on room air, and blood pressure 129/65. CARDIOVASCULAR SYSTEM: S1 and S2 plus. RESPIRATORY SYSTEM: Normal vesicular breath sounds. ABDOMEN: Soft, nontender. Bowel sounds heard in all quadrants. EXTREMITIES: Without cyanosis or clubbing. Right foot with a wound VAC. IMPRESSION: 1. Right foot osteomyelitis, completed 6 weeks of antibiotic therapy. 2. Diabetes mellitus, type 2. 3. Hypertension. 4. Dyslipidemia. 5. Atrial fibrillation. 6. Peripheral neuropathy. 7. Chronic kidney disease, stage 3. PLAN: 1. Continue current medications. 2. 1800-calorie, heart healthy, ADA renal diet. 3. Accu-Cheks with sliding scale coverage. 4. DVT prophylaxis - he is on warfarin. 5. Decubitus precautions. 6. Stress ulcer prophylaxis. 7. Outpatient followup with esthetician/skin therapist and Infectious Disease as well as his PCP. He is to call us with any questions or concerns. All paperwork done today, so he can leave early in the morning as he wishes. Job ID: [id number]
[2019-03-09] MEDS: Warfarin Sodium 3 MG TAB PO SCH (17:42)
[2019-03-09] MEDS: cefTRIAXone\\ROCEPHIN 2 GM in Sodium Chloride 0.9% 100 ML IVPB SCH (20:00)
[2019-03-09] MEDS: Atorvastatin Calcium 20 MG TAB PO SCH (20:01)
[2019-03-10 05:25] LABS: INR-International Normal Ratio 2.5; Prothrombin Time 26.5 SEC (12.0-14.7)
[2019-03-10 07:40] VITALS: BP 124/59; TEMP 98
[2019-03-10] MEDS: Gabapentin 300 MG CAP PO SCH (08:50)
[2019-03-10] MEDS: Flecainide 50 MG TAB PO SCH (08:50)
[2019-03-10] MEDS: Saccharomyces boulardii 250 MG CAP PO SCH (08:50)
[2019-03-10] MEDS: Metoprolol Tartrate 25 MG TAB PO SCH (08:52)
[2019-03-10] MEDS: Famotidine 20 MG TAB PO SCH (08:52)
[2019-03-10] MEDS: Lantus 1000 UNITS/10 ML VIAL SC SCH (08:57)
[2019-03-10] MEDS ORDERED: Cephalexin 500 MG CAP PO SCH (15:00)
[2019-03-10] MEDS ORDERED: Warfarin Sodium 5 MG TAB PO SCH (17:00)
== END 2019-03-10 12:30 | disposition home health service (06) | DRG 638 ==
LOC: NAV ACUTE 18:22
PROVIDERS: ADMIT Internal Medicine; ATTEND Internal Medicine
DX: E11.69 Type 2 diabetes mellitus with other specified complication (principal); C18.9 Malignant neoplasm of colon, unspecified; C78.7 Secondary malignant neoplasm of liver and intrahepatic bile duct; E87.1 Hypo-osmolality and hyponatremia; M86.8X7 Other osteomyelitis, ankle and foot; I48.91 Unspecified atrial fibrillation; Z79.01 Long term (current) use of anticoagulants; Z79.4 Long term (current) use of insulin; G47.33 Obstructive sleep apnea (adult) (pediatric); G25.81 Restless legs syndrome; F41.9 Anxiety disorder, unspecified; F32.9 Major depressive disorder, single episode, unspecified; E11.22 Type 2 diabetes mellitus with diabetic chronic kidney disease; I12.9 Hypertensive chronic kidney disease with stage 1 through stage 4 chronic kidney disease, or unspecified chronic kidney disease; N18.3 Chronic kidney disease, stage 3 (moderate); D64.9 Anemia, unspecified; T45.1X5A Adverse effect of antineoplastic and immunosuppressive drugs, initial encounter; B95.2 Enterococcus as the cause of diseases classified elsewhere; B95.61 Methicillin susceptible Staphylococcus aureus infection as the cause of diseases classified elsewhere; I49.9 Cardiac arrhythmia, unspecified; E78.5 Hyperlipidemia, unspecified; R53.81 Other malaise; Z89.421 Acquired absence of other right toe(s)
CPT/HCPCS: 36415; 36416; 80053; 85025; 85610; 85652; 86140; 97602; J0696; J1815; J3490; Q0169

== ENCOUNTER 2019-03-17 22:39 | Emergency (ER) | payer MEDICARE, SELFPAY ==
[2019-03-17] MEDS ORDERED: Sodium Chloride 0.9% 1,000 ML ONE (23:02)
[2019-03-17 23:04] LABS: #Basophils 0.1 thou/uL (0.0-0.2); #Eosinphils 0.1 thou/uL (0.0-0.7); #Lymphocytes 1.2 thou/uL (1.20-3.40); #Monocytes 1.5 thou/uL (0.11-0.59); %Basophils 0.5 % (0.0-1.0); %Eosinophils 0.7 % (0.0-10.0); %Lymphocytes 6.9 % (21.0-51.0); %Monocytes 8.9 % (0.0-10.0); %Neutrophils 83.1 % (42.0-75.0); Hemoglobin 9.4 g/dL (14.0-18.0); Mean Corpuscular Hemoglobin 29.3 pg (27.0-31.0); Mean Corpuscular Volume 88.9 fL (78.0-98.0); Platelet Count 206 thou/uL (130-400); RBC Distribution Width 13.8 % (11.5-14.5); Red Blood Cell (RBC) Count 3.22 mill/uL (4.70-6.10); White Blood Cell (WBC) Count 16.8 thou/uL (4.8-10.8)
[2019-03-17 23:19] LABS: ALT (SGPT) 20 U/L (8-55); AST (SGOT) 21 U/L (5-34); Albumin 3.8 g/dL (3.4-4.8); Alkaline Phosphatase 81 U/L (40-110); Anion Gap 16 mmol/L (10-20); BUN (Urea Nitrogen) 47 mg/dL (8.4-25.7); Bilirubin, Total 0.4 mg/dL (0.2-1.2); Calc. Creatinine Clearance 0 mL/min (70-130); Carbon Dioxide 20 mmol/L (23-31); Chloride 101 mmol/L (98-107); Estimated GFR-MDRD 36; Globulin 3.5 g/dL (2.4-3.5); Glucose 207 mg/dL (83-110); Potassium 5.1 mmol/L (3.5-5.1); Protein, Total 7.3 g/dL (5.8-8.1); Sodium 132 mmol/L (136-145)
[2019-03-17] MEDS ORDERED: Acetaminophen 500 MG TAB ONE ×2 (23:19)
[2019-03-17 23:58] LABS: Bilirubin Negative (Negative); Blood, Urine Small (Negative); Clarity Slightly Cloudy (Clear); Glucose, Urine (Dipstick) Negative (Negative); Leukocyte Large (Negative); Nitrite Positive (Negative); Protein, Urine (Dipstick) 30 mg/dL (Neg-Trace); Urobilinogen 0.2 mg/dL (Less than 2)
[2019-03-17] MEDS ORDERED: Sodium Chloride 0.9% 250 ML 250 ML ONE (23:59)
[2019-03-18] LABS: Bacteria/HPF 2+ HPF (None Seen); RBC/HPF 0-3 HPF (0-3); Squamous Epithelial 0-3 HPF (0-3); WBC/HPF Greater Than 50 HPF (0-3)
--- NOTE | 2019-03-18 07:25 | RAD ---
XR Chest Pa Lat STANDARD History: Fever Comparison: Radiograph November 2018 Findings: Port catheter is similar. No confluent airspace consolidation, pneumothorax, or effusion. P ulmonary arteries are mildly dilated. Impression: No acute intrathoracic abnormality.
== END 2019-03-18 01:14 | disposition short-term general hospital (02) ==
LOC: NAV ERS 22:39
DX: N39.0 Urinary tract infection, site not specified (principal); L08.9 Local infection of the skin and subcutaneous tissue, unspecified; E11.40 Type 2 diabetes mellitus with diabetic neuropathy, unspecified; F32.9 Major depressive disorder, single episode, unspecified; F41.9 Anxiety disorder, unspecified; E66.9 Obesity, unspecified; I48.91 Unspecified atrial fibrillation; Z79.4 Long term (current) use of insulin; I10 Essential (primary) hypertension; G25.81 Restless legs syndrome; M19.90 Unspecified osteoarthritis, unspecified site; G47.30 Sleep apnea, unspecified; Z85.038 Personal history of other malignant neoplasm of large intestine; Z79.01 Long term (current) use of anticoagulants; Z79.899 Other long term (current) drug therapy
CPT/HCPCS: 36415; 51701; 71046; 80053; 81003; 81015; 83605; 85025; 86140; 87040; 87077; 87086; 87186; 87804; 96361; 96365; J3370; J7050

== ENCOUNTER 2019-03-28 19:19 | Inpatient (IN) | payer MEDICARE ==
[2019-03-28 19:29] VITALS: BMI 32.9
[2019-03-28] MEDS ORDERED: Sodium Chloride 0.9% 20 ML ONE (20:10)
[2019-03-28] MEDS ORDERED: Dextrose 5% in Water 1,000 ML IV PRN (21:46)
[2019-03-28] MEDS ORDERED: HumaLOG 300 UNITS/3 ML VIAL SC PRN (21:46)
[2019-03-28] MEDS ORDERED: Dextrose 50% Abboject 50 ML SYRINGE IVP PRN (21:46)
[2019-03-28] MEDS ORDERED: Metoprolol Tartrate 25 MG TAB PO SCH (22:00)
[2019-03-28] MEDS ORDERED: Senokot S 8.6-50 MG TAB PO SCH (22:00)
[2019-03-28] MEDS ORDERED: Gabapentin 300 MG CAP PO SCH (22:00)
[2019-03-28] MEDS ORDERED: Flecainide 50 MG TAB PO SCH (22:00)
[2019-03-28] MEDS ORDERED: Atorvastatin Calcium 20 MG TAB PO SCH (22:00)
[2019-03-28] MEDS ORDERED: Lantus 1000 UNITS/10 ML VIAL SC SCH (22:00)
[2019-03-28] MEDS ORDERED: Acetaminophen 325 MG TAB PO PRN (22:06)
[2019-03-28] MEDS ORDERED: Milk Of Magnesia 30 ML UDCUP PO PRN (22:08)
[2019-03-28] MEDS ORDERED: Ondansetron PF 4 MG/2 ML Vial SLOW IVP PRN (22:09)
[2019-03-28] MEDS ORDERED: Polyethylene Glycol 3350 17 GM Packet PO PRN (22:10)
[2019-03-28] MEDS: Meropenem 1 GM in Sodium Chloride 0.9% 100 ML IVPB SCH (22:14)
[2019-03-29] MEDS: HYDROcodone/Acetaminophen 5/325 mg Tablet PO PRN ×2 (01:01→23:15)
[2019-03-29] MEDS: Meropenem 1 GM in Sodium Chloride 0.9% 100 ML IVPB SCH ×3 (05:27→21:07)
[2019-03-29 05:38] LABS: #Basophils 0.1 thou/uL (0.0-0.2); #Eosinphils 0.4 thou/uL (0.0-0.7); #Lymphocytes 1.5 thou/uL (1.20-3.40); #Monocytes 0.9 thou/uL (0.11-0.59); #Neutrophils 7.6 thou/uL (1.40-6.50); %Basophils 0.9 % (0.0-1.0); %Eosinophils 4.2 % (0.0-10.0); %Lymphocytes 14.1 % (21.0-51.0); %Monocytes 8.5 % (0.0-10.0); %Neutrophils 72.4 % (42.0-75.0); Hemoglobin 7.5 g/dL (14.0-18.0); Mean Corpuscular HGB CONC 33.9 g/dL (32.0-36.0); Mean Corpuscular Volume 85.6 fL (78.0-98.0); Mean Platelet Volume 5.3 fL (7.4-10.4); Platelet Count 314 thou/uL (130-400); RBC Distribution Width 13.6 % (11.5-14.5); White Blood Cell (WBC) Count 10.5 thou/uL (4.8-10.8)
[2019-03-29 05:58] LABS: ALT (SGPT) 22 U/L (8-55); AST (SGOT) 24 U/L (5-34); Albumin 2.9 g/dL (3.4-4.8); Alkaline Phosphatase 88 U/L (40-110); Anion Gap 13 mmol/L (10-20); BUN (Urea Nitrogen) 34 mg/dL (8.4-25.7); Bilirubin, Total 0.2 mg/dL (0.2-1.2); Calc. Creatinine Clearance 70 mL/min (70-130); Calcium 8.6 mg/dL (7.8-10.44); Carbon Dioxide 24 mmol/L (23-31); Chloride 104 mmol/L (98-107); Estimated GFR-MDRD 48; Globulin 3.1 g/dL (2.4-3.5); Glucose 93 mg/dL (83-110); Sodium 137 mmol/L (136-145)
[2019-03-29 06:05] LABS: INR-International Normal Ratio 2.1
[2019-03-29] MEDS: Flecainide 50 MG TAB PO SCH ×2 (09:14→21:06)
[2019-03-29] MEDS: Gabapentin 300 MG CAP PO SCH ×3 (09:14→21:06)
[2019-03-29] MEDS: Metoprolol Tartrate 25 MG TAB PO SCH ×2 (09:15→21:07)
[2019-03-29] MEDS: Amlodipine 5 MG TAB PO SCH (09:15)
[2019-03-29] MEDS: Senokot S 8.6-50 MG TAB PO SCH ×2 (09:16→21:07)
[2019-03-29] MEDS: Lantus 1000 UNITS/10 ML VIAL SC SCH ×2 (09:18→21:06)
[2019-03-29] MEDS ORDERED: Dextrose 50% Abboject 50 ML SYRINGE SLOW IVP PRN (11:49)
[2019-03-29] MEDS ORDERED: Dextrose 5% in Water 1,000 ML IV PRN (11:49)
[2019-03-29] MEDS: HumaLOG 300 UNITS/3 ML VIAL SC PRN ×2 (12:02→17:37)
--- NOTE | 2019-03-29 13:06 | HP ---
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 BRIEF HISTORY: This is a pleasant, 73-year-old, male, who is well known to me from his previous admission here for right foot osteomyelitis, who was apparently doing well at home when he suddenly developed fever, chills, and weakness. He presented to the emergency room with a temperature of 102. He was transferred to [facility] in [place], where he was diagnosed with Pseudomonas sensitive to cefepime and fluoroquinolones. Since he is on antiarrhythmic medications, he was started on meropenem. He also grew another Pseudomonas, which was resistant to cefepime, and this was from his foot wound. This was sensitive to meropenem, and Dr. Lawson recommends course until April 07. We are using his MediPort for access. He is currently up on the side of his bed eating lunch. He denies any questions or concerns. He is wondering why he is on contact isolation, and I advised him that I do not see any reason for it, but we will check with his discharge summary and his old records. Again, I do not see anything for contact isolation, and he can be taken off. PAST MEDICAL HISTORY: 1. Right foot ulcer. 2. Resolved right foot osteomyelitis. 3. Pseudomonas urinary tract infection and pyelonephritis. 4. Paroxysmal atrial fibrillation, on anticoagulation. 5. Diabetes mellitus, type 2. 6. Hypertension. 7. Obstructive sleep apnea. 8. Metastatic colon cancer. 9. Restless legs syndrome. PAST SURGICAL HISTORY: 1. Partial colectomy and liver resection. 2. MediPort placement. 3. Cholecystectomy. 4. Ablation for atrial fibrillation. 5. Hernia repair. 6. Right fourth digit amputation and multiple right foot debridement. PSYCHOSOCIAL HISTORY: He is . Denies any tobacco, alcohol, or recreational drug abuse. Active and independent. FAMILY HISTORY: Noncontributory as the patient was adopted. REVIEW OF SYSTEMS: CARDIOVASCULAR: Denies any chest pain, shortness of breath, palpitations, PND, orthopnea, or pedal edema. RESPIRATORY: Denies any chronic cough, expectoration, or pleuritic-type chest pain. GASTROINTESTINAL: Denies any nausea, vomiting, diarrhea, constipation, hematemesis, melena, or hematochezia. GENITOURINARY: Does have occasional frequency and urgency. There is a questionable history of neurogenic bladder. HEENT: Denies any difficulty with speech, vision, hearing, or swallowing. SKIN: Denies any rash. MUSCULOSKELETAL: Right foot pain. MEDICATIONS: He has been transferred here on the following medications: 1. Tylenol 650 p.o. q.4 p.r.n. 2. [place] 5/325 one tablet q.6 p.r.n. 3. Amlodipine 2.5 mg daily. 4. Lipitor 20 mg daily. 5. Tambocor 100 mg b.i.d. 6. Neurontin 300 mg morning and afternoon and 600 mg at night. 7. Lantus 43 units in the morning and 20 at night. 8. Meropenem 1 g q.8 hours till April 07. 9. Metoprolol 12.5 mg b.i.d. 10. MiraLAX 17 g in 8 ounces of water daily. 11. Coumadin 5 mg daily. PHYSICAL EXAMINATION: GENERAL: This is a pleasant 73-year-old male, who is sitting on the side of his bed eating lunch. He denies any questions or concerns. He is alert, awake, and oriented x3. VITAL SIGNS: He is afebrile, heart rate 63, respirations 18, oxygen saturation 96% on room air, blood pressure 164/70. HEENT: Normocephalic and atraumatic. Pupils equally reactive to light and accommodation. Extraocular muscles intact. NECK: No JVD, thyromegaly, cervical lymphadenopathy, or throat exudates. No carotid bruits. CARDIOVASCULAR: S1 and S2 plus. Rate and rhythm, regular. RESPIRATORY: Normal vesicular breath sounds. Clear lung garza. ABDOMEN: Soft and nontender. Bowel sounds heard in all quadrants. EXTREMITIES: Without cyanosis or clubbing. Right foot with dressing. CENTRAL NERVOUS SYSTEM: Awake and responsive. Cranial nerves 2 through 12 intact. Peripheral neuropathy. Otherwise, nonfocal. LABORATORY DATA: Laboratory values done this morning show a white count of 10.5, H and H are 7.5 and 22.2. Sodium 137, potassium 4.0, BUN and creatinine are 34 and 1.44. INR is 2.1. IMPRESSION: 1. Resolving Pseudomonas urinary tract infection. 2. Pseudomonas from his wound as well. Both susceptible to meropenem. 3. Right foot chronic ulcer and resolved osteomyelitis. 4. Diabetes mellitus, type 2. 5. Peripheral neuropathy. 6. Atrial fibrillation. 7. Dyslipidemia. 8. Restless legs syndrome. 9. Obstructive sleep apnea. 10. Metastatic colon cancer. PLAN: 1. Continue current medications. 2. Meropenem till . 3. Weekly CBC, CMP, CRP, and sedimentation rate. 4. Wound care. 5. Reinforce compliance with CPAP. 6. 1800-calorie heart-healthy ADA diet. 7. Accu-Cheks with sliding scale coverage. 8. Monitor blood pressure and adjust medications as needed. 9. Deep venous thrombosis prophylaxis - the patient is on warfarin. 10. Decubitus precautions. 11. Stress ulcer prophylaxis. 12. Discussed with the patient and nursing in detail. All questions answered. Job ID: [id number]
[2019-03-29] MEDS: Warfarin Sodium 5 MG TAB PO SCH (19:05)
[2019-03-29] MEDS: Atorvastatin Calcium 20 MG TAB PO SCH (21:05)
[2019-03-30] MEDS: Meropenem 1 GM in Sodium Chloride 0.9% 100 ML IVPB SCH ×3 (05:29→21:19)
[2019-03-30] MEDS: Flecainide 50 MG TAB PO SCH ×2 (09:00→21:11)
[2019-03-30] MEDS: Gabapentin 300 MG CAP PO SCH ×3 (09:00→21:11)
[2019-03-30] MEDS: Amlodipine 5 MG TAB PO SCH (09:01)
[2019-03-30] MEDS: Metoprolol Tartrate 25 MG TAB PO SCH ×2 (09:02→21:12)
[2019-03-30] MEDS: Lantus 1000 UNITS/10 ML VIAL SC SCH ×2 (09:03→21:16)
[2019-03-30] MEDS: Senokot S 8.6-50 MG TAB PO SCH ×2 (09:03→21:11)
--- NOTE | 2019-03-30 14:00 | PRG ---
DATE OF SERVICE: 03/30/2019 SUBJECTIVE: Mr. Wright is resting in bed. Denies any complaints. Tolerating his medications and his therapy. He is off contact isolation. OBJECTIVE: VITAL SIGNS: He is afebrile. Heart rate 63, respirations 18, oxygen saturation 97% on room air, and blood pressure 141/63. CARDIOVASCULAR SYSTEM: S1 and S2 plus. RESPIRATORY SYSTEM: Normal vesicular breath sounds. ABDOMEN: Soft and nontender. Bowel sounds heard in all quadrants. EXTREMITIES: Without cyanosis or clubbing. Right foot with dressing. CENTRAL NERVOUS SYSTEM: Peripheral neuropathy, otherwise nonfocal. IMPRESSION: 1. Pseudomonas urinary tract infection. 2. Right foot osteomyelitis, resolved, but with persistent right foot wound. 3. Diabetes mellitus type 2. 4. Chronic kidney disease stage 4. 5. Hypertension. 6. Atrial fibrillation. 7. Deconditioning. 8. Anemia of chronic disease. PLAN: 1. Continue current medications including meropenem till April 07. 2. Physical therapy. 3. Accu-Cheks with sliding scale coverage. 4. An 1800-calorie heart healthy ADA and renal diet. 5. Monitor PT/INR. 6. Decubitus precaution. 7. Wound care. 8. Physical therapy. 9. Discussed with the patient and family in detail, also reinforced compliance with CPAP. Job ID: [id number]
[2019-03-30] MEDS: Warfarin Sodium 5 MG TAB PO SCH (16:58)
[2019-03-30] MEDS: Atorvastatin Calcium 20 MG TAB PO SCH (21:10)
[2019-03-31] MEDS: Meropenem 1 GM in Sodium Chloride 0.9% 100 ML IVPB SCH ×3 (05:25→21:18)
[2019-03-31] MEDS: Metoprolol Tartrate 25 MG TAB PO SCH ×2 (08:49→21:15)
[2019-03-31] MEDS: Senokot S 8.6-50 MG TAB PO SCH ×2 (08:49→21:17)
[2019-03-31] MEDS: Amlodipine 5 MG TAB PO SCH (08:50)
[2019-03-31] MEDS: Gabapentin 300 MG CAP PO SCH ×3 (08:50→21:15)
[2019-03-31] MEDS: Flecainide 50 MG TAB PO SCH ×2 (08:50→21:15)
[2019-03-31] MEDS: Lantus 1000 UNITS/10 ML VIAL SC SCH ×2 (08:51→21:21)
--- NOTE | 2019-03-31 11:59 | PRG ---
DATE OF SERVICE: 03/31/2019 SUBJECTIVE: Mr. Wright is doing well. Denies any complaints. Resting comfortably. Reviewed his old records and he did have an MRSA positive culture on the 03/21, so I guess we are going to follow hospital policy and do contact isolation, even though this most likely is colonization. OBJECTIVE: VITAL SIGNS: He is afebrile. Heart rate 66, respirations 16, oxygen saturation 96% on room air, and blood pressure 149/68. CARDIOVASCULAR SYSTEM: S1 and S2 plus. RESPIRATORY SYSTEM: Normal vesicular breath sounds. ABDOMEN: Soft and nontender. Bowel sounds heard in all quadrants. EXTREMITIES: Without cyanosis or clubbing. Right foot with dressing. CENTRAL NERVOUS SYSTEM: Peripheral neuropathy, otherwise nonfocal. IMPRESSION: 1. Pseudomonas urinary tract infection. 2. Pseudomonas and methicillin-resistant Staphylococcus aureus in his right foot wound. 3. Resolved right foot osteomyelitis. 4. Diabetes mellitus type 2. 5. Atrial fibrillation. 6. Hypertension. 7. Dyslipidemia. 8. Chronic kidney disease stage 3 to 4. PLAN: 1. Continue current medications. 2. An 1800 calorie heart healthy ADA diet. 3. Accu-Cheks with sliding scale coverage. 4. Continue IV antibiotics until April 07. 5. Wound care. 6. DVT prophylaxis-he is on warfarin. 7. Decubitus precautions. 8. Stress ulcer prophylaxis. 9. Physical therapy. 10. Contact isolation per hospital policy. 11. Dr. Victoria is on-call this weekend. Job ID: [id number]
[2019-03-31] MEDS: Warfarin Sodium 5 MG TAB PO SCH (16:23)
[2019-03-31] MEDS: Atorvastatin Calcium 20 MG TAB PO SCH (21:15)
[2019-04-01] MEDS: Meropenem 1 GM in Sodium Chloride 0.9% 100 ML IVPB SCH ×3 (05:36→21:20)
[2019-04-01] MEDS: Amlodipine 5 MG TAB PO SCH (08:18)
[2019-04-01] MEDS: Senokot S 8.6-50 MG TAB PO SCH ×2 (08:18→21:23)
[2019-04-01] MEDS: Gabapentin 300 MG CAP PO SCH ×3 (08:18→21:21)
[2019-04-01] MEDS: Flecainide 50 MG TAB PO SCH ×2 (08:19→21:23)
[2019-04-01] MEDS: Metoprolol Tartrate 25 MG TAB PO SCH ×2 (08:19→21:22)
[2019-04-01] MEDS: Lantus 1000 UNITS/10 ML VIAL SC SCH ×2 (08:20→21:21)
[2019-04-01] MEDS: Warfarin Sodium 5 MG TAB PO SCH (17:06)
[2019-04-01] MEDS: Atorvastatin Calcium 20 MG TAB PO SCH (21:21)
[2019-04-02] MEDS: Meropenem 1 GM in Sodium Chloride 0.9% 100 ML IVPB SCH ×3 (05:30→21:00)
[2019-04-02 05:33] LABS: INR-International Normal Ratio 1.6; Prothrombin Time 18.9 SEC (12.0-14.7)
[2019-04-02] MEDS: Lantus 1000 UNITS/10 ML VIAL SC SCH ×2 (09:33→21:01)
[2019-04-02] MEDS: Senokot S 8.6-50 MG TAB PO SCH ×2 (09:51→21:00)
[2019-04-02] MEDS: Gabapentin 300 MG CAP PO SCH ×3 (09:51→20:59)
[2019-04-02] MEDS: Amlodipine 5 MG TAB PO SCH (09:51)
[2019-04-02] MEDS: Flecainide 50 MG TAB PO SCH ×2 (09:51→20:59)
[2019-04-02] MEDS: Metoprolol Tartrate 25 MG TAB PO SCH ×2 (09:51→20:59)
[2019-04-02] MEDS: HumaLOG 300 UNITS/3 ML VIAL SC PRN (17:25)
[2019-04-02] MEDS: Warfarin Sodium 5 MG TAB PO SCH (17:25)
--- NOTE | 2019-04-02 20:58 | PRG ---
DATE OF SERVICE: 04/02/[address] Ariana Jean. SUBJECTIVE: The patient is lying in bed resting, only complaints of poor food and inability to eat. He is tolerating his IV antibiotics which he is taking for Pseudomonas urinary tract infection, but he is also in isolation for an MRSA and colonization of his right foot, although he has been found not to have osteomyelitis. He will continue on IV antibiotics until April 07. OBJECTIVE: VITAL SIGNS: Temperature 97.3, pulse 70, respirations 18, O2 sats 97% on room air, blood pressure 150/66. LUNGS: Clear. CARDIAC: Irregular rhythm. Most recent PT/INR 2.1. ABDOMEN: Soft and nontender. EXTREMITIES: Right foot is dressed and bandaged. ASSESSMENT: 1. Resolving Pseudomonas urinary tract infection, on IV antibiotics until April 07. 2. Methicillin-resistant Staphylococcus aureus colonization of his right foot wound with no evidence of osteomyelitis. 3. Diabetes, type 2, controlled to goal. 4. Atrial fibrillation with rate controlled, on adequate anticoagulation. PT/INR 2.1. 5. Chronic kidney disease, stage 3 to 4, stable with most recent creatinine 1.44 and GFR of 48. PLAN: 1. Continue IV meropenem until April 07. 2. Continue Accu-Cheks to monitor and titrate and control diabetes. 3. Continue warfarin 5 mg daily. 4. Continue Lantus 43 units morning, 20 units at night, mild sliding scale. Job ID: [id number]
[2019-04-02] MEDS: Atorvastatin Calcium 20 MG TAB PO SCH (21:00)
--- NOTE | 2019-04-02 21:02 | PRG ---
DATE OF SERVICE: 04/02/2019 SUBJECTIVE: The patient is lying in bed, sleeping, resting. No complaints. Nurses have no complaints. OBJECTIVE: VITAL SIGNS: Temperature 97.6, pulse 71, respirations 18, O2 sats 96% on room air, blood pressure 145/70. LUNGS: Clear. CARDIAC: Irregular rhythm. ABDOMEN: Soft and nontender. SKIN AND EXTREMITIES: Bandaged right foot. ASSESSMENT: 1. Resolving Pseudomonas urinary tract infection, on IV meropenem until April 07. 2. Stable type 2 diabetes, controlled to goal. 3. Stable atrial fibrillation with rate control and anticoagulation, now in apparent sinus rhythm. 4. Cancer of the colon with metastasis to liver, waiting resolution of infection to start on the current chemotherapy. Dr. Jean to be back tonight at 9 o'clock. Job ID: [id number]
[2019-04-03 05:39] LABS: INR-International Normal Ratio 1.7; Prothrombin Time 19.6 SEC (12.0-14.7)
[2019-04-03] MEDS: Meropenem 1 GM in Sodium Chloride 0.9% 100 ML IVPB SCH ×3 (06:25→21:57)
[2019-04-03] MEDS: HumaLOG 300 UNITS/3 ML VIAL SC PRN ×2 (06:32→12:51)
[2019-04-03] MEDS: Flecainide 50 MG TAB PO SCH ×2 (09:16→21:52)
[2019-04-03] MEDS: Gabapentin 300 MG CAP PO SCH ×3 (09:19→21:53)
[2019-04-03] MEDS: Metoprolol Tartrate 25 MG TAB PO SCH ×2 (09:19→21:52)
[2019-04-03] MEDS: Amlodipine 5 MG TAB PO SCH (09:20)
[2019-04-03] MEDS: Lantus 1000 UNITS/10 ML VIAL SC SCH ×2 (09:31→21:53)
[2019-04-03] MEDS: Senokot S 8.6-50 MG TAB PO SCH ×2 (09:33→21:52)
[2019-04-03] MEDS ORDERED: Warfarin Sodium 5 MG TAB PO SCH ×2 (13:45→17:00)
--- NOTE | 2019-04-03 14:12 | PRG ---
DATE OF SERVICE: 04/03/2019 SUBJECTIVE: Mr. Wright is resting in bed and denies any concerns. He is tolerating his antibiotics. Denies any fever or chills. No family at bedside. Discussed with nursing. OBJECTIVE: VITAL SIGNS: He is afebrile. Heart rate is 66, respirations 18, oxygen saturation 96% on room air, blood pressure 144/69. CARDIOVASCULAR: S1 and S2 plus. RESPIRATORY: Normal vesicular breath sounds. ABDOMEN: Soft and nontender. Bowel sounds heard in all quadrants. EXTREMITIES: Without cyanosis or clubbing. Right foot with dressing. CENTRAL NERVOUS SYSTEM: Peripheral neuropathy. Otherwise, nonfocal. LABORATORY DATA: INR is 1.7. IMPRESSION: 1. Pseudomonas urinary tract infection. 2. Pseudomonas in his right foot wound. 3. Resolved osteomyelitis. 4. Diabetes mellitus, type 2. 5. Hypertension. 6. Dyslipidemia. 7. Chronic kidney disease, stage 3 to 4. 8. Atrial fibrillation. PLAN: 1. Continue current medications. 2. Adjust warfarin dose. 3. 1800-calorie heart-healthy ADA diet. 4. Continue antibiotics. 5. DVT prophylaxis. He is on warfarin, adjust dosage. 6. Decubitus precaution. 7. Stress ulcer prophylaxis. 8. Wound care. 9. Therapy. 10. Routine laboratory values. Job ID: [id number]
[2019-04-03] MEDS: Atorvastatin Calcium 20 MG TAB PO SCH (21:53)
[2019-04-03] MEDS: HYDROcodone/Acetaminophen 5/325 mg Tablet PO PRN (22:00)
[2019-04-04] MEDS: Meropenem 1 GM in Sodium Chloride 0.9% 100 ML IVPB SCH ×3 (05:43→21:45)
[2019-04-04 06:01] LABS: INR-International Normal Ratio 1.6; Prothrombin Time 18.6 SEC (12.0-14.7)
[2019-04-04] MEDS: Senokot S 8.6-50 MG TAB PO SCH ×2 (09:33→21:49)
[2019-04-04] MEDS: Flecainide 50 MG TAB PO SCH ×2 (09:33→21:46)
[2019-04-04] MEDS: Metoprolol Tartrate 25 MG TAB PO SCH ×2 (09:34→21:47)
[2019-04-04] MEDS: Gabapentin 300 MG CAP PO SCH ×3 (09:34→21:45)
[2019-04-04] MEDS: Lantus 1000 UNITS/10 ML VIAL SC SCH ×2 (09:35→21:48)
[2019-04-04] MEDS: Amlodipine 5 MG TAB PO SCH (09:37)
[2019-04-04] MEDS: HumaLOG 300 UNITS/3 ML VIAL SC PRN (12:32)
[2019-04-04] MEDS ORDERED: Warfarin Sodium 5 MG TAB PO SCH (13:15)
--- NOTE | 2019-04-04 13:34 | PRG ---
DATE OF SERVICE: 04/04/2019 SUBJECTIVE: Mr. Wright is up on the side of his bed and just finished lunch. He denies any questions or concerns. He is happy with his progress. He is tolerating his antibiotics. Denies any fever or chills. No family at bedside. OBJECTIVE: VITAL SIGNS: He is afebrile. Heart rate 73, respirations 18, oxygen saturation 99% on room air, blood pressure 141/63. CARDIOVASCULAR SYSTEM: S1 and S2 plus. RESPIRATORY SYSTEM: Normal vesicular breath sounds. ABDOMEN: Soft, nontender. Bowel sounds heard in all quadrants. EXTREMITIES: Without cyanosis or clubbing. Right foot with dressing. IMPRESSION: 1. Pseudomonas urinary tract infection. 2. Right foot osteomyelitis, has completed IV antibiotic course. 3. Peripheral neuropathy. 4. Diabetes mellitus, type 2. 5. Hypertension. 6. Dyslipidemia. 7. Atrial fibrillation. PLAN: 1. Continue current medications. 2. Nutritional support with 1800-calorie heart healthy ADA diet. 3. Accu-Cheks with sliding scale coverage. 4. DVT prophylaxis with warfarin. 5. Decubitus precautions. 6. Stress ulcer prophylaxis. 7. Routine laboratory values. 8. Wound care. 9. Pharmacy to manage warfarin dosing. Job ID: [id number]
[2019-04-04] MEDS: Warfarin Sodium 5 MG TAB PO SCH (17:39)
[2019-04-04] MEDS: HYDROcodone/Acetaminophen 5/325 mg Tablet PO PRN (21:46)
[2019-04-04] MEDS: Atorvastatin Calcium 20 MG TAB PO SCH (21:47)
[2019-04-05 05:30] LABS: INR-International Normal Ratio 1.8; Prothrombin Time 20.8 SEC (12.0-14.7)
[2019-04-05] MEDS: Meropenem 1 GM in Sodium Chloride 0.9% 100 ML IVPB SCH ×3 (05:37→21:02)
[2019-04-05] MEDS: Amlodipine 5 MG TAB PO SCH (09:25)
[2019-04-05] MEDS: Metoprolol Tartrate 25 MG TAB PO SCH ×2 (09:26→21:03)
[2019-04-05] MEDS: Flecainide 50 MG TAB PO SCH ×2 (09:26→21:03)
[2019-04-05] MEDS: Gabapentin 300 MG CAP PO SCH ×3 (09:26→21:02)
[2019-04-05] MEDS: Lantus 1000 UNITS/10 ML VIAL SC SCH ×2 (09:27→21:04)
[2019-04-05] MEDS: Senokot S 8.6-50 MG TAB PO SCH ×2 (09:29→20:59)
--- NOTE | 2019-04-05 12:58 | PRG ---
DATE OF SERVICE: 04/05/2019 SUBJECTIVE: Mr. Wright is resting in bed after lunch. He denies any questions or concerns. He is happy with his progress. He is tolerating his antibiotics. OBJECTIVE: VITAL SIGNS: He is afebrile. Heart rate is 67, respirations 16, oxygen saturation 98% on room air. Blood pressure was elevated this morning for some reason. I asked them to recheck it, and it is currently now 134/72. CARDIOVASCULAR: S1 and S2 plus. RESPIRATORY: Normal vesicular breath sounds. ABDOMEN: Soft and nontender. Bowel sounds heard in all quadrants. EXTREMITIES: Without cyanosis or clubbing. Right foot with dressing. IMPRESSION: 1. Pseudomonas urinary tract infection. 2. Right foot osteomyelitis, completed antibiotic regimen. 3. Diabetes mellitus, type 2. 4. Peripheral neuropathy. 5. Atrial fibrillation. 6. Chronic kidney disease, stage 3 to 4. 7. Colon cancer. PLAN: 1. Continue current medications. 2. Recheck CBC, CMP, CRP, and sedimentation rate tomorrow. 3. 1800-calorie heart-healthy ADA renal diet. 4. Accu-Cheks with sliding scale coverage. 5. DVT prophylaxis - the patient is on warfarin, and his INR is 1.8. 6. Wound care. 7. Physical therapy. Discussed with the patient. All questions answered. Job ID: [id number]
[2019-04-05] MEDS: Warfarin Sodium 5 MG TAB PO SCH (17:10)
[2019-04-05] MEDS: Atorvastatin Calcium 20 MG TAB PO SCH (21:03)
[2019-04-06 05:30] LABS: #Basophils 0.1 thou/uL (0.0-0.2); #Eosinphils 0.4 thou/uL (0.0-0.7); #Lymphocytes 1.2 thou/uL (1.20-3.40); #Monocytes 1.1 thou/uL (0.11-0.59); #Neutrophils 5.6 thou/uL (1.40-6.50); %Basophils 1.6 % (0.0-1.0); %Eosinophils 5.1 % (0.0-10.0); %Lymphocytes 14.2 % (21.0-51.0); %Monocytes 13.2 % (0.0-10.0); %Neutrophils 65.9 % (42.0-75.0); Mean Corpuscular Hemoglobin 28.1 pg (27.0-31.0); Mean Corpuscular Volume 87.9 fL (78.0-98.0); Mean Platelet Volume 6.7 fL (7.4-10.4); Platelet Count 323 thou/uL (130-400); RBC Distribution Width 14.6 % (11.5-14.5); Red Blood Cell (RBC) Count 3.21 mill/uL (4.70-6.10); White Blood Cell (WBC) Count 8.5 thou/uL (4.8-10.8)
[2019-04-06 05:38] LABS: INR-International Normal Ratio 2.2
[2019-04-06 05:47] LABS: ALT (SGPT) 17 U/L (8-55); AST (SGOT) 19 U/L (5-34); Albumin 3.4 g/dL (3.4-4.8); Alkaline Phosphatase 93 U/L (40-110); Anion Gap 15 mmol/L (10-20); BUN (Urea Nitrogen) 51 mg/dL (8.4-25.7); Bilirubin, Total 0.2 mg/dL (0.2-1.2); CRP (Inflammatory) 0.85 mg/dL (= or < 0.5); Calc. Creatinine Clearance 53 mL/min (70-130); Calcium 9.3 mg/dL (7.8-10.44); Carbon Dioxide 20 mmol/L (23-31); Chloride 107 mmol/L (98-107); Estimated GFR-MDRD 34; Globulin 3.3 g/dL (2.4-3.5); Glucose 159 mg/dL (83-110); Potassium 4.6 mmol/L (3.5-5.1); Protein, Total 6.7 g/dL (5.8-8.1); Sodium 137 mmol/L (136-145)
[2019-04-06] MEDS: Meropenem 1 GM in Sodium Chloride 0.9% 100 ML IVPB SCH ×3 (06:06→21:19)
[2019-04-06] MEDS: Lantus 1000 UNITS/10 ML VIAL SC SCH ×2 (08:47→21:20)
[2019-04-06] MEDS: Amlodipine 5 MG TAB PO SCH (08:47)
[2019-04-06] MEDS: Metoprolol Tartrate 25 MG TAB PO SCH ×2 (08:48→21:18)
[2019-04-06] MEDS: Gabapentin 300 MG CAP PO SCH ×3 (08:48→21:17)
[2019-04-06] MEDS: Flecainide 50 MG TAB PO SCH ×2 (08:48→21:18)
[2019-04-06] MEDS: Senokot S 8.6-50 MG TAB PO SCH ×2 (08:49→21:19)
[2019-04-06] MEDS: HumaLOG 300 UNITS/3 ML VIAL SC PRN ×2 (11:58→17:16)
--- NOTE | 2019-04-06 14:04 | PRG ---
DATE OF SERVICE: 04/06/2019 SUBJECTIVE: Mr. Wright is resting in bed and denies any concerns. No family at bedside. Discussed with nursing. OBJECTIVE: VITAL SIGNS: He is afebrile. Heart rate 68, respirations 16, oxygen saturation 100% on room air, blood pressure 137/65. CARDIOVASCULAR: S1 and S2 plus. RESPIRATORY: Normal vesicular breath sounds heard in all lung garza. ABDOMEN: Soft and nontender. Bowel sounds heard in all quadrants. EXTREMITIES: Without cyanosis or clubbing. Right foot with dressing. CENTRAL NERVOUS SYSTEM: Peripheral neuropathy. Otherwise, nonfocal. LABORATORY VALUES: Show a white count of 8.5, H and H are 9 and 28.2 with a sedimentation rate of 52. INR is up to 2.2. Chemistry; sodium 137, potassium 4.6, BUN and creatinine are 51 and 1.93. Blood sugars are 191, 169, and 200. IMPRESSION: 1. Pseudomonas urinary tract infection, resolving. 2. Right foot diabetic wound. 3. Diabetes mellitus, type 2 with peripheral neuropathy. 4. Atrial fibrillation. 5. Colon cancer. 6. Chronic kidney disease, stage 3 to 4. 7. Hypertension. 8. Dyslipidemia. PLAN: 1. Continue current medications. 2. Finish meropenem tomorrow. 3. Resume Keflex 500 mg b.i.d., possibly for lifelong, but I advised him to follow up with Dr. Lawson. 4. 1800-calorie heart-healthy ADA diet. 5. Wound care. 6. Physical therapy. 7. DVT prophylaxis - he is on warfarin and is therapeutic. 8. Discussed with the patient and nursing in detail. All questions answered. Job ID: [id number]
[2019-04-06] MEDS: Warfarin Sodium 5 MG TAB PO SCH (17:15)
[2019-04-06] MEDS: Atorvastatin Calcium 20 MG TAB PO SCH (21:18)
[2019-04-07] MEDS: Meropenem 1 GM in Sodium Chloride 0.9% 100 ML IVPB SCH ×3 (05:37→21:03)
--- NOTE | 2019-04-07 09:26 | PRG ---
DATE OF SERVICE: 04/07/2019 SUBJECTIVE: Mr. Wright is resting in bed. He states that he feels better than yesterday. He had a decent night sleep. No pain. Tolerating his antibiotics. Anticipated discharge is tomorrow. I reviewed medications with him and no medications have been changed. He just needs a prescription for Keflex for his antibiotic suppressive therapy, which I will send in to [facility], it is 500 mg b.i.d. I told him I will send it in for a month and then, he can get further prescriptions from his PCP. No other questions or concerns. OBJECTIVE: VITAL SIGNS: He is afebrile. Heart rate 68, respirations 18, oxygen saturation 96% on room air, and blood pressure 144/69. CARDIOVASCULAR SYSTEM: S1 and S2 plus. RESPIRATORY SYSTEM: Normal vesicular breath sounds. ABDOMEN: Soft and nontender. Bowel sounds heard in all quadrants. EXTREMITIES: Without cyanosis or clubbing. Right foot with dressing. CENTRAL NERVOUS SYSTEM: Peripheral neuropathy, otherwise nonfocal. IMPRESSION: 1. Resolving Pseudomonas urinary tract infection. 2. Right foot diabetic wound. 3. Resolved osteomyelitis, but needs suppressive therapy. 4. Diabetes mellitus type 2. 5. Hypertension. 6. Dyslipidemia. 7. Atrial fibrillation. 8. Colon cancer. 9. Chronic kidney disease, stage 4. PLAN: 1. Continue current medications. 2. Finish meropenem after today. 3. Start Keflex 500 mg b.i.d. from tomorrow. 4. Heart healthy 1800 calorie ADA diet. 5. Monitor heart rate and rhythm. 6. Continue warfarin per his usual home dose, which is 5 mg for 5 days and then, 7.5 mg for two days. 7. Follow up with his PCP. 8. All questions answered. Job ID: [id number]
[2019-04-07] MEDS: Flecainide 50 MG TAB PO SCH ×2 (09:53→21:07)
[2019-04-07] MEDS: Senokot S 8.6-50 MG TAB PO SCH ×2 (09:53→21:09)
[2019-04-07] MEDS: Metoprolol Tartrate 25 MG TAB PO SCH ×2 (09:54→21:07)
[2019-04-07] MEDS: Gabapentin 300 MG CAP PO SCH ×3 (09:54→21:07)
[2019-04-07] MEDS: Amlodipine 5 MG TAB PO SCH (09:55)
[2019-04-07] MEDS: Lantus 1000 UNITS/10 ML VIAL SC SCH ×2 (09:57→21:08)
[2019-04-07] MEDS: HumaLOG 300 UNITS/3 ML VIAL SC PRN (12:47)
[2019-04-07] MEDS: Warfarin Sodium 5 MG TAB PO SCH (18:04)
[2019-04-07] MEDS: Atorvastatin Calcium 20 MG TAB PO SCH (21:08)
[2019-04-08] MEDS: HYDROcodone/Acetaminophen 5/325 mg Tablet PO PRN (01:10)
[2019-04-08 05:35] LABS: INR-International Normal Ratio 2.5; Prothrombin Time 27.2 SEC (12.0-14.7)
[2019-04-08] MEDS: Senokot S 8.6-50 MG TAB PO SCH (08:39)
[2019-04-08] MEDS: Amlodipine 5 MG TAB PO SCH (08:41)
[2019-04-08] MEDS: Gabapentin 300 MG CAP PO SCH (08:42)
[2019-04-08] MEDS: Metoprolol Tartrate 25 MG TAB PO SCH (08:42)
[2019-04-08] MEDS: Flecainide 50 MG TAB PO SCH (08:43)
[2019-04-08] MEDS: Lantus 1000 UNITS/10 ML VIAL SC SCH (08:48)
[2019-04-08] MEDS ORDERED: Cephalexin 500 MG CAP PO SCH (09:00)
[2019-04-08 12:51] VITALS: BP 125/62; TEMP 98.6
--- NOTE | 2019-04-09 00:02 | DIS ---
DATE OF ADMISSION: 03/28/2019 DATE OF DISCHARGE: 04/08/2019 PRINCIPAL DIAGNOSIS: Pseudomonas urinary tract infection, requiring IV antibiotics. SECONDARY DIAGNOSES: 1. Diabetes mellitus type 2 with peripheral neuropathy. 2. Chronic kidney disease, stage 3 to 4. 3. Hypertension. 4. Dyslipidemia. 5. Atrial fibrillation. 6. Colon cancer. 7. Peripheral vascular disease. 8. Right foot diabetic ulcer. 9. Resolved right foot osteomyelitis. COMPLICATIONS: None. ADVERSE REACTIONS: None. PROCEDURES: None. CONSULTATIONS: Physical Therapy and Occupational Therapy. HOSPITAL COURSE: The patient was admitted on 03/28 as a transfer from [facility] in [place] with Pseudomonas UTI, requiring IV meropenem till April 08. He also has a right foot diabetic ulcer and osteomyelitis, which was just treated with IV antibiotics. Dr. Lawson has recommended Keflex 500 mg b.i.d. indefinite. He did finish the Keflex 500 mg t.i.d. for 2 weeks. So, the prescription for Keflex 500 b.i.d. has been sent to [facility]. He has all his other medications at home. He apparently needs some pain medications. He was taking hydrocodone as needed and I advised him that I unfortunately cannot send it electronic from the hospital here and he will need to contact his pain management doctor or his primary physician for the pain medication and he understood. PHYSICAL EXAMINATION: VITAL SIGNS: On the day of discharge, he is afebrile, heart rate 60, respirations 15, oxygen saturation 97% on room air, blood pressure 127/59. HEENT: Normocephalic, atraumatic. Pupils equally reactive to light and accommodation. NECK: No JVD, thyromegaly, cervical lymphadenopathy, or throat exudates. No carotid bruits. CARDIOVASCULAR: S1 and S2 plus. RESPIRATORY: Normal vesicular breath sounds. ABDOMEN: Soft and nontender. Bowel sounds heard in all quadrants. EXTREMITIES: Without cyanosis or clubbing. Right foot with dressing. CENTRAL NERVOUS SYSTEM: Peripheral neuropathy, otherwise nonfocal. LABORATORY DATA: His blood sugars have been 107, 198, 110, 185, and 131. DISCHARGE MEDICATIONS: As stated, Keflex 500 mg b.i.d. I have sent in a month's supply. He needs to follow up with Dr. Lawson and get the rest of the prescription because he is supposed to be on it for the rest of his life. Other medications are; 1. Tylenol 650 q.4h p.r.n. 2. Amlodipine 2.5 mg daily. 3. Atorvastatin 20 mg daily. 4. Flecainide 100 mg b.i.d. 5. Gabapentin 600 mg at night and 300 mg morning and noon. 6. Lantus 20 units at bedtime and 43 units in the morning. 7. Milk of magnesia 30 mL daily as needed. 8. Metoprolol 12.5 mg b.i.d. 9. MiraLAX 17 g in 8 ounces of water daily. 10. Senokot-S one tab b.i.d. 11. Warfarin 5 mg daily for 5 days, then 7.5 mg daily for the other two days. DISCHARGE INSTRUCTIONS: 1800 calorie heart healthy ADA Coumadin prudent diet. Orthopedic restrictions for activity. He is to follow up with his PCP and Dr. Lawson in 7 to 10 days. He is to call us with any questions or concerns. For full details, please see chart. Prescriptions sent to [facility]. Total time spent on this discharge, 35 minutes. Job ID: [id number]
== END 2019-04-08 13:35 | disposition home or self-care (01) | DRG 690 ==
LOC: NAV ACUTE 19:19
PROVIDERS: ADMIT Internal Medicine; ATTEND Internal Medicine
DX: N39.0 Urinary tract infection, site not specified (principal); M86.8X7 Other osteomyelitis, ankle and foot; C18.9 Malignant neoplasm of colon, unspecified; N18.4 Chronic kidney disease, stage 4 (severe); C78.7 Secondary malignant neoplasm of liver and intrahepatic bile duct; G25.81 Restless legs syndrome; Z90.49 Acquired absence of other specified parts of digestive tract; Z79.899 Other long term (current) drug therapy; E11.69 Type 2 diabetes mellitus with other specified complication; E11.42 Type 2 diabetes mellitus with diabetic polyneuropathy; G47.33 Obstructive sleep apnea (adult) (pediatric); B96.5 Pseudomonas (aeruginosa) (mallei) (pseudomallei) as the cause of diseases classified elsewhere; I12.9 Hypertensive chronic kidney disease with stage 1 through stage 4 chronic kidney disease, or unspecified chronic kidney disease; E78.5 Hyperlipidemia, unspecified; E11.621 Type 2 diabetes mellitus with foot ulcer; E11.22 Type 2 diabetes mellitus with diabetic chronic kidney disease; R53.81 Other malaise; B95.62 Methicillin resistant Staphylococcus aureus infection as the cause of diseases classified elsewhere; I48.0 Paroxysmal atrial fibrillation
CPT/HCPCS: 36415; 36416; 80053; 85025; 85610; 85652; 86140; 97602; J1815; J2185; J2405; J3490

== ENCOUNTER 2019-06-10 20:54 | Emergency (ER) | payer MEDICARE ==
[2019-06-10] MEDS ORDERED: Bisacodyl 10 MG SUPP ONE (21:25)
[2019-06-10] MEDS ORDERED: Sodium Chloride 0.9% 1,000 ML ONE (21:47)
[2019-06-10 21:59] LABS: Bilirubin Negative (Negative); Blood, Urine Small (Negative); Clarity Cloudy (Clear); Glucose, Urine (Dipstick) 250 mg/dL (Negative); Leukocyte Large (Negative); Nitrite Negative (Negative); Protein, Urine (Dipstick) 30 mg/dL (Neg-Trace); Urobilinogen 0.2 mg/dL (Less than 2)
[2019-06-10 22:01] LABS: Bacteria/HPF 3+ HPF (None Seen); Squamous Epithelial 0-3 HPF (0-3); WBC/HPF Greater Than 50 HPF (0-3)
[2019-06-10 22:06] LABS: #Basophils 0.1 thou/uL (0.0-0.2); #Eosinphils 0.1 thou/uL (0.0-0.7); #Lymphocytes 0.6 thou/uL (1.20-3.40); #Monocytes 0.6 thou/uL (0.11-0.59); #Neutrophils 8.4 thou/uL (1.40-6.50); %Basophils 0.7 % (0.0-1.0); %Eosinophils 0.7 % (0.0-10.0); %Lymphocytes 5.8 % (21.0-51.0); %Monocytes 6.1 % (0.0-10.0); %Neutrophils 86.7 % (42.0-75.0); ALT (SGPT) 52 U/L (8-55); AST (SGOT) 37 U/L (5-34); Albumin 4.1 g/dL (3.4-4.8); Alkaline Phosphatase 86 U/L (40-110); Anion Gap 16 mmol/L (10-20); BUN (Urea Nitrogen) 41 mg/dL (8.4-25.7); Bilirubin, Total 0.6 mg/dL (0.2-1.2); Calc. Creatinine Clearance 0 mL/min (70-130); Calcium 9.2 mg/dL (7.8-10.44); Carbon Dioxide 20 mmol/L (23-31); Chloride 100 mmol/L (98-107); Estimated GFR-MDRD 43; Globulin 3.5 g/dL (2.4-3.5); Glucose 356 mg/dL (83-110); Hemoglobin 10.4 g/dL (14.0-18.0); Mean Corpuscular HGB CONC 33.2 g/dL (32.0-36.0); Mean Corpuscular Hemoglobin 28.8 pg (27.0-31.0); Mean Corpuscular Volume 86.7 fL (78.0-98.0); Mean Platelet Volume 7.8 fL (7.4-10.4); Platelet Count 223 thou/uL (130-400); Potassium 4.4 mmol/L (3.5-5.1); Protein, Total 7.6 g/dL (5.8-8.1); RBC Distribution Width 14.4 % (11.5-14.5); Sodium 132 mmol/L (136-145); White Blood Cell (WBC) Count 9.7 thou/uL (4.8-10.8)
[2019-06-10] MEDS ORDERED: Fleet Enema 133 ML BOT ONE (22:48)
[2019-06-10] MEDS ORDERED: Morphine 4 MG/ML VIAL ONE (22:53)
--- NOTE | 2019-06-10 23:45 | RAD ---
KUB AND UPRIGHT AND PA CHEST: 06/10/19 HISTORY: Abdominal pain. The bowel gas pattern is nonobstructive. A small amount of stool in the rectum region. No free air. V ascular calcifications are seen. Arthritic changes of the spine and hips are noted. PA CHEST: Heart size is within normal limits. There are atherosclerotic changes of the aorta. Right sided Medip ort catheter is present. IMPRESSION: No acute findings. POS: MONIQUE
[2019-06-11] MEDS ORDERED: Nitrofurantoin Macrocrystal 50 MG CAP ONE (01:15)
[2019-06-11] MEDS ORDERED: traMADol HCl 50 MG TAB ONE (01:15)
== END 2019-06-11 01:30 | disposition home or self-care (01) ==
LOC: NAV ERS 20:54
DX: K59.00 Constipation, unspecified (principal); N39.0 Urinary tract infection, site not specified; I49.9 Cardiac arrhythmia, unspecified; E66.9 Obesity, unspecified; I48.91 Unspecified atrial fibrillation; I10 Essential (primary) hypertension; E11.40 Type 2 diabetes mellitus with diabetic neuropathy, unspecified; G47.30 Sleep apnea, unspecified; M19.90 Unspecified osteoarthritis, unspecified site; F41.9 Anxiety disorder, unspecified; F32.9 Major depressive disorder, single episode, unspecified; Z79.899 Other long term (current) drug therapy; Z79.4 Long term (current) use of insulin; Z85.038 Personal history of other malignant neoplasm of large intestine
CPT/HCPCS: 51703; 74022; 80053; 82274; 85025; 87077; 87086; 87186; 96361; 96374; 96376; 99283; J2270; 81003; 81015; J7050

== ENCOUNTER 2020-03-27 00:31 | Emergency (ER) | payer MEDICARE ==
[2020-03-27 01:03] LABS: #Basophils 0.1 thou/uL (0.0-0.2); #Eosinphils 0.1 thou/uL (0.0-0.7); #Lymphocytes 0.8 thou/uL (1.20-3.40); #Monocytes 0.4 thou/uL (0.11-0.59); #Neutrophils 3.2 thou/uL (1.40-6.50); %Basophils 1.4 % (0.0-1.0); %Eosinophils 2.3 % (0.0-10.0); %Lymphocytes 17.8 % (21.0-51.0); %Monocytes 7.9 % (0.0-10.0); %Neutrophils 70.7 % (42.0-75.0); Hemoglobin 10.4 g/dL (14.0-18.0); Mean Corpuscular HGB CONC 32.8 g/dL (32.0-36.0); Mean Corpuscular Hemoglobin 32.5 pg (27.0-31.0); Mean Platelet Volume 6.8 fL (7.4-10.4); Platelet Count 155 thou/uL (130-400); RBC Distribution Width 12.8 % (11.5-14.5); Red Blood Cell (RBC) Count 3.19 mill/uL (4.70-6.10); White Blood Cell (WBC) Count 4.5 thou/uL (4.8-10.8)
[2020-03-27] MEDS ORDERED: Nitroglycerin 2% Ointment 1 INCH/1 GM Packet ONE (01:05)
[2020-03-27] MEDS ORDERED: Aspirin Chewable 81 MG TAB ONE (01:05)
[2020-03-27 01:22] LABS: ALT (SGPT) 18 U/L (8-55); AST (SGOT) 21 U/L (5-34); Albumin 3.5 g/dL (3.4-4.8); Alkaline Phosphatase 124 U/L (40-110); Anion Gap 16 mmol/L (10-20); BUN (Urea Nitrogen) 25 mg/dL (8.4-25.7); Bilirubin, Total 0.3 mg/dL (0.2-1.2); CK (CPK) 106 U/L (30-200); Calc. Creatinine Clearance 0 mL/min (70-130); Calcium 8.9 mg/dL (7.8-10.44); Carbon Dioxide 21 mmol/L (23-31); Chloride 95 mmol/L (98-107); Globulin 3.2 g/dL (2.4-3.5); Lipase 11 U/L (8-78); Potassium 4.4 mmol/L (3.5-5.1); Protein, Total 6.7 g/dL (5.8-8.1); Sodium 128 mmol/L (136-145)
[2020-03-27 01:33] LABS: Glucose 604 mg/dL (83-110)
[2020-03-27] MEDS ORDERED: Sodium Chloride 0.9% 2,000 ML ONE (02:13)
[2020-03-27] MEDS ORDERED: Insulin Regular 300 UNITS/3 ML VIAL ONE (02:13)
[2020-03-27 06:17] LABS: Troponin I 0.021 ng/mL (< 0.028)
[2020-03-27 06:59] LABS: Anion Gap 17 mmol/L (10-20); BUN (Urea Nitrogen) 22 mg/dL (8.4-25.7); Calc. Creatinine Clearance 0 mL/min (70-130); Calcium 8.8 mg/dL (7.8-10.44); Carbon Dioxide 20 mmol/L (23-31); Chloride 101 mmol/L (98-107); Glucose 212 mg/dL (83-110); Potassium 3.9 mmol/L (3.5-5.1); Sodium 134 mmol/L (136-145)
--- NOTE | 2020-03-27 07:51 | RAD ---
EXAM: Portable chest PROVIDED CLINICAL HISTORY: Chest pain COMPARISON: 03/23/2019 FINDINGS: Cardiac and mediastinal silhouette is within normal limits. No focal consolidation, pleural fluid or pneumothorax evident. Atherosclerosis and right subclavian implanted port redemonstrated. IMPRESSION: No evidence for an acute cardiopulmonary process.
== END 2020-03-27 16:26 | disposition short-term general hospital (02) ==
LOC: NAV ERS 00:31
DX: R07.9 Chest pain, unspecified (principal); E86.0 Dehydration; E87.1 Hypo-osmolality and hyponatremia; E11.65 Type 2 diabetes mellitus with hyperglycemia; Z79.4 Long term (current) use of insulin; I48.91 Unspecified atrial fibrillation; I10 Essential (primary) hypertension; E66.9 Obesity, unspecified; E11.40 Type 2 diabetes mellitus with diabetic neuropathy, unspecified; G47.30 Sleep apnea, unspecified; M19.90 Unspecified osteoarthritis, unspecified site; Z85.038 Personal history of other malignant neoplasm of large intestine; Z79.899 Other long term (current) drug therapy; Z79.01 Long term (current) use of anticoagulants
CPT/HCPCS: 36416; 71045; 80053; 82550; 83690; 83880; 84484; 85025; 93005; 96374; J1815; J7050

== ENCOUNTER 2020-07-07 13:07 | Observation (INO) | payer MEDICARE ==
[2020-07-07 13:50] LABS: ALT (SGPT) 25 U/L (8-55); AST (SGOT) 31 U/L (5-34); Albumin 3.7 g/dL (3.4-4.8); Alkaline Phosphatase 105 U/L (40-110); Anion Gap 20 mmol/L (10-20); BUN (Urea Nitrogen) 18 mg/dL (8.4-25.7); Bilirubin, Total 0.5 mg/dL (0.2-1.2); Calc. Creatinine Clearance 0 mL/min (70-130); Calcium 9.1 mg/dL (7.8-10.44); Carbon Dioxide 22 mmol/L (23-31); Chloride 97 mmol/L (98-107); Globulin 3.3 g/dL (2.4-3.5); Glucose 188 mg/dL (83-110); Potassium 3.5 mmol/L (3.5-5.1); Sodium 135 mmol/L (136-145)
[2020-07-07 13:55] LABS: #Basophils 0.1 thou/uL (0.0-0.2); #Eosinphils 0.2 thou/uL (0.0-0.7); #Lymphocytes 0.9 thou/uL (1.20-3.40); #Monocytes 0.7 thou/uL (0.11-0.59); #Neutrophils 5.5 thou/uL (1.40-6.50); %Basophils 1.2 % (0.0-1.0); %Eosinophils 2.2 % (0.0-10.0); %Lymphocytes 12.5 % (21.0-51.0); %Monocytes 9.5 % (0.0-10.0); %Neutrophils 74.6 % (42.0-75.0); Hemoglobin 10.9 g/dL (14.0-18.0); Mean Corpuscular HGB CONC 31.7 g/dL (32.0-36.0); Mean Corpuscular Hemoglobin 31.1 pg (27.0-31.0); Mean Corpuscular Volume 98.2 fL (78.0-98.0); Mean Platelet Volume 8.1 fL (7.4-10.4); Platelet Count 211 thou/uL (130-400); RBC Distribution Width 15.2 % (11.5-14.5); Red Blood Cell (RBC) Count 3.52 mill/uL (4.70-6.10); White Blood Cell (WBC) Count 7.4 thou/uL (4.8-10.8)
[2020-07-07] MEDS ORDERED: Sodium Chloride 0.9% 1,000 ML ONE (13:55)
[2020-07-07 16:33] VITALS: BMI 27.6
[2020-07-07 17:46] LABS: SARS-CoV-2 NAA Rapid Test Not Detected (NotDetected)
[2020-07-07] MEDS ORDERED: Diphenoxylate HCl/Atropine Tablet PO PRN (17:58)
[2020-07-07] MEDS ORDERED: Dextrose 50% Abboject 50 ML SYRINGE IVP PRN (18:00)
[2020-07-07] MEDS ORDERED: Dextrose 5% in Water 1,000 ML IV PRN (18:00)
[2020-07-07] MEDS ORDERED: HumaLOG 300 UNITS/3 ML VIAL SC PRN (18:00)
[2020-07-07] MEDS ORDERED: Magnesium Citrate 300 ML BOT PO PRN (18:03)
[2020-07-07] MEDS ORDERED: Ondansetron ODT 4 MG TAB PO PRN (18:04)
[2020-07-07] MEDS ORDERED: Prochlorperazine Maleate 5 MG TAB PO PRN (18:06)
[2020-07-07] MEDS: Sodium Chloride 0.9% 1,000 ML IV SCH (18:27)
[2020-07-07] MEDS ORDERED: hydrOXYzine 25 MG TAB PO PRN (21:00)
[2020-07-07] MEDS: Gabapentin 300 MG CAP PO SCH (22:02)
[2020-07-07] MEDS: Acetaminophen 325 MG TAB PO PRN (22:04)
[2020-07-07] MEDS: Lantus 1000 UNITS/10 ML VIAL SC SCH (22:05)
[2020-07-08 05:36] LABS: Anion Gap 13 mmol/L (10-20); BUN (Urea Nitrogen) 19 mg/dL (8.4-25.7); Calc. Creatinine Clearance 51 mL/min (70-130); Carbon Dioxide 22 mmol/L (23-31); Chloride 103 mmol/L (98-107); Glucose 168 mg/dL (83-110); Potassium 3.3 mmol/L (3.5-5.1); Sodium 135 mmol/L (136-145)
[2020-07-08] MEDS: Sodium Chloride 0.9% 1,000 ML IV SCH (06:06)
[2020-07-08] MEDS: HumaLOG 300 UNITS/3 ML VIAL SC PRN ×2 (06:07→12:01)
[2020-07-08] MEDS: Gabapentin 300 MG CAP PO SCH ×2 (08:52→13:58)
[2020-07-08] MEDS: Acetaminophen 325 MG TAB PO PRN (08:52)
[2020-07-08] MEDS: Lantus 1000 UNITS/10 ML VIAL SC SCH (08:54)
[2020-07-08] MEDS ORDERED: Amlodipine 5 MG TAB PO SCH (09:00)
[2020-07-08] MEDS ORDERED: Flecainide 50 MG TAB PO SCH (09:00)
[2020-07-08] MEDS ORDERED: Potassium Chloride 20 MEQ TAB PO SCH (13:15)
[2020-07-08] MEDS ORDERED: Rivaroxaban 10 MG TAB PO SCH ×2 (17:00)
[2020-07-08 17:23] VITALS: BP 146/76; TEMP 98
== END 2020-07-08 17:05 | disposition home or self-care (01) ==
LOC: NAV ERS 13:07 → NAV ACUTE 15:35
PROVIDERS: ADMIT Internal Medicine; ATTEND Internal Medicine
DX: I95.1 Orthostatic hypotension (principal); C18.9 Malignant neoplasm of colon, unspecified; I48.91 Unspecified atrial fibrillation; E11.42 Type 2 diabetes mellitus with diabetic polyneuropathy; I10 Essential (primary) hypertension; G25.81 Restless legs syndrome; G47.33 Obstructive sleep apnea (adult) (pediatric); M19.90 Unspecified osteoarthritis, unspecified site; D64.9 Anemia, unspecified; N28.9 Disorder of kidney and ureter, unspecified; Z79.01 Long term (current) use of anticoagulants; Z79.4 Long term (current) use of insulin; Z79.899 Other long term (current) drug therapy; Z90.49 Acquired absence of other specified parts of digestive tract; Z20.822 Contact with and (suspected) exposure to COVID-19; W19.XXXA Unspecified fall, initial encounter
CPT/HCPCS: 0240U; 36416; 80048; 80053; 84484; 85025; 93005; 96374; G0378; J1610; J1815; J7050

== ENCOUNTER 2020-07-11 16:03 | Outpatient (CLI) | payer MEDICARE | END 2020-07-11 16:04 | disposition home or self-care (01) | LOC: NAV RAD 16:03 | PROVIDERS: ATTEND Nurse Practitioner Family | DX: Z91.81 History of falling (principal); M47.816 Spondylosis without myelopathy or radiculopathy, lumbar region; M47.814 Spondylosis without myelopathy or radiculopathy, thoracic region; M47.817 Spondylosis without myelopathy or radiculopathy, lumbosacral region; R93.7 Abnormal findings on diagnostic imaging of other parts of musculoskeletal system | CPT/HCPCS: 72072; 72100 ==

== ENCOUNTER 2020-08-03 10:40 | Emergency (ER) | payer MEDICARE ==
[2020-08-03] MEDS ORDERED: Sodium Chloride 0.9% 1,000 ML ONE (11:17)
[2020-08-03 11:19] LABS: ALT (SGPT) 30 U/L (8-55); AST (SGOT) 35 U/L (5-34); Albumin 3.2 g/dL (3.4-4.8); Alkaline Phosphatase 144 U/L (40-110); Anion Gap 15 mmol/L (10-20); BUN (Urea Nitrogen) 29 mg/dL (8.4-25.7); Bilirubin, Total 1.1 mg/dL (0.2-1.2); Calc. Creatinine Clearance 0 mL/min (70-130); Calcium 8.7 mg/dL (7.8-10.44); Carbon Dioxide 24 mmol/L (23-31); Chloride 98 mmol/L (98-107); Globulin 3.2 g/dL (2.4-3.5); Glucose 199 mg/dL (83-110); Magnesium 1.9 mg/dL (1.6-2.6); Protein, Total 6.4 g/dL (5.8-8.1); Sodium 133 mmol/L (136-145)
[2020-08-03 11:23] LABS: %Eosinophils 3.1 % (0.0-10.0); %Lymphocytes 9.1 % (21.0-51.0); %Monocytes 2.5 % (0.0-10.0); %Neutrophils 84.6 % (42.0-75.0); Hemoglobin 9.6 g/dL (14.0-18.0); Mean Corpuscular HGB CONC 30.9 g/dL (32.0-36.0); Mean Corpuscular Hemoglobin 30.8 pg (27.0-31.0); Mean Corpuscular Volume 99.6 fL (78.0-98.0); Mean Platelet Volume 8.5 fL (7.4-10.4); Platelet Count 191 thou/uL (130-400); RBC Distribution Width 13.2 % (11.5-14.5); Red Blood Cell (RBC) Count 3.13 mill/uL (4.70-6.10); White Blood Cell (WBC) Count 9.1 thou/uL (4.8-10.8)
[2020-08-03 11:24] LABS: #Lymphocytes 0.8 thou/uL (1.20-3.40); #Neutrophils 7.7 thou/uL (1.40-6.50)
[2020-08-03 11:25] LABS: #Basophils 0.1 thou/uL (0.0-0.2); #Eosinphils 0.3 thou/uL (0.0-0.7); #Monocytes 0.2 thou/uL (0.11-0.59); %Basophils 0.7 % (0.0-1.0)
[2020-08-03 11:38] LABS: Bilirubin Negative (Negative); Blood, Urine Small (Negative); Clarity Cloudy (Clear); Glucose, Urine (Dipstick) 100 mg/dL (Negative); Ketone, Urine Negative (Negative); Leukocyte Large (Negative); Nitrite Negative (Negative); Protein, Urine (Dipstick) 30 mg/dL (Neg-Trace); Specific Gravity, Urine 1.015 (1.005-1.030)
[2020-08-03 11:51] LABS: Bacteria/HPF 3+ HPF (None Seen); RBC/HPF 0-3 HPF (0-3); Squamous Epithelial None Seen HPF (0-3); WBC/HPF 21-50 HPF (0-3)
[2020-08-03] MEDS ORDERED: Cephalexin 250 MG CAP ONE (12:35)
[2020-08-03] MEDS ORDERED: cefTRIAXone\\ROCEPHIN 2 GM VIAL ONE (12:39)
[2020-08-03] MEDS ORDERED: Sodium Chloride 0.9% 100 ML ONE (12:41)
[2020-08-03] MEDS ORDERED: HYDROcodone/Acetaminophen 5/325 mg Tablet ONE (13:28)
[2020-08-03] MEDS ORDERED: Acetaminophen 325 MG TAB ONE (14:27)
== END 2020-08-03 14:59 | disposition short-term general hospital (02) ==
LOC: NAV ERS 10:40
DX: N39.0 Urinary tract infection, site not specified (principal); R26.81 Unsteadiness on feet; R53.1 Weakness; I10 Essential (primary) hypertension; Z79.899 Other long term (current) drug therapy
CPT/HCPCS: 51701; 70450; 71045; 80053; 81003; 81015; 83605; 83735; 83880; 84484; 85025; 87040; 87077; 87086; 87186; 93005; 94760; 96365; J0696; J7050

== ENCOUNTER → 2020-09-05 23:54 | Emergency (ER) | payer MEDICARE ==
[~2020-09-05 23:54] MED LIST changes: -Iopamidol 370 76% 100 ML VIAL ONE; +Potassium Chloride 20 MEQ TAB ONE; +Sodium Chloride 0.9% 1,000 ML ONE; +cefTRIAXone\\ROCEPHIN 1 GM VIAL ONE
[2020-09-06 01:18] LABS: #Basophils 0.1 thou/uL (0.0-0.2); #Lymphocytes 0.6 thou/uL (1.20-3.40); #Monocytes 0.7 thou/uL (0.11-0.59); #Neutrophils 5.1 thou/uL (1.40-6.50); %Eosinophils 0.3 % (0.0-10.0); %Monocytes 10.8 % (0.0-10.0); %Neutrophils 78.8 % (42.0-75.0); Hemoglobin 10.4 g/dL (14.0-18.0); Mean Corpuscular HGB CONC 32.5 g/dL (32.0-36.0); Mean Corpuscular Hemoglobin 31.7 pg (27.0-31.0); Mean Corpuscular Volume 97.7 fL (78.0-98.0); Mean Platelet Volume 7.6 fL (7.4-10.4); Platelet Count 186 thou/uL (130-400); RBC Distribution Width 13.4 % (11.5-14.5); Red Blood Cell (RBC) Count 3.29 mill/uL (4.70-6.10); White Blood Cell (WBC) Count 6.5 thou/uL (4.8-10.8)
[2020-09-06 01:30] LABS: Bilirubin Negative (Negative); Blood, Urine Trace (Negative); Clarity Turbid (Clear); Glucose, Urine (Dipstick) Negative (Negative); Ketone, Urine Negative (Negative); Leukocyte Large (Negative); Nitrite Negative (Negative); Protein, Urine (Dipstick) 100 mg/dL (Neg-Trace); Specific Gravity, Urine 1.015 (1.005-1.030); Urobilinogen 0.2 mg/dL (Less than 2)
[2020-09-06 01:45] LABS: RBC/HPF 0-3 HPF (0-3); WBC/HPF Greater Than 50 HPF (0-3)
[2020-09-06 02:19] LABS: ALT (SGPT) 18 U/L (8-55); AST (SGOT) 20 U/L (5-34); Albumin 3.6 g/dL (3.4-4.8); Alkaline Phosphatase 102 U/L (40-110); Anion Gap 15 mmol/L (10-20); BUN (Urea Nitrogen) 18 mg/dL (8.4-25.7); Bilirubin, Total 0.4 mg/dL (0.2-1.2); CK (CPK) 43 U/L (30-200); Calc. Creatinine Clearance 0 mL/min (70-130); Calcium 8.4 mg/dL (7.8-10.44); Carbon Dioxide 23 mmol/L (23-31); Chloride 97 mmol/L (98-107); Globulin 3.3 g/dL (2.4-3.5); Glucose 138 mg/dL (83-110); Potassium 3.4 mmol/L (3.5-5.1); Protein, Total 6.9 g/dL (5.8-8.1); Sodium 132 mmol/L (136-145)
[2020-09-06 06:39] LABS: Anion Gap 13 mmol/L (10-20); BUN (Urea Nitrogen) 15 mg/dL (8.4-25.7); Calc. Creatinine Clearance 0 mL/min (70-130); Carbon Dioxide 21 mmol/L (23-31); Chloride 103 mmol/L (98-107); Glucose 162 mg/dL (83-110); Potassium 3.8 mmol/L (3.5-5.1); Sodium 133 mmol/L (136-145)
[2020-09-06 07:20] LABS: Lactic Acid 2.1 mmol/L (0.5-2.2)
== END | disposition home or self-care (01) ==
LOC: NAV ERS 23:54
DX: N17.9 Acute kidney failure, unspecified (principal); R19.7 Diarrhea, unspecified; E87.2 Acidosis; I48.91 Unspecified atrial fibrillation; I10 Essential (primary) hypertension; E11.40 Type 2 diabetes mellitus with diabetic neuropathy, unspecified; E66.9 Obesity, unspecified; Z79.899 Other long term (current) drug therapy
CPT/HCPCS: 80053; 81003; 81015; 82550; 83605; 85025; 87045; 87046; 87077; 87086; 87186; 87324; 87427; 87449; 96374; J0696; J7050

== ENCOUNTER 2020-11-25 09:22 | Emergency (ER) | payer MEDICARE ==
[2020-11-25] MEDS ORDERED: Acetaminophen 500 MG TAB ONE (09:47)
[2020-11-26 08:56] LABS: SARS-CoV-2 PCR by NAA Not Detected (NotDetected)
== END 2020-11-25 11:25 | disposition home or self-care (01) ==
LOC: NAV ERS 09:22
DX: R51.9 Headache, unspecified (principal); Z20.822 Contact with and (suspected) exposure to COVID-19; I10 Essential (primary) hypertension; E11.40 Type 2 diabetes mellitus with diabetic neuropathy, unspecified; Z79.899 Other long term (current) drug therapy
CPT/HCPCS: 70450; U0003; U0005

== ENCOUNTER 2021-01-27 19:15 | Emergency (ER) | payer MEDICARE ==
[2021-01-27] MEDS ORDERED: Fluorescein Opthalmic Strip ONE (19:52)
[2021-01-27] MEDS ORDERED: Tetracaine 0.5% PF 4 ML BOT ONE (19:52)
== END 2021-01-27 20:05 | disposition home or self-care (01) ==
LOC: NAV ERS 19:15
DX: T15.11XA Foreign body in conjunctival sac, right eye, initial encounter (principal); I48.91 Unspecified atrial fibrillation; E11.9 Type 2 diabetes mellitus without complications; G47.30 Sleep apnea, unspecified; E66.9 Obesity, unspecified; I10 Essential (primary) hypertension; Z79.899 Other long term (current) drug therapy; Z79.01 Long term (current) use of anticoagulants; Z79.4 Long term (current) use of insulin
CPT/HCPCS: 65205

== ENCOUNTER 2021-05-24 17:35 | Emergency (ER) | payer MEDICARE ==
[2021-05-24 18:13] LABS: #Basophils 0.1 thou/uL (0.0-0.2); #Eosinphils 0.1 thou/uL (0.0-0.7); #Lymphocytes 0.7 thou/uL (1.20-3.40); #Monocytes 0.8 thou/uL (0.11-0.59); #Neutrophils 8.6 thou/uL (1.40-6.50); %Basophils 0.8 % (0.0-1.0); %Eosinophils 1.2 % (0.0-10.0); %Lymphocytes 6.8 % (21.0-51.0); %Monocytes 7.8 % (0.0-10.0); %Neutrophils 83.4 % (42.0-75.0); Hemoglobin 10.5 g/dL (14.0-18.0); Mean Corpuscular Hemoglobin 30.9 pg (27.0-31.0); Mean Corpuscular Volume 93.5 fL (78.0-98.0); Mean Platelet Volume 7.3 fL (7.4-10.4); Platelet Count 242 thou/uL (130-400); RBC Distribution Width 11.6 % (11.5-14.5); White Blood Cell (WBC) Count 10.3 thou/uL (4.8-10.8)
[2021-05-24 18:27] LABS: ALT (SGPT) 11 U/L (8-55); AST (SGOT) 16 U/L (5-34); Albumin 3.3 g/dL (3.4-4.8); Alkaline Phosphatase 118 U/L (40-110); Anion Gap 11 mmol/L (10-20); BUN (Urea Nitrogen) 28 mg/dL (8.4-25.7); Bilirubin, Total 0.3 mg/dL (0.2-1.2); Calc. Creatinine Clearance 0 mL/min (70-130); Calcium 8.6 mg/dL (7.8-10.44); Carbon Dioxide 22 mmol/L (23-31); Chloride 99 mmol/L (98-107); Globulin 3.8 g/dL (2.4-3.5); Glucose 337 mg/dL (83-110); Potassium 4.4 mmol/L (3.5-5.1); Protein, Total 7.1 g/dL (5.8-8.1); Sodium 128 mmol/L (136-145)
[2021-05-24] MEDS ORDERED: Cephalexin 250 MG CAP ONE (18:46)
[2021-05-24] MEDS ORDERED: Sulfameth/Trimethoprim DS 800-160mg TAB ONE (18:46)
== END 2021-05-24 18:50 | disposition home or self-care (01) ==
LOC: NAV ERS 17:35
DX: E11.621 Type 2 diabetes mellitus with foot ulcer (principal); L89.619 Pressure ulcer of right heel, unspecified stage; I48.91 Unspecified atrial fibrillation; I10 Essential (primary) hypertension; M19.90 Unspecified osteoarthritis, unspecified site; G47.30 Sleep apnea, unspecified; E11.40 Type 2 diabetes mellitus with diabetic neuropathy, unspecified; Z79.4 Long term (current) use of insulin; E66.9 Obesity, unspecified; Z68.45 Body mass index [BMI] 70 or greater, adult; Z85.038 Personal history of other malignant neoplasm of large intestine; Z79.899 Other long term (current) drug therapy
CPT/HCPCS: 36416; 80053; 83605; 85025

== ENCOUNTER 2021-06-06 23:12 | Emergency (ER) | payer MEDICARE ==
[~2021-06-06 23:12] MED LIST changes: +Iopamidol 370 76% 100 ML VIAL ONE; -Potassium Chloride 20 MEQ TAB ONE; -Sodium Chloride 0.9% 1,000 ML ONE; -cefTRIAXone\\ROCEPHIN 1 GM VIAL ONE
[2021-06-07 00:24] LABS: #Basophils 0.1 thou/uL (0.0-0.2); #Eosinphils 0.1 thou/uL (0.0-0.7); #Lymphocytes 0.9 thou/uL (1.20-3.40); #Monocytes 0.6 thou/uL (0.11-0.59); %Basophils 1.1 % (0.0-1.0); %Lymphocytes 13.7 % (21.0-51.0); %Monocytes 9.3 % (0.0-10.0); %Neutrophils 73.9 % (42.0-75.0); Hemoglobin 10.2 g/dL (14.0-18.0); Mean Corpuscular HGB CONC 33.4 g/dL (32.0-36.0); Mean Corpuscular Hemoglobin 31.1 pg (27.0-31.0); Mean Corpuscular Volume 93.1 fL (78.0-98.0); Mean Platelet Volume 6.7 fL (7.4-10.4); Platelet Count 234 thou/uL (130-400); RBC Distribution Width 11.5 % (11.5-14.5); Red Blood Cell (RBC) Count 3.26 mill/uL (4.70-6.10); White Blood Cell (WBC) Count 6.8 thou/uL (4.8-10.8)
[2021-06-07 00:45] LABS: ALT (SGPT) 17 U/L (8-55); AST (SGOT) 19 U/L (5-34); Albumin 3.2 g/dL (3.4-4.8); Alkaline Phosphatase 124 U/L (40-110); Anion Gap 11 mmol/L (10-20); BUN (Urea Nitrogen) 12 mg/dL (8.4-25.7); Bilirubin, Total 0.3 mg/dL (0.2-1.2); Calc. Creatinine Clearance 0 mL/min (70-130); Calcium 8.6 mg/dL (7.8-10.44); Carbon Dioxide 28 mmol/L (23-31); Chloride 98 mmol/L (98-107); Globulin 3.6 g/dL (2.4-3.5); Glucose 125 mg/dL (83-110); Lipase 9 U/L (8-78); Potassium 4.4 mmol/L (3.5-5.1); Protein, Total 6.8 g/dL (5.8-8.1); Sodium 133 mmol/L (136-145)
[2021-06-07] MEDS ORDERED: Morphine 4 MG/ML VIAL ONE ×2 (00:45→02:11)
[2021-06-07] MEDS ORDERED: Ondansetron PF 4 MG/2 ML Vial ONE (00:45)
[2021-06-07] MEDS ORDERED: Sodium Chloride 0.9% 1,000 ML ONE (00:45)
[2021-06-07 00:52] LABS: Bilirubin Negative (Negative); Blood, Urine Negative (Negative); Clarity Clear (Clear); Glucose, Urine (Dipstick) 100 mg/dL (Negative); Ketone, Urine Negative (Negative); Leukocyte Negative (Negative); Nitrite Negative (Negative); Protein, Urine (Dipstick) 100 mg/dL (Neg-Trace); Specific Gravity, Urine 1.015 (1.005-1.030); Urobilinogen 0.2 mg/dL (Less than 2); pH, Urine 8.5 (5.0-9.0)
[2021-06-07 00:54] LABS: Bacteria/HPF None Seen HPF (None Seen); Mucous/LPF 1+ LPF (<2+); RBC/HPF None Seen HPF (0-3); Squamous Epithelial 0-3 HPF (0-3); WBC/HPF None Seen HPF (0-3)
== END 2021-06-07 02:29 | disposition home or self-care (01) ==
LOC: NAV ERS 23:12
DX: C18.9 Malignant neoplasm of colon, unspecified (principal); C78.7 Secondary malignant neoplasm of liver and intrahepatic bile duct; C78.00 Secondary malignant neoplasm of unspecified lung; G89.3 Neoplasm related pain (acute) (chronic); D64.9 Anemia, unspecified; N28.9 Disorder of kidney and ureter, unspecified; E11.40 Type 2 diabetes mellitus with diabetic neuropathy, unspecified; I10 Essential (primary) hypertension; I48.91 Unspecified atrial fibrillation; E66.9 Obesity, unspecified; M19.90 Unspecified osteoarthritis, unspecified site; Z79.4 Long term (current) use of insulin; Z79.899 Other long term (current) drug therapy
CPT/HCPCS: 74177; 80053; 81003; 81015; 83605; 83690; 84484; 85025; 93005; 96374; 96375; 96376; J2270; J2405; J7050; Q9967

== ENCOUNTER 2021-07-25 14:42 | Emergency (ER) | payer MEDICARE ==
[2021-07-25] MEDS ORDERED: Sodium Chloride 0.9% 1,000 ML ONE (15:18)
[2021-07-25 15:53] LABS: #Basophils 0.1 thou/uL (0.0-0.2); #Eosinphils 0.1 thou/uL (0.0-0.7); #Lymphocytes 0.6 thou/uL (1.20-3.40); #Monocytes 0.9 thou/uL (0.11-0.59); #Neutrophils 7.6 thou/uL (1.40-6.50); %Basophils 0.9 % (0.0-1.0); %Eosinophils 1.2 % (0.0-10.0); %Lymphocytes 6.2 % (21.0-51.0); %Neutrophils 81.7 % (42.0-75.0); Hemoglobin 9.7 g/dL (14.0-18.0); Mean Corpuscular Hemoglobin 28.3 pg (27.0-31.0); Mean Corpuscular Volume 91.3 fL (78.0-98.0); Mean Platelet Volume 7.1 fL (7.4-10.4); Platelet Count 269 thou/uL (130-400); RBC Distribution Width 12.6 % (11.5-14.5); Red Blood Cell (RBC) Count 3.42 mill/uL (4.70-6.10); White Blood Cell (WBC) Count 9.3 thou/uL (4.8-10.8)
[2021-07-25 16:06] LABS: ALT (SGPT) 13 U/L (8-55); AST (SGOT) 19 U/L (5-34); Albumin 3.3 g/dL (3.4-4.8); Alkaline Phosphatase 143 U/L (40-110); Anion Gap 15 mmol/L (10-20); BUN (Urea Nitrogen) 18 mg/dL (8.4-25.7); Bilirubin, Total 0.5 mg/dL (0.2-1.2); Calc. Creatinine Clearance 0 mL/min (70-130); Calcium 9.1 mg/dL (7.8-10.44); Carbon Dioxide 25 mmol/L (23-31); Chloride 95 mmol/L (98-107); Glucose 265 mg/dL (83-110); Potassium 4.3 mmol/L (3.5-5.1); Protein, Total 7.3 g/dL (5.8-8.1); Sodium 131 mmol/L (136-145)
[2021-07-25 16:11] LABS: Clarity Clear (Clear)
[2021-07-25 16:12] LABS: Glucose, Urine (Dipstick) Negative (Negative); Ketone, Urine Negative (Negative); Leukocyte Negative (Negative); Nitrite Negative (Negative); Protein, Urine (Dipstick) Negative (Neg-Trace); Specific Gravity, Urine 1.026 (1.002-1.036); Urobilinogen 0.2 mg/dL (Less than 2); pH, Urine 5.5 (5.0-9.0)
[2021-07-25 16:13] LABS: Bilirubin Negative (Negative); Blood, Urine Negative (Negative)
[2021-07-25] MEDS ORDERED: Cefepime 2 GM VIAL ONE (17:35)
[2021-07-25] MEDS ORDERED: Sodium Chloride 0.9% 0 ML ONE (17:38)
[2021-07-25] MEDS ORDERED: Sodium Chloride 0.9% 250 ML 250 ML ONE (18:05)
[2021-07-25] MEDS ORDERED: Sodium Chloride 0.9% 100 ML ONE (18:05)
[2021-07-25] MEDS ORDERED: HYDROcodone/Acetaminophen 5/325 mg Tablet ONE (18:14)
[2021-07-25 18:55] LABS: SARS-CoV-2 NAA Rapid Test Not Detected (NotDetected)
== END 2021-07-25 18:30 | disposition short-term general hospital (02) ==
LOC: NAV ERS 14:42
DX: L03.115 Cellulitis of right lower limb (principal); E11.621 Type 2 diabetes mellitus with foot ulcer; L97.418 Non-pressure chronic ulcer of right heel and midfoot with other specified severity; I48.91 Unspecified atrial fibrillation; I10 Essential (primary) hypertension; E11.40 Type 2 diabetes mellitus with diabetic neuropathy, unspecified; G47.30 Sleep apnea, unspecified; M19.90 Unspecified osteoarthritis, unspecified site; Z20.822 Contact with and (suspected) exposure to COVID-19; Z85.038 Personal history of other malignant neoplasm of large intestine; Z79.4 Long term (current) use of insulin; Z79.899 Other long term (current) drug therapy
CPT/HCPCS: 73630; 80053; 81003; 83605; 83690; 85025; 86140; U0002; 51701; 96361; 96365; 96367; J0692; J3370; J3490; J7050

== ENCOUNTER 2021-07-30 16:55 | Inpatient (IN) | payer MEDICARE ==
[2021-07-30] MEDS ORDERED: Diphenoxylate HCl/Atropine Tablet PO PRN (19:08)
[2021-07-30] MEDS ORDERED: Sodium Chloride 0.65% Nasal 44 ML BOT EA NARE PRN (19:12)
[2021-07-30] MEDS ORDERED: Loperamide HCl 2 MG CAP PO PRN ×2 (19:12)
[2021-07-30] MEDS ORDERED: Promethazine HCl 25 MG SUPP PR PRN (19:12)
[2021-07-30] MEDS ORDERED: Dextrose 50% Abboject 50 ML SYRINGE SLOW IVP PRN (19:12)
[2021-07-30] MEDS ORDERED: HYDROcodone/Acetaminophen 10/325 mg Tablet PO PRN (19:12)
[2021-07-30] MEDS ORDERED: Artificial Tear Sol 15 ML BOT EA EYE PRN (19:12)
[2021-07-30] MEDS ORDERED: Prochlorperazine Maleate 5 MG TAB PO PRN (19:21)
[2021-07-30] MEDS: Flecainide 50 MG TAB PO SCH (20:55)
[2021-07-30] MEDS: Gabapentin 300 MG CAP PO SCH (20:55)
[2021-07-30] MEDS: Famotidine 20 MG TAB PO SCH (20:56)
[2021-07-30] MEDS: Atorvastatin Calcium 40 MG TAB PO SCH (20:56)
[2021-07-30] MEDS: HumuLIN 70/30 (300 UNITS/3 ML VIAL) SC SCH (20:56)
[2021-07-30] MEDS: Vancomycin HCl 750 MG in Sodium Chloride 0.9% 250 ML 250 ML IVPB SCH ×2 (21:20→21:21)
[2021-07-30] MEDS: Senokot S 8.6-50 MG TAB PO PRN (21:58)
[2021-07-30] MEDS ORDERED: Vancomycin 1.5 GRAM/300 ML BAG 1.5 GM in Premix Bag 1 BAG IVPB SCH (22:00)
[2021-07-30] MEDS ORDERED: Vancomycin 1.5 GRAM/300 ML BAG IVPB SCH (22:00)
[2021-07-31] MEDS: Cefepime 1 GM in Sodium Chloride 0.9% 100 ML IVPB SCH ×2 (05:45→17:44)
[2021-07-31] MEDS: HumaLOG 300 UNITS/3 ML VIAL SC PRN ×4 (05:46→17:28)
[2021-07-31] MEDS ORDERED: Cefepime 1 GM VIAL IVPB SCH (06:00)
[2021-07-31 06:35] LABS: #Basophils 0.1 thou/uL (0.0-0.2); #Eosinphils 0.2 thou/uL (0.0-0.7); #Lymphocytes 0.8 thou/uL (1.20-3.40); #Monocytes 0.7 thou/uL (0.11-0.59); #Neutrophils 6.3 thou/uL (1.40-6.50); %Basophils 1.3 % (0.0-1.0); %Eosinophils 2.6 % (0.0-10.0); %Lymphocytes 10.1 % (21.0-51.0); %Monocytes 8.9 % (0.0-10.0); %Neutrophils 77.1 % (42.0-75.0); ALT (SGPT) 12 U/L (8-55); AST (SGOT) 15 U/L (5-34); Albumin 2.9 g/dL (3.4-4.8); Alkaline Phosphatase 133 U/L (40-110); Anion Gap 16 mmol/L (10-20); BUN (Urea Nitrogen) 22 mg/dL (8.4-25.7); Bilirubin, Total 0.3 mg/dL (0.2-1.2); Calc. Creatinine Clearance 75 mL/min (70-130); Calcium 8.1 mg/dL (7.8-10.44); Carbon Dioxide 20 mmol/L (23-31); Chloride 105 mmol/L (98-107); Globulin 3.1 g/dL (2.4-3.5); Glucose 170 mg/dL (83-110); Hemoglobin 9.3 g/dL (14.0-18.0); Mean Corpuscular HGB CONC 30.7 g/dL (32.0-36.0); Mean Corpuscular Hemoglobin 28.1 pg (27.0-31.0); Mean Corpuscular Volume 91.5 fL (78.0-98.0); Mean Platelet Volume 7.2 fL (7.4-10.4); Platelet Count 278 thou/uL (130-400); Potassium 4.6 mmol/L (3.5-5.1); RBC Distribution Width 13.2 % (11.5-14.5); Red Blood Cell (RBC) Count 3.31 mill/uL (4.70-6.10); Sodium 136 mmol/L (136-145); White Blood Cell (WBC) Count 8.2 thou/uL (4.8-10.8)
[2021-07-31] MEDS: Clopidogrel Bisulfate 75 MG TAB PO SCH (08:52)
[2021-07-31] MEDS: Amlodipine 5 MG TAB PO SCH (08:53)
[2021-07-31] MEDS: Flecainide 50 MG TAB PO SCH ×2 (08:54→21:23)
[2021-07-31] MEDS: Gabapentin 300 MG CAP PO SCH ×3 (08:54→21:23)
[2021-07-31] MEDS: Famotidine 20 MG TAB PO SCH ×2 (08:56→21:23)
[2021-07-31] MEDS: HumuLIN 70/30 (300 UNITS/3 ML VIAL) SC SCH ×2 (08:56→21:24)
[2021-07-31 10:19] LABS: Clarity Clear (Clear)
[2021-07-31 10:20] LABS: Bilirubin Negative (Negative); Blood, Urine Large (Negative); Glucose, Urine (Dipstick) Negative (Negative); Ketone, Urine Negative (Negative); Leukocyte Moderate (Negative); Nitrite Negative (Negative); Protein, Urine (Dipstick) 30 mg/dL (Neg-Trace); Urobilinogen 0.2 mg/dL (Less than 2)
[2021-07-31 10:21] LABS: Bacteria/HPF None Seen HPF (None Seen); Squamous Epithelial 0-3 HPF (0-3); WBC/HPF 21-50 HPF (0-3)
[2021-07-31 10:22] LABS: Triple Phosphate Crystal Rare HPF (None Seen); Urine Culture Reflex Yes Yes
[2021-07-31] MEDS: HYDROcodone/Acetaminophen 10/325 mg Tablet PO PRN (15:02)
[2021-07-31] MEDS: Rivaroxaban 10 MG TAB PO SCH (17:24)
[2021-07-31 21:23] LABS: Vancomycin, Trough 19.3 ug/mL
[2021-07-31] MEDS: Atorvastatin Calcium 40 MG TAB PO SCH (21:23)
[2021-07-31] MEDS: Vancomycin HCl 750 MG in Sodium Chloride 0.9% 250 ML 250 ML IVPB SCH ×2 (21:30→22:45)
[2021-08-01] MEDS: Cefepime 1 GM in Sodium Chloride 0.9% 100 ML IVPB SCH ×2 (05:14→17:03)
[2021-08-01] MEDS: HumaLOG 300 UNITS/3 ML VIAL SC PRN ×3 (05:24→17:04)
[2021-08-01 06:59] LABS: #Basophils 0.1 thou/uL (0.0-0.2); #Eosinphils 0.3 thou/uL (0.0-0.7); #Monocytes 0.8 thou/uL (0.11-0.59); #Neutrophils 6.4 thou/uL (1.40-6.50); %Basophils 1.1 % (0.0-1.0); %Lymphocytes 11.6 % (21.0-51.0); %Monocytes 9.6 % (0.0-10.0); %Neutrophils 73.7 % (42.0-75.0); Hemoglobin 9.9 g/dL (14.0-18.0); Mean Corpuscular Hemoglobin 28.3 pg (27.0-31.0); Mean Corpuscular Volume 91.2 fL (78.0-98.0); Mean Platelet Volume 7.2 fL (7.4-10.4); Platelet Count 274 thou/uL (130-400); White Blood Cell (WBC) Count 8.7 thou/uL (4.8-10.8)
[2021-08-01 07:06] LABS: ALT (SGPT) 14 U/L (8-55); AST (SGOT) 17 U/L (5-34); Albumin 3.1 g/dL (3.4-4.8); Alkaline Phosphatase 128 U/L (40-110); Anion Gap 15 mmol/L (10-20); BUN (Urea Nitrogen) 25 mg/dL (8.4-25.7); Bilirubin, Total 0.3 mg/dL (0.2-1.2); Calc. Creatinine Clearance 73 mL/min (70-130); Calcium 8.8 mg/dL (7.8-10.44); Carbon Dioxide 20 mmol/L (23-31); Chloride 105 mmol/L (98-107); Globulin 3.7 g/dL (2.4-3.5); Glucose 157 mg/dL (83-110); Potassium 4.3 mmol/L (3.5-5.1); Protein, Total 6.8 g/dL (5.8-8.1); Sodium 136 mmol/L (136-145)
[2021-08-01] MEDS: Clopidogrel Bisulfate 75 MG TAB PO SCH (08:29)
[2021-08-01] MEDS: Gabapentin 300 MG CAP PO SCH ×3 (08:29→21:41)
[2021-08-01] MEDS: Amlodipine 5 MG TAB PO SCH (08:29)
[2021-08-01] MEDS: Senokot S 8.6-50 MG TAB PO PRN (08:29)
[2021-08-01] MEDS: Flecainide 50 MG TAB PO SCH ×2 (08:29→21:40)
[2021-08-01] MEDS: Famotidine 20 MG TAB PO SCH ×2 (08:29→21:40)
[2021-08-01] MEDS: HumuLIN 70/30 (300 UNITS/3 ML VIAL) SC SCH ×2 (08:30→21:41)
[2021-08-01] MEDS: Rivaroxaban 10 MG TAB PO SCH (17:04)
[2021-08-01] MEDS: HYDROcodone/Acetaminophen 10/325 mg Tablet PO PRN (17:59)
[2021-08-01] MEDS: Atorvastatin Calcium 40 MG TAB PO SCH (21:41)
[2021-08-01] MEDS: Vancomycin HCl 750 MG in Sodium Chloride 0.9% 250 ML 250 ML IVPB SCH ×2 (21:44→22:21)
[2021-08-02] MEDS: Cefepime 1 GM in Sodium Chloride 0.9% 100 ML IVPB SCH (05:12)
[2021-08-02] MEDS: HumaLOG 300 UNITS/3 ML VIAL SC PRN ×3 (05:15→15:49)
[2021-08-02 05:39] LABS: #Basophils 0.1 thou/uL (0.0-0.2); #Eosinphils 0.3 thou/uL (0.0-0.7); #Lymphocytes 1.1 thou/uL (1.20-3.40); #Monocytes 0.9 thou/uL (0.11-0.59); #Neutrophils 6.8 thou/uL (1.40-6.50); %Eosinophils 3.1 % (0.0-10.0); %Lymphocytes 11.6 % (21.0-51.0); %Monocytes 9.7 % (0.0-10.0); %Neutrophils 74.5 % (42.0-75.0); Hemoglobin 9.5 g/dL (14.0-18.0); Mean Corpuscular HGB CONC 30.5 g/dL (32.0-36.0); Mean Corpuscular Volume 91.8 fL (78.0-98.0); Mean Platelet Volume 6.9 fL (7.4-10.4); Platelet Count 272 thou/uL (130-400); White Blood Cell (WBC) Count 9.1 thou/uL (4.8-10.8)
[2021-08-02 05:54] LABS: ALT (SGPT) 16 U/L (8-55); AST (SGOT) 19 U/L (5-34); Alkaline Phosphatase 131 U/L (40-110); Anion Gap 16 mmol/L (10-20); BUN (Urea Nitrogen) 27 mg/dL (8.4-25.7); Bilirubin, Total 0.4 mg/dL (0.2-1.2); Calc. Creatinine Clearance 75 mL/min (70-130); Calcium 8.8 mg/dL (7.8-10.44); Carbon Dioxide 20 mmol/L (23-31); Chloride 106 mmol/L (98-107); Globulin 3.5 g/dL (2.4-3.5); Glucose 140 mg/dL (83-110); Potassium 4.2 mmol/L (3.5-5.1); Protein, Total 6.5 g/dL (5.8-8.1); Sodium 138 mmol/L (136-145)
[2021-08-02] MEDS: Gabapentin 300 MG CAP PO SCH ×3 (08:03→21:55)
[2021-08-02] MEDS: HumuLIN 70/30 (300 UNITS/3 ML VIAL) SC SCH ×2 (08:04→21:57)
[2021-08-02] MEDS: Clopidogrel Bisulfate 75 MG TAB PO SCH (08:04)
[2021-08-02] MEDS: Famotidine 20 MG TAB PO SCH ×2 (08:04→21:54)
[2021-08-02] MEDS: Amlodipine 5 MG TAB PO SCH (08:04)
[2021-08-02] MEDS: Flecainide 50 MG TAB PO SCH ×2 (08:04→21:55)
[2021-08-02] MEDS: HYDROcodone/Acetaminophen 5/325 mg Tablet PO PRN (09:26)
[2021-08-02] MEDS: Acetaminophen 325 MG TAB PO PRN (13:53)
[2021-08-02] MEDS: Ondansetron ODT 4 MG TAB PO PRN (13:53)
[2021-08-02] MEDS: HYDROcodone/Acetaminophen 10/325 mg Tablet PO PRN (15:48)
[2021-08-02] MEDS: Calcium Carbonate 500 MG ChewTAB PO PRN (17:08)
[2021-08-02] MEDS: Cefepime 2 GM in Sodium Chloride 0.9% 100 ML IVPB SCH (17:08)
[2021-08-02] MEDS: Rivaroxaban 10 MG TAB PO SCH (17:08)
[2021-08-02 21:33] LABS: Vancomycin, Trough 21.8 ug/mL
[2021-08-02] MEDS: Vancomycin HCl 750 MG in Sodium Chloride 0.9% 250 ML 250 ML IVPB SCH ×2 (21:54→22:55)
[2021-08-02] MEDS: Atorvastatin Calcium 40 MG TAB PO SCH (21:55)
[2021-08-03] MEDS: Calcium Carbonate 500 MG ChewTAB PO PRN ×3 (00:09→21:13)
[2021-08-03] MEDS: Cefepime 2 GM in Sodium Chloride 0.9% 100 ML IVPB SCH ×2 (05:26→17:09)
[2021-08-03] MEDS: Flecainide 50 MG TAB PO SCH ×2 (08:55→21:13)
[2021-08-03] MEDS: Amlodipine 5 MG TAB PO SCH (08:56)
[2021-08-03] MEDS: Famotidine 20 MG TAB PO SCH ×2 (08:56→21:13)
[2021-08-03] MEDS: Clopidogrel Bisulfate 75 MG TAB PO SCH (08:56)
[2021-08-03] MEDS: Gabapentin 300 MG CAP PO SCH ×3 (08:56→21:14)
[2021-08-03] MEDS: HumuLIN 70/30 (300 UNITS/3 ML VIAL) SC SCH ×2 (08:58→21:19)
[2021-08-03] MEDS: HumaLOG 300 UNITS/3 ML VIAL SC PRN (13:39)
[2021-08-03] MEDS: Rivaroxaban 10 MG TAB PO SCH (17:08)
[2021-08-03] MEDS: Vancomycin HCl 750 MG in Sodium Chloride 0.9% 250 ML 250 ML IVPB SCH (21:13)
[2021-08-03] MEDS: Atorvastatin Calcium 40 MG TAB PO SCH (21:13)
[2021-08-03] MEDS: Vancomycin HCl 500 MG in Sodium Chloride 0.9% 100 ML IVPB SCH (21:46)
[2021-08-03] MEDS ORDERED: Simethicone Chewable 80 MG TAB PO PRN (23:55)
[2021-08-04] MEDS: Mag-Al Plus 1200 MG/1200 MG/120 MG/30 ML UDCUP PO PRN (00:32)
[2021-08-04] MEDS: Cefepime 2 GM in Sodium Chloride 0.9% 100 ML IVPB SCH ×2 (05:44→16:50)
[2021-08-04] MEDS: Calcium Carbonate 500 MG ChewTAB PO PRN ×2 (05:51→22:30)
[2021-08-04] MEDS: Amlodipine 5 MG TAB PO SCH (07:57)
[2021-08-04] MEDS: Flecainide 50 MG TAB PO SCH ×2 (07:57→22:00)
[2021-08-04] MEDS: Famotidine 20 MG TAB PO SCH ×2 (07:58→22:00)
[2021-08-04] MEDS: Clopidogrel Bisulfate 75 MG TAB PO SCH (07:58)
[2021-08-04] MEDS: Gabapentin 300 MG CAP PO SCH ×3 (07:58→22:29)
[2021-08-04] MEDS: HumuLIN 70/30 (300 UNITS/3 ML VIAL) SC SCH ×2 (08:03→22:00)
[2021-08-04] MEDS: HYDROcodone/Acetaminophen 5/325 mg Tablet PO PRN (09:15)
[2021-08-04] MEDS ORDERED: HYDROcodone/Acetaminophen 5/325 mg Tablet PO SCH (09:45)
[2021-08-04] MEDS: Ondansetron ODT 4 MG TAB PO PRN (10:50)
[2021-08-04] MEDS: HumaLOG 300 UNITS/3 ML VIAL SC PRN ×2 (12:23→22:00)
[2021-08-04] MEDS: HYDROcodone/Acetaminophen 10/325 mg Tablet PO PRN (16:47)
[2021-08-04] MEDS: Rivaroxaban 10 MG TAB PO SCH (16:48)
[2021-08-04] MEDS ORDERED: Lidocaine Viscous Sol 2% 15 ml UD Cup FS SCH (21:00)
[2021-08-04] MEDS: Atorvastatin Calcium 40 MG TAB PO SCH (22:00)
[2021-08-04] MEDS ORDERED: Gabapentin 100 MG CAP PO SCH (22:15)
[2021-08-04] MEDS: Vancomycin HCl 750 MG in Sodium Chloride 0.9% 250 ML 250 ML IVPB SCH (22:32)
[2021-08-04] MEDS: Vancomycin HCl 500 MG in Sodium Chloride 0.9% 100 ML IVPB SCH (22:37)
[2021-08-05] MEDS: Cefepime 2 GM in Sodium Chloride 0.9% 100 ML IVPB SCH ×2 (05:48→17:32)
[2021-08-05] MEDS: HumaLOG 300 UNITS/3 ML VIAL SC PRN ×2 (06:15→11:47)
[2021-08-05] MEDS: Lidocaine 2% Jelly 5 ML TUBE TOP PRN (07:19)
[2021-08-05] MEDS: Flecainide 50 MG TAB PO SCH ×2 (08:18→20:48)
[2021-08-05] MEDS: HumuLIN 70/30 (300 UNITS/3 ML VIAL) SC SCH ×2 (08:19→20:50)
[2021-08-05] MEDS: Famotidine 20 MG TAB PO SCH ×2 (08:19→20:48)
[2021-08-05] MEDS: Amlodipine 5 MG TAB PO SCH (08:19)
[2021-08-05] MEDS: Clopidogrel Bisulfate 75 MG TAB PO SCH (08:19)
[2021-08-05 08:42] LABS: Bicarbonate (HCO3v) 22.4 mmol/L (22.0-28.0); CO2 Tension (PvCO2) 35.4 mmHg (42.0-51.0); Hemoglobin - Calc 8.5 g/dL (14.0-18.0); vO2 Saturation-calc 99.8 % (60.0-85.0)
[2021-08-05 08:43] LABS: Calcium, Ionized 1.18 mmol/L (1.15-1.33); Chloride 100 mmol/L (98-107); Potassium 4.7 mmol/L (3.5-5.1); Sodium 133 mmol/L (138-145); T. Carbon Dioxide 23.5 mmol/L (22.0-28.0)
[2021-08-05] MEDS: Saccharomyces boulardii 250 MG CAP PO SCH (09:10)
[2021-08-05] MEDS: Calcium Carbonate 500 MG ChewTAB PO PRN ×2 (09:10→17:39)
[2021-08-05] MEDS: Ondansetron ODT 4 MG TAB PO PRN (09:36)
[2021-08-05] MEDS: Gabapentin 300 MG CAP PO SCH ×3 (10:17→20:48)
[2021-08-05] MEDS: HYDROcodone/Acetaminophen 5/325 mg Tablet PO PRN (10:18)
[2021-08-05] MEDS: Senokot S 8.6-50 MG TAB PO PRN (14:36)
[2021-08-05] MEDS: Rivaroxaban 10 MG TAB PO SCH (16:27)
[2021-08-05] MEDS: Atorvastatin Calcium 40 MG TAB PO SCH (20:48)
[2021-08-05] MEDS: Mag-Al Plus 1200 MG/1200 MG/120 MG/30 ML UDCUP PO PRN (20:49)
[2021-08-05 21:19] LABS: Vancomycin, Trough 21.8 ug/mL
[2021-08-05] MEDS: Vancomycin HCl 750 MG in Sodium Chloride 0.9% 250 ML 250 ML IVPB SCH (21:31)
[2021-08-05] MEDS: Vancomycin HCl 500 MG in Sodium Chloride 0.9% 100 ML IVPB SCH (21:32)
[2021-08-06] MEDS: Bisacodyl 10 MG SUPP PR PRN (01:25)
[2021-08-06] MEDS: Bisacodyl 5 MG TAB PO PRN ×3 (03:45→21:01)
[2021-08-06] MEDS: Cefepime 2 GM in Sodium Chloride 0.9% 100 ML IVPB SCH ×2 (05:39→17:28)
[2021-08-06] MEDS: Lidocaine 2% Jelly 5 ML TUBE TOP PRN ×2 (08:14→21:00)
[2021-08-06] MEDS: Gabapentin 300 MG CAP PO SCH ×3 (08:14→21:00)
[2021-08-06] MEDS: Flecainide 50 MG TAB PO SCH ×2 (08:16→21:00)
[2021-08-06] MEDS: Amlodipine 5 MG TAB PO SCH (08:16)
[2021-08-06] MEDS: Famotidine 20 MG TAB PO SCH ×2 (08:17→21:00)
[2021-08-06] MEDS: Saccharomyces boulardii 250 MG CAP PO SCH (08:17)
[2021-08-06] MEDS: Clopidogrel Bisulfate 75 MG TAB PO SCH (08:17)
[2021-08-06] MEDS: Polyethylene Glycol 3350 17 GM Packet PO SCH (08:17)
[2021-08-06] MEDS: HumuLIN 70/30 (300 UNITS/3 ML VIAL) SC SCH ×2 (08:18→21:03)
[2021-08-06] MEDS: HYDROcodone/Acetaminophen 5/325 mg Tablet PO PRN ×2 (08:22→21:01)
[2021-08-06] MEDS: HumaLOG 300 UNITS/3 ML VIAL SC PRN (12:08)
[2021-08-06] MEDS: Calcium Carbonate 500 MG ChewTAB PO PRN (13:03)
[2021-08-06] MEDS: Ondansetron ODT 4 MG TAB PO PRN (15:40)
[2021-08-06] MEDS: Rivaroxaban 10 MG TAB PO SCH (17:26)
[2021-08-06] MEDS ORDERED: Famotidine 20 MG TAB ONE (20:44)
[2021-08-06] MEDS: Atorvastatin Calcium 40 MG TAB PO SCH (20:59)
[2021-08-06] MEDS: Vancomycin HCl 1 GM in Sodium Chloride 0.9% 250 ML 250 ML IVPB SCH (22:54)
[2021-08-07] MEDS: Lidocaine 2% Jelly 5 ML TUBE TOP PRN ×2 (03:29→11:22)
[2021-08-07] MEDS: Cefepime 2 GM in Sodium Chloride 0.9% 100 ML IVPB SCH ×2 (05:34→17:12)
[2021-08-07] MEDS: HYDROcodone/Acetaminophen 5/325 mg Tablet PO PRN ×2 (08:25→14:48)
[2021-08-07] MEDS: Flecainide 50 MG TAB PO SCH ×2 (08:27→21:27)
[2021-08-07] MEDS: HumuLIN 70/30 (300 UNITS/3 ML VIAL) SC SCH ×2 (08:27→21:28)
[2021-08-07] MEDS: Saccharomyces boulardii 250 MG CAP PO SCH (08:27)
[2021-08-07] MEDS: Amlodipine 5 MG TAB PO SCH (08:28)
[2021-08-07] MEDS: Clopidogrel Bisulfate 75 MG TAB PO SCH (08:28)
[2021-08-07] MEDS: Gabapentin 300 MG CAP PO SCH ×3 (08:28→21:26)
[2021-08-07] MEDS: Famotidine 20 MG TAB PO SCH ×2 (08:29→21:28)
[2021-08-07] MEDS: Polyethylene Glycol 3350 17 GM Packet PO SCH (08:29)
[2021-08-07] MEDS: HumaLOG 300 UNITS/3 ML VIAL SC PRN (11:24)
[2021-08-07] MEDS: Calcium Carbonate 500 MG ChewTAB PO PRN ×2 (12:33→16:59)
[2021-08-07] MEDS: Rivaroxaban 10 MG TAB PO SCH (16:58)
[2021-08-07] MEDS: Atorvastatin Calcium 40 MG TAB PO SCH (21:27)
[2021-08-07] MEDS: Ondansetron ODT 4 MG TAB PO PRN (22:10)
[2021-08-07] MEDS: Vancomycin HCl 1 GM in Sodium Chloride 0.9% 250 ML 250 ML IVPB SCH (22:10)
[2021-08-08] MEDS: Cefepime 2 GM in Sodium Chloride 0.9% 100 ML IVPB SCH ×2 (05:31→17:16)
[2021-08-08] MEDS: HYDROcodone/Acetaminophen 5/325 mg Tablet PO PRN ×2 (08:43→14:12)
[2021-08-08] MEDS: Calcium Carbonate 500 MG ChewTAB PO PRN (08:46)
[2021-08-08] MEDS: Polyethylene Glycol 3350 17 GM Packet PO SCH (08:47)
[2021-08-08] MEDS: Gabapentin 300 MG CAP PO SCH ×3 (08:48→21:31)
[2021-08-08] MEDS: Flecainide 50 MG TAB PO SCH ×2 (08:49→21:33)
[2021-08-08] MEDS: Amlodipine 5 MG TAB PO SCH (08:49)
[2021-08-08] MEDS: Saccharomyces boulardii 250 MG CAP PO SCH (08:49)
[2021-08-08] MEDS: Clopidogrel Bisulfate 75 MG TAB PO SCH (08:49)
[2021-08-08] MEDS: Famotidine 20 MG TAB PO SCH ×2 (08:50→21:31)
[2021-08-08] MEDS: Lidocaine 2% Jelly 5 ML TUBE TOP PRN (09:01)
[2021-08-08 09:55] LABS: #Basophils 0.1 thou/uL (0.0-0.2); #Eosinphils 0.2 thou/uL (0.0-0.7); #Lymphocytes 0.7 thou/uL (1.20-3.40); #Monocytes 0.7 thou/uL (0.11-0.59); #Neutrophils 8.1 thou/uL (1.40-6.50); %Lymphocytes 7.5 % (21.0-51.0); %Monocytes 7.3 % (0.0-10.0); %Neutrophils 82.2 % (42.0-75.0); Hemoglobin 9.5 g/dL (14.0-18.0); Mean Corpuscular HGB CONC 31.7 g/dL (32.0-36.0); Mean Corpuscular Hemoglobin 28.7 pg (27.0-31.0); Mean Corpuscular Volume 90.7 fL (78.0-98.0); Mean Platelet Volume 7.3 fL (7.4-10.4); Platelet Count 282 thou/uL (130-400); RBC Distribution Width 13.4 % (11.5-14.5); White Blood Cell (WBC) Count 9.9 thou/uL (4.8-10.8)
[2021-08-08 10:07] LABS: Anion Gap 15 mmol/L (10-20); BUN (Urea Nitrogen) 36 mg/dL (8.4-25.7); Calc. Creatinine Clearance 56 mL/min (70-130); Calcium 9.3 mg/dL (7.8-10.44); Carbon Dioxide 24 mmol/L (23-31); Chloride 104 mmol/L (98-107); Glucose 198 mg/dL (83-110); Potassium 4.7 mmol/L (3.5-5.1); Sodium 138 mmol/L (136-145)
[2021-08-08] MEDS: HumaLOG 300 UNITS/3 ML VIAL SC PRN (11:55)
[2021-08-08] MEDS: Rivaroxaban 10 MG TAB PO SCH (17:14)
[2021-08-08 21:15] LABS: Vancomycin, Trough 15.7 ug/mL
[2021-08-08] MEDS: Atorvastatin Calcium 40 MG TAB PO SCH (21:31)
[2021-08-08] MEDS: HumuLIN 70/30 (300 UNITS/3 ML VIAL) SC SCH (21:31)
[2021-08-08] MEDS: Vancomycin HCl 1 GM in Sodium Chloride 0.9% 250 ML 250 ML IVPB SCH (21:33)
[2021-08-09] MEDS: Cefepime 2 GM in Sodium Chloride 0.9% 100 ML IVPB SCH ×2 (06:13→17:32)
[2021-08-09] MEDS: Gabapentin 300 MG CAP PO SCH ×3 (08:23→21:12)
[2021-08-09] MEDS: Polyethylene Glycol 3350 17 GM Packet PO SCH (08:23)
[2021-08-09] MEDS: Flecainide 50 MG TAB PO SCH ×2 (08:23→21:12)
[2021-08-09] MEDS: Famotidine 20 MG TAB PO SCH ×2 (08:23→21:13)
[2021-08-09] MEDS: Saccharomyces boulardii 250 MG CAP PO SCH (08:23)
[2021-08-09] MEDS: Clopidogrel Bisulfate 75 MG TAB PO SCH (08:24)
[2021-08-09] MEDS: Amlodipine 5 MG TAB PO SCH (08:24)
[2021-08-09] MEDS: HumuLIN 70/30 (300 UNITS/3 ML VIAL) SC SCH ×3 (08:26→16:48)
[2021-08-09] MEDS: HYDROcodone/Acetaminophen 5/325 mg Tablet PO PRN (15:00)
[2021-08-09] MEDS: Rivaroxaban 10 MG TAB PO SCH (17:32)
[2021-08-09] MEDS ORDERED: HumuLIN 70/30 (300 UNITS/3 ML VIAL) SC SCH (21:00)
[2021-08-09] MEDS: Vancomycin HCl 1 GM in Sodium Chloride 0.9% 250 ML 250 ML IVPB SCH (21:10)
[2021-08-09] MEDS: traZODone HCl 50 MG TAB PO PRN (21:13)
[2021-08-09] MEDS: Atorvastatin Calcium 40 MG TAB PO SCH (21:13)
[2021-08-10] MEDS: Cefepime 2 GM in Sodium Chloride 0.9% 100 ML IVPB SCH ×2 (06:03→18:00)
[2021-08-10] MEDS: HumuLIN 70/30 (300 UNITS/3 ML VIAL) SC SCH (08:13)
[2021-08-10] MEDS: Polyethylene Glycol 3350 17 GM Packet PO SCH (08:17)
[2021-08-10] MEDS: Amlodipine 5 MG TAB PO SCH (08:18)
[2021-08-10] MEDS: Saccharomyces boulardii 250 MG CAP PO SCH (08:18)
[2021-08-10] MEDS: Gabapentin 300 MG CAP PO SCH ×3 (08:18→21:49)
[2021-08-10] MEDS: Famotidine 20 MG TAB PO SCH ×2 (08:18→21:49)
[2021-08-10] MEDS: Clopidogrel Bisulfate 75 MG TAB PO SCH (08:18)
[2021-08-10] MEDS: Flecainide 50 MG TAB PO SCH ×2 (08:18→21:49)
[2021-08-10] MEDS: Lidocaine 2% Jelly 5 ML TUBE TOP PRN (08:24)
[2021-08-10] MEDS ORDERED: Lantus 1000 UNITS/10 ML VIAL SC SCH (10:00)
[2021-08-10] MEDS: HumaLOG 300 UNITS/3 ML VIAL SC PRN ×2 (11:11→16:42)
[2021-08-10] MEDS: Senokot S 8.6-50 MG TAB PO PRN (14:21)
[2021-08-10] MEDS: HYDROcodone/Acetaminophen 5/325 mg Tablet PO PRN (14:22)
[2021-08-10] MEDS: Rivaroxaban 10 MG TAB PO SCH (16:40)
[2021-08-10 21:33] LABS: Vancomycin, Trough 18.5 ug/mL
[2021-08-10] MEDS: Vancomycin HCl 1 GM in Sodium Chloride 0.9% 250 ML 250 ML IVPB SCH (21:48)
[2021-08-10] MEDS: Atorvastatin Calcium 40 MG TAB PO SCH (21:49)
[2021-08-11] MEDS: Cefepime 2 GM in Sodium Chloride 0.9% 100 ML IVPB SCH ×2 (05:28→17:08)
[2021-08-11 06:00] LABS: #Basophils 0.1 thou/uL (0.0-0.2); #Eosinphils 0.2 thou/uL (0.0-0.7); #Lymphocytes 0.9 thou/uL (1.20-3.40); #Monocytes 0.9 thou/uL (0.11-0.59); #Neutrophils 7.6 thou/uL (1.40-6.50); %Basophils 1.1 % (0.0-1.0); %Eosinophils 2.5 % (0.0-10.0); %Lymphocytes 9.3 % (21.0-51.0); %Monocytes 8.9 % (0.0-10.0); %Neutrophils 78.3 % (42.0-75.0); Hemoglobin 8.8 g/dL (14.0-18.0); Mean Corpuscular HGB CONC 31.3 g/dL (32.0-36.0); Mean Corpuscular Hemoglobin 28.6 pg (27.0-31.0); Mean Corpuscular Volume 91.3 fL (78.0-98.0); Mean Platelet Volume 7.1 fL (7.4-10.4); Platelet Count 235 thou/uL (130-400); RBC Distribution Width 13.9 % (11.5-14.5); Red Blood Cell (RBC) Count 3.09 mill/uL (4.70-6.10); White Blood Cell (WBC) Count 9.8 thou/uL (4.8-10.8)
[2021-08-11 06:11] LABS: Anion Gap 13 mmol/L (10-20); BUN (Urea Nitrogen) 41 mg/dL (8.4-25.7); CRP (Inflammatory) 2.22 mg/dL (= or < 0.5); Calc. Creatinine Clearance 57 mL/min (70-130); Calcium 8.7 mg/dL (7.8-10.44); Carbon Dioxide 22 mmol/L (23-31); Chloride 103 mmol/L (98-107); Glucose 140 mg/dL (83-110); Potassium 4.9 mmol/L (3.5-5.1); Sodium 133 mmol/L (136-145)
[2021-08-11] MEDS: Amlodipine 5 MG TAB PO SCH (07:17)
[2021-08-11] MEDS: Clopidogrel Bisulfate 75 MG TAB PO SCH (07:17)
[2021-08-11] MEDS: Gabapentin 300 MG CAP PO SCH ×3 (07:17→21:15)
[2021-08-11] MEDS: Saccharomyces boulardii 250 MG CAP PO SCH (07:17)
[2021-08-11] MEDS: Famotidine 20 MG TAB PO SCH ×2 (07:17→21:18)
[2021-08-11] MEDS: Flecainide 50 MG TAB PO SCH ×2 (07:17→21:15)
[2021-08-11] MEDS: Lantus 1000 UNITS/10 ML VIAL SC SCH (07:21)
[2021-08-11] MEDS: HumaLOG 300 UNITS/3 ML VIAL SC PRN ×2 (11:41→17:06)
[2021-08-11] MEDS: Polyethylene Glycol 3350 17 GM Packet PO SCH (11:41)
[2021-08-11] MEDS: HYDROcodone/Acetaminophen 5/325 mg Tablet PO PRN ×2 (13:10→21:21)
[2021-08-11] MEDS: Rivaroxaban 10 MG TAB PO SCH (17:07)
[2021-08-11] MEDS: Bisacodyl 5 MG TAB PO PRN (17:23)
[2021-08-11] MEDS: Atorvastatin Calcium 40 MG TAB PO SCH (21:15)
[2021-08-11] MEDS: Vancomycin HCl 1 GM in Sodium Chloride 0.9% 250 ML 250 ML IVPB SCH (21:22)
[2021-08-12] MEDS: Cefepime 2 GM in Sodium Chloride 0.9% 100 ML IVPB SCH ×2 (05:24→17:31)
[2021-08-12] MEDS: Bisacodyl 10 MG SUPP PR PRN (06:19)
[2021-08-12] MEDS: Mag-Al Plus 1200 MG/1200 MG/120 MG/30 ML UDCUP PO PRN (08:23)
[2021-08-12] MEDS: Flecainide 50 MG TAB PO SCH ×2 (08:24→21:33)
[2021-08-12] MEDS: Polyethylene Glycol 3350 17 GM Packet PO SCH (08:24)
[2021-08-12] MEDS: Famotidine 20 MG TAB PO SCH ×2 (08:25→21:33)
[2021-08-12] MEDS: Lantus 1000 UNITS/10 ML VIAL SC SCH (08:25)
[2021-08-12] MEDS: Amlodipine 5 MG TAB PO SCH (08:25)
[2021-08-12] MEDS: Saccharomyces boulardii 250 MG CAP PO SCH (08:25)
[2021-08-12] MEDS: Gabapentin 300 MG CAP PO SCH ×3 (08:26→21:33)
[2021-08-12] MEDS: Clopidogrel Bisulfate 75 MG TAB PO SCH (08:27)
[2021-08-12] MEDS: HYDROcodone/Acetaminophen 5/325 mg Tablet PO PRN (09:16)
[2021-08-12] MEDS: HumaLOG 300 UNITS/3 ML VIAL SC PRN (11:55)
[2021-08-12] MEDS: Rivaroxaban 10 MG TAB PO SCH (17:31)
[2021-08-12] MEDS: Lidocaine 2% Jelly 5 ML TUBE TOP PRN (18:18)
[2021-08-12 21:12] LABS: Vancomycin, Trough 18.6 ug/mL
[2021-08-12] MEDS: Vancomycin HCl 1 GM in Sodium Chloride 0.9% 250 ML 250 ML IVPB SCH (21:29)
[2021-08-12] MEDS: Atorvastatin Calcium 40 MG TAB PO SCH (21:32)
[2021-08-12] MEDS: Melatonin 3 MG TAB PO PRN (21:32)
[2021-08-13] MEDS: Cefepime 2 GM in Sodium Chloride 0.9% 100 ML IVPB SCH ×2 (05:57→17:51)
[2021-08-13] MEDS: Flecainide 50 MG TAB PO SCH ×2 (08:21→21:08)
[2021-08-13] MEDS: Saccharomyces boulardii 250 MG CAP PO SCH (08:21)
[2021-08-13] MEDS: Amlodipine 5 MG TAB PO SCH (08:22)
[2021-08-13] MEDS: Gabapentin 300 MG CAP PO SCH ×3 (08:22→21:06)
[2021-08-13] MEDS: Clopidogrel Bisulfate 75 MG TAB PO SCH (08:22)
[2021-08-13] MEDS: Polyethylene Glycol 3350 17 GM Packet PO SCH (08:23)
[2021-08-13] MEDS: Lantus 1000 UNITS/10 ML VIAL SC SCH (08:23)
[2021-08-13] MEDS: Famotidine 20 MG TAB PO SCH ×2 (08:23→21:08)
[2021-08-13] MEDS: HumaLOG 300 UNITS/3 ML VIAL SC PRN (11:56)
[2021-08-13] MEDS: HYDROcodone/Acetaminophen 5/325 mg Tablet PO PRN (12:19)
[2021-08-13] MEDS: Rivaroxaban 10 MG TAB PO SCH (17:51)
[2021-08-13] MEDS: Vancomycin HCl 1 GM in Sodium Chloride 0.9% 250 ML 250 ML IVPB SCH (21:05)
[2021-08-13] MEDS: traZODone HCl 50 MG TAB PO PRN (21:07)
[2021-08-13] MEDS: Atorvastatin Calcium 40 MG TAB PO SCH (21:08)
[2021-08-14] MEDS: Cefepime 2 GM in Sodium Chloride 0.9% 100 ML IVPB SCH ×2 (05:36→17:55)
[2021-08-14 05:48] LABS: #Basophils 0.1 thou/uL (0.0-0.2); #Eosinphils 0.3 thou/uL (0.0-0.7); #Lymphocytes 0.8 thou/uL (1.20-3.40); #Neutrophils 6.4 thou/uL (1.40-6.50); %Basophils 1.2 % (0.0-1.0); %Eosinophils 3.2 % (0.0-10.0); %Lymphocytes 9.2 % (21.0-51.0); %Monocytes 11.2 % (0.0-10.0); %Neutrophils 75.2 % (42.0-75.0); Hemoglobin 8.4 g/dL (14.0-18.0); Mean Corpuscular HGB CONC 30.9 g/dL (32.0-36.0); Mean Corpuscular Hemoglobin 28.6 pg (27.0-31.0); Mean Corpuscular Volume 92.6 fL (78.0-98.0); Mean Platelet Volume 7.7 fL (7.4-10.4); Platelet Count 238 thou/uL (130-400); RBC Distribution Width 14.5 % (11.5-14.5); Red Blood Cell (RBC) Count 2.93 mill/uL (4.70-6.10); White Blood Cell (WBC) Count 8.5 thou/uL (4.8-10.8)
[2021-08-14 06:07] LABS: Anion Gap 14 mmol/L (10-20); BUN (Urea Nitrogen) 49 mg/dL (8.4-25.7); Calc. Creatinine Clearance 61 mL/min (70-130); Carbon Dioxide 22 mmol/L (23-31); Chloride 105 mmol/L (98-107); Glucose 146 mg/dL (83-110); Potassium 4.5 mmol/L (3.5-5.1); Sodium 136 mmol/L (136-145)
[2021-08-14] MEDS: Gabapentin 300 MG CAP PO SCH ×3 (08:24→21:01)
[2021-08-14] MEDS: Polyethylene Glycol 3350 17 GM Packet PO SCH (08:24)
[2021-08-14] MEDS: Amlodipine 5 MG TAB PO SCH (08:24)
[2021-08-14] MEDS: Saccharomyces boulardii 250 MG CAP PO SCH (08:24)
[2021-08-14] MEDS: Clopidogrel Bisulfate 75 MG TAB PO SCH (08:25)
[2021-08-14] MEDS: Flecainide 50 MG TAB PO SCH ×2 (08:25→21:01)
[2021-08-14] MEDS: Famotidine 20 MG TAB PO SCH ×2 (08:25→21:02)
[2021-08-14] MEDS: Lantus 1000 UNITS/10 ML VIAL SC SCH (08:28)
[2021-08-14] MEDS: HumaLOG 300 UNITS/3 ML VIAL SC PRN (11:09)
[2021-08-14] MEDS: Calcium Carbonate 500 MG ChewTAB PO PRN (12:43)
[2021-08-14] MEDS: Rivaroxaban 10 MG TAB PO SCH (16:27)
[2021-08-14] MEDS: Atorvastatin Calcium 40 MG TAB PO SCH (21:01)
[2021-08-14] MEDS: Vancomycin HCl 1 GM in Sodium Chloride 0.9% 250 ML 250 ML IVPB SCH (21:02)
[2021-08-15] MEDS: Cefepime 2 GM in Sodium Chloride 0.9% 100 ML IVPB SCH ×2 (05:59→17:25)
[2021-08-15 06:06] LABS: #Basophils 0.1 thou/uL (0.0-0.2); #Eosinphils 0.3 thou/uL (0.0-0.7); #Lymphocytes 0.8 thou/uL (1.20-3.40); #Monocytes 0.9 thou/uL (0.11-0.59); #Neutrophils 6.2 thou/uL (1.40-6.50); %Basophils 1.6 % (0.0-1.0); %Eosinophils 3.8 % (0.0-10.0); %Lymphocytes 9.3 % (21.0-51.0); %Monocytes 11.1 % (0.0-10.0); %Neutrophils 74.3 % (42.0-75.0); Hemoglobin 8.4 g/dL (14.0-18.0); Mean Corpuscular HGB CONC 30.6 g/dL (32.0-36.0); Mean Corpuscular Hemoglobin 28.3 pg (27.0-31.0); Mean Corpuscular Volume 92.4 fL (78.0-98.0); Mean Platelet Volume 7.3 fL (7.4-10.4); Platelet Count 235 thou/uL (130-400); RBC Distribution Width 14.5 % (11.5-14.5); Red Blood Cell (RBC) Count 2.97 mill/uL (4.70-6.10); White Blood Cell (WBC) Count 8.3 thou/uL (4.8-10.8)
[2021-08-15] MEDS: Polyethylene Glycol 3350 17 GM Packet PO SCH (08:34)
[2021-08-15] MEDS: Lantus 1000 UNITS/10 ML VIAL SC SCH (08:34)
[2021-08-15] MEDS: Gabapentin 300 MG CAP PO SCH ×3 (08:35→21:03)
[2021-08-15] MEDS: Famotidine 20 MG TAB PO SCH ×2 (08:35→21:03)
[2021-08-15] MEDS: Saccharomyces boulardii 250 MG CAP PO SCH (08:35)
[2021-08-15] MEDS: Flecainide 50 MG TAB PO SCH ×2 (08:36→21:03)
[2021-08-15] MEDS: Clopidogrel Bisulfate 75 MG TAB PO SCH (08:37)
[2021-08-15] MEDS: Amlodipine 5 MG TAB PO SCH (08:37)
[2021-08-15] MEDS: Lidocaine 2% Jelly 5 ML TUBE TOP PRN (09:25)
[2021-08-15] MEDS: HYDROcodone/Acetaminophen 5/325 mg Tablet PO PRN (10:52)
[2021-08-15 11:59] LABS: Iron 38 ug/dL (65-175); Iron Binding Capacity, Total 249 mcg/dL (261-462)
[2021-08-15] MEDS: HumaLOG 300 UNITS/3 ML VIAL SC PRN (12:05)
[2021-08-15] MEDS: Rivaroxaban 10 MG TAB PO SCH (17:24)
[2021-08-15] MEDS: Atorvastatin Calcium 40 MG TAB PO SCH (21:03)
[2021-08-15] MEDS: Vancomycin HCl 1 GM in Sodium Chloride 0.9% 250 ML 250 ML IVPB SCH (21:03)
[2021-08-15 21:22] LABS: Vancomycin, Trough 18.7 ug/mL
[2021-08-15] MEDS: Melatonin 3 MG TAB PO PRN (21:40)
[2021-08-16] MEDS: HYDROcodone/Acetaminophen 10/325 mg Tablet PO PRN (03:15)
[2021-08-16] MEDS: Cefepime 2 GM in Sodium Chloride 0.9% 100 ML IVPB SCH ×2 (06:05→17:47)
[2021-08-16] MEDS: Clopidogrel Bisulfate 75 MG TAB PO SCH (08:23)
[2021-08-16] MEDS: Polyethylene Glycol 3350 17 GM Packet PO SCH (08:23)
[2021-08-16] MEDS: Famotidine 20 MG TAB PO SCH ×2 (08:23→21:17)
[2021-08-16] MEDS: Amlodipine 5 MG TAB PO SCH (08:23)
[2021-08-16] MEDS: Saccharomyces boulardii 250 MG CAP PO SCH (08:23)
[2021-08-16] MEDS: Gabapentin 300 MG CAP PO SCH ×3 (08:24→21:17)
[2021-08-16] MEDS: Ferrous Sulfate 325 MG TAB PO SCH (08:24)
[2021-08-16] MEDS: Lantus 1000 UNITS/10 ML VIAL SC SCH (08:24)
[2021-08-16] MEDS: Flecainide 50 MG TAB PO SCH ×2 (08:24→21:16)
[2021-08-16] MEDS: HumaLOG 300 UNITS/3 ML VIAL SC PRN (11:22)
[2021-08-16] MEDS: Rivaroxaban 10 MG TAB PO SCH (17:04)
[2021-08-16] MEDS: Melatonin 3 MG TAB PO PRN (21:17)
[2021-08-16] MEDS: Atorvastatin Calcium 40 MG TAB PO SCH (21:18)
[2021-08-16] MEDS: Vancomycin HCl 1 GM in Sodium Chloride 0.9% 250 ML 250 ML IVPB SCH (21:18)
[2021-08-16] MEDS: HYDROcodone/Acetaminophen 5/325 mg Tablet PO PRN (21:18)
[2021-08-17 05:39] LABS: #Basophils 0.1 thou/uL (0.0-0.2); #Eosinphils 0.3 thou/uL (0.0-0.7); #Lymphocytes 1.1 thou/uL (1.20-3.40); #Monocytes 0.9 thou/uL (0.11-0.59); #Neutrophils 5.5 thou/uL (1.40-6.50); %Basophils 1.4 % (0.0-1.0); %Eosinophils 4.3 % (0.0-10.0); %Lymphocytes 13.6 % (21.0-51.0); %Monocytes 11.5 % (0.0-10.0); %Neutrophils 69.2 % (42.0-75.0); Hemoglobin 8.9 g/dL (14.0-18.0); Mean Corpuscular HGB CONC 30.3 g/dL (32.0-36.0); Mean Corpuscular Hemoglobin 28.1 pg (27.0-31.0); Mean Corpuscular Volume 92.8 fL (78.0-98.0); Mean Platelet Volume 7.4 fL (7.4-10.4); Platelet Count 234 thou/uL (130-400); RBC Distribution Width 14.5 % (11.5-14.5); Red Blood Cell (RBC) Count 3.16 mill/uL (4.70-6.10); White Blood Cell (WBC) Count 7.9 thou/uL (4.8-10.8)
[2021-08-17 05:54] LABS: Anion Gap 13 mmol/L (10-20); BUN (Urea Nitrogen) 42 mg/dL (8.4-25.7); Calc. Creatinine Clearance 60 mL/min (70-130); Calcium 8.9 mg/dL (7.8-10.44); Carbon Dioxide 20 mmol/L (23-31); Chloride 105 mmol/L (98-107); Glucose 113 mg/dL (83-110); Potassium 4.1 mmol/L (3.5-5.1); Sodium 134 mmol/L (136-145)
[2021-08-17] MEDS: Cefepime 2 GM in Sodium Chloride 0.9% 100 ML IVPB SCH ×2 (05:57→17:26)
[2021-08-17] MEDS: Polyethylene Glycol 3350 17 GM Packet PO SCH (08:16)
[2021-08-17] MEDS: Ferrous Sulfate 325 MG TAB PO SCH (08:17)
[2021-08-17] MEDS: Famotidine 20 MG TAB PO SCH ×2 (08:17→21:07)
[2021-08-17] MEDS: Amlodipine 5 MG TAB PO SCH (08:17)
[2021-08-17] MEDS: Clopidogrel Bisulfate 75 MG TAB PO SCH (08:17)
[2021-08-17] MEDS: Flecainide 50 MG TAB PO SCH ×2 (08:17→21:07)
[2021-08-17] MEDS: Saccharomyces boulardii 250 MG CAP PO SCH (08:18)
[2021-08-17] MEDS: Gabapentin 300 MG CAP PO SCH ×3 (08:18→21:07)
[2021-08-17] MEDS: Lantus 1000 UNITS/10 ML VIAL SC SCH (08:18)
[2021-08-17 08:58] LABS: #Basophils 0.1 thou/uL (0.0-0.2); #Eosinphils 0.3 thou/uL (0.0-0.7); #Lymphocytes 0.7 thou/uL (1.20-3.40); #Monocytes 0.8 thou/uL (0.11-0.59); %Basophils 1.5 % (0.0-1.0); %Eosinophils 3.6 % (0.0-10.0); %Lymphocytes 8.3 % (21.0-51.0); %Neutrophils 77.6 % (42.0-75.0); Hemoglobin 10.4 g/dL (14.0-18.0); Mean Corpuscular HGB CONC 30.3 g/dL (32.0-36.0); Mean Corpuscular Hemoglobin 28.2 pg (27.0-31.0); Mean Corpuscular Volume 93.4 fL (78.0-98.0); Mean Platelet Volume 7.7 fL (7.4-10.4); Platelet Count 247 thou/uL (130-400); RBC Distribution Width 15.1 % (11.5-14.5); Red Blood Cell (RBC) Count 3.67 mill/uL (4.70-6.10)
[2021-08-17 09:01] LABS: ALT (SGPT) 26 U/L (8-55); AST (SGOT) 25 U/L (5-34); Albumin 3.3 g/dL (3.4-4.8); Alkaline Phosphatase 197 U/L (40-110); Anion Gap 15 mmol/L (10-20); BUN (Urea Nitrogen) 41 mg/dL (8.4-25.7); Bilirubin, Total 0.4 mg/dL (0.2-1.2); Calc. Creatinine Clearance 56 mL/min (70-130); Calcium 9.2 mg/dL (7.8-10.44); Carbon Dioxide 21 mmol/L (23-31); Chloride 105 mmol/L (98-107); Glucose 173 mg/dL (83-110); Magnesium 2.1 mg/dL (1.6-2.6); Potassium 4.5 mmol/L (3.5-5.1); Protein, Total 7.3 g/dL (5.8-8.1); Sodium 136 mmol/L (136-145)
[2021-08-17 09:02] LABS: Troponin I 0.016 ng/mL (< 0.028)
[2021-08-17] MEDS: HumaLOG 300 UNITS/3 ML VIAL SC PRN ×2 (10:58→16:50)
[2021-08-17] MEDS ORDERED: Lantus 1000 UNITS/10 ML VIAL SC SCH (11:45)
[2021-08-17] MEDS: HYDROcodone/Acetaminophen 10/325 mg Tablet PO PRN (13:54)
[2021-08-17] MEDS: Rivaroxaban 10 MG TAB PO SCH (16:51)
[2021-08-17] MEDS: HYDROcodone/Acetaminophen 5/325 mg Tablet PO PRN (21:06)
[2021-08-17] MEDS: Melatonin 3 MG TAB PO PRN (21:07)
[2021-08-17] MEDS: Atorvastatin Calcium 40 MG TAB PO SCH (21:07)
[2021-08-17] MEDS: Vancomycin HCl 1 GM in Sodium Chloride 0.9% 250 ML 250 ML IVPB SCH (21:07)
[2021-08-18] MEDS: Cefepime 2 GM in Sodium Chloride 0.9% 100 ML IVPB SCH ×2 (06:17→17:56)
[2021-08-18] MEDS: Polyethylene Glycol 3350 17 GM Packet PO SCH (07:35)
[2021-08-18] MEDS: Gabapentin 300 MG CAP PO SCH ×3 (07:35→21:14)
[2021-08-18] MEDS: Clopidogrel Bisulfate 75 MG TAB PO SCH (07:36)
[2021-08-18] MEDS: Saccharomyces boulardii 250 MG CAP PO SCH (07:36)
[2021-08-18] MEDS: Lantus 1000 UNITS/10 ML VIAL SC SCH (07:36)
[2021-08-18] MEDS: Ferrous Sulfate 325 MG TAB PO SCH (07:36)
[2021-08-18] MEDS: Famotidine 20 MG TAB PO SCH ×2 (07:36→21:15)
[2021-08-18] MEDS: Amlodipine 5 MG TAB PO SCH (07:36)
[2021-08-18] MEDS: Flecainide 50 MG TAB PO SCH ×2 (07:55→21:15)
[2021-08-18] MEDS: HumaLOG 300 UNITS/3 ML VIAL SC PRN ×2 (11:20→16:40)
[2021-08-18] MEDS: Rivaroxaban 10 MG TAB PO SCH (16:40)
[2021-08-18] MEDS: Vancomycin HCl 1 GM in Sodium Chloride 0.9% 250 ML 250 ML IVPB SCH (21:14)
[2021-08-18] MEDS: Mag-Al Plus 1200 MG/1200 MG/120 MG/30 ML UDCUP PO PRN (21:14)
[2021-08-18] MEDS: Melatonin 3 MG TAB PO PRN (21:15)
[2021-08-18] MEDS: Atorvastatin Calcium 40 MG TAB PO SCH (21:15)
[2021-08-19] MEDS: Cefepime 2 GM in Sodium Chloride 0.9% 100 ML IVPB SCH ×2 (05:41→16:44)
[2021-08-19] MEDS: HumaLOG 300 UNITS/3 ML VIAL SC PRN ×2 (06:37→11:24)
[2021-08-19] MEDS: HYDROcodone/Acetaminophen 5/325 mg Tablet PO PRN (08:24)
[2021-08-19] MEDS: Gabapentin 300 MG CAP PO SCH ×3 (08:24→20:59)
[2021-08-19] MEDS: Ferrous Sulfate 325 MG TAB PO SCH (08:25)
[2021-08-19] MEDS: Famotidine 20 MG TAB PO SCH ×2 (08:25→20:59)
[2021-08-19] MEDS: Ondansetron ODT 4 MG TAB PO PRN (08:25)
[2021-08-19] MEDS: Amlodipine 5 MG TAB PO SCH (08:25)
[2021-08-19] MEDS: Clopidogrel Bisulfate 75 MG TAB PO SCH (08:25)
[2021-08-19] MEDS: Saccharomyces boulardii 250 MG CAP PO SCH (08:25)
[2021-08-19] MEDS: Lantus 1000 UNITS/10 ML VIAL SC SCH (08:26)
[2021-08-19] MEDS: Polyethylene Glycol 3350 17 GM Packet PO SCH (08:26)
[2021-08-19] MEDS: Flecainide 50 MG TAB PO SCH ×2 (08:29→20:59)
[2021-08-19] MEDS: Rivaroxaban 10 MG TAB PO SCH (16:44)
[2021-08-19] MEDS: Vancomycin HCl 1 GM in Sodium Chloride 0.9% 250 ML 250 ML IVPB SCH (20:59)
[2021-08-19] MEDS: Melatonin 3 MG TAB PO PRN (20:59)
[2021-08-19] MEDS: Atorvastatin Calcium 40 MG TAB PO SCH (21:00)
[2021-08-20] MEDS: HYDROcodone/Acetaminophen 5/325 mg Tablet PO PRN ×2 (04:45→14:16)
[2021-08-20] MEDS: Ondansetron ODT 4 MG TAB PO PRN (04:45)
[2021-08-20] MEDS: Cefepime 2 GM in Sodium Chloride 0.9% 100 ML IVPB SCH ×2 (05:33→17:31)
[2021-08-20 06:13] LABS: #Basophils 0.1 thou/uL (0.0-0.2); #Eosinphils 0.3 thou/uL (0.0-0.7); #Neutrophils 6.2 thou/uL (1.40-6.50); %Basophils 1.4 % (0.0-1.0); %Eosinophils 3.5 % (0.0-10.0); %Lymphocytes 11.4 % (21.0-51.0); %Monocytes 11.1 % (0.0-10.0); %Neutrophils 72.6 % (42.0-75.0); Hemoglobin 9.5 g/dL (14.0-18.0); Mean Corpuscular HGB CONC 31.1 g/dL (32.0-36.0); Mean Corpuscular Hemoglobin 28.7 pg (27.0-31.0); Mean Corpuscular Volume 92.2 fL (78.0-98.0); Mean Platelet Volume 7.4 fL (7.4-10.4); Platelet Count 223 thou/uL (130-400); RBC Distribution Width 14.9 % (11.5-14.5); Red Blood Cell (RBC) Count 3.32 mill/uL (4.70-6.10); White Blood Cell (WBC) Count 8.5 thou/uL (4.8-10.8)
[2021-08-20 06:29] LABS: Anion Gap 16 mmol/L (10-20); BUN (Urea Nitrogen) 36 mg/dL (8.4-25.7); Calc. Creatinine Clearance 64 mL/min (70-130); Calcium 9.1 mg/dL (7.8-10.44); Carbon Dioxide 20 mmol/L (23-31); Chloride 107 mmol/L (98-107); Glucose 87 mg/dL (83-110); Potassium 4.6 mmol/L (3.5-5.1); Sodium 138 mmol/L (136-145)
[2021-08-20] MEDS: Gabapentin 300 MG CAP PO SCH ×3 (08:50→21:26)
[2021-08-20] MEDS: Ferrous Sulfate 325 MG TAB PO SCH (08:51)
[2021-08-20] MEDS: Saccharomyces boulardii 250 MG CAP PO SCH (08:51)
[2021-08-20] MEDS: Famotidine 20 MG TAB PO SCH ×2 (08:52→21:26)
[2021-08-20] MEDS: Amlodipine 5 MG TAB PO SCH (08:52)
[2021-08-20] MEDS: Clopidogrel Bisulfate 75 MG TAB PO SCH (08:52)
[2021-08-20] MEDS: Lantus 1000 UNITS/10 ML VIAL SC SCH (08:53)
[2021-08-20] MEDS: Flecainide 50 MG TAB PO SCH ×2 (08:53→21:25)
[2021-08-20] MEDS: Polyethylene Glycol 3350 17 GM Packet PO SCH (08:53)
[2021-08-20] MEDS: HumaLOG 300 UNITS/3 ML VIAL SC PRN (11:09)
[2021-08-20] MEDS: Rivaroxaban 10 MG TAB PO SCH (17:30)
[2021-08-20] MEDS: Atorvastatin Calcium 40 MG TAB PO SCH (21:25)
[2021-08-20] MEDS: Melatonin 3 MG TAB PO PRN (21:36)
[2021-08-20] MEDS: Vancomycin HCl 1 GM in Sodium Chloride 0.9% 250 ML 250 ML IVPB SCH (21:37)
[2021-08-20] MEDS: Senokot S 8.6-50 MG TAB PO PRN (21:37)
[2021-08-21] MEDS: Ondansetron ODT 4 MG TAB PO PRN (03:14)
[2021-08-21] MEDS: HYDROcodone/Acetaminophen 10/325 mg Tablet PO PRN (03:26)
[2021-08-21] MEDS: Cefepime 2 GM in Sodium Chloride 0.9% 100 ML IVPB SCH ×2 (06:07→17:56)
[2021-08-21 06:15] LABS: #Basophils 0.1 thou/uL (0.0-0.2); #Eosinphils 0.3 thou/uL (0.0-0.7); #Monocytes 1.1 thou/uL (0.11-0.59); #Neutrophils 7.4 thou/uL (1.40-6.50); %Basophils 1.4 % (0.0-1.0); %Eosinophils 3.1 % (0.0-10.0); %Lymphocytes 9.7 % (21.0-51.0); %Monocytes 10.9 % (0.0-10.0); %Neutrophils 74.9 % (42.0-75.0); Hemoglobin 8.9 g/dL (14.0-18.0); Mean Corpuscular HGB CONC 30.9 g/dL (32.0-36.0); Mean Corpuscular Hemoglobin 28.5 pg (27.0-31.0); Mean Corpuscular Volume 92.1 fL (78.0-98.0); Mean Platelet Volume 7.9 fL (7.4-10.4); Platelet Count 216 thou/uL (130-400); RBC Distribution Width 14.8 % (11.5-14.5); Red Blood Cell (RBC) Count 3.13 mill/uL (4.70-6.10); White Blood Cell (WBC) Count 9.9 thou/uL (4.8-10.8)
[2021-08-21 06:30] LABS: Anion Gap 15 mmol/L (10-20); BUN (Urea Nitrogen) 40 mg/dL (8.4-25.7); Calc. Creatinine Clearance 58 mL/min (70-130); Calcium 8.9 mg/dL (7.8-10.44); Carbon Dioxide 20 mmol/L (23-31); Chloride 106 mmol/L (98-107); Glucose 97 mg/dL (83-110); Potassium 4.6 mmol/L (3.5-5.1); Sodium 136 mmol/L (136-145)
[2021-08-21] MEDS: Polyethylene Glycol 3350 17 GM Packet PO SCH (08:29)
[2021-08-21] MEDS: Lantus 1000 UNITS/10 ML VIAL SC SCH (08:30)
[2021-08-21] MEDS: Ferrous Sulfate 325 MG TAB PO SCH (08:31)
[2021-08-21] MEDS: Gabapentin 300 MG CAP PO SCH ×3 (08:31→21:06)
[2021-08-21] MEDS: Famotidine 20 MG TAB PO SCH ×2 (08:32→21:06)
[2021-08-21] MEDS: Flecainide 50 MG TAB PO SCH ×2 (08:32→21:06)
[2021-08-21] MEDS: Clopidogrel Bisulfate 75 MG TAB PO SCH (08:32)
[2021-08-21] MEDS: Saccharomyces boulardii 250 MG CAP PO SCH (08:32)
[2021-08-21] MEDS: HumaLOG 300 UNITS/3 ML VIAL SC PRN (12:31)
[2021-08-21] MEDS: Amlodipine 5 MG TAB PO SCH (17:53)
[2021-08-21] MEDS: Rivaroxaban 10 MG TAB PO SCH (17:55)
[2021-08-21] MEDS: Atorvastatin Calcium 40 MG TAB PO SCH (21:06)
[2021-08-21] MEDS: Vancomycin HCl 1 GM in Sodium Chloride 0.9% 250 ML 250 ML IVPB SCH (21:50)
[2021-08-21] MEDS: traZODone HCl 50 MG TAB PO PRN (23:02)
[2021-08-22] MEDS: Cefepime 2 GM in Sodium Chloride 0.9% 100 ML IVPB SCH ×2 (06:17→17:33)
[2021-08-22] MEDS: Lantus 1000 UNITS/10 ML VIAL SC SCH (08:28)
[2021-08-22] MEDS: Famotidine 20 MG TAB PO SCH ×2 (08:29→20:33)
[2021-08-22] MEDS: Saccharomyces boulardii 250 MG CAP PO SCH (08:30)
[2021-08-22] MEDS: Ferrous Sulfate 325 MG TAB PO SCH (08:31)
[2021-08-22] MEDS: Gabapentin 300 MG CAP PO SCH ×3 (08:31→20:33)
[2021-08-22] MEDS: Amlodipine 5 MG TAB PO SCH (08:32)
[2021-08-22] MEDS: Clopidogrel Bisulfate 75 MG TAB PO SCH (08:32)
[2021-08-22] MEDS: Polyethylene Glycol 3350 17 GM Packet PO SCH (08:34)
[2021-08-22] MEDS: Flecainide 50 MG TAB PO SCH ×2 (08:56→20:33)
[2021-08-22] MEDS: HumaLOG 300 UNITS/3 ML VIAL SC PRN (12:43)
[2021-08-22] MEDS: Rivaroxaban 10 MG TAB PO SCH (17:23)
[2021-08-22] MEDS: Atorvastatin Calcium 40 MG TAB PO SCH (20:33)
[2021-08-22 21:22] LABS: Vancomycin, Trough 21.4 ug/mL
[2021-08-22] MEDS: Senokot S 8.6-50 MG TAB PO PRN (22:49)
[2021-08-22] MEDS: Vancomycin HCl 1 GM in Sodium Chloride 0.9% 250 ML 250 ML IVPB SCH (22:49)
[2021-08-22] MEDS: Melatonin 3 MG TAB PO PRN (22:49)
[2021-08-23] MEDS: Cefepime 2 GM in Sodium Chloride 0.9% 100 ML IVPB SCH ×2 (05:32→17:59)
[2021-08-23] MEDS: Amlodipine 5 MG TAB PO SCH (08:10)
[2021-08-23] MEDS: Saccharomyces boulardii 250 MG CAP PO SCH (08:10)
[2021-08-23] MEDS: Ferrous Sulfate 325 MG TAB PO SCH (08:10)
[2021-08-23] MEDS: Famotidine 20 MG TAB PO SCH ×2 (08:10→21:04)
[2021-08-23] MEDS: Polyethylene Glycol 3350 17 GM Packet PO SCH (08:10)
[2021-08-23] MEDS: Clopidogrel Bisulfate 75 MG TAB PO SCH (08:10)
[2021-08-23] MEDS: Flecainide 50 MG TAB PO SCH ×2 (08:10→21:03)
[2021-08-23] MEDS: Gabapentin 300 MG CAP PO SCH ×3 (08:10→21:03)
[2021-08-23] MEDS: Senokot S 8.6-50 MG TAB PO PRN (08:11)
[2021-08-23] MEDS: Lantus 1000 UNITS/10 ML VIAL SC SCH (08:12)
[2021-08-23] MEDS: HumaLOG 300 UNITS/3 ML VIAL SC PRN (11:11)
[2021-08-23] MEDS: Rivaroxaban 10 MG TAB PO SCH (17:59)
[2021-08-23] MEDS: Atorvastatin Calcium 40 MG TAB PO SCH (21:04)
[2021-08-23] MEDS: Vancomycin HCl 1 GM in Sodium Chloride 0.9% 250 ML 250 ML IVPB SCH (21:08)
[2021-08-24] MEDS: Melatonin 3 MG TAB PO PRN (00:19)
[2021-08-24] MEDS: Cefepime 2 GM in Sodium Chloride 0.9% 100 ML IVPB SCH ×2 (05:55→17:38)
[2021-08-24 06:11] LABS: Anion Gap 15 mmol/L (10-20); BUN (Urea Nitrogen) 40 mg/dL (8.4-25.7); Calc. Creatinine Clearance 60 mL/min (70-130); Calcium 9.4 mg/dL (7.8-10.44); Carbon Dioxide 22 mmol/L (23-31); Chloride 105 mmol/L (98-107); Glucose 115 mg/dL (83-110); Potassium 4.5 mmol/L (3.5-5.1); Sodium 137 mmol/L (136-145)
[2021-08-24 06:16] LABS: #Basophils 0.1 thou/uL (0.0-0.2); #Eosinphils 0.3 thou/uL (0.0-0.7); #Lymphocytes 0.8 thou/uL (1.20-3.40); #Neutrophils 7.4 thou/uL (1.40-6.50); %Basophils 0.9 % (0.0-1.0); %Eosinophils 2.8 % (0.0-10.0); %Lymphocytes 7.9 % (21.0-51.0); %Monocytes 10.8 % (0.0-10.0); %Neutrophils 77.5 % (42.0-75.0); Hemoglobin 9.1 g/dL (14.0-18.0); Mean Corpuscular HGB CONC 30.9 g/dL (32.0-36.0); Mean Corpuscular Hemoglobin 28.5 pg (27.0-31.0); Mean Corpuscular Volume 92.2 fL (78.0-98.0); Platelet Count 212 thou/uL (130-400); RBC Distribution Width 14.7 % (11.5-14.5); White Blood Cell (WBC) Count 9.6 thou/uL (4.8-10.8)
[2021-08-24] MEDS: Polyethylene Glycol 3350 17 GM Packet PO SCH (08:15)
[2021-08-24] MEDS: Flecainide 50 MG TAB PO SCH ×2 (08:16→21:59)
[2021-08-24] MEDS: Famotidine 20 MG TAB PO SCH ×2 (08:16→22:00)
[2021-08-24] MEDS: Gabapentin 300 MG CAP PO SCH ×3 (08:16→21:56)
[2021-08-24] MEDS: Saccharomyces boulardii 250 MG CAP PO SCH (08:16)
[2021-08-24] MEDS: Ferrous Sulfate 325 MG TAB PO SCH (08:17)
[2021-08-24] MEDS: Amlodipine 5 MG TAB PO SCH (08:17)
[2021-08-24] MEDS: Clopidogrel Bisulfate 75 MG TAB PO SCH (08:17)
[2021-08-24] MEDS: Lantus 1000 UNITS/10 ML VIAL SC SCH (08:19)
[2021-08-24] MEDS: HumaLOG 300 UNITS/3 ML VIAL SC PRN ×2 (11:23→17:03)
[2021-08-24] MEDS: Rivaroxaban 10 MG TAB PO SCH (17:02)
[2021-08-24] MEDS: Atorvastatin Calcium 40 MG TAB PO SCH (21:56)
[2021-08-24] MEDS: Vancomycin HCl 1 GM in Sodium Chloride 0.9% 250 ML 250 ML IVPB SCH (22:00)
[2021-08-25] MEDS: Cefepime 2 GM in Sodium Chloride 0.9% 100 ML IVPB SCH ×2 (06:16→17:14)
[2021-08-25] MEDS: Flecainide 50 MG TAB PO SCH (07:57)
[2021-08-25] MEDS: Polyethylene Glycol 3350 17 GM Packet PO SCH (07:57)
[2021-08-25] MEDS: Ferrous Sulfate 325 MG TAB PO SCH (07:57)
[2021-08-25] MEDS: Gabapentin 300 MG CAP PO SCH ×3 (07:58→21:55)
[2021-08-25] MEDS: Famotidine 20 MG TAB PO SCH ×2 (07:58→21:56)
[2021-08-25] MEDS: Clopidogrel Bisulfate 75 MG TAB PO SCH (07:59)
[2021-08-25] MEDS: Amlodipine 5 MG TAB PO SCH (07:59)
[2021-08-25] MEDS: Lantus 1000 UNITS/10 ML VIAL SC SCH (07:59)
[2021-08-25] MEDS: Saccharomyces boulardii 250 MG CAP PO SCH (07:59)
[2021-08-25] MEDS: HumaLOG 300 UNITS/3 ML VIAL SC PRN ×2 (11:54→17:12)
[2021-08-25] MEDS: Rivaroxaban 10 MG TAB PO SCH (17:13)
[2021-08-25] MEDS: Atorvastatin Calcium 40 MG TAB PO SCH (21:56)
[2021-08-25] MEDS: Melatonin 3 MG TAB PO PRN (22:07)
[2021-08-25] MEDS: Vancomycin HCl 1 GM in Sodium Chloride 0.9% 250 ML 250 ML IVPB SCH (22:08)
[2021-08-25] MEDS: Ondansetron ODT 4 MG TAB PO PRN (23:44)
[2021-08-26] MEDS: Flecainide 50 MG TAB PO SCH ×3 (00:38→20:51)
[2021-08-26] MEDS: Cefepime 2 GM in Sodium Chloride 0.9% 100 ML IVPB SCH ×2 (06:04→17:10)
[2021-08-26] MEDS: Lantus 1000 UNITS/10 ML VIAL SC SCH (08:00)
[2021-08-26] MEDS: Amlodipine 5 MG TAB PO SCH (08:01)
[2021-08-26] MEDS: Famotidine 20 MG TAB PO SCH ×2 (08:01→20:51)
[2021-08-26] MEDS: Gabapentin 300 MG CAP PO SCH ×3 (08:01→20:51)
[2021-08-26] MEDS: Ferrous Sulfate 325 MG TAB PO SCH (08:02)
[2021-08-26] MEDS: Saccharomyces boulardii 250 MG CAP PO SCH (08:03)
[2021-08-26] MEDS: Clopidogrel Bisulfate 75 MG TAB PO SCH (08:03)
[2021-08-26] MEDS: Polyethylene Glycol 3350 17 GM Packet PO SCH (08:03)
[2021-08-26] MEDS: HumaLOG 300 UNITS/3 ML VIAL SC PRN ×2 (12:50→17:07)
[2021-08-26] MEDS: Rivaroxaban 10 MG TAB PO SCH (17:08)
[2021-08-26] MEDS: Atorvastatin Calcium 40 MG TAB PO SCH (20:51)
[2021-08-26] MEDS ORDERED: Sodium Chloride 0.9% 250 ML 250 ML ONE (21:33)
[2021-08-26 21:40] LABS: Vancomycin, Random 21.1 ug/mL (See Comment)
[2021-08-26] MEDS: Vancomycin HCl 1 GM in Sodium Chloride 0.9% 250 ML 250 ML IVPB SCH (22:03)
[2021-08-27] MEDS: Melatonin 3 MG TAB PO PRN ×2 (00:29→22:13)
[2021-08-27 06:08] LABS: #Basophils 0.1 thou/uL (0.0-0.2); #Eosinphils 0.4 thou/uL (0.0-0.7); #Lymphocytes 1.2 thou/uL (1.20-3.40); #Monocytes 1.1 thou/uL (0.11-0.59); #Neutrophils 7.1 thou/uL (1.40-6.50); %Basophils 1.2 % (0.0-1.0); %Eosinophils 3.7 % (0.0-10.0); %Lymphocytes 12.3 % (21.0-51.0); %Monocytes 11.5 % (0.0-10.0); %Neutrophils 71.3 % (42.0-75.0); Hemoglobin 9.1 g/dL (14.0-18.0); Mean Corpuscular HGB CONC 31.5 g/dL (32.0-36.0); Mean Corpuscular Hemoglobin 29.3 pg (27.0-31.0); Mean Platelet Volume 8.8 fL (7.4-10.4); Platelet Count 212 thou/uL (130-400); RBC Distribution Width 15.1 % (11.5-14.5); Red Blood Cell (RBC) Count 3.11 mill/uL (4.70-6.10); White Blood Cell (WBC) Count 9.9 thou/uL (4.8-10.8)
[2021-08-27] MEDS: Cefepime 2 GM in Sodium Chloride 0.9% 100 ML IVPB SCH ×2 (06:11→17:50)
[2021-08-27 06:22] LABS: Anion Gap 15 mmol/L (10-20); BUN (Urea Nitrogen) 35 mg/dL (8.4-25.7); Calc. Creatinine Clearance 71 mL/min (70-130); Carbon Dioxide 20 mmol/L (23-31); Chloride 105 mmol/L (98-107); Glucose 79 mg/dL (83-110); Potassium 4.4 mmol/L (3.5-5.1); Sodium 136 mmol/L (136-145)
[2021-08-27] MEDS: Ferrous Sulfate 325 MG TAB PO SCH (08:09)
[2021-08-27] MEDS: Clopidogrel Bisulfate 75 MG TAB PO SCH (08:10)
[2021-08-27] MEDS: Gabapentin 300 MG CAP PO SCH ×3 (08:10→21:56)
[2021-08-27] MEDS: Saccharomyces boulardii 250 MG CAP PO SCH (08:10)
[2021-08-27] MEDS: Polyethylene Glycol 3350 17 GM Packet PO SCH (08:11)
[2021-08-27] MEDS: Amlodipine 5 MG TAB PO SCH (08:11)
[2021-08-27] MEDS: Lantus 1000 UNITS/10 ML VIAL SC SCH (08:12)
[2021-08-27] MEDS: Famotidine 20 MG TAB PO SCH ×2 (08:14→21:56)
[2021-08-27] MEDS: Ondansetron ODT 4 MG TAB PO PRN (08:22)
[2021-08-27] MEDS: Flecainide 50 MG TAB PO SCH ×2 (10:35→21:57)
[2021-08-27] MEDS: HumaLOG 300 UNITS/3 ML VIAL SC PRN ×2 (12:49→16:36)
[2021-08-27] MEDS: Rivaroxaban 10 MG TAB PO SCH (17:49)
[2021-08-27] MEDS: Atorvastatin Calcium 40 MG TAB PO SCH (21:57)
[2021-08-27] MEDS: Vancomycin HCl 1 GM in Sodium Chloride 0.9% 250 ML 250 ML IVPB SCH (21:58)
[2021-08-28] MEDS: Cefepime 2 GM in Sodium Chloride 0.9% 100 ML IVPB SCH ×2 (06:14→17:20)
[2021-08-28] MEDS: Saccharomyces boulardii 250 MG CAP PO SCH (08:19)
[2021-08-28] MEDS: Polyethylene Glycol 3350 17 GM Packet PO SCH (08:19)
[2021-08-28] MEDS: Clopidogrel Bisulfate 75 MG TAB PO SCH (08:19)
[2021-08-28] MEDS: Gabapentin 300 MG CAP PO SCH ×3 (08:20→20:21)
[2021-08-28] MEDS: Famotidine 20 MG TAB PO SCH ×2 (08:21→20:21)
[2021-08-28] MEDS: Amlodipine 5 MG TAB PO SCH (08:21)
[2021-08-28] MEDS: Lantus 1000 UNITS/10 ML VIAL SC SCH (08:22)
[2021-08-28] MEDS: Flecainide 50 MG TAB PO SCH ×2 (08:22→20:21)
[2021-08-28] MEDS: Ferrous Sulfate 325 MG TAB PO SCH (08:23)
[2021-08-28] MEDS: HumaLOG 300 UNITS/3 ML VIAL SC PRN ×2 (12:13→20:19)
[2021-08-28] MEDS: Rivaroxaban 10 MG TAB PO SCH (17:20)
[2021-08-28] MEDS: Atorvastatin Calcium 40 MG TAB PO SCH (20:21)
[2021-08-28] MEDS: Vancomycin HCl 1 GM in Sodium Chloride 0.9% 250 ML 250 ML IVPB SCH (21:25)
[2021-08-28] MEDS: Vancomycin HCl 750 MG in Sodium Chloride 0.9% 250 ML 250 ML IVPB SCH (22:15)
[2021-08-28] MEDS: HYDROcodone/Acetaminophen 5/325 mg Tablet PO PRN (22:19)
[2021-08-28] MEDS: Melatonin 3 MG TAB PO PRN (22:20)
[2021-08-29] MEDS: Cefepime 2 GM in Sodium Chloride 0.9% 100 ML IVPB SCH ×2 (05:59→17:13)
[2021-08-29] MEDS: Gabapentin 300 MG CAP PO SCH ×3 (08:12→20:41)
[2021-08-29] MEDS: Amlodipine 5 MG TAB PO SCH (08:12)
[2021-08-29] MEDS: Famotidine 20 MG TAB PO SCH ×2 (08:12→20:42)
[2021-08-29] MEDS: Clopidogrel Bisulfate 75 MG TAB PO SCH (08:13)
[2021-08-29] MEDS: Ferrous Sulfate 325 MG TAB PO SCH (08:13)
[2021-08-29] MEDS: Saccharomyces boulardii 250 MG CAP PO SCH (08:13)
[2021-08-29] MEDS: Flecainide 50 MG TAB PO SCH ×2 (08:14→20:42)
[2021-08-29] MEDS: Polyethylene Glycol 3350 17 GM Packet PO SCH (08:14)
[2021-08-29] MEDS: Lantus 1000 UNITS/10 ML VIAL SC SCH (08:14)
[2021-08-29] MEDS: HumaLOG 300 UNITS/3 ML VIAL SC PRN (12:22)
[2021-08-29] MEDS: Rivaroxaban 10 MG TAB PO SCH (17:12)
[2021-08-29] MEDS: HYDROcodone/Acetaminophen 10/325 mg Tablet PO PRN (18:19)
[2021-08-29] MEDS: Benzonatate 100 MG CAP PO PRN (18:22)
[2021-08-29] MEDS: Cepastat Lozenges 1 LOZ PO PRN (18:22)
[2021-08-29] MEDS: Atorvastatin Calcium 40 MG TAB PO SCH (20:42)
[2021-08-29] MEDS: Vancomycin HCl 750 MG in Sodium Chloride 0.9% 250 ML 250 ML IVPB SCH (21:52)
[2021-08-30] MEDS: Cefepime 2 GM in Sodium Chloride 0.9% 100 ML IVPB SCH ×2 (06:25→17:05)
[2021-08-30] MEDS: Ferrous Sulfate 325 MG TAB PO SCH (08:25)
[2021-08-30] MEDS: Gabapentin 300 MG CAP PO SCH ×3 (08:25→20:33)
[2021-08-30] MEDS: Famotidine 20 MG TAB PO SCH ×2 (08:25→20:34)
[2021-08-30] MEDS: Flecainide 50 MG TAB PO SCH ×2 (08:25→20:33)
[2021-08-30] MEDS: Clopidogrel Bisulfate 75 MG TAB PO SCH (08:26)
[2021-08-30] MEDS: Amlodipine 5 MG TAB PO SCH (08:26)
[2021-08-30] MEDS: Saccharomyces boulardii 250 MG CAP PO SCH (08:26)
[2021-08-30] MEDS: Acetaminophen 325 MG TAB PO PRN ×2 (08:26→20:34)
[2021-08-30] MEDS: Lantus 1000 UNITS/10 ML VIAL SC SCH (08:27)
[2021-08-30] MEDS: Polyethylene Glycol 3350 17 GM Packet PO SCH (08:28)
[2021-08-30 09:53] LABS: Anion Gap 16 mmol/L (10-20); BUN (Urea Nitrogen) 45 mg/dL (8.4-25.7); Calc. Creatinine Clearance 61 mL/min (70-130); Calcium 8.9 mg/dL (7.8-10.44); Carbon Dioxide 19 mmol/L (23-31); Chloride 103 mmol/L (98-107); Glucose 153 mg/dL (83-110); Potassium 4.1 mmol/L (3.5-5.1); Sodium 134 mmol/L (136-145)
[2021-08-30 09:58] LABS: Hemoglobin 8.8 g/dL (14.0-18.0); Mean Corpuscular Hemoglobin 28.5 pg (27.0-31.0); Mean Platelet Volume 7.5 fL (7.4-10.4); Platelet Count 166 thou/uL (130-400); RBC Distribution Width 14.7 % (11.5-14.5); Red Blood Cell (RBC) Count 3.09 mill/uL (4.70-6.10); White Blood Cell (WBC) Count 6.4 thou/uL (4.8-10.8)
[2021-08-30 10:23] LABS: Eosinophils 2 % (0-10); Lymphocytes 9 % (21-51); MDiff Complete? YES; Monocytes 11 % (0-10); Neutrophil 78 % (42-75); Platelet Morphology Comment Appears Adequate; RBC Morphology Normal
[2021-08-30] MEDS: Rivaroxaban 10 MG TAB PO SCH (17:05)
[2021-08-30] MEDS: Atorvastatin Calcium 40 MG TAB PO SCH (20:34)
[2021-08-30 21:33] LABS: Vancomycin, Trough 41.5 ug/mL
[2021-08-31] MEDS: Cepastat Lozenges 1 LOZ PO PRN (04:45)
[2021-08-31] MEDS: Cefepime 2 GM in Sodium Chloride 0.9% 100 ML IVPB SCH ×2 (05:53→16:54)
[2021-08-31] MEDS: Clopidogrel Bisulfate 75 MG TAB PO SCH (08:10)
[2021-08-31] MEDS: Famotidine 20 MG TAB PO SCH ×2 (08:10→21:57)
[2021-08-31] MEDS: Flecainide 50 MG TAB PO SCH ×2 (08:10→21:57)
[2021-08-31] MEDS: Amlodipine 5 MG TAB PO SCH (08:10)
[2021-08-31] MEDS: Ferrous Sulfate 325 MG TAB PO SCH (08:10)
[2021-08-31] MEDS: Gabapentin 300 MG CAP PO SCH ×3 (08:10→21:57)
[2021-08-31] MEDS: Saccharomyces boulardii 250 MG CAP PO SCH (08:10)
[2021-08-31] MEDS: Polyethylene Glycol 3350 17 GM Packet PO SCH (08:11)
[2021-08-31] MEDS: Lantus 1000 UNITS/10 ML VIAL SC SCH (08:12)
[2021-08-31] MEDS: Acetaminophen 325 MG TAB PO PRN ×2 (08:26→21:56)
[2021-08-31] MEDS: Rivaroxaban 10 MG TAB PO SCH (16:53)
[2021-08-31] MEDS: HumaLOG 300 UNITS/3 ML VIAL SC PRN (16:55)
[2021-08-31 21:26] LABS: Vancomycin, Random 18.8 ug/mL (See Comment)
[2021-08-31] MEDS: Atorvastatin Calcium 40 MG TAB PO SCH (21:57)
[2021-08-31] MEDS ORDERED: Vancomycin HCl 750 MG in Sodium Chloride 0.9% 250 ML 250 ML IVPB SCH (22:00)
[2021-08-31] MEDS ORDERED: VANCOMYCIN HCL IVPB SCH (22:00)
[2021-08-31] MEDS ORDERED: SODIUM CHLORIDE 0.9% IVPB SCH (22:00)
[2021-09-01] MEDS: Cepastat Lozenges 1 LOZ PO PRN (02:53)
[2021-09-01] MEDS: Cefepime 2 GM in Sodium Chloride 0.9% 100 ML IVPB SCH ×2 (05:28→18:18)
[2021-09-01] MEDS: Gabapentin 300 MG CAP PO SCH ×3 (08:12→21:57)
[2021-09-01] MEDS: Saccharomyces boulardii 250 MG CAP PO SCH (08:12)
[2021-09-01] MEDS: Ferrous Sulfate 325 MG TAB PO SCH (08:13)
[2021-09-01] MEDS: Clopidogrel Bisulfate 75 MG TAB PO SCH (08:13)
[2021-09-01] MEDS: Famotidine 20 MG TAB PO SCH ×2 (08:13→21:57)
[2021-09-01] MEDS: Amlodipine 5 MG TAB PO SCH (08:13)
[2021-09-01] MEDS: Flecainide 50 MG TAB PO SCH ×2 (08:13→21:56)
[2021-09-01] MEDS: Lantus 1000 UNITS/10 ML VIAL SC SCH (08:14)
[2021-09-01] MEDS: Polyethylene Glycol 3350 17 GM Packet PO SCH (09:03)
[2021-09-01] MEDS: Mag-Al Plus 1200 MG/1200 MG/120 MG/30 ML UDCUP PO PRN (14:22)
[2021-09-01] MEDS: HumaLOG 300 UNITS/3 ML VIAL SC PRN (16:55)
[2021-09-01] MEDS: Rivaroxaban 10 MG TAB PO SCH (18:18)
[2021-09-01 21:15] LABS: Vancomycin, Random 17.8 ug/mL (See Comment)
[2021-09-01] MEDS: Atorvastatin Calcium 40 MG TAB PO SCH (21:57)
[2021-09-01] MEDS: Vancomycin HCl 750 MG in Sodium Chloride 0.9% 250 ML 250 ML IVPB SCH (22:13)
[2021-09-01] MEDS: Melatonin 3 MG TAB PO PRN (22:21)
[2021-09-01] MEDS: HYDROcodone/Acetaminophen 5/325 mg Tablet PO PRN (22:21)
[2021-09-02] MEDS: Cefepime 2 GM in Sodium Chloride 0.9% 100 ML IVPB SCH ×2 (05:58→17:29)
[2021-09-02 06:13] LABS: #Lymphocytes 1.1 thou/uL (1.20-3.40); #Monocytes 0.7 thou/uL (0.11-0.59); #Neutrophils 6.7 thou/uL (1.40-6.50); %Basophils 0.4 % (0.0-1.0); %Eosinophils 0.6 % (0.0-10.0); %Lymphocytes 12.8 % (21.0-51.0); %Monocytes 8.4 % (0.0-10.0); %Neutrophils 77.9 % (42.0-75.0); Hemoglobin 9.2 g/dL (14.0-18.0); Mean Corpuscular HGB CONC 32.1 g/dL (32.0-36.0); Mean Corpuscular Hemoglobin 29.3 pg (27.0-31.0); Mean Corpuscular Volume 91.1 fL (78.0-98.0); Mean Platelet Volume 8.1 fL (7.4-10.4); Platelet Count 182 thou/uL (130-400); RBC Distribution Width 14.5 % (11.5-14.5); Red Blood Cell (RBC) Count 3.13 mill/uL (4.70-6.10); White Blood Cell (WBC) Count 8.7 thou/uL (4.8-10.8)
[2021-09-02 06:29] LABS: Anion Gap 16 mmol/L (10-20); BUN (Urea Nitrogen) 41 mg/dL (8.4-25.7); Calc. Creatinine Clearance 57 mL/min (70-130); Calcium 8.8 mg/dL (7.8-10.44); Carbon Dioxide 18 mmol/L (23-31); Chloride 103 mmol/L (98-107); Glucose 101 mg/dL (83-110); Potassium 3.9 mmol/L (3.5-5.1); Sodium 133 mmol/L (136-145)
[2021-09-02] MEDS: Famotidine 20 MG TAB PO SCH ×2 (07:51→21:39)
[2021-09-02] MEDS: Flecainide 50 MG TAB PO SCH ×2 (07:51→21:39)
[2021-09-02] MEDS: Gabapentin 300 MG CAP PO SCH ×3 (07:51→21:40)
[2021-09-02] MEDS: Saccharomyces boulardii 250 MG CAP PO SCH (07:51)
[2021-09-02] MEDS: Amlodipine 5 MG TAB PO SCH (07:52)
[2021-09-02] MEDS: Lantus 1000 UNITS/10 ML VIAL SC SCH (07:52)
[2021-09-02] MEDS: Ferrous Sulfate 325 MG TAB PO SCH (07:52)
[2021-09-02] MEDS: Clopidogrel Bisulfate 75 MG TAB PO SCH (07:52)
[2021-09-02] MEDS: Polyethylene Glycol 3350 17 GM Packet PO SCH (07:57)
[2021-09-02] MEDS: HumaLOG 300 UNITS/3 ML VIAL SC PRN ×2 (12:23→17:28)
[2021-09-02] MEDS: Rivaroxaban 10 MG TAB PO SCH (17:27)
[2021-09-02] MEDS: Vancomycin HCl 750 MG in Sodium Chloride 0.9% 250 ML 250 ML IVPB SCH (21:40)
[2021-09-02] MEDS: Atorvastatin Calcium 40 MG TAB PO SCH (21:40)
[2021-09-02] MEDS: Guaifenesin DM 100-10/5 ML UDCUP PO PRN (22:58)
[2021-09-03] MEDS: Cefepime 2 GM in Sodium Chloride 0.9% 100 ML IVPB SCH ×2 (05:29→17:38)
[2021-09-03] MEDS: HumaLOG 300 UNITS/3 ML VIAL SC PRN ×2 (05:31→12:12)
[2021-09-03] MEDS: Flecainide 50 MG TAB PO SCH ×2 (08:10→21:47)
[2021-09-03] MEDS: Famotidine 20 MG TAB PO SCH ×2 (08:10→21:48)
[2021-09-03] MEDS: Gabapentin 300 MG CAP PO SCH ×3 (08:11→21:47)
[2021-09-03] MEDS: Saccharomyces boulardii 250 MG CAP PO SCH (08:11)
[2021-09-03] MEDS: Ferrous Sulfate 325 MG TAB PO SCH (08:12)
[2021-09-03] MEDS: Clopidogrel Bisulfate 75 MG TAB PO SCH (08:12)
[2021-09-03] MEDS: Amlodipine 5 MG TAB PO SCH (08:12)
[2021-09-03] MEDS: Benzonatate 100 MG CAP PO PRN (08:12)
[2021-09-03] MEDS: Acetaminophen 325 MG TAB PO PRN (08:13)
[2021-09-03] MEDS: Lantus 1000 UNITS/10 ML VIAL SC SCH (08:18)
[2021-09-03] MEDS: Polyethylene Glycol 3350 17 GM Packet PO SCH (08:19)
[2021-09-03] MEDS: HYDROcodone/Acetaminophen 10/325 mg Tablet PO PRN (14:03)
[2021-09-03] MEDS: Rivaroxaban 10 MG TAB PO SCH (17:36)
[2021-09-03] MEDS ORDERED: Polyethylene Glycol 3350 17 GM Packet PO PRN (18:30)
[2021-09-03 21:34] LABS: Vancomycin, Trough 16.4 ug/mL
[2021-09-03] MEDS: Melatonin 3 MG TAB PO PRN (21:47)
[2021-09-03] MEDS: Atorvastatin Calcium 40 MG TAB PO SCH (21:47)
[2021-09-03] MEDS: Vancomycin HCl 750 MG in Sodium Chloride 0.9% 250 ML 250 ML IVPB SCH (21:47)
[2021-09-04] MEDS: Cefepime 2 GM in Sodium Chloride 0.9% 100 ML IVPB SCH ×2 (05:51→17:14)
[2021-09-04] MEDS: Gabapentin 300 MG CAP PO SCH ×3 (08:32→21:19)
[2021-09-04] MEDS: Lantus 1000 UNITS/10 ML VIAL SC SCH (08:32)
[2021-09-04] MEDS: Flecainide 50 MG TAB PO SCH ×2 (08:33→21:18)
[2021-09-04] MEDS: Clopidogrel Bisulfate 75 MG TAB PO SCH (08:34)
[2021-09-04] MEDS: Famotidine 20 MG TAB PO SCH ×2 (08:34→21:18)
[2021-09-04] MEDS: Saccharomyces boulardii 250 MG CAP PO SCH (08:34)
[2021-09-04] MEDS: Amlodipine 5 MG TAB PO SCH (08:35)
[2021-09-04] MEDS: Ferrous Sulfate 325 MG TAB PO SCH (08:35)
[2021-09-04] MEDS: Ondansetron ODT 4 MG TAB PO PRN (12:06)
[2021-09-04] MEDS: HumaLOG 300 UNITS/3 ML VIAL SC PRN (12:06)
[2021-09-04] MEDS: HYDROcodone/Acetaminophen 10/325 mg Tablet PO PRN (13:21)
[2021-09-04] MEDS: Rivaroxaban 10 MG TAB PO SCH (17:14)
[2021-09-04] MEDS: Atorvastatin Calcium 40 MG TAB PO SCH (21:19)
[2021-09-04 21:23] LABS: Vancomycin, Trough 16.7 ug/mL
[2021-09-04] MEDS: Vancomycin HCl 750 MG in Sodium Chloride 0.9% 250 ML 250 ML IVPB SCH (22:42)
[2021-09-04] MEDS: Guaifenesin DM 100-10/5 ML UDCUP PO PRN (23:43)
[2021-09-05] MEDS: Cefepime 2 GM in Sodium Chloride 0.9% 100 ML IVPB SCH ×2 (06:10→17:01)
[2021-09-05] MEDS: HYDROcodone/Acetaminophen 10/325 mg Tablet PO PRN ×2 (06:16→12:31)
[2021-09-05] MEDS: Lantus 1000 UNITS/10 ML VIAL SC SCH (09:25)
[2021-09-05] MEDS: Flecainide 50 MG TAB PO SCH ×2 (09:26→21:11)
[2021-09-05] MEDS: Guaifenesin DM 100-10/5 ML UDCUP PO PRN ×2 (09:27→21:12)
[2021-09-05] MEDS: Saccharomyces boulardii 250 MG CAP PO SCH (09:27)
[2021-09-05] MEDS: Gabapentin 300 MG CAP PO SCH ×3 (09:28→21:12)
[2021-09-05] MEDS: Amlodipine 5 MG TAB PO SCH (09:29)
[2021-09-05] MEDS: Ferrous Sulfate 325 MG TAB PO SCH (09:30)
[2021-09-05] MEDS: Clopidogrel Bisulfate 75 MG TAB PO SCH (09:30)
[2021-09-05] MEDS: Famotidine 20 MG TAB PO SCH ×2 (09:30→21:12)
[2021-09-05] MEDS: HumaLOG 300 UNITS/3 ML VIAL SC PRN ×2 (12:13→16:54)
[2021-09-05] MEDS: Rivaroxaban 10 MG TAB PO SCH (16:17)
[2021-09-05] MEDS: Atorvastatin Calcium 40 MG TAB PO SCH (21:11)
[2021-09-05] MEDS: Vancomycin HCl 750 MG in Sodium Chloride 0.9% 250 ML 250 ML IVPB SCH (22:10)
[2021-09-06] MEDS: Cefepime 2 GM in Sodium Chloride 0.9% 100 ML IVPB SCH ×2 (05:50→17:30)
[2021-09-06 05:57] LABS: Anion Gap 14 mmol/L (10-20); BUN (Urea Nitrogen) 39 mg/dL (8.4-25.7); Calc. Creatinine Clearance 62 mL/min (70-130); Calcium 8.4 mg/dL (7.8-10.44); Carbon Dioxide 20 mmol/L (23-31); Chloride 106 mmol/L (98-107); Estimated GFR 67; Glucose 183 mg/dL (83-110); Potassium 4.1 mmol/L (3.5-5.1); Sodium 136 mmol/L (136-145)
[2021-09-06] MEDS: HumaLOG 300 UNITS/3 ML VIAL SC PRN ×3 (06:26→17:30)
[2021-09-06] MEDS: Senokot S 8.6-50 MG TAB PO PRN (08:28)
[2021-09-06] MEDS: Flecainide 50 MG TAB PO SCH ×2 (08:29→20:49)
[2021-09-06] MEDS: Amlodipine 5 MG TAB PO SCH (08:29)
[2021-09-06] MEDS: Famotidine 20 MG TAB PO SCH ×2 (08:29→20:49)
[2021-09-06] MEDS: Gabapentin 300 MG CAP PO SCH ×3 (08:29→20:49)
[2021-09-06] MEDS: Saccharomyces boulardii 250 MG CAP PO SCH (08:29)
[2021-09-06] MEDS: Ferrous Sulfate 325 MG TAB PO SCH (08:29)
[2021-09-06] MEDS: Clopidogrel Bisulfate 75 MG TAB PO SCH (08:29)
[2021-09-06] MEDS: Lantus 1000 UNITS/10 ML VIAL SC SCH (08:31)
[2021-09-06] MEDS: Rivaroxaban 10 MG TAB PO SCH (17:30)
[2021-09-06] MEDS: Atorvastatin Calcium 40 MG TAB PO SCH (20:49)
[2021-09-06] MEDS: Vancomycin HCl 750 MG in Sodium Chloride 0.9% 250 ML 250 ML IVPB SCH (22:07)
[2021-09-07] MEDS ORDERED: Bisacodyl 5 MG TAB ONE (00:16)
[2021-09-07] MEDS: Bisacodyl 5 MG TAB PO PRN (00:18)
[2021-09-07 03:29] VITALS: BMI 23.8
[2021-09-07] MEDS ORDERED: Cefepime 2 GM VIAL ONE (05:32)
[2021-09-07] MEDS: Cefepime 2 GM in Sodium Chloride 0.9% 100 ML IVPB SCH ×2 (05:43→17:10)
[2021-09-07] MEDS: Famotidine 20 MG TAB PO SCH ×2 (08:10→21:05)
[2021-09-07] MEDS: Clopidogrel Bisulfate 75 MG TAB PO SCH (08:10)
[2021-09-07] MEDS: Ferrous Sulfate 325 MG TAB PO SCH (08:10)
[2021-09-07] MEDS: Amlodipine 5 MG TAB PO SCH (08:10)
[2021-09-07] MEDS: Saccharomyces boulardii 250 MG CAP PO SCH (08:10)
[2021-09-07] MEDS: Flecainide 50 MG TAB PO SCH ×2 (08:10→21:05)
[2021-09-07] MEDS: Gabapentin 300 MG CAP PO SCH ×3 (08:11→21:05)
[2021-09-07] MEDS: Lantus 1000 UNITS/10 ML VIAL SC SCH (08:11)
[2021-09-07] MEDS: HumaLOG 300 UNITS/3 ML VIAL SC PRN (11:21)
[2021-09-07] MEDS: Rivaroxaban 10 MG TAB PO SCH (17:09)
[2021-09-07] MEDS: Vancomycin HCl 750 MG in Sodium Chloride 0.9% 250 ML 250 ML IVPB SCH (21:04)
[2021-09-07] MEDS: Atorvastatin Calcium 40 MG TAB PO SCH (21:05)
[2021-09-07] MEDS: Senokot S 8.6-50 MG TAB PO PRN (21:09)
[2021-09-08] MEDS: HYDROcodone/Acetaminophen 10/325 mg Tablet PO PRN ×2 (01:26→12:08)
[2021-09-08] MEDS: Cefepime 2 GM in Sodium Chloride 0.9% 100 ML IVPB SCH ×2 (05:51→17:36)
[2021-09-08] MEDS: Clopidogrel Bisulfate 75 MG TAB PO SCH (08:48)
[2021-09-08] MEDS: Famotidine 20 MG TAB PO SCH ×2 (08:48→21:33)
[2021-09-08] MEDS: Saccharomyces boulardii 250 MG CAP PO SCH (08:48)
[2021-09-08] MEDS: Ferrous Sulfate 325 MG TAB PO SCH (08:48)
[2021-09-08] MEDS: Flecainide 50 MG TAB PO SCH ×2 (08:49→21:32)
[2021-09-08] MEDS: Amlodipine 5 MG TAB PO SCH (08:49)
[2021-09-08] MEDS: Gabapentin 300 MG CAP PO SCH ×3 (08:50→21:32)
[2021-09-08] MEDS: Lantus 1000 UNITS/10 ML VIAL SC SCH (09:01)
[2021-09-08] MEDS: HumaLOG 300 UNITS/3 ML VIAL SC PRN (11:59)
[2021-09-08] MEDS: Rivaroxaban 10 MG TAB PO SCH (17:36)
[2021-09-08] MEDS: Atorvastatin Calcium 40 MG TAB PO SCH (21:33)
[2021-09-08] MEDS: Vancomycin HCl 750 MG in Sodium Chloride 0.9% 250 ML 250 ML IVPB SCH (21:33)
[2021-09-08] MEDS: Cepastat Lozenges 1 LOZ PO PRN (22:46)
[2021-09-09] MEDS: Gabapentin 300 MG CAP PO SCH ×3 (08:46→21:14)
[2021-09-09] MEDS: Famotidine 20 MG TAB PO SCH ×2 (08:47→21:15)
[2021-09-09] MEDS: Saccharomyces boulardii 250 MG CAP PO SCH (08:48)
[2021-09-09] MEDS: Ferrous Sulfate 325 MG TAB PO SCH (08:48)
[2021-09-09] MEDS: Clopidogrel Bisulfate 75 MG TAB PO SCH (08:48)
[2021-09-09] MEDS: Flecainide 50 MG TAB PO SCH ×2 (08:49→21:15)
[2021-09-09] MEDS: Lantus 1000 UNITS/10 ML VIAL SC SCH (08:49)
[2021-09-09] MEDS: Amlodipine 5 MG TAB PO SCH (08:49)
[2021-09-09] MEDS: Bisacodyl 5 MG TAB PO PRN (10:40)
[2021-09-09] MEDS: HumaLOG 300 UNITS/3 ML VIAL SC PRN ×2 (12:59→17:51)
[2021-09-09] MEDS: Guaifenesin DM 100-10/5 ML UDCUP PO PRN (16:26)
[2021-09-09] MEDS: Rivaroxaban 10 MG TAB PO SCH (16:31)
[2021-09-09] MEDS: Vancomycin HCl 750 MG in Sodium Chloride 0.9% 250 ML 250 ML IVPB SCH (21:14)
[2021-09-09] MEDS: Atorvastatin Calcium 40 MG TAB PO SCH (21:15)
[2021-09-10] MEDS: Guaifenesin DM 100-10/5 ML UDCUP PO PRN ×2 (01:35→09:21)
[2021-09-10] MEDS: Ondansetron ODT 4 MG TAB PO PRN (07:21)
[2021-09-10 08:35] VITALS: TEMP 97.9
[2021-09-10] MEDS ORDERED: Iopamidol 370 76% 100 ML VIAL ONE (09:00)
[2021-09-10] MEDS: Gabapentin 300 MG CAP PO SCH (09:22)
[2021-09-10] MEDS: Ferrous Sulfate 325 MG TAB PO SCH (09:23)
[2021-09-10] MEDS: Flecainide 50 MG TAB PO SCH (09:23)
[2021-09-10] MEDS: Saccharomyces boulardii 250 MG CAP PO SCH (09:23)
[2021-09-10] MEDS: Clopidogrel Bisulfate 75 MG TAB PO SCH (09:24)
[2021-09-10] MEDS: Amlodipine 5 MG TAB PO SCH (09:24)
[2021-09-10] MEDS: Famotidine 20 MG TAB PO SCH (09:24)
[2021-09-10] MEDS: Lantus 1000 UNITS/10 ML VIAL SC SCH (09:25)
[2021-09-10 11:15] LABS: #Basophils 0.1 thou/uL (0.0-0.2); #Lymphocytes 0.7 thou/uL (1.20-3.40); #Monocytes 0.8 thou/uL (0.11-0.59); #Neutrophils 10.8 thou/uL (1.40-6.50); %Basophils 0.7 % (0.0-1.0); %Eosinophils 0.3 % (0.0-10.0); %Lymphocytes 5.7 % (21.0-51.0); %Monocytes 6.6 % (0.0-10.0); %Neutrophils 86.6 % (42.0-75.0); Hemoglobin 9.7 g/dL (14.0-18.0); Mean Corpuscular HGB CONC 30.4 g/dL (32.0-36.0); Mean Corpuscular Hemoglobin 28.1 pg (27.0-31.0); Mean Corpuscular Volume 92.4 fL (78.0-98.0); Mean Platelet Volume 6.4 fL (7.4-10.4); Platelet Count 296 thou/uL (130-400); RBC Distribution Width 14.2 % (11.5-14.5); Red Blood Cell (RBC) Count 3.44 mill/uL (4.70-6.10); White Blood Cell (WBC) Count 12.5 thou/uL (4.8-10.8)
[2021-09-10 11:27] LABS: Base Excess-Venous -5.4 mmol/L (-2.0 to 3.0); Bicarbonate (HCO3v) 17.4 mmol/L (22.0-28.0); CO2 Tension (PvCO2) 25.2 mmHg (42.0-51.0); Calcium, Ionized 1.04 mmol/L (1.15-1.33); Chloride 103 mmol/L (98-107); Hemoglobin - Calc 9.9 g/dL (14.0-18.0); Sodium 135 mmol/L (138-145); T. Carbon Dioxide 18.2 mmol/L (22.0-28.0); vO2 Saturation-calc 94.8 % (60.0-85.0)
[2021-09-10 11:44] LABS: ALT (SGPT) 31 U/L (8-55); AST (SGOT) 35 U/L (5-34); Albumin 3.3 g/dL (3.4-4.8); Alkaline Phosphatase 243 U/L (40-110); Anion Gap 19 mmol/L (10-20); BUN (Urea Nitrogen) 31 mg/dL (8.4-25.7); Bilirubin, Total 0.6 mg/dL (0.2-1.2); Calc. Creatinine Clearance 57 mL/min (70-130); Calcium 8.9 mg/dL (7.8-10.44); Carbon Dioxide 14 mmol/L (23-31); Chloride 104 mmol/L (98-107); Estimated GFR 60; Globulin 3.8 g/dL (2.4-3.5); Glucose 231 mg/dL (83-110); Potassium 4.1 mmol/L (3.5-5.1); Protein, Total 7.1 g/dL (5.8-8.1); Sodium 133 mmol/L (136-145)
[2021-09-10] MEDS ORDERED: Piperacillin/Tazobactam 4.5 GM in Sodium Chloride 0.9% 100 ML IVPB SCH (12:00)
[2021-09-10] MEDS ORDERED: Sodium Chloride 0.9% 1,000 ML IV SCH (12:00)
[2021-09-10 12:19] LABS: INR-International Normal Ratio 1.6; PTT 34.6 sec (22.9-36.1); Prothrombin Time 19.4 sec (12.0-14.7)
[2021-09-10] MEDS: HumaLOG 300 UNITS/3 ML VIAL SC PRN (12:30)
[2021-09-10] MEDS ORDERED: Piperacillin/Tazobactam 3.375 GM in Sodium Chloride 0.9% 100 ML IVPB SCH ×2 (14:00→22:00)
[2021-09-10 15:43] LABS: Bilirubin Negative (Negative); Blood, Urine Moderate (Negative); Glucose, Urine (Dipstick) Negative (Negative); Ketone, Urine Negative (Negative); Leukocyte Moderate (Negative); Nitrite Negative (Negative); Protein, Urine (Dipstick) 100 mg/dL (Neg-Trace); Specific Gravity, Urine 1.025 (1.005-1.030); Urobilinogen 0.2 mg/dL (Less than 2); pH, Urine 5.5 (5.0-9.0)
[2021-09-10 15:47] LABS: Clarity Hazy (Clear)
[2021-09-10 15:53] LABS: Bacteria/HPF 2+ HPF (None Seen); Squamous Epithelial 0-3 HPF (0-3); WBC/HPF Greater Than 50 HPF (0-3); Yeast-Budding 1+ HPF (None Seen)
[2021-09-10 15:54] LABS: Urine Culture Reflex Yes Yes
[2021-09-10 16:02] VITALS: BP 119/57
[2021-09-10] MEDS ORDERED: Vancomycin HCl 750 MG in Sodium Chloride 0.9% 250 ML 250 ML IVPB SCH (21:00)
== END 2021-09-10 13:55 | disposition short-term general hospital (02) | DRG 637 ==
LOC: NAV ACUTE 17:33
PROVIDERS: ADMIT Family Medicine; ATTEND Family Medicine
PROC: 8E0ZXY6 Isolation (ICD-10-PCS; principal; 2021-08-29)
DX: E11.69 Type 2 diabetes mellitus with other specified complication (principal); U07.1 COVID-19; L97.414 Non-pressure chronic ulcer of right heel and midfoot with necrosis of bone; M86.271 Subacute osteomyelitis, right ankle and foot; I48.19 Other persistent atrial fibrillation; E11.621 Type 2 diabetes mellitus with foot ulcer; I10 Essential (primary) hypertension; L89.152 Pressure ulcer of sacral region, stage 2; E11.51 Type 2 diabetes mellitus with diabetic peripheral angiopathy without gangrene; L97.514 Non-pressure chronic ulcer of other part of right foot with necrosis of bone; D63.8 Anemia in other chronic diseases classified elsewhere; R53.1 Weakness; L89.610 Pressure ulcer of right heel, unstageable; K59.00 Constipation, unspecified; I48.91 Unspecified atrial fibrillation; E11.649 Type 2 diabetes mellitus with hypoglycemia without coma; D50.9 Iron deficiency anemia, unspecified; R07.89 Other chest pain; E11.42 Type 2 diabetes mellitus with diabetic polyneuropathy; Z79.899 Other long term (current) drug therapy; Z85.038 Personal history of other malignant neoplasm of large intestine; Z85.05 Personal history of malignant neoplasm of liver; Z85.118 Personal history of other malignant neoplasm of bronchus and lung; Z79.02 Long term (current) use of antithrombotics/antiplatelets; Z90.49 Acquired absence of other specified parts of digestive tract; Z90.89 Acquired absence of other organs; Z92.21 Personal history of antineoplastic chemotherapy
CPT/HCPCS: 36415; 36416; 71045; 71275; 74177; 80048; 80053; 80202; 81001; 82330; 82435; 82607; 82746; 82803; 83540; 83550; 83605; 83735; 84132; 84295; 84484; 85014; 85025; 85379; 85610; 85652; 85730; 86140; 87040; 87077; 87086; 94640; 97602; J0692; J1815; J2543; J3370; J3490; J7050; J7620; Q0162; Q9967; U0003; U0005

== ENCOUNTER 2021-09-18 10:07 | Inpatient (IN) | payer MEDICARE ==
[2021-09-18 16:34] VITALS: BMI 22.1
[2021-09-18] MEDS ORDERED: HYDROcodone/Acetaminophen 10/325 mg Tablet PO PRN ×2 (19:16→19:34)
[2021-09-18] MEDS ORDERED: Lorazepam 0.5 MG TAB PO PRN (19:16)
[2021-09-18] MEDS ORDERED: Diphenoxylate HCl/Atropine Tablet PO PRN (19:16)
[2021-09-18] MEDS ORDERED: Ondansetron ODT 4 MG TAB PO PRN (19:16)
[2021-09-18] MEDS ORDERED: Benzonatate 100 MG CAP PO PRN (19:30)
[2021-09-18] MEDS ORDERED: Bisacodyl 5 MG TAB PO PRN (19:30)
[2021-09-18] MEDS ORDERED: Bisacodyl 10 MG SUPP PR PRN (19:30)
[2021-09-18] MEDS ORDERED: Acetaminophen 650 MG Suppository PR PRN (19:30)
[2021-09-18] MEDS ORDERED: Senokot S 8.6-50 MG TAB PO PRN (19:30)
[2021-09-18] MEDS ORDERED: Artificial Tear Sol 15 ML BOT EA EYE PRN (19:30)
[2021-09-18] MEDS ORDERED: Calcium Carbonate 500 MG ChewTAB PO PRN (19:30)
[2021-09-18] MEDS ORDERED: Acetaminophen 325 MG TAB PO PRN (19:30)
[2021-09-18] MEDS ORDERED: Sodium Chloride 0.65% Nasal 44 ML BOT EA NARE PRN (19:30)
[2021-09-18] MEDS ORDERED: Prochlorperazine Maleate 5 MG TAB PO PRN (19:34)
[2021-09-18] MEDS ORDERED: traZODone HCl 50 MG TAB PO PRN (19:38)
[2021-09-18] MEDS ORDERED: Albuterol Sulfate 2.5 mg/3 ml Neb NEB PRN (19:39)
[2021-09-18] MEDS ORDERED: Dextrose 50% Abboject 50 ML SYRINGE SLOW IVP PRN (20:07)
[2021-09-18] MEDS ORDERED: Morphine 4 MG/ML VIAL SLOW IVP PRN (20:08)
[2021-09-18] MEDS ORDERED: Vancomycin HCl 750 MG in Sodium Chloride 0.9% 250 ML 250 ML IVPB SCH ×2 (21:00→22:00)
[2021-09-18] MEDS: Gabapentin 300 MG CAP PO SCH (21:22)
[2021-09-18] MEDS: Flecainide 50 MG TAB PO SCH (21:22)
[2021-09-18] MEDS: Vancomycin HCl 750 MG in Sodium Chloride 0.9% 250 ML 250 ML IVPB SCH (21:23)
[2021-09-18] MEDS: Lantus 1000 UNITS/10 ML VIAL SC SCH (21:46)
[2021-09-18] MEDS ORDERED: Vancomycin 1.5 GRAM/300 ML BAG IVPB SCH (22:00)
[2021-09-18] MEDS: AA 4.25 %/CALCIUM/LYTES/D5W 2,000 ML IV SCH (22:50)
[2021-09-19] MEDS ORDERED: Sodium Chloride 0.9% 20 ML ONE ×3 (00:47→19:38)
[2021-09-19] MEDS: Morphine 4 MG/ML VIAL SLOW IVP PRN ×5 (00:54→23:50)
[2021-09-19] MEDS: HumaLOG 300 UNITS/3 ML VIAL SC PRN ×2 (06:12→21:31)
[2021-09-19 06:17] LABS: #Eosinphils 0.1 thou/uL (0.0-0.7); #Lymphocytes 0.4 thou/uL (1.20-3.40); #Monocytes 1.6 thou/uL (0.11-0.59); #Neutrophils 9.8 thou/uL (1.40-6.50); %Basophils 0.2 % (0.0-1.0); %Eosinophils 0.4 % (0.0-10.0); %Lymphocytes 3.6 % (21.0-51.0); %Monocytes 13.4 % (0.0-10.0); %Neutrophils 82.3 % (42.0-75.0); Hemoglobin 9.8 g/dL (14.0-18.0); Mean Corpuscular HGB CONC 32.3 g/dL (32.0-36.0); Mean Corpuscular Volume 89.9 fL (78.0-98.0); Mean Platelet Volume 7.6 fL (7.4-10.4); Platelet Count 211 thou/uL (130-400); RBC Distribution Width 14.8 % (11.5-14.5); Red Blood Cell (RBC) Count 3.37 mill/uL (4.70-6.10); White Blood Cell (WBC) Count 11.9 thou/uL (4.8-10.8)
[2021-09-19 06:30] LABS: Anion Gap 14 mmol/L (10-20); BUN (Urea Nitrogen) 51 mg/dL (8.4-25.7); Carbon Dioxide 22 mmol/L (23-31); Chloride 102 mmol/L (98-107); Potassium 3.7 mmol/L (3.5-5.1); Sodium 134 mmol/L (136-145)
[2021-09-19 06:31] LABS: Calc. Creatinine Clearance 61 mL/min (70-130); Calcium 9.1 mg/dL (7.8-10.44); Estimated GFR 74; Glucose 266 mg/dL (83-110)
[2021-09-19] MEDS ORDERED: Amino Acids 4.25 %/Dextrose 5% 2,000 ML BAG IV SCH (09:00)
[2021-09-19] MEDS: Lantus 1000 UNITS/10 ML VIAL SC SCH ×2 (09:55→21:31)
[2021-09-19] MEDS ORDERED: Lantus 1000 UNITS/10 ML VIAL SC SCH (12:30)
[2021-09-19] MEDS: Gabapentin 300 MG CAP PO SCH ×4 (14:07→22:12)
[2021-09-19] MEDS: Clopidogrel Bisulfate 75 MG TAB PO SCH (14:07)
[2021-09-19] MEDS: Flecainide 50 MG TAB PO SCH ×2 (14:07→22:12)
[2021-09-19] MEDS: Amlodipine 5 MG TAB PO SCH (14:07)
[2021-09-19] MEDS: Rivaroxaban 10 MG TAB PO SCH (17:01)
[2021-09-19] MEDS: AA 4.25 %/CALCIUM/LYTES/D5W 2,000 ML IV SCH (20:00)
[2021-09-19] MEDS: Vancomycin HCl 750 MG in Sodium Chloride 0.9% 250 ML 250 ML IVPB SCH (21:32)
[2021-09-19] MEDS ORDERED: Vancomycin HCl 750 MG in Sodium Chloride 0.9% 250 ML 250 ML IVPB SCH (22:00)
[2021-09-20] MEDS: HumaLOG 300 UNITS/3 ML VIAL SC PRN ×3 (06:28→17:47)
[2021-09-20] MEDS: Lantus 1000 UNITS/10 ML VIAL SC SCH ×2 (07:47→20:54)
[2021-09-20] MEDS: Morphine 4 MG/ML VIAL SLOW IVP PRN ×3 (07:48→23:09)
[2021-09-20] MEDS: Clopidogrel Bisulfate 75 MG TAB PO SCH (07:58)
[2021-09-20] MEDS: Flecainide 50 MG TAB PO SCH ×2 (07:58→20:54)
[2021-09-20] MEDS: Amlodipine 5 MG TAB PO SCH (07:58)
[2021-09-20] MEDS: Gabapentin 300 MG CAP PO SCH ×3 (07:59→20:54)
[2021-09-20] MEDS: Rivaroxaban 10 MG TAB PO SCH (17:43)
[2021-09-20] MEDS: AA 4.25 %/CALCIUM/LYTES/D5W 2,000 ML IV SCH (19:05)
[2021-09-20] MEDS ORDERED: Sodium Chloride 0.9% 20 ML ONE ×2 (19:21→23:07)
[2021-09-20] MEDS: Vancomycin HCl 750 MG in Sodium Chloride 0.9% 250 ML 250 ML IVPB SCH (20:54)
[2021-09-21] MEDS ORDERED: Sodium Chloride 0.9% 20 ML ONE (04:37)
[2021-09-21] MEDS: Morphine 4 MG/ML VIAL SLOW IVP PRN ×2 (04:40→18:09)
[2021-09-21] MEDS: HumaLOG 300 UNITS/3 ML VIAL SC PRN ×3 (05:37→17:56)
[2021-09-21] MEDS: Gabapentin 300 MG CAP PO SCH ×4 (08:47→20:48)
[2021-09-21] MEDS: Lantus 1000 UNITS/10 ML VIAL SC SCH ×2 (08:48→21:54)
[2021-09-21] MEDS: Amlodipine 5 MG TAB PO SCH (09:14)
[2021-09-21] MEDS: Clopidogrel Bisulfate 75 MG TAB PO SCH (09:14)
[2021-09-21] MEDS: Flecainide 50 MG TAB PO SCH ×2 (09:15→20:48)
[2021-09-21] MEDS: AA 4.25 %/CALCIUM/LYTES/D5W 2,000 ML IV SCH (15:45)
[2021-09-21] MEDS: Rivaroxaban 10 MG TAB PO SCH (16:36)
[2021-09-21 20:24] LABS: Vancomycin, Trough 13.3 ug/mL
[2021-09-21] MEDS: Vancomycin HCl 1 GM in Sodium Chloride 0.9% 250 ML 250 ML IVPB SCH (21:53)
[2021-09-22] MEDS: HumaLOG 300 UNITS/3 ML VIAL SC PRN ×3 (01:14→12:35)
[2021-09-22] MEDS: Morphine 4 MG/ML VIAL SLOW IVP PRN ×4 (02:24→21:25)
[2021-09-22] MEDS: Gabapentin 300 MG CAP PO SCH ×3 (08:13→20:59)
[2021-09-22] MEDS: Amlodipine 5 MG TAB PO SCH (08:13)
[2021-09-22] MEDS: Flecainide 50 MG TAB PO SCH ×2 (08:13→20:59)
[2021-09-22] MEDS: Clopidogrel Bisulfate 75 MG TAB PO SCH (08:13)
[2021-09-22] MEDS: Lantus 1000 UNITS/10 ML VIAL SC SCH ×2 (08:17→21:00)
[2021-09-22] MEDS: AA 4.25 %/CALCIUM/LYTES/D5W 2,000 ML IV SCH (12:30)
[2021-09-22] MEDS: Rivaroxaban 10 MG TAB PO SCH (17:35)
[2021-09-22] MEDS ORDERED: Sodium Chloride 0.9% 20 ML ONE (20:43)
[2021-09-22] MEDS: Vancomycin HCl 1 GM in Sodium Chloride 0.9% 250 ML 250 ML IVPB SCH (21:01)
[2021-09-22] MEDS ORDERED: Dextrose 50% Abboject 50 ML SYRINGE SLOW IVP SCH (23:45)
[2021-09-23] MEDS: Morphine 4 MG/ML VIAL SLOW IVP PRN ×3 (05:45→15:46)
[2021-09-23] MEDS ORDERED: Sodium Chloride 0.9% 20 ML ONE (05:45)
[2021-09-23 07:43] VITALS: BP 119/81; TEMP 98.2
[2021-09-23] MEDS: Amlodipine 5 MG TAB PO SCH (08:23)
[2021-09-23] MEDS: Clopidogrel Bisulfate 75 MG TAB PO SCH (08:23)
[2021-09-23] MEDS: Flecainide 50 MG TAB PO SCH (08:24)
[2021-09-23] MEDS: Lantus 1000 UNITS/10 ML VIAL SC SCH (08:24)
[2021-09-23] MEDS: Gabapentin 300 MG CAP PO SCH ×2 (08:24→15:19)
[2021-09-23] MEDS ORDERED: Scopolamine 1.5 mg/72 hour Patch TD SCH (13:00)
[2021-09-23] MEDS: Morphine 10 MG/0.5 ML ORAL SYRINGE SL SCH ×2 (15:17→15:53)
== END 2021-09-23 16:40 | disposition hospice, inpatient (51) | DRG 375 ==
LOC: NAV ACUTE 12:50
PROVIDERS: ADMIT Family Medicine; ATTEND Family Medicine
DX: C18.9 Malignant neoplasm of colon, unspecified (principal); C78.01 Secondary malignant neoplasm of right lung; C78.02 Secondary malignant neoplasm of left lung; C78.7 Secondary malignant neoplasm of liver and intrahepatic bile duct; J96.11 Chronic respiratory failure with hypoxia; I48.19 Other persistent atrial fibrillation; L97.414 Non-pressure chronic ulcer of right heel and midfoot with necrosis of bone; M86.271 Subacute osteomyelitis, right ankle and foot; R53.1 Weakness; Z51.5 Encounter for palliative care; Z66 Do not resuscitate; L89.152 Pressure ulcer of sacral region, stage 2; E86.0 Dehydration; E11.621 Type 2 diabetes mellitus with foot ulcer; L97.521 Non-pressure chronic ulcer of other part of left foot limited to breakdown of skin; D63.8 Anemia in other chronic diseases classified elsewhere; R63.0 Anorexia; N31.9 Neuromuscular dysfunction of bladder, unspecified; E11.69 Type 2 diabetes mellitus with other specified complication; R13.10 Dysphagia, unspecified; E11.51 Type 2 diabetes mellitus with diabetic peripheral angiopathy without gangrene; I48.91 Unspecified atrial fibrillation; E11.42 Type 2 diabetes mellitus with diabetic polyneuropathy; Z87.01 Personal history of pneumonia (recurrent); Z79.899 Other long term (current) drug therapy; Z79.02 Long term (current) use of antithrombotics/antiplatelets; Z79.4 Long term (current) use of insulin; Z90.49 Acquired absence of other specified parts of digestive tract; Z90.89 Acquired absence of other organs; Z68.21 Body mass index [BMI] 21.0-21.9, adult
CPT/HCPCS: 36416; 80048; 80202; 85025; 36415-59; J1815; J2270; J3370; J7050; J7999

== ENCOUNTER 2021-09-23 17:01 | Inpatient (IN) | payer OTHER ==
[2021-09-23 17:05] VITALS: BMI 22.1
[2021-09-23] MEDS ORDERED: Bisacodyl 10 MG SUPP PR PRN (17:40)
[2021-09-23] MEDS ORDERED: Morphine 4 MG/ML VIAL SLOW IVP PRN (17:41)
[2021-09-23] MEDS ORDERED: Acetaminophen 650 MG Suppository PR PRN (17:43)
[2021-09-23] MEDS ORDERED: Scopolamine 1.5 mg/72 hour Patch TOP PRN ×2 (17:44)
[2021-09-23] MEDS ORDERED: Ondansetron PF 4 MG/2 ML Vial IVP PRN (17:45)
[2021-09-23] MEDS ORDERED: Hyoscyamine Sulfate SL 0.125 mg Tablet SL PRN (17:45)
[2021-09-23] MEDS ORDERED: Haloperidol Lactate 5 MG/ML VIAL SLOW IVP PRN (17:46)
[2021-09-23] MEDS ORDERED: Lorazepam 2 MG/ML VIAL SLOW IVP PRN ×2 (17:47)
[2021-09-23] MEDS ORDERED: Senokot S 8.6-50 MG TAB PO PRN (17:51)
[2021-09-23] MEDS ORDERED: Morphine 4 MG/ML VIAL SLOW IVP SCH (21:00)
== END 2021-09-23 20:43 | disposition expired | DRG 951 ==
LOC: NAV ACUTE 17:01
PROVIDERS: ADMIT Family Medicine; ATTEND Family Medicine
DX: Z51.5 Encounter for palliative care (principal); C18.9 Malignant neoplasm of colon, unspecified; C78.7 Secondary malignant neoplasm of liver and intrahepatic bile duct; C78.01 Secondary malignant neoplasm of right lung; J96.11 Chronic respiratory failure with hypoxia; M86.8X7 Other osteomyelitis, ankle and foot; I48.91 Unspecified atrial fibrillation; E11.40 Type 2 diabetes mellitus with diabetic neuropathy, unspecified; L89.152 Pressure ulcer of sacral region, stage 2; E86.0 Dehydration; E11.621 Type 2 diabetes mellitus with foot ulcer; L97.521 Non-pressure chronic ulcer of other part of left foot limited to breakdown of skin; D63.8 Anemia in other chronic diseases classified elsewhere; I10 Essential (primary) hypertension; E11.69 Type 2 diabetes mellitus with other specified complication; E11.51 Type 2 diabetes mellitus with diabetic peripheral angiopathy without gangrene; L89.151 Pressure ulcer of sacral region, stage 1; Z66 Do not resuscitate; Z79.899 Other long term (current) drug therapy; Z79.4 Long term (current) use of insulin; Z90.49 Acquired absence of other specified parts of digestive tract